=== PATIENT | female | born 1935 | race African-American/Black ===

== ENCOUNTER 2016-10-20 14:27 | Emergency (ER) | payer MEDICARE, MEDICAID ==
--- NOTE | 2016-10-20 17:33 | ER Document Report ---
ED Hand/Wrist Injury - General Chief Complaint: Wrist Pain Stated Complaint: ARM/HAND PAIN Mode of Arrival: Ambulatory Information source: Patient, Relative TRAVEL OUTSIDE OF THE [place] IN LAST 30 DAYS: No - HPI Injury to: Wrist Onset: Other - No injury states she has a bump to her right wrist medially for 3 weeks. - Related Data Allergies/Adverse Reactions: Penicillins Allergy (Verified 10/20/16 14:53) Sulfa (Sulfonamide Antibiotics) Allergy (Verified 10/20/16 14:53) Past Medical History - General Last Menstrual Period: n/a - Social History Smoking Status: Current Every Day Smoker Cigarette use (# per day): Yes Chew tobacco use (# tins/day): No Frequency of alcohol use: None Drug Abuse: None Family History: Reviewed & Not Pertinent Patient has suicidal ideation: No Patient has homicidal ideation: No - Past Medical History Cardiac Medical History: Reports: Hx Atrial Fibrillation, Hx Congestive Heart Failure, Hx Heart Attack, Hx Hypercholesterolemia, Hx Hypertension Pulmonary Medical History: Reports: Hx Asthma, Hx Bronchitis, Hx COPD, Hx Pneumonia - X6 Denies: Hx Tuberculosis Neurological Medical History: Reports: Hx Cerebrovascular Accident, Hx Seizures Endocrine Medical History: Reports: Hx Diabetes Mellitus Type 2, Hx Hypothyroidism GI Medical History: Reports: Hx Gastroesophageal Reflux Disease, Hx Ulcer Musculoskeltal Medical History: Reports Hx Arthritis Psychiatric Medical History: Reports: Hx Dementia, Hx Depression Past Surgical History: Reports: Hx Appendectomy, Hx Bowel Surgery, Hx Cardiac Catheterization. Denies: Hx Hysterectomy - Immunizations Immunizations up to date: Yes Hx Diphtheria, Pertussis, Tetanus Vaccination: Yes Hx Pneumococcal Vaccination: 10/18/08 Review of Systems - Review of Systems Constitutional: No symptoms reported EENT: No symptoms reported Cardiovascular: No symptoms reported Respiratory: No symptoms reported Gastrointestinal: No symptoms reported Genitourinary: No symptoms reported Female Genitourinary: No symptoms reported Musculoskeletal: Other - Right wrist pain Skin: No symptoms reported Hematologic/Lymphatic: No symptoms reported Neurological/Psychological: No symptoms reported Physical Exam - Vital signs Vitals: Temp Pulse Resp BP Pulse Ox 98.3 F 61 18 99/44 L 95 10/20/16 14:47 10/20/16 14:47 10/20/16 14:47 10/20/16 14:47 10/20/16 14:47 Interpretation: Normal - General General appearance: Appears well, Alert - HEENT Head: Normocephalic, Atraumatic Eyes: Normal Pupils: PERRL - Respiratory Respiratory status: No respiratory distress Chest status: Nontender Breath sounds: Normal Chest palpation: Normal - Cardiovascular Rhythm: Regular Heart sounds: Normal auscultation Murmur: No - Abdominal Inspection: Normal Distension: No distension Bowel sounds: Normal Tenderness: Nontender Organomegaly: No organomegaly - Back Back: Normal, Nontender - Extremities General upper extremity: Normal inspection, Nontender, Normal color, Normal ROM , Normal temperature General lower extremity: Normal inspection, Nontender, Normal color, Normal ROM , Normal temperature, Normal weight bearing. No: Tejas's sign Wrist: Tender. No: Axial load of thumb pain, Dislocation, Ecchymosis, Instability - Neurological Neuro grossly intact: Yes Cognition: Normal Orientation: AAOx4 Torsten Coma Scale Eye Opening: Spontaneous Torsten Coma Scale Verbal: Oriented Torsten Coma Scale Motor: Obeys Commands Torsten Coma Scale Total: 15 Speech: Normal Motor strength normal: LUE, RUE, LLE, RLE Sensory: Normal - Psychological Associated symptoms: Normal affect, Normal mood - Skin Skin Temperature: Warm Skin Moisture: Dry Skin Color: Normal Course - Vital Signs Vital signs: Temp Pulse Resp BP Pulse Ox 98.3 F 61 18 99/44 L 95 10/20/16 14:47 10/20/16 14:47 10/20/16 14:47 10/20/16 14:47 10/20/16 14:47 - Diagnostic Test Radiology reviewed: Reports reviewed Discharge - Discharge Clinical Impression: Right wrist pain Disposition: HOME, SELF-CARE Additional Instructions: Follow-up with private doctor in 1 to 2 days for final radiology readings please return to the emergency room for any change worsening condition. Follow up with private M.D. for all other routine health care needs. Prescriptions: Naproxen Sodium [Naproxen Sodium ER] 500 mg PO Q12 PRN #20 tablet.sa PRN Reason:
[2016-10-20 18:20] VITALS: BP 127/51
== END 2016-10-20 17:58 | disposition home or self-care (01) ==
LOC: ER 14:27
DX: M25.531 Pain in right wrist (principal); I25.2 Old myocardial infarction; I10 Essential (primary) hypertension; J45.909 Unspecified asthma, uncomplicated; J44.9 Chronic obstructive pulmonary disease, unspecified; E11.9 Type 2 diabetes mellitus without complications; F17.210 Nicotine dependence, cigarettes, uncomplicated; Z88.2 Allergy status to sulfonamides; Z88.0 Allergy status to penicillin; Z86.73 Personal history of transient ischemic attack (TIA), and cerebral infarction without residual deficits
CPT/HCPCS: 99283

== ENCOUNTER 2016-11-22 08:24 | Emergency (ER) | payer MEDICARE, MEDICAID ==
[2016-11-22] MEDS ORDERED: LORAZEPAM INJ 2 MG/1 ML VIAL ONE (08:40)
[2016-11-22 08:46] LABS: ABSOLUTE BASOPHILS # (AUTO) 0.1 10^3/uL (0.0-0.2); ABSOLUTE EOSINOPHILS # (AUTO) 0.1 10^3/uL (0.0-0.6); ABSOLUTE LYMPHOCYTES (AUTO) 2.6 10^3/uL (0.5-4.7); ABSOLUTE MONOCYTES (AUTO) 0.6 10^3/uL (0.1-1.4); ABSOLUTE NEUT (AUTO) 3.7 10^3/uL (1.7-8.2); BASOPHILS % (AUTO) 0.9 % (0-2); EOSINOPHILS % (AUTO) 1.3 % (0-6); HEMATOCRIT 28.7 % (36.0-47.0); HEMOGLOBIN 9.2 g/dL (12.0-15.5); HGB HCT DIFFERENCE -1.1; LYMPHOCYTES % (AUTO) 36.8 % (13-45); MEAN CORPUSCULAR HEMOGLOBIN 29.2 pg (27.0-33.4); MEAN CORPUSCULAR VOLUME 91 fl (80-97); RED BLOOD COUNT 3.15 10^6/uL (3.72-5.28); RED CELL DISTRIBUTION WIDTH 12.7 % (11.5-14.0); WHITE BLOOD COUNT 7.1 10^3/uL (4.0-10.5)
[2016-11-22] MEDS ORDERED: PHENYTOIN SODIUM INJ/PF 250 MG/5 ML SDV IV ONE (08:49)
[2016-11-22 09:09] LABS: ALANINE AMINOTRANSFERASE 18 U/L (9-52); ALBUMIN 3.3 g/dL (3.5-5.0); ALKALINE PHOSPHATASE 67 U/L (38-126); ANION GAP 12 (5-19); ASPARTATE AMINO TRANSFERASE 20 U/L (14-36); BILIRUBIN,TOTAL 0.3 mg/dL (0.2-1.3); BLOOD UREA NITROGEN 25 mg/dL (7-20); CARBON DIOXIDE 20 mmol/L (22-30); CHLORIDE 111 mmol/L (98-107); CREATININE RESULT 1.17 mg/dL (0.52-1.25); GLUCOSE 89 mg/dL (75-110); MAGNESIUM 1.9 mg/dL (1.6-2.3); POTASSIUM 4.3 mmol/L (3.6-5.0); SODIUM 143.4 mmol/L (137-145); TOTAL PROTEIN 6.9 g/dL (6.3-8.2)
--- NOTE | 2016-11-22 09:13 | ER Document Report ---
ED Seizure - General Chief Complaint: Seizure Stated Complaint: POSSIBLE SEIZURE Mode of Arrival: Medic Information source: Emergency Med Personnel, [facility] Records Cannot obtain history due to: Altered mental status Notes: This is a 81-year-old female with multiple medical problems including seizure disorder who is brought from home after family called EMS for seizure. Per EMS , family reported 120 to 32nd seizure at home, and this was followed by 2 brief witnessed seizures by EMS each lasting under a minute. The seizures are characterized by facial twitching and upper extremity shaking. The patient has a prior history of seizure disorder and is on Keppra. Further history is not available upon arrival to the ER as patient is post ictal and family is not available. It is unclear if patient has been compliant with her Keppra. In the ER initially patient was observed to have 2 brief seizure-like episodes. Ativan 2 mg IV was given. Also I have ordered a loading dose of IV phenytoin. As well as a Keppra level to be sent. Patient received 2 mg of IV Versed prior to arrival by EMS. - Related Data Allergies/Adverse Reactions: Penicillins Allergy (Verified 10/20/16 14:53) Sulfa (Sulfonamide Antibiotics) Allergy (Verified 10/20/16 14:53) Past Medical History - General Information source: Emergency Med Personnel, [facility] Records Cannot obtain history due to: Altered mental status - Social History Smoking Status: Unknown if Ever Smoked Family History: Reviewed & Not Pertinent - Past Medical History Cardiac Medical History: Reports: Hx Atrial Fibrillation, Hx Congestive Heart Failure, Hx Heart Attack, Hx Hypercholesterolemia, Hx Hypertension Pulmonary Medical History: Reports: Hx Asthma, Hx Bronchitis, Hx COPD, Hx Pneumonia - X6 Denies: Hx Tuberculosis Neurological Medical History: Reports: Hx Cerebrovascular Accident, Hx Seizures Endocrine Medical History: Reports: Hx Diabetes Mellitus Type 2, Hx Hypothyroidism GI Medical History: Reports: Hx Gastroesophageal Reflux Disease, Hx Ulcer Musculoskeltal Medical History: Reports Hx Arthritis Psychiatric Medical History: Reports: Hx Dementia, Hx Depression Past Surgical History: Reports: Hx Appendectomy, Hx Bowel Surgery, Hx Cardiac Catheterization. Denies: Hx Hysterectomy - Immunizations Immunizations up to date: Yes Hx Diphtheria, Pertussis, Tetanus Vaccination: Yes Hx Pneumococcal Vaccination: 10/18/08 Review of Systems - Review of Systems -: Yes ROS unobtainable due to patient's medical condition Physical Exam - Vital signs Vitals: Resp Pulse Ox 17 97 11/22/16 08:26 11/22/16 08:26 - Notes Notes: PHYSICAL EXAMINATION: GENERAL: Elderly female, appears to be post-ictal HEAD: Atraumatic, normocephalic. EYES: Pupils equal round and reactive to light, sclera anicteric, conjunctiva are normal. ENT: nares patent, oropharynx clear without exudates. Moist mucous membranes. NECK: supple without lymphadenopathy LUNGS: Breath sounds clear to auscultation bilaterally and equal. No wheezes rales or rhonchi. HEART: Regular rate and rhythm without murmurs ABDOMEN: Soft, nontender, normoactive bowel sounds. No guarding, no rebound. No masses appreciated. EXTREMITIES: no edema NEUROLOGICAL: pt with minimal response to sternal rub but appears to be protecting airway at this time SKIN: Warm, Dry, normal turgor, no rashes or lesions noted. Course - Re-evaluation Re-evalutation: 11/22/16 11:14 Patient with no further noted seizures after the phenytoin infusion. However she has not returned to baseline and began to develop snoring respirations. With concern for airway protection, the decision was made to intubate in the emergency department. This was discussed with her , and verbal consent was obtained. Questions were answered. She will be transferred to a facility with neurology and EEG capability. The initially prefers [facility]. 11/22/16 12:36 Care was discussed with spot welder at [facility] (family has decided that they prefer transfer to [place] ) Dr Robertson who accepts patient for transfer. 11/22/16 12:43 Patient has had no acute change prior to transport time. She has been stable on the vent. - Vital Signs Vital signs: Temp Pulse Resp BP Pulse Ox 98.1 F 90 12 171/63 H 100 11/22/16 12:41 11/22/16 08:27 11/22/16 12:35 11/22/16 12:35 11/22/16 12:35 - Laboratory Result Diagrams: 11/22/16 08:31 11/22/16 08:31 Laboratory results interpreted by me: 11/22/16 11/22/16 11/22/16 08:31 08:31 08:40 RBC 3.15 L Hgb 9.2 L Hct 28.7 L Chloride 111 H Carbon Dioxide 20 L BUN 25 H Est GFR ( Amer) 54 L Est GFR (Non-Af Amer) 45 L Albumin 3.3 L Urine Protein 30 H Procedures - Central Line Right Femoral Consent obtained: Yes - verbal consent from Central line pre-insertion: Sterile PPE donned, Chloraprep applied, Sterile drapes applied Central line size (Fr.): 7 Central line lumen type: Triple Ultrasound guided: No Line secured with sutures: Yes Central line post-insertion: Blood return from lumens, Biopatch applied, Sutured , Sterile dressing applied Number of attempts: 2 - arterial puncture 1st attempt Complications: No - pressure held, no hematoma - Intubation Orotracheal Airway evaluation: Normal anatomy, Other Mallampati Classification: Class 3 Medications: Etomidate, Other - rocuronium Intubation method: Orotracheal Blade type: Jeanmarie Blade size: 4 ETT size: 7.5 Breath Sounds after Intubation: Equal End tidal CO2 confirmed: Yes Post Intubation Xray: Yes Intubation Complications: No complications Critical Care Note - Critical Care Note Total time excluding time spent on procedures (mins): 45 Comments: Critical care time spent obtaining history from patient or surrogate, discussions with consultants, development of treatment plan with patient or surrogate, evaluation of patient's response to treatment, examination of patient , ordering and performing treatments and interventions, ordering and review of laboratory studies, re-evaluation of patient's condition, ordering and review of radiographic studies and review of old charts Discharge - Discharge Clinical Impression: Status epilepticus Anemia Qualifiers: Anemia type: unspecified type Qualified Code(s): D64.9 - Anemia, unspecified Condition: Critical Disposition: [facility]
[2016-11-22 09:18] LABS: APPEARANCE,URINE SLIGHTLY-CLOUDY; BILIRUBIN,URINE NEGATIVE (NEGATIVE); GLUCOSE, URINE NEGATIVE (NEGATIVE); KETONES,URINE NEGATIVE (NEGATIVE); LEUKOCYTE ESTERASE,URINE NEGATIVE (NEGATIVE); NITRITE,URINE NEGATIVE (NEGATIVE); PROTEIN,URINE 30 mg/dL (NEGATIVE); URINE SPECIFIC GRAVITY 1.005; UROBILINOGEN,URINE NEGATIVE mg/dL (<2.0)
[2016-11-22 09:19] LABS: ALCOHOL < 10 mg/dL (NONE DETECTED)
[2016-11-22 09:41] LABS: URINE BARBITURATES SCREEN NEGATIVE; URINE METHADONE SCREEN NEGATIVE; URINE OPIATES LOW NEGATIVE; URINE PHENCYCLIDINE SCREEN NEGATIVE
[2016-11-22] MEDS ORDERED: EPTIFIBATIDE 75 MG/100 ML IV ONE (10:14)
[2016-11-22] MEDS ORDERED: ETOMIDATE INJ/PF 20 MG/10 ML SDV IV ONE ×2 (10:14→11:20)
[2016-11-22] MEDS ORDERED: PROPOFOL 100 ML IV ONE (10:17)
[2016-11-22] MEDS: PROPOFOL 100 ML IV PRN ×2 (11:14→13:00)
[2016-11-22] MEDS ORDERED: LORAZEPAM INJ 2 MG/1 ML VIAL IV ONE (11:19)
[2016-11-22] MEDS ORDERED: ROCURONIUM BROMIDE INJ 50 MG/5 ML VIAL IV ONE (11:20)
[2016-11-22 12:41] VITALS: BP 171/63
--- NOTE | 2016-11-23 08:14 | EKG REPORT ---
SEVERITY:- ABNORMAL ECG - SINUS RHYTHM FIRST DEGREE AV BLOCK PROBABLE POSTERIOR INFARCT NONSPECIFIC T ABNORMALITIES, LATERAL LEADS : Confirmed by: Dexter Camarillo MD 23-Nov-2016 08:13:22
== END 2016-11-22 13:01 | disposition short-term general hospital (02) ==
LOC: ER 08:24
PROC: 06HM33Z Insertion of Infusion Device into Right Femoral Vein, Percutaneous Approach (ICD-10-PCS; principal; 2016-11-22)
PROC: 0BH17EZ Insertion of Endotracheal Airway into Trachea, Via Natural or Artificial Opening (ICD-10-PCS; 2016-11-22)
DX: G40.901 Epilepsy, unspecified, not intractable, with status epilepticus (principal); D64.9 Anemia, unspecified; I48.91 Unspecified atrial fibrillation; I50.9 Heart failure, unspecified; I11.0 Hypertensive heart disease with heart failure; E78.00 Pure hypercholesterolemia, unspecified; E11.9 Type 2 diabetes mellitus without complications; E03.9 Hypothyroidism, unspecified; K21.9 Gastro-esophageal reflux disease without esophagitis; Z88.0 Allergy status to penicillin; Z88.2 Allergy status to sulfonamides; Z86.73 Personal history of transient ischemic attack (TIA), and cerebral infarction without residual deficits
CPT/HCPCS: 36556; 31500; 93005; 99291; 51701; 96375; 96365; 36415; 80177; 82962; 80307 ×2; 83735; 85025; 80053; 81001; 71010; 70450; 93010; C1751; J3490; J2704; J2060; J1165

== ENCOUNTER 2016-12-06 18:28 | Emergency (ER) | payer MEDICARE, MEDICAID ==
[2016-12-06] MEDS ORDERED: MIDAZOLAM 2 MG/2 ML INJ ONE (18:59)
[2016-12-06] MEDS ORDERED: LORAZEPAM INJ 2 MG/1 ML VIAL IM ONE (19:53)
[2016-12-06] MEDS ORDERED: HALOPERIDOL LACTATE INJ 5 MG/1 ML VIAL IM ONE (19:53)
[2016-12-06 21:03] LABS: ABSOLUTE BASOPHILS # (AUTO) 0.1 10^3/uL (0.0-0.2); ABSOLUTE LYMPHOCYTES (AUTO) 1.6 10^3/uL (0.5-4.7); ABSOLUTE MONOCYTES (AUTO) 0.6 10^3/uL (0.1-1.4); ABSOLUTE NEUT (AUTO) 8.5 10^3/uL (1.7-8.2); BASOPHILS % (AUTO) 0.6 % (0-2); EOSINOPHILS % (AUTO) 0.4 % (0-6); HEMOGLOBIN 8.7 g/dL (12.0-15.5); HGB HCT DIFFERENCE -0.9; LYMPHOCYTES % (AUTO) 14.5 % (13-45); MEAN CORPUSCULAR HEMOGLOBIN 29.5 pg (27.0-33.4); MEAN CORPUSCULAR HGB CONC 32.1 g/dL (32.0-36.0); MEAN CORPUSCULAR VOLUME 92 fl (80-97); MONOCYTES % (AUTO) 5.4 % (3-13); RED BLOOD COUNT 2.94 10^6/uL (3.72-5.28); RED CELL DISTRIBUTION WIDTH 13.3 % (11.5-14.0); SEGMENTED NEUTROPHILS % (AUTO) 79.1 % (42-78); WHITE BLOOD COUNT 10.8 10^3/uL (4.0-10.5)
[2016-12-06 21:11] LABS: PROTHROMBIN TIME 13.7 SEC (11.4-15.4)
[2016-12-06 21:24] LABS: ALANINE AMINOTRANSFERASE 24 U/L (9-52); ALBUMIN 4.2 g/dL (3.5-5.0); ALKALINE PHOSPHATASE 100 U/L (38-126); ANION GAP 10 (5-19); ASPARTATE AMINO TRANSFERASE 28 U/L (14-36); BILIRUBIN,TOTAL 0.4 mg/dL (0.2-1.3); BLOOD UREA NITROGEN 24 mg/dL (7-20); CALCIUM 9.2 mg/dL (8.4-10.2); CARBON DIOXIDE 24 mmol/L (22-30); CHLORIDE 110 mmol/L (98-107); CREATININE RESULT 1.16 mg/dL (0.52-1.25); GLUCOSE 120 mg/dL (75-110); POTASSIUM 4.4 mmol/L (3.6-5.0); SODIUM 143.8 mmol/L (137-145); TOTAL PROTEIN 7.8 g/dL (6.3-8.2)
[2016-12-06 21:25] LABS: ALCOHOL < 10 mg/dL (NONE DETECTED)
[2016-12-06 21:40] LABS: APPEARANCE,URINE SLIGHTLY-CLOUDY; BILIRUBIN,URINE NEGATIVE (NEGATIVE); GLUCOSE, URINE NEGATIVE (NEGATIVE); KETONES,URINE NEGATIVE (NEGATIVE); LEUKOCYTE ESTERASE,URINE NEGATIVE (NEGATIVE); NITRITE,URINE NEGATIVE (NEGATIVE); PROTEIN,URINE 100 mg/dL (NEGATIVE); URINE SPECIFIC GRAVITY 1.023; UROBILINOGEN,URINE NEGATIVE mg/dL (<2.0)
[2016-12-06 21:42] LABS: URINE BARBITURATES SCREEN NEGATIVE; URINE METHADONE SCREEN NEGATIVE; URINE OPIATES LOW NEGATIVE; URINE PHENCYCLIDINE SCREEN NEGATIVE
--- NOTE | 2016-12-07 00:06 | ER Document Report ---
ED General - General Chief Complaint: Altered Mental Status Stated Complaint: UTI Mode of Arrival: Medic Information source: Relative, Emergency Med Personnel Cannot obtain history due to: Dementia Notes: This is a 81-year-old female with a history of Alzheimer's dementia and seizure disorder who is brought to the ER by EMS for altered mental status. Secondary to dementia and some aggressive behavior, the history is obtained from the . Patient's states that she has had Alzheimer's dementia for several years but that said for the past 4 days her behavior has gotten worse. She has had episodes of agitation and has seemed even more confused than normal. Today she was riding in the car and once he parked the car, he walked around to get her wheelchair but she had already opened the car door and then sat on the curb. She did not fall and she did not hit her head. Once she was sitting on the ground, however, she refused to get up and she became aggressive with anyone who tried to assist her. She was also paranoid stating that people were trying to kill her. For this reason, EMS was called and patient was transported to the ER. Of note, patient was seen here 2 weeks ago for seizures and was intubated secondary to status epilepticus. She was transferred to [facility] and was just discharged home last week. cares for her at home and is very comfortable doing this. TRAVEL OUTSIDE OF THE [place] IN LAST 30 DAYS: No - Related Data Allergies/Adverse Reactions: Penicillins Allergy (Verified 10/20/16 14:53) Sulfa (Sulfonamide Antibiotics) Allergy (Verified 10/20/16 14:53) Past Medical History - General Information source: Relative, [facility] Records - Social History Smoking Status: Unknown if Ever Smoked Family History: Reviewed & Not Pertinent - Past Medical History Cardiac Medical History: Reports: Hx Atrial Fibrillation, Hx Congestive Heart Failure, Hx Heart Attack, Hx Hypercholesterolemia, Hx Hypertension Pulmonary Medical History: Reports: Hx Asthma, Hx Bronchitis, Hx COPD, Hx Pneumonia - X6 Denies: Hx Tuberculosis Neurological Medical History: Reports: Hx Cerebrovascular Accident, Hx Seizures Endocrine Medical History: Reports: Hx Diabetes Mellitus Type 2, Hx Hypothyroidism GI Medical History: Reports: Hx Gastroesophageal Reflux Disease, Hx Ulcer Musculoskeltal Medical History: Reports Hx Arthritis Psychiatric Medical History: Reports: Hx Dementia, Hx Depression Past Surgical History: Reports: Hx Appendectomy, Hx Bowel Surgery, Hx Cardiac Catheterization. Denies: Hx Hysterectomy - Immunizations Immunizations up to date: Yes Hx Diphtheria, Pertussis, Tetanus Vaccination: Yes Hx Pneumococcal Vaccination: 10/18/08 Review of Systems - Review of Systems Notes: Review of systems is not obtainable secondary to patient's dementia and altered mental status. Per her , she has been acting differently for the past 4 days with increased agitation and paranoia. She has baseline dementia and is normally confused however the agitation is new. She has had no recent fevers or chills. She was just discharged from [facility] last week -: Yes ROS unobtainable due to patient's medical condition Physical Exam - Vital signs Vitals: Resp Pulse Ox 22 H 98 12/06/16 18:45 12/06/16 18:45 - Notes Notes: PHYSICAL EXAMINATION: GENERAL: Well-appearing, well-nourished elderly female, pressured speech and hyperreligious, but not combative at this time. HEAD: Atraumatic, normocephalic. EYES: Pupils equal round and reactive to light, extraocular movements intact, sclera anicteric, conjunctiva are normal. ENT: nares patent, oropharynx clear without exudates. Moist mucous membranes. NECK: Normal range of motion, supple without lymphadenopathy LUNGS: Breath sounds clear to auscultation bilaterally and equal. No wheezes rales or rhonchi. HEART: Regular rate and rhythm without murmurs ABDOMEN: Soft, nontender, normoactive bowel sounds. No guarding, no rebound. No masses appreciated. EXTREMITIES: Normal range of motion, no pitting or edema. No cyanosis. NEUROLOGICAL: No gross focal motor or sensory deficits appreciated. Pt moves all 4 symmetrically and follows commands. PSYCH: anxious affect, paranoid and agitatied SKIN: Warm, Dry, normal turgor, no rashes or lesions noted. Course - Re-evaluation Re-evalutation: 12/07/16 00:04 Patient noted to be sleeping and resting comfortably after the Haldol and Ativan. Her head CT and chest x-ray are negative. Her laboratory evaluation demonstrates an anemia which was present on prior visit. states she has not had any GI bleeding. She is guaiac-negative from below. At this time I have not found a medical cause for her delirium. I suspect that this is worsening dementia. I did discuss the case with Dr. Brizuela the hospitalist who states that with no indication for a medical admission, a regimen of respiradol at home may be beneficial. I discussed this with the patient's and he is comfortable caring for her at home. Patient will follow-up with her primary care physician this week. We also discussed strict return precautions. - Vital Signs Vital signs: Temp Pulse Resp BP Pulse Ox 97.4 F 18 172/68 H 98 12/07/16 00:17 12/07/16 02:01 12/07/16 00:01 12/07/16 02:01 - Laboratory Result Diagrams: 12/06/16 20:00 12/06/16 20:00 Laboratory results interpreted by me: 12/06/16 12/06/16 12/06/16 20:00 20:00 20:47 WBC 10.8 H RBC 2.94 L Hgb 8.7 L Hct 27.0 L Plt Count 565 H Seg Neutrophils % 79.1 H Absolute Neutrophils 8.5 H Chloride 110 H BUN 24 H Est GFR ( Amer) 55 L Est GFR (Non-Af Amer) 45 L Glucose 120 H Urine Protein 100 H - Diagnostic Test Radiology reviewed: Reports reviewed - Chest x-ray and head CT negative Discharge - Discharge Clinical Impression: Dementia in Alzheimer's disease with delirium Hypertension Qualifiers: Hypertension type: essential hypertension Qualified Code(s): I10 - Essential ( primary) hypertension Anemia Qualifiers: Anemia type: unspecified type Qualified Code(s): D64.9 - Anemia, unspecified Condition: Stable Disposition: HOME, SELF-CARE Additional Instructions: Dementia The exam shows a decrease in mental ability called dementia. Signs of dementia include a gradual loss of memory and a decreased ability to reason and solve problems. Personality changes, hostility, lack of self-care, and loss of bladder or bowel control are later signs of dementia. In these later stages, patients may become confused, lost, fearful, or agitated, even in familiar places. Alzheimer's disease is the most common type of dementia. It has no known cause or specific treatment. Other causes include alcohol and drug abuse, medication effects (especially tranquilizers and sleeping pills), strokes, head injuries, and brain tumors. Sometimes severe depression in an elderly person is mistaken for dementia, and this can be treated if recognized. A complete medical evaluation and ongoing care with a doctor is important. Most people with dementia need help or supervision with daily living. Some may be able to live independently with occasional help; others require foster care or even correction placement. Alcohol, sedatives, and antihistamines may make the symptoms worse and should be avoided. Alzheimer's disease support groups are available in some communities and can be very valuable to the entire family. Prescription medication can ease the symptoms of Alzheimer's disease in some patients. Please arrange for medical follow-up. Return here if there is a sudden change in mental function, inability to move an arm or leg, inability to speak, fever, or any other significant change. Prescriptions: Risperidone [Risperdal 0.25 Mg Tablet] 0.25 mg PO BID #30 tablet Referrals: HECTOR BAILEY MD [Primary Care Provider] - 12/07/16 11:30 am
[2016-12-07 03:36] VITALS: BP 187/90
== END 2016-12-07 03:25 | disposition home or self-care (01) ==
LOC: ER 18:28
DX: G30.9 Alzheimer's disease, unspecified (principal); F02.81 Dementia in other diseases classified elsewhere, unspecified severity, with behavioral disturbance; F05 Delirium due to known physiological condition; I10 Essential (primary) hypertension; D64.9 Anemia, unspecified; I25.2 Old myocardial infarction; J44.9 Chronic obstructive pulmonary disease, unspecified; J45.909 Unspecified asthma, uncomplicated; Z86.73 Personal history of transient ischemic attack (TIA), and cerebral infarction without residual deficits; Z88.0 Allergy status to penicillin; Z88.2 Allergy status to sulfonamides
CPT/HCPCS: 99285; 96372; 96374; 36415; 80307 ×2; 80185; 85025; 85610; 85730; 82272; 80053; 81001; 84484; 71010; 70450; J2250; J1630; J2060

== ENCOUNTER 2017-06-17 15:48 | Inpatient (IN) | payer MEDICARE, MEDICAID ==
--- NOTE | 2017-06-17 16:14 | RADIOLOGY REPORT (SQ) ---
EXAM DESCRIPTION: CHEST SINGLE VIEW COMPLETED DATE/TIME: 06/17/2017 4:06 pm REASON FOR STUDY: t1 sepsis protocol COMPARISON: 12/06/2016 EXAM PARAMETERS: NUMBER OF VIEWS: One view. TECHNIQUE: Single frontal radiographic view of the chest acquired. RADIATION DOSE: NA LIMITATIONS: None. FINDINGS: LUNGS AND PLEURA: There is chronic elevation of the left hemidiaphragm. There is no pulmo nary infiltrate or effusion or mass. MEDIASTINUM AND HILAR STRUCTURES: No masses. Contour normal. HEART AND VASCULAR STRUCTURES: Heart normal in size. Normal vasculature. BONES: No acute findings. HARDWARE: None in the chest. OTHER: No other significant finding. IMPRESSION: NO ACUTE RADIOGRAPHIC FINDING IN THE CHEST. TECHNICAL DOCUMENTATION: JOB ID: [id number]
--- NOTE | 2017-06-17 16:16 | ER Document Report ---
ED General - General Mode of Arrival: Medic Information source: Emergency Med Personnel TRAVEL OUTSIDE OF THE [place] IN LAST 30 DAYS: No - HPI Onset: Just prior to arrival Similar symptoms previously: No Recently seen / treated by doctor: No <SHANNON BROWER - Last Filed: 06/17/17 16:38> <ARIEL ROBIN - Last Filed: 06/17/17 19:16> - General Chief Complaint: Unresponsive Stated Complaint: WEAKNESS Time Seen by Provider: 06/17/17 16:01 - HPI Notes: Patient is a 82-year-old female presented emergency department with a history of dementia for altered mental status. Patient was at [facility] across the street from the emergency department when she became unresponsive and was hypotensive. Patient was 50 systolic and unresponsive at Nephrology clinic and 80 systolic and unresponsive with EMS upon arrival to ED. Patient was 110/48 during exam and was awake and talking. Patient was given 100 mL of normal saline by EMS. EMS also states they removed a clonidine patch from the patient. Patient is demented so the history is limited. According to [facility] records the patient has a history of atrial fibrillation, CHF , CAD, ND, hypertension, hypercholesterolemia, COPD, CVA, seizures, type 2 diabetes mellitus, and hypothyroidism. Patient is allergic to penicillins and sulfa drugs. (SHANNON BROWER) - Related Data Allergies/Adverse Reactions: Penicillins Allergy (Verified 10/20/16 14:53) Sulfa (Sulfonamide Antibiotics) Allergy (Verified 10/20/16 14:53) Home Medications: Current Home Medications Acetaminophen [Tylenol Extra Strength] 500 mg PO Q4 PRN 06/17/17 [History] Cyclobenzaprine HCl 5 mg PO DAILY PRN 06/17/17 [History] Diltiazem HCl [Cardizem Cd 240 mg Capsule.cr] 1 cap.sr PO BID 06/17/17 [History] Folic Acid 1 mg PO DAILY 06/17/17 [History] Phenytoin Sodium Extended [Dilantin 100 mg Capsule.er] 100 mg PO Q8 06/17/17 [ History] Past Medical History - General Information source: [facility] Records - Social History Smoking Status: Smoker,Current Status Unk Family History: None Patient has suicidal ideation: No Patient has homicidal ideation: No - Past Medical History Cardiac Medical History: Reports: Hx Atrial Fibrillation, Hx Congestive Heart Failure, Hx Coronary Artery Disease, Hx Heart Attack, Hx Hypercholesterolemia, Hx Hypertension Pulmonary Medical History: Reports: Hx Asthma, Hx Bronchitis, Hx COPD, Hx Pneumonia - X6 Neurological Medical History: Reports: Hx Cerebrovascular Accident, Hx Seizures Endocrine Medical History: Reports: Hx Diabetes Mellitus Type 2, Hx Hypothyroidism GI Medical History: Reports: Hx Gastroesophageal Reflux Disease, Hx Ulcer Musculoskeltal Medical History: Reports Hx Arthritis Psychiatric Medical History: Reports: Hx Dementia, Hx Depression Past Surgical History: Reports: Hx Appendectomy, Hx Bowel Surgery, Hx Cardiac Catheterization - Immunizations Immunizations up to date: Yes Hx Diphtheria, Pertussis, Tetanus Vaccination: Yes Hx Pneumococcal Vaccination: 10/18/08 <SHANNON BROWER - Last Filed: 06/17/17 16:38> Review of Systems - Review of Systems -: Yes ROS unobtainable due to patient's medical condition - Hypotension, altered mental status, dementia <SHANNON BROWER - Last Filed: 06/17/17 16:38> Physical Exam - Vital signs Interpretation: Hypotensive <SHANNON BROWER - Last Filed: 06/17/17 16:38> <ARIEL ROBIN - Last Filed: 06/17/17 19:16> - Vital signs Vitals: Resp BP Pulse Ox 15 110/46 L 98 06/17/17 15:52 06/17/17 15:52 06/17/17 15:52 - Notes Notes: GENERAL: Alert, awake and talking, demented, mild distress. HEAD: Normocephalic, atraumatic. EYES: Blind. ENT: Moist mucus membranes, tongue midline. NECK: Full range of motion. Supple. Trachea midline. LUNGS: Clear to auscultation bilaterally, no wheezes, rales, or rhonchi. No respiratory distress. HEART: Regular rate and rhythm. No murmurs, gallops, or rubs. ABDOMEN: Soft, non-tender. Non-distended. Normal bowel sounds. EXTREMITIES:No edema. NEUROLOGICAL: Alert. Normal speech. No focal neurological deficits. PSYCH: Demented. SKIN: Warm, dry, normal turgor. No rashes or lesions noted. (SHANNON BROWER) Course - Laboratory Result Diagrams: 06/17/17 16:35 06/17/17 18:14 - Diagnostic Test Radiology reviewed: Image reviewed, Reports reviewed - Chronically elevated left hemidiaphragm, no acute changes. - EKG Interpretation by Me EKG shows normal: Sinus rhythm, Guffey, Intervals, QRS Complexes. abnormal: ST-T Waves - Diffuse borderline T abnormalities Rate: Normal - 80 Rhythm: NSR When compared to previous EKG there are: No significant change - Consults Dr. Aleman Time consulted: 18:15 <ARIEL ROBIN - Last Filed: 06/17/17 19:16> - Vital Signs Vital signs: Temp Pulse Resp BP Pulse Ox 16 137/59 H 97 06/17/17 19:01 06/17/17 19:01 06/17/17 19:01 - Laboratory Laboratory results interpreted by me: 06/17/17 06/17/17 06/17/17 16:32 16:35 16:35 WBC 12.4 H RBC 3.04 L Hgb 9.1 L Hct 27.9 L Seg Neutrophils % 80.6 H Lymphocytes % 12.8 L Absolute Neutrophils 10.0 H VBG pH VBG HCO3 Sodium 136.4 L Potassium 7.0 H* Chloride 110 H Carbon Dioxide 14 L BUN 41 H Creatinine 1.99 H Est GFR ( Amer) 29 L Est GFR (Non-Af Amer) 24 L Glucose 201 H POC Glucose 210 H Calcium AST 66 H ALT 129 H Alkaline Phosphatase 153 H Albumin 3.4 L 06/17/17 06/17/17 18:14 18:14 WBC RBC Hgb Hct Seg Neutrophils % Lymphocytes % Absolute Neutrophils VBG pH 7.23 L VBG HCO3 18.4 L Sodium Potassium 6.6 H* Chloride 111 H Carbon Dioxide 14 L BUN 40 H Creatinine 1.91 H Est GFR ( Amer) 31 L Est GFR (Non-Af Amer) 25 L Glucose 174 H POC Glucose Calcium 10.6 H AST ALT Alkaline Phosphatase Albumin Critical Care Note - Critical Care Note Total time excluding time spent on procedures (mins): 45 <ARIEL ROBIN - Last Filed: 06/17/17 19:16> Discharge <SHANNON BORWER - Last Filed: 06/17/17 16:38> - Discharge Admitting Provider: [facility] Unit Admitted: ICU <ARIEL ROBIN - Last Filed: 06/17/17 19:16> - Discharge Clinical Impression: Hyperkalemia, Elevated LFTs Hypotension Qualifiers: Hypotension type: unspecified hypotension type Qualified Code(s): I95.9 - Hypotension, unspecified Dementia Qualifiers: Dementia type: unspecified type Dementia behavioral disturbance: without behavioral disturbance Qualified Code(s): F03.90 - Unspecified dementia without behavioral disturbance Condition: Fair Disposition: ADMITTED INPATIENT Referrals: RAJEEV BAILEY MD [Primary Care Provider] - Follow up as needed Scribe Attestation: 06/17/17 17:40 I personally performed the services described in the documentation, reviewed and edited the documentation which was dictated to the scribe in my presence, and it accurately records my words and actions. (ARIEL ROBIN) Scribe Documentation - Scribe Written by Tylor:: Tylor Wong 06/17/17 16:38 acting as scribe for :: Celsa <SHANNON BROWER - Last Filed: 06/17/17 16:38>
[2017-06-17 16:55] LABS: ABSOLUTE EOSINOPHILS # (AUTO) 0.2 10^3/uL (0.0-0.6); ABSOLUTE LYMPHOCYTES (AUTO) 1.6 10^3/uL (0.5-4.7); ABSOLUTE MONOCYTES (AUTO) 0.6 10^3/uL (0.1-1.4); BASOPHILS % (AUTO) 0.4 % (0-2); EOSINOPHILS % (AUTO) 1.3 % (0-6); HEMATOCRIT 27.9 % (36.0-47.0); HEMOGLOBIN 9.1 g/dL (12.0-15.5); HGB HCT DIFFERENCE -0.6; LYMPHOCYTES % (AUTO) 12.8 % (13-45); MEAN CORPUSCULAR HEMOGLOBIN 29.9 pg (27.0-33.4); MEAN CORPUSCULAR HGB CONC 32.6 g/dL (32.0-36.0); MEAN CORPUSCULAR VOLUME 92 fl (80-97); MONOCYTES % (AUTO) 4.9 % (3-13); RED BLOOD COUNT 3.04 10^6/uL (3.72-5.28); RED CELL DISTRIBUTION WIDTH 13.7 % (11.5-14.0); SEGMENTED NEUTROPHILS % (AUTO) 80.6 % (42-78); WHITE BLOOD COUNT 12.4 10^3/uL (4.0-10.5)
[2017-06-17 17:16] LABS: ALANINE AMINOTRANSFERASE 129 U/L (9-52); ALBUMIN 3.4 g/dL (3.5-5.0); ALKALINE PHOSPHATASE 153 U/L (38-126); ANION GAP 12 (5-19); ASPARTATE AMINO TRANSFERASE 66 U/L (14-36); BILIRUBIN,DIRECT 0.4 mg/dL (0.0-0.4); BILIRUBIN,TOTAL 0.4 mg/dL (0.2-1.3); BLOOD UREA NITROGEN 41 mg/dL (7-20); CALCIUM 9.4 mg/dL (8.4-10.2); CARBON DIOXIDE 14 mmol/L (22-30); CHLORIDE 110 mmol/L (98-107); CREATINE KINASE 106 U/L (30-135); CREATININE RESULT 1.99 mg/dL (0.52-1.25); GLUCOSE 201 mg/dL (75-110); MAGNESIUM 2.2 mg/dL (1.6-2.3); SODIUM 136.4 mmol/L (137-145); TOTAL PROTEIN 6.5 g/dL (6.3-8.2)
[2017-06-17] MEDS ORDERED: CALCIUM GLUCONATE 1000 MG/10 ML INJ IV ONE (17:23)
[2017-06-17] MEDS ORDERED: SODIUM BICARBONATE 8.4% INJ 50 MEQ/50 ML DISP.SYRIN IV ONE ×2 (17:23→19:14)
[2017-06-17] MEDS ORDERED: INSULIN REG, HUMAN 100 UNIT/ML 3 ML VIAL (PYX) IV ONE (17:24)
[2017-06-17] MEDS ORDERED: NORMAL SALINE 1000 ML 1,000 ML IV ONE (17:27)
[2017-06-17 17:29] LABS: APPEARANCE,URINE SLIGHTLY-CLOUDY; BILIRUBIN,URINE NEGATIVE (NEGATIVE); GLUCOSE, URINE NEGATIVE (NEGATIVE); KETONES,URINE NEGATIVE (NEGATIVE); LEUKOCYTE ESTERASE,URINE NEGATIVE (NEGATIVE); NITRITE,URINE NEGATIVE (NEGATIVE); PROTEIN,URINE NEGATIVE (NEGATIVE); URINE SPECIFIC GRAVITY 1.012; UROBILINOGEN,URINE NEGATIVE mg/dL (<2.0)
[2017-06-17] MEDS ORDERED: SODIUM POLYSTYRENE SULFONATE 15 GM/60 ML PO ONE (17:50)
[2017-06-17] MEDS ORDERED: DEXTROSE 50%-WATER 25 GM/50 ML DISP.SYRIN IV ONE (18:03)
[2017-06-17 18:22] LABS: VENOUS BLOOD BASE EXCESS -8.7 mmol/L; VENOUS BLOOD HCO3 18.4 mmol/L (20-32); VENOUS BLOOD PCO2 45.3 mmHg (35-63); VENOUS BLOOD PH 7.23 (7.30-7.42)
[2017-06-17 18:39] LABS: PROTHROMBIN TIME 14.2 SEC (11.4-15.4)
[2017-06-17] MEDS ORDERED: IPRATROPIUM/ALBUTEROL 0.5-2.5 MG/3 ML AMPUL NEB PRN (18:40)
[2017-06-17] MEDS ORDERED: NORMAL SALINE 1000 ML 1,000 ML IV PRN (18:40)
[2017-06-17] MEDS ORDERED: ONDANSETRON HCL INJ/PF 4 MG/2 ML SDV IV PRN (18:40)
[2017-06-17 18:42] LABS: ADD ON TESTING BLD IN LAB ACKNOWLEDGE
[2017-06-17 18:54] LABS: ANION GAP 13 (5-19); BLOOD UREA NITROGEN 40 mg/dL (7-20); CALCIUM 10.6 mg/dL (8.4-10.2); CARBON DIOXIDE 14 mmol/L (22-30); CHLORIDE 111 mmol/L (98-107); CREATININE RESULT 1.91 mg/dL (0.52-1.25); GLUCOSE 174 mg/dL (75-110)
[2017-06-17 19:03] LABS: POTASSIUM 6.6 mmol/L (3.6-5.0)
[2017-06-17] MEDS ORDERED: (PENDING PHARMACY ID) (Cyclobenzaprine Hcl [Cyclobenzaprine Hcl] 5 MG) PO PRN (19:30)
[2017-06-17] MEDS ORDERED: NITROGLYCERIN 0.4 MG/TAB 25 TAB/BOTTLE SL PRN (19:30)
[2017-06-17] MEDS ORDERED: CYCLOBENZAPRINE HCL 10 MG TABLET PO PRN (19:42)
--- NOTE | 2017-06-17 20:02 | PDOC H&P ---
History of Present Illness Admission Date/PCP: 06/17/17 19:32 RAJEEV BAILEY MD Patient complains of: Unresponsive History of Present Illness: ANG CHRISTY is a 82 year old female This is a 82-year-old female with a significant history of the hepatic encephalopathy and underlying dementia history of the hypertensions with several hypertensive emergency admission in the hospitalAnd a history of the seizures disorder and multiple other medical problemsWent to the nephrology office today for the routine checkup and patient suddenly blood pressures dropped up to 80 systolic and patient was unresponsiveAnd the EMS was called and EMS give 100 cc IV fluidAnd patient's blood pressures go to up to 100+ In the ER patient's response back to normal alert awake and talkingWhen I saw the patient's patient was fully back to the baseline But in the emergency department patient's potassium was 7.0 and patient's creatinine was 1.99Patient potassium was normal last month and creatinine was 1.19 Patient's otherwise white count was slightly elevated with a history of the urinary tract infections in the past and history of the stroke and multiple other complications decided to admit in the ICU for further evaluation and treatments Patient's troponin was slightly elevated 0.01434 most likely underlying hypotensive episodes but no other acute EKG changes Past Medical History Cardiac Medical History: Reports: Atrial Fibrillation, Congestive Heart Failure , Coronary Artery Disease, Myocardial Infarction, Hyperlipidema, Hypertension Pulmonary Medical History: Reports: Asthma, Bronchitis, Chronic Obstructive Pulmonary Disease (COPD), Pneumonia - X6 Denies: Tuberculosis Neurological Medical History: Reports: Ischemic CVA, Seizures Endocrine Medical History: Reports: Diabetes Mellitus Type 2, Hypothyroidism Renal/ Medical History: Reports: Chronic Kidney Disease GI Medical History: Reports: Gastroesophageal Reflux Disease Musculoskeltal Medical History: Reports: Arthritis Psychiatric Medical History: Reports: Dementia, Depression Hematology: Reports: Anemia Past Surgical History Past Surgical History: Reports: Appendectomy, Cardiac Catheterization Denies: Hysterectomy Social History Smoking Status: Smoker,Current Status Unk Frequency of Alcohol Use: None Hx Recreational Drug Use: No Hx Prescription Drug Abuse: No Family History Family History: Reviewed & Not Pertinent Parental Family History Reviewed: No Children Family History Reviewed: No Sibling(s) Family History Reviewed.: No Medication/Allergy Home Medications: Citalopram Hydrobromide [Celexa 20 mg Tablet] 20 mg PO QHS 12/06/15 Isosorbide Mononitrate [Imdur 60 mg Tablet.er] 60 mg PO DAILY 12/06/15 Levothyroxine Sodium [Synthroid 0.075 mg Tablet] 0.075 mg PO DAILY 12/06/15 Metoprolol Tartrate 25 mg PO BID 12/06/15 Simvastatin 20 mg PO DAILY 12/06/15 Sitagliptin Phosphate [Januvia 25 mg Tablet] 25 mg PO DAILY 12/06/15 Aspirin [Aspirin 325 mg Tablet] 325 mg PO DAILY #0 tablet 12/24/15 Clonidine [Catapres-Tts 2 (0.2 mg/24 Hr) Transderm Ptc] 1 each TD Th@10 #30 patch.tdwk 12/24/15 Hydralazine HCl [Apresoline 50 mg Tablet] 50 mg PO Q6 #90 tablet 12/24/15 Levetiracetam [Keppra 500 mg Tablet] 1,500 mg PO Q12 #60 tablet 12/24/15 Gabapentin [Neurontin 100 mg Capsule] 1 cap PO BID 03/05/16 Nitroglycerin 1 tab SL PRN PRN 03/05/16 Lisinopril [Prinivil 10 mg Tablet] 40 mg PO DAILY #30 tablet 03/10/16 Risperidone [Risperdal 0.25 Mg Tablet] 0.25 mg PO BID #30 tablet 12/07/16 Acetaminophen [Tylenol Extra Strength] 500 mg PO Q4 PRN 06/17/17 Cyclobenzaprine HCl 5 mg PO DAILY PRN 06/17/17 Diltiazem HCl [Cardizem Cd 240 mg Capsule.cr] 1 cap.sr PO BID 06/17/17 Folic Acid 1 mg PO DAILY 06/17/17 Phenytoin Sodium Extended [Dilantin 100 mg Capsule.er] 100 mg PO Q8 06/17/17 Allergies/Adverse Reactions: Penicillins Allergy (Verified 10/20/16 14:53) Sulfa (Sulfonamide Antibiotics) Allergy (Verified 10/20/16 14:53) Review of Systems ROS unobtainable: Due to mental status All systems: reviewed and no additional remarkable complaints except as stated Physical Exam Vital Signs: Temp Pulse Resp BP Pulse Ox 16 137/59 H 97 06/17/17 19:01 06/17/17 19:01 06/17/17 19:01 General appearance: PRESENT: no acute distress Eye exam: PRESENT: EOMI, PERRLA Mouth exam: PRESENT: dry mucosa Neck exam: ABSENT: carotid bruit, full ROM, JVD, lymphadenopathy, meningismus, tenderness, thyromegaly, tracheal deviation, tracheostomy, other Respiratory exam: PRESENT: clear to auscultation becca Cardiovascular exam: PRESENT: +S1, +S2 GI/Abdominal exam: PRESENT: normal bowel sounds, soft. ABSENT: tenderness Neurological exam: PRESENT: alert, awake, oriented to person Psychiatric exam: PRESENT: anxious Results Impressions: Chest X-Ray 06/17/17 15:51 IMPRESSION: NO ACUTE RADIOGRAPHIC FINDING IN THE CHEST. Assessment & Plan - Diagnosis (1) Hypotension Qualifiers: Hypotension type: unspecified hypotension type Qualified Code(s): I95.9 - Hypotension, unspecified Is this a current diagnosis for this admission?: Yes Plan: Currently all resolved we admit the patient's to rule out any acute coronary syndromes and rule out any sepsisContinues to IV fluid and hold the blood pressure medicationsPossible underlying dehydration's (2) Hyperkalemia Is this a current diagnosis for this admission?: Yes Plan: Due to the acute renal failure due to the possible underlying dehydration's and hypertensions. Start the patient on IV fluid patient's potassium is already coming down to 6.[address] Aleman continues to monitor the patientNo need for any hemodialysis at this point Patients may be get a benefit to DC the lisinopril on discharge (3) Elevated LFTs Is this a current diagnosis for this admission?: Yes Plan: Most likely due to the hepatic congestions will get the ultrasound for the liver and hold the statin (4) Acute kidney injury Is this a current diagnosis for this admission?: Yes Plan: Due to the above conditions continues IV fluid follow with the nephrology (5) Coronary artery disease Qualifiers: Coronary Disease-Associated Artery/Lesion type: [place] artery [place] vs. transplanted heart: [place] heart Associated angina: angina presence unspecified Qualified Code(s): I25.10 - Atherosclerotic heart disease of [place] coronary artery without angina pectoris Is this a current diagnosis for this admission?: Yes Plan: With elevated troponin will rule out acute coronary syndromes consult Dr. Fierro Patients follow outpatients to him regularly (6) Elevated troponin I level Is this a current diagnosis for this admission?: Yes Plan: Due to the underlying hypertension's and acute renal failure most likely a troponin leak and will see any acute coronary syndromes but will rule out the cardiac enzyme 3 and consult the cardiology continues to aspirin (7) Encephalopathy Is this a current diagnosis for this admission?: Yes Plan: Patient was significant hypertensive encephalopathy with the vascular dementia will check the ammonia level (8) Seizure Is this a current diagnosis for this admission?: Yes Plan: We hold the Dilantin level is slightly elevated and continues to Keppra currently IV until the patient's Fully back to the baseline (9) Type 2 diabetes mellitus Qualifiers: Diabetes mellitus complication status: with kidney complications Diabetes mellitus complication detail: with chronic kidney disease Diabetes mellitus prison insulin use: without rugby league footballer use Qualified Code(s): E11.8 - Type 2 diabetes mellitus with unspecified complications Is this a current diagnosis for this admission?: Yes Plan: Continues the patient on sliding scale (10) Uncontrolled hypertension Is this a current diagnosis for this admission?: Yes Plan: Patient's blood pressure is very labile with extensive evaluations done by the nephrology in the past I think is more related to the patient's noncompliance with the medications and sometimes patients taking the all medication and blood pressures go down and sometimes patients do not take the medication blood pressures go upDaughter discussed with the patient and the about the patient's current condition and compliance with the medication in the past (11) Anemia Qualifiers: Anemia type: due to chronic kidney disease Chronic kidney disease stage: stage 3 (moderate) Qualified Code(s): N18.3 - Chronic kidney disease, stage 3 (moderate); D63.1 - Anemia in chronic kidney disease Is this a current diagnosis for this admission?: Yes Plan: Get the iron study (12) Cerebrovascular disease Is this a current diagnosis for this admission?: Yes Plan: Continues to aspirin and get the CT of the head - Time Time Spent: 50 to 70 Minutes Critical Time spent with patient: 25-34 minutes Medications reviewed and adjusted accordingly: Yes Within: Other - Inpatient Certification Medical Necessity: Need Close Monitoring Due to Risk of Patient Decompensation, Need For IV Fluids, Need for IV Antibiotics Post Hospital Care: D/C [employer] Documentation - Plan Summary Plan Summary: Very extensive discussions with the regarding the patient's current conditions and discussed with the coordinate care with the nephrology and cardiology and admit the patient in ICU until the patient's potassium is back to normal Will also get the CT of the head for further evaluation for a neurological events
[2017-06-17] MEDS ORDERED: LEVETIRACETAM 1500 MG/NACL-ISO 1,500 MG/100 ML RTUPB IV ONE (20:30)
--- NOTE | 2017-06-17 20:37 | EKG REPORT ---
SEVERITY:- BORDERLINE ECG - SINUS RHYTHM BORDERLINE T ABNORMALITIES, DIFFUSE LEADS : Confirmed by: Martin Pereira 17-Jun-2017 20:36:18
--- NOTE | 2017-06-17 20:45 | RADIOLOGY REPORT (SQ) ---
EXAM DESCRIPTION: CT HEAD WITHOUT COMPLETED DATE/TIME: 06/17/2017 8:17 pm REASON FOR STUDY: ams COMPARISON: 12/06/2016 TECHNIQUE: Axial images acquired through the brain without intravenous contrast. Images reviewed wi th bone, brain and subdural windows. Images stored on PACS. All CT scanners at this facility use dose modulation, iterative reconstruction, and/or weight based d osing when appropriate to reduce radiation dose to as low as reasonably achievable (ALARA). [facility]: Dose Right [facility]: CareDose [facility]: Dose Right [facility]: Teradose 4D [facility]: Smart Tactilize RADIATION DOSE: Up-to-date CT equipment and radiation dose reduction techniques were employed. CTDIv ol: 29.1 - 64.6 mGy. DLP: 1734 mGy-cm.mGy. LIMITATIONS: None. FINDINGS: VENTRICLES: Prominent. CEREBRUM: No masses. No hemorrhage. No midline shift. Areas of low density in the white matter mos t likely due to chronic micro-vascular ischemic change. No evidence for acute infarction. CEREBELLUM: No masses. No hemorrhage. No alteration of density. No evidence for acute infarction. EXTRAAXIAL SPACES: Age-related involutional change. No fluid collections. No masses. ORBITS AND GLOBE: No intra- or extraconal masses. Normal contour of globe without masses. CALVARIUM: No fracture. PARANASAL SINUSES: No fluid or mucosal thickening. SOFT TISSUES: No mass or hematoma. OTHER: No other significant finding. IMPRESSION: CHRONIC CHANGES OF ATROPHY AND MICROVASCULAR ISCHEMIA. NO ACUTE PROCESS. TECHNICAL DOCUMENTATION: JOB ID: [id number] Quality ID # [id number]: Final reports with documentation of one or more dose reduction techniques (e.g., Au tomated exposure control, adjustment of the mA and/or kV according to patient size, use of iterative reconstruction technique) 2010 [employer]- All Rights Reserved
[2017-06-17] MEDS ORDERED: LEVETIRACETAM 500 MG TABLET PO SCH (22:00)
[2017-06-17 22:27] LABS: ANION GAP 12 (5-19); BLOOD UREA NITROGEN 35 mg/dL (7-20); CALCIUM 9.4 mg/dL (8.4-10.2); CARBON DIOXIDE 17 mmol/L (22-30); CHLORIDE 110 mmol/L (98-107); GLUCOSE 269 mg/dL (75-110); SODIUM 139.3 mmol/L (137-145)
[2017-06-17 22:39] LABS: CREATINE KINASE MB 2.51 ng/mL (<4.55)
[2017-06-17 22:41] LABS: POTASSIUM 5.6 mmol/L (3.6-5.0)
[2017-06-17 22:43] LABS: TROPONIN I 0.142 ng/mL
[2017-06-17] MEDS: FAMOTIDINE INJ/PF 20 MG/2 ML SDV IV SCH (23:46)
[2017-06-17] MEDS: CITALOPRAM HYDROBROMIDE 20 MG TABLET PO SCH (23:48)
[2017-06-17] MEDS ORDERED: HYDRALAZINE HCL 25 MG TABLET ONE (23:48)
[2017-06-17] MEDS: SODIUM BICARBONATE 650 MG TABLET PO SCH (23:48)
[2017-06-17] MEDS: CIPROFLOXACIN 200 MG/D5W RTU 200 MG/100 ML RTUPB IV SCH (23:49)
[2017-06-17] MEDS: HEPARIN SOD (PORCINE) 5,000 UNIT/ML 1 ML SYRINGE SUBCUT SCH (23:49)
--- NOTE | 2017-06-17 23:56 | RADIOLOGY REPORT (SQ) ---
EXAM DESCRIPTION: CHEST SINGLE VIEW COMPLETED DATE/TIME: 06/17/2017 11:05 pm REASON FOR STUDY: central line placement COMPARISON: Earlier exam same date EXAM PARAMETERS: NUMBER OF VIEWS: One view. TECHNIQUE: Single frontal radiographic view of the chest acquired. RADIATION DOSE: NA LIMITATIONS: None. FINDINGS: LUNGS AND PLEURA: No acute opacities, masses or pneumothorax. No pleural effusion. MEDIASTINUM AND HILAR STRUCTURES: Stable. Elevated left hemidiaphragm. HEART AND VASCULAR STRUCTURES: Heart normal in size. Normal vasculature. BONES: No acute findings. HARDWARE: Right IJ central venous catheter tip overlies the RA -SVC junction. OTHER: No other significant finding. IMPRESSION: No pneumothorax. Right IJ central venous catheter tip overlies the RA -SVC junction. TECHNICAL DOCUMENTATION: JOB ID: [id number]
[2017-06-18] MEDS ORDERED: HYDRALAZINE HCL 50 MG TABLET PO SCH ×2 (00:01→14:00)
[2017-06-18] MEDS ORDERED: NORMAL SALINE 1000 ML 1,000 ML IV PRN (00:30)
[2017-06-18] MEDS: HYDRALAZINE HCL INJ/PF 20 MG/1 ML SDV IV PRN (00:33)
--- NOTE | 2017-06-18 00:59 | OPERATIVE REPORT E ---
Operative Report NAME: ANG CHRISTY : 1935 AGE: 82Y DATE OF SURGERY: 06/17/2017 ROOM: 607 PREOPERATIVE DIAGNOSIS: Inadequate peripheral venous access. POSTOPERATIVE DIAGNOSIS: Inadequate peripheral venous access. PROCEDURE PERFORMED: Insertion of right external jugular vein triple lumen catheter. SURGEON: WILVER ROMERO M.D. ANESTHESIA: Local with 1% lidocaine. COMPLICATIONS: None. CONDITION: Stable. DESCRIPTION OF PROCEDURE: After consent was obtained, the patient's right neck was prepped and draped in the usual sterile manner. Patient was placed in the Trendelenburg position and the patient had her head turned to the right which exposed and revealed a bulging right external jugular vein. After timeout was achieved, local anesthesia was injected just at the proximal edge of the visible external jugular vein just below the mandible. A wheal was made with the local anesthesia, and then a stab wound was made through the wheal, and then we percutaneously accessed the right external jugular vein. With the flash of venous blood in syringe, the syringe was removed and the guidewire was advanced and twisted and manipulated until it reached the brachiocephalic vein, and then into the superior vena cava presumably. The vein dilator was placed over the guidewire, and then using the sterile Seldinger technique, the triple lumen catheter was advanced over the guidewire and the guidewire was removed. The catheter was advanced to the 20 cm pascual and secured in this position. Antegrade and retrograde flow was noted and each lumen was flushed with saline. Biopatch and Tegaderm was applied, and chest x-ray showed the catheter in the superior vena cava just lateral to the atrium with good position. The triple lumen catheter can now be accessed. DICTATING PHYSICIAN: WILVER ROMERO M.D. [id number] PHY#: [id number] ID: [id number] JOB#: [id number] ACCT: [id number] cc:WILVER ROMERO M.D. >
[2017-06-18] MEDS: HEPARIN SOD (PORCINE) 5,000 UNIT/ML 1 ML SYRINGE SUBCUT SCH ×3 (05:31→22:29)
[2017-06-18 05:34] LABS: ABSOLUTE LYMPHOCYTES (AUTO) 1.2 10^3/uL (0.5-4.7); ABSOLUTE MONOCYTES (AUTO) 0.8 10^3/uL (0.1-1.4); ABSOLUTE NEUT (AUTO) 10.9 10^3/uL (1.7-8.2); BASOPHILS % (AUTO) 0.4 % (0-2); EOSINOPHILS % (AUTO) 0.3 % (0-6); HEMATOCRIT 27.7 % (36.0-47.0); HEMOGLOBIN 9.1 g/dL (12.0-15.5); HGB HCT DIFFERENCE -0.4; LYMPHOCYTES % (AUTO) 8.9 % (13-45); MEAN CORPUSCULAR HGB CONC 32.7 g/dL (32.0-36.0); MEAN CORPUSCULAR VOLUME 92 fl (80-97); MONOCYTES % (AUTO) 6.2 % (3-13); RED BLOOD COUNT 3.03 10^6/uL (3.72-5.28); RED CELL DISTRIBUTION WIDTH 13.5 % (11.5-14.0); SEGMENTED NEUTROPHILS % (AUTO) 84.2 % (42-78); WHITE BLOOD COUNT 12.9 10^3/uL (4.0-10.5)
[2017-06-18 06:03] LABS: ALANINE AMINOTRANSFERASE 112 U/L (9-52); ALBUMIN 3.2 g/dL (3.5-5.0); ALKALINE PHOSPHATASE 151 U/L (38-126); ANION GAP 7 (5-19); ASPARTATE AMINO TRANSFERASE 50 U/L (14-36); BILIRUBIN,DIRECT 0.3 mg/dL (0.0-0.4); BILIRUBIN,TOTAL 0.3 mg/dL (0.2-1.3); BLOOD UREA NITROGEN 30 mg/dL (7-20); CALCIUM 8.8 mg/dL (8.4-10.2); CARBON DIOXIDE 21 mmol/L (22-30); CHLORIDE 112 mmol/L (98-107); CREATINE KINASE 95 U/L (30-135); CREATININE RESULT 1.27 mg/dL (0.52-1.25); GLUCOSE 228 mg/dL (75-110); MAGNESIUM 1.8 mg/dL (1.6-2.3); SODIUM 140.4 mmol/L (137-145); TOTAL PROTEIN 6.3 g/dL (6.3-8.2)
[2017-06-18 06:10] LABS: CREATINE KINASE MB 3.04 ng/mL (<4.55)
[2017-06-18 06:14] LABS: TROPONIN I 0.243 ng/mL
[2017-06-18] MEDS ORDERED: DEXTROSE 50%-WATER 25 GM/50 ML DISP.SYRIN IV PRN ×2 (07:10)
[2017-06-18] MEDS ORDERED: GLUCAGON,HUMAN RECOMB 1 MG INJ IM PRN (07:10)
[2017-06-18] MEDS ORDERED: DEXTROSE 40% GEL 15 GM TUBE PO PRN ×2 (07:10)
--- NOTE | 2017-06-18 07:42 | RADIOLOGY REPORT (SQ) ---
EXAM DESCRIPTION: U/S ABDOMEN COMPLETE W/O DOP COMPLETED DATE/TIME: 06/18/2017 6:49 am REASON FOR STUDY: abnormal lft COMPARISON: CT, 01/15/2012. CT, 08/28/2011. TECHNIQUE: Dynamic and static grayscale images acquired of the abdomen and recorded on PACS. Additio nal selected color Doppler and spectral images recorded. LIMITATIONS: As below. FINDINGS: PANCREAS: Partially obscured. LIVER: No masses. Echotexture normal. LIVER VASCULATURE: Normal directional flow of the main portal vein and hepatic veins. GALLBLADDER: Gallstone(s), small, few. No pericholecystic fluid. No wall thickening. ULTRASOUND-DETECTED GANDHI'S SIGN: Negative. INTRAHEPATIC DUCTS AND COMMON DUCT: 0.5 cm diameter CBD and intrahepatic ducts normal caliber. No geryr ling defects. INFERIOR VENA CAVA: Normal flow. AORTA: Partially obscured. RIGHT KIDNEY: Normal size. Normal echogenicity. No solid or suspicious masses. No hydronephros is. No calcifications. LEFT KIDNEY: Indeterminate 2.1 cm hypoechoic ovoid lesion of the posterior upper pole of the left ki dney without significant vascularity, not definitively characterized. SPLEEN: Normal size. No solid masses. Limited visualization. PERITONEAL AND PLEURAL SPACES: No ascites or effusions. OTHER: No other significant finding. IMPRESSION: 1. Indeterminate 2.1 cm left renal lesion may indicate a hemorrhagic cyst or other neop lasm. Recommend further evaluation with contrast CT or MRI of the kidneys. 2. Cholelithiasis. 3. Limitations. TECHNICAL DOCUMENTATION: JOB ID: [id number] [employer]- All Rights Reserved
--- NOTE | 2017-06-18 08:47 | PDOC PROGRESS REPORT ---
Subjective Progress Note for:: 06/18/17 Subjective:: Patient is currently doing fair. According to the ICU nursing steps patient is alert awake talking and no other events happens overnight Patient's blood pressure actually go up and required to add more blood pressure medications Patient's potassium is getting better back to normal Patient's abdominal ultrasound so some questionable renal lesions Patient have gallstones but no cholecystitis Physical Exam Vital Signs: Temp Pulse Resp BP Pulse Ox 99.1 F 105 H 13 144/61 H 99 06/18/17 08:00 06/18/17 08:00 06/18/17 08:00 06/18/17 08:00 06/18/17 08:00 Intake & Output 06/17/17 06/18/17 06/19/17 06:59 06:59 06:59 Intake Total 620 Output Total 650 100 Balance -30 -100 Weight 54.9 kg General appearance: PRESENT: no acute distress Eye exam: PRESENT: PERRLA Mouth exam: PRESENT: dry mucosa Neck exam: ABSENT: carotid bruit, full ROM, JVD, lymphadenopathy, meningismus, tenderness, thyromegaly, tracheal deviation, tracheostomy, other Respiratory exam: PRESENT: clear to auscultation becca Cardiovascular exam: PRESENT: +S1, +S2 GI/Abdominal exam: PRESENT: normal bowel sounds, soft Neurological exam: PRESENT: alert, awake, oriented to person Psychiatric exam: PRESENT: anxious Skin exam: PRESENT: dry Results Laboratory Results: 06/18/17 05:10 06/18/17 05:10 06/17/17 06/17/17 06/18/17 21:50 21:50 05:10 WBC 12.9 H RBC 3.03 L Hgb 9.1 L Hct 27.7 L MCV 92 MCH 30.0 MCHC 32.7 RDW 13.5 Plt Count 272 Seg Neutrophils % 84.2 H Lymphocytes % 8.9 L Monocytes % 6.2 Eosinophils % 0.3 Basophils % 0.4 Absolute Neutrophils 10.9 H Absolute Lymphocytes 1.2 Absolute Monocytes 0.8 Absolute Eosinophils 0.0 Absolute Basophils 0.0 Sodium 139.3 Potassium 5.6 H D Chloride 110 H Carbon Dioxide 17 L Anion Gap 12 BUN 35 H Creatinine 1.50 H Est GFR ( Amer) 40 L Est GFR (Non-Af Amer) 33 L Glucose 269 H Calcium 9.4 Magnesium Total Bilirubin AST ALT Alkaline Phosphatase Ammonia 23.5 Total Protein Albumin TSH 06/18/17 06/18/17 05:10 05:10 WBC RBC Hgb Hct MCV MCH MCHC RDW Plt Count Seg Neutrophils % Lymphocytes % Monocytes % Eosinophils % Basophils % Absolute Neutrophils Absolute Lymphocytes Absolute Monocytes Absolute Eosinophils Absolute Basophils Sodium 140.4 Potassium 5.0 Chloride 112 H Carbon Dioxide 21 L Anion Gap 7 BUN 30 H Creatinine 1.27 H Est GFR ( Amer) 49 L Est GFR (Non-Af Amer) 40 L Glucose 228 H Calcium 8.8 Magnesium 1.8 Total Bilirubin 0.3 AST 50 H ALT 112 H Alkaline Phosphatase 151 H Ammonia Total Protein 6.3 Albumin 3.2 L TSH 3.42 06/17/17 06/17/17 06/18/17 21:50 21:50 05:10 Creatine Kinase 100 95 CK-MB (CK-2) 2.51 Troponin I 0.142 NT-Pro-B Natriuret Pep 06/18/17 05:10 Creatine Kinase CK-MB (CK-2) 3.04 Troponin I 0.243 NT-Pro-B Natriuret Pep 2450 H Impressions: Head CT 06/17/17 00:00 IMPRESSION: CHRONIC CHANGES OF ATROPHY AND MICROVASCULAR ISCHEMIA. NO ACUTE PROCESS. Chest X-Ray 06/17/17 22:41 IMPRESSION: No pneumothorax. Right IJ central venous catheter tip overlies the RA -SVC junction. Abdomen Ultrasound 06/18/17 00:00 IMPRESSION: 1. Indeterminate 2.1 cm left renal lesion may indicate a hemorrhagic cyst or other neoplasm. Recommend further evaluation with contrast CT or MRI of the kidneys. 2. Cholelithiasis. 3. Limitations. Assessment & Plan - Diagnosis (1) Hypotension Qualifiers: Hypotension type: unspecified hypotension type Qualified Code(s): I95.9 - Hypotension, unspecified Is this a current diagnosis for this admission?: Yes Plan: Currently all resolved (2) Hyperkalemia Is this a current diagnosis for this admission?: Yes Plan: Currently all resolved (3) Elevated LFTs Is this a current diagnosis for this admission?: Yes Plan: Will get the MRI of the abdomen for further evaluations (4) Acute kidney injury Is this a current diagnosis for this admission?: Yes Plan: Currently getting better continues to IV fluid follow with nephrology (5) Coronary artery disease Qualifiers: Coronary Disease-Associated Artery/Lesion type: [place] artery [place] vs. transplanted heart: [place] heart Associated angina: angina presence unspecified Qualified Code(s): I25.10 - Atherosclerotic heart disease of [place] coronary artery without angina pectoris Is this a current diagnosis for this admission?: Yes Plan: Elevated cardiac enzymes will consult the cardiology waiting for cardiac consult (6) Elevated troponin I level Is this a current diagnosis for this admission?: Yes Plan: Most likely due to the underlying hypotension's episodes will wait for the cardiac concerns repeat the EKG and cardiac enzyme continues to aspirin and beta -mary (7) Encephalopathy Is this a current diagnosis for this admission?: Yes Plan: Patient was significant hypertensive encephalopathy with the vascular dementia will check the ammonia level (8) Seizure Is this a current diagnosis for this admission?: Yes Plan: We hold the Dilantin level is slightly elevated and continues to Keppra currently IV until the patient's Fully back to the baseline (9) Type 2 diabetes mellitus Qualifiers: Diabetes mellitus complication status: with kidney complications Diabetes mellitus complication detail: with chronic kidney disease Diabetes mellitus skilled nursing insulin use: without intermediate designer use Qualified Code(s): E11.8 - Type 2 diabetes mellitus with unspecified complications Is this a current diagnosis for this admission?: Yes Plan: Continues the patient on sliding scale (10) Uncontrolled hypertension Is this a current diagnosis for this admission?: Yes Plan: Patient's blood pressure is very labile with extensive evaluations done by the nephrology in the past I think is more related to the patient's noncompliance with the medications and sometimes patients taking the all medication and blood pressures go down and sometimes patients do not take the medication blood pressures go upDaughter discussed with the patient and the about the patient's current condition and compliance with the medication in the past (11) Anemia Qualifiers: Anemia type: due to chronic kidney disease Chronic kidney disease stage: stage 3 (moderate) Qualified Code(s): N18.3 - Chronic kidney disease, stage 3 (moderate); D63.1 - Anemia in chronic kidney disease Is this a current diagnosis for this admission?: Yes Plan: Get the iron study (12) Cerebrovascular disease Is this a current diagnosis for this admission?: Yes Plan: Patient CT head was negative for any acute finding - Time Time Spent with patient: 15-24 minutes Medications reviewed and adjusted accordingly: Yes Anticipated discharge: Home Within: Other - Inpatient Certification Medical Necessity: Need For IV Fluids, Need for IV Antibiotics Post Hospital Care: D/C [facility] [employer] Documentation - Plan Summary Plan Summary: Patient's currently remained stable transfer to the IMCU wait for the cardiac consults and nephro consult continues to current other medications schedule the MRI of the abdomen for further evaluations
[2017-06-18] MEDS ORDERED: CLONIDINE HCL 0.1 MG TABLET PO SCH (10:00)
[2017-06-18] MEDS ORDERED: DILTIAZEM HCL 120 MG CAP.SR.24H PO SCH (10:00)
[2017-06-18] MEDS ORDERED: GABAPENTIN 100 MG CAPSULE PO SCH (10:00)
[2017-06-18 11:05] LABS: CREATINE KINASE MB 3.27 ng/mL (<4.55); TROPONIN I 0.22 ng/mL
[2017-06-18] MEDS: ISOSORBIDE MONONITRATE 60 MG TAB.ER.24H PO SCH (12:00)
[2017-06-18] MEDS: SODIUM BICARBONATE 650 MG TABLET PO SCH ×2 (12:00→22:27)
[2017-06-18] MEDS: METOPROLOL TARTRATE 25 MG TABLET PO SCH ×2 (12:01→22:28)
[2017-06-18] MEDS: RISPERIDONE 0.25 MG TABLET PO SCH ×2 (12:01→18:47)
[2017-06-18] MEDS: ASPIRIN 325 MG TABLET PO SCH (12:02)
[2017-06-18] MEDS: FOLIC ACID 1 MG TABLET PO SCH (12:02)
[2017-06-18] MEDS: LEVOTHYROXINE SODIUM 0.075 MG TABLET PO SCH (12:02)
[2017-06-18] MEDS: GABAPENTIN 100 MG CAPSULE PO SCH ×2 (12:03→18:47)
[2017-06-18] MEDS: CIPROFLOXACIN 200 MG/D5W RTU 200 MG/100 ML RTUPB IV SCH ×2 (12:03→22:29)
[2017-06-18] MEDS: LEVETIRACETAM 1500 MG/NACL-ISO 1,500 MG/100 ML RTUPB IV SCH ×2 (12:03→22:29)
[2017-06-18] MEDS: FAMOTIDINE INJ/PF 20 MG/2 ML SDV IV SCH ×2 (12:03→22:27)
[2017-06-18] MEDS: INSULIN LISPRO 100 UNIT/ML 3 ML VIAL SUBCUT PRN (12:15)
--- NOTE | 2017-06-18 13:30 | PDOC CONSULTATION ---
Consultation Consult Date: 06/18/17 Attending physician:: RAJEEV BAILEY Consult reason:: Hypotension and abnormal troponin I History of Present Illness Admission Date/PCP: 06/17/17 18:41 RAJEEV BAILEY MD Patient complains of: High potassium History of Present Illness: ANG CHRISTY is a 82 year old female with a significant history of underlying dementia, history of the hypertensions with several hypertensive emergency admission in the hospital, history of the seizures disorder and multiple other medical problemsWent to the nephrology office today for the routine checkup and patient suddenly blood pressures dropped up to 80 systolic and patient was unresponsive. The EMS was called and EMS give 100 cc IV fluidAnd patient's blood pressures go to up to 100+ In the ER patient's response back to normal alert awake and talking. When examined by the PMD in the ER, patient was fully back to the baseline But in the emergency department patient's potassium was 7.0 and patient's creatinine was 1.99. Patient potassium was normal last month and creatinine was 1.19 Patient's otherwise white count was slightly elevated with a history of the urinary tract infections in the past and history of the stroke and multiple other complications decided to admit in the ICU for further evaluation and treatments Patient's troponin was slightly elevated 0.41652 most likely underlying hypotensive episodes but no other acute EKG changes. I been asked to evaluate patient because of abnormal troponin I and also hypertension. Past Medical History Cardiac Medical History: Reports: Atrial Fibrillation, Congestive Heart Failure , Coronary Artery Disease, Myocardial Infarction, Hyperlipidema, Hypertension Pulmonary Medical History: Reports: Asthma, Bronchitis, Chronic Obstructive Pulmonary Disease (COPD), Pneumonia - X6 Denies: Tuberculosis Neurological Medical History: Reports: Ischemic CVA, Seizures Endocrine Medical History: Reports: Diabetes Mellitus Type 2, Hypothyroidism Renal/ Medical History: Reports: Chronic Kidney Disease GI Medical History: Reports: Gastroesophageal Reflux Disease Musculoskeltal Medical History: Reports: Arthritis Psychiatric Medical History: Reports: Dementia, Depression Hematology: Reports: Anemia Past Surgical History Past Surgical History: Reports: Appendectomy, Cardiac Catheterization Denies: Hysterectomy Social History Information Source: Relative Smoking Status: Former Smoker Frequency of Alcohol Use: None Hx Recreational Drug Use: No Hx Prescription Drug Abuse: No - Advance Directive Resuscitation Status: Full Code Surrogate healthcare decision maker:: Patient's Family History Family History: Hypertension Parental Family History Reviewed: Yes Children Family History Reviewed: Yes Sibling(s) Family History Reviewed.: Yes Medication/Allergy Home Medications: Citalopram Hydrobromide [Celexa 20 mg Tablet] 20 mg PO QHS 12/06/15 Isosorbide Mononitrate [Imdur 60 mg Tablet.er] 60 mg PO DAILY 12/06/15 Levothyroxine Sodium [Synthroid 0.075 mg Tablet] 0.075 mg PO DAILY 12/06/15 Metoprolol Tartrate 25 mg PO Q12 12/06/15 Simvastatin 20 mg PO QHS 12/06/15 Sitagliptin Phosphate [Januvia 25 mg Tablet] 25 mg PO DAILY 12/06/15 Aspirin [Aspirin 325 mg Tablet] 325 mg PO DAILY #0 tablet 12/24/15 Clonidine [Catapres-Tts 2 (0.2 mg/24 Hr) Transderm Ptch] 1 each TD Th@10 #30 patch.tdwk 12/24/15 Hydralazine HCl [Apresoline 50 mg Tablet] 50 mg PO Q6 #90 tablet 12/24/15 Levetiracetam [Keppra 500 mg Tablet] 1,500 mg PO Q12 #60 tablet 12/24/15 Gabapentin [Neurontin 100 mg Capsule] 1 cap PO Q12 03/05/16 Nitroglycerin 1 tab SL PRN PRN 03/05/16 Lisinopril [Prinivil 10 mg Tablet] 40 mg PO DAILY #30 tablet 03/10/16 Risperidone [Risperdal 0.25 Mg Tablet] 0.25 mg PO BID #30 tablet 12/07/16 Acetaminophen [Tylenol Extra Strength] 500 mg PO Q4 PRN 06/17/17 Cyclobenzaprine HCl 5 mg PO DAILY PRN 06/17/17 Diltiazem HCl [Cardizem Cd 240 mg Capsule.cr] 1 cap.sr PO Q12 06/17/17 Folic Acid 1 mg PO DAILY 06/17/17 Phenytoin Sodium Extended [Dilantin 100 mg Capsule.er] 100 mg PO Q8 06/17/17 Allergies/Adverse Reactions: Penicillins Allergy (Verified 10/20/16 14:53) Sulfa (Sulfonamide Antibiotics) Allergy (Verified 10/20/16 14:53) Review of Systems Review of Systems: This is limited because of patient's dementia. Physical Exam Vital Signs: Temp Pulse Resp BP Pulse Ox 98.4 F 107 H 16 142/72 H 93 06/18/17 12:00 06/18/17 12:00 06/18/17 12:00 06/18/17 12:00 06/18/17 12:00 Intake & Output 06/17/17 06/18/17 06/19/17 06:59 06:59 06:59 Intake Total 620 Output Total 650 350 Balance -30 -350 Weight 54.9 kg Exam: GENERAL: well-nourished and in no acute distress. Patient is alert, oriented to person and place but not time HEAD: Atraumatic, normocephalic. EYES: Pupils equal round and reactive to light, extraocular movements intact, sclera anicteric, conjunctiva are normal. Patient is legally blind. ENT: TMs normal, nares patent, oropharynx clear without exudates. Moist mucous membranes. No oral ulcerations or bleeding gums noted NECK: supple without lymphadenopathy or JVD. Trachea is central. No cervical or axillary lymphadenopathy noted. Carotids are 2+ LUNGS: Breath sounds bibasilar fine crackles at bases. No significant dullness noted. CHEST: Palpation of chest wall shows no significant chest wall tenderness. 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 ABDOMEN: Soft, no significant tenderness appreciated, normoactive bowel sounds. No guarding, no rebound. No rigidity noted . No masses appreciated. EXTREMITIES: Pedal pulses are 1-2+, no calf tenderness noted, Trace + pedal edema noted. No clubbing or cyanosis. NEUROLOGICAL: Patient is alert, patient is noted to have left hemiparesis signs, . PSYCH: Psych exam because of the patient's current mental status SKIN: No significant ecchymosis, rash, ulcerations or signs of pruritus noted. MUSCULOSKELETAL EXAM: No significant joint swelling noted. Patient is nonambulatory. Results Laboratory Results: 06/18/17 05:10 06/18/17 05:10 06/17/17 06/17/17 06/18/17 21:50 21:50 05:10 WBC 12.9 H RBC 3.03 L Hgb 9.1 L Hct 27.7 L MCV 92 MCH 30.0 MCHC 32.7 RDW 13.5 Plt Count 272 Seg Neutrophils % 84.2 H Lymphocytes % 8.9 L Monocytes % 6.2 Eosinophils % 0.3 Basophils % 0.4 Absolute Neutrophils 10.9 H Absolute Lymphocytes 1.2 Absolute Monocytes 0.8 Absolute Eosinophils 0.0 Absolute Basophils 0.0 Sodium 139.3 Potassium 5.6 H D Chloride 110 H Carbon Dioxide 17 L Anion Gap 12 BUN 35 H Creatinine 1.50 H Est GFR ( Amer) 40 L Est GFR (Non-Af Amer) 33 L Glucose 269 H Calcium 9.4 Magnesium Total Bilirubin AST ALT Alkaline Phosphatase Ammonia 23.5 Total Protein Albumin TSH 06/18/17 06/18/17 05:10 05:10 WBC RBC Hgb Hct MCV MCH MCHC RDW Plt Count Seg Neutrophils % Lymphocytes % Monocytes % Eosinophils % Basophils % Absolute Neutrophils Absolute Lymphocytes Absolute Monocytes Absolute Eosinophils Absolute Basophils Sodium 140.4 Potassium 5.0 Chloride 112 H Carbon Dioxide 21 L Anion Gap 7 BUN 30 H Creatinine 1.27 H Est GFR ( Amer) 49 L Est GFR (Non-Af Amer) 40 L Glucose 228 H Calcium 8.8 Magnesium 1.8 Total Bilirubin 0.3 AST 50 H ALT 112 H Alkaline Phosphatase 151 H Ammonia Total Protein 6.3 Albumin 3.2 L TSH 3.42 06/17/17 06/17/17 06/18/17 21:50 21:50 05:10 Creatine Kinase 100 95 CK-MB (CK-2) 2.51 Troponin I 0.142 NT-Pro-B Natriuret Pep 06/18/17 06/18/17 06/18/17 05:10 10:13 10:13 Creatine Kinase 91 CK-MB (CK-2) 3.04 3.27 Troponin I 0.243 0.220 NT-Pro-B Natriuret Pep 2450 H EKG Comments: Sinus rhythm with minor nonspecific ST-T changes. Impressions: Head CT 06/17/17 00:00 IMPRESSION: CHRONIC CHANGES OF ATROPHY AND MICROVASCULAR ISCHEMIA. NO ACUTE PROCESS. Chest X-Ray 06/17/17 22:41 IMPRESSION: No pneumothorax. Right IJ central venous catheter tip overlies the RA -SVC junction. Abdomen Ultrasound 06/18/17 00:00 IMPRESSION: 1. Indeterminate 2.1 cm left renal lesion may indicate a hemorrhagic cyst or other neoplasm. Recommend further evaluation with contrast CT or MRI of the kidneys. 2. Cholelithiasis. 3. Limitations. Assessment & Plan - Diagnosis (1) Elevated troponin I level Is this a current diagnosis for this admission?: Yes (2) Hyperkalemia Is this a current diagnosis for this admission?: Yes (3) Hypotension Qualifiers: Hypotension type: unspecified hypotension type Qualified Code(s): I95.9 - Hypotension, unspecified Is this a current diagnosis for this admission?: Yes (4) Coronary artery disease Qualifiers: Coronary Disease-Associated Artery/Lesion type: [place] artery [place] vs. transplanted heart: [place] heart Associated angina: angina presence unspecified Qualified Code(s): I25.10 - Atherosclerotic heart disease of [place] coronary artery without angina pectoris Is this a current diagnosis for this admission?: Yes (5) Hypertension Qualifiers: Hypertension type: unspecified secondary hypertension Is this a current diagnosis for this admission?: Yes - Notes Notes: Elevated troponin I level: Most likely related to hypotension. Patient does have some minor nonspecific ST-T changes. Patient does have history of coronary artery disease. Did talk to patient . Due to patient's other significant comorbid diagnosis, dementia and basically nonambulatory status, patient would be not be a optimal candidate for any stress testing. Will try optimize medical management for underlying CAD. Hyperkalemia: This has been expertly treated with potassium at 5.0 today. Hypotension: Most likely related to volume depletion. Occasionally high potassium can cause myocardial depression. Continue slow hydration. Coronary artery disease: Patient without any symptoms of chest pain. Will optimize therapy.recommend beta-blockers, statins. MONY/ARB may be contraindicated because of hyperkalemia. Hypertension: Blood pressure now elevated. May need to gradually resume home antihypertensives. 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 - Time Time Spent: 30 to 50 Minutes - CODE STATUS was discussed, patient remains full code. Surrogate decision-maker unchanged. Multiple medical problems were addressed. More than 50% of the time spent coordinating care, discussing management plans with involved caregivers. Management plans discussed with involved personnels. Medical decision making was of moderate to high complexity , patient's has multiple comorbidities. Medications reviewed and adjusted accordingly: Yes
[2017-06-18] MEDS ORDERED: NORMAL SALINE 1000 ML 1,000 ML IV ONE (15:00)
--- NOTE | 2017-06-18 16:19 | PDOC CONSULTATION ---
Consultation Consult Date: 06/18/17 Consult reason:: PABLO and Hyperkalemia History of Present Illness Admission Date/PCP: 06/17/17 18:41 RAJEEV BAILEY MD History of Present Illness: ANG CHRISTY is a 82 year old female with a significant history of underlying dementia, hepatic encephalopathy, history of the hypertension with several hypertensive emergency admission in the hospital, history of the seizures disorder and multiple other medical problems. She came to see me in the clinic yesterday as a establishing care as a new CKD patient. Upon arriving she had a blood pressure in the 70s systolic, at the time the patient was lethagic. The stated that this was her normal state. Patient at the moment was becoming less responsive so I had one of my nurses call EMS and the other recheck a blood pressure and check a blood sugar, since she is diabetic. Recheck of bp was at 50s systolic and blood glucose was 221. EMS arrived and started an IV and gave fluid, which raised the BP. She was taken to the ER. In the ER she had a potassium of 7 and a elevated creatinine of 1.99.Dr. Aleman advised giving NS. She was given NS at a continuous rate, which dropped potassium to 5.0 this morning. Creatinine is also back down to baseline. She currently in the ICU and since has been restarted on her bp meds because she is now hypertensive. She is also more alert, awake and talking. She does not recall coming to the office or being taken to the ER. Past Medical History Cardiac Medical History: Reports: Atrial Fibrillation, Coronary Artery Disease, Hyperlipidemia, Myocardial Infarction Pulmonary Medical History: Reports: Asthma, Bronchitis, Chronic Obstructive Pulmonary Disease (COPD), Pneumonia - X6 Denies: Tuberculosis Neurological Medical History: Reports: Ischemic CVA, Seizures Endocrine Medical History: Reports: Diabetes Mellitus Type 2, Hypothyroidism GI Medical History: Reports: Gastroesophageal Reflux Disease Musculoskeltal Medical History: Reports: Arthritis Psychiatric Medical History: Reports: Dementia, Depression Past Surgical History Past Surgical History: Reports: Appendectomy, Cardiac Catheterization Denies: Hysterectomy Social History Smoking Status: Former Smoker Frequency of Alcohol Use: None Hx Recreational Drug Use: No Hx Prescription Drug Abuse: No - Advance Directive Resuscitation Status: Full Code Family History Parental Family History Reviewed: No Children Family History Reviewed: No Sibling(s) Family History Reviewed.: No Medication/Allergy Home Medications: Citalopram Hydrobromide [Celexa 20 mg Tablet] 20 mg PO QHS 12/06/15 Isosorbide Mononitrate [Imdur 60 mg Tablet.er] 60 mg PO DAILY 12/06/15 Levothyroxine Sodium [Synthroid 0.075 mg Tablet] 0.075 mg PO DAILY 12/06/15 Metoprolol Tartrate 25 mg PO Q12 12/06/15 Simvastatin 20 mg PO QHS 12/06/15 Sitagliptin Phosphate [Januvia 25 mg Tablet] 25 mg PO DAILY 12/06/15 Aspirin [Aspirin 325 mg Tablet] 325 mg PO DAILY #0 tablet 12/24/15 Clonidine [Catapres-Tts 2 (0.2 mg/24 Hr) Transderm Ptch] 1 each TD Th@10 #30 patch.tdwk 12/24/15 Hydralazine HCl [Apresoline 50 mg Tablet] 50 mg PO Q6 #90 tablet 12/24/15 Levetiracetam [Keppra 500 mg Tablet] 1,500 mg PO Q12 #60 tablet 12/24/15 Gabapentin [Neurontin 100 mg Capsule] 1 cap PO Q12 03/05/16 Nitroglycerin 1 tab SL PRN PRN 03/05/16 Lisinopril [Prinivil 10 mg Tablet] 40 mg PO DAILY #30 tablet 03/10/16 Risperidone [Risperdal 0.25 Mg Tablet] 0.25 mg PO BID #30 tablet 12/07/16 Acetaminophen [Tylenol Extra Strength] 500 mg PO Q4 PRN 06/17/17 Cyclobenzaprine HCl 5 mg PO DAILY PRN 06/17/17 Diltiazem HCl [Cardizem Cd 240 mg Capsule.cr] 1 cap.sr PO Q12 06/17/17 Folic Acid 1 mg PO DAILY 06/17/17 Phenytoin Sodium Extended [Dilantin 100 mg Capsule.er] 100 mg PO Q8 06/17/17 Allergies/Adverse Reactions: Penicillins Allergy (Verified 10/20/16 14:53) Sulfa (Sulfonamide Antibiotics) Allergy (Verified 10/20/16 14:53) Review of Systems Constitutional: PRESENT: weakness. ABSENT: chills, fever(s) Eyes: PRESENT: visual disturbances Ears: ABSENT: hearing changes Nose, Mouth, and Throat: ABSENT: headache(s) Cardiovascular: ABSENT: chest pain, edema Respiratory: ABSENT: dyspnea, sputum Gastrointestinal: PRESENT: constipation, diarrhea, nausea Genitourinary: ABSENT: difficulty urinating Musculoskeletal: PRESENT: muscle weakness. ABSENT: deformity, joint swelling Integumentary: ABSENT: pruritus Neurological: PRESENT: confusion, memory loss, numbness, weakness Endocrine: PRESENT: cold intolerance, polydipsia Physical Exam Vital Signs: Temp Pulse Resp BP Pulse Ox 98.4 F 107 H 16 96/46 L 92 06/18/17 12:00 06/18/17 12:00 06/18/17 14:39 06/18/17 14:39 06/18/17 14:39 Intake & Output 06/17/17 06/18/17 06/19/17 06:59 06:59 06:59 Intake Total 620 Output Total 650 425 Balance -30 -425 Weight 54.9 kg General appearance: PRESENT: no acute distress, well-developed, well-nourished Head exam: PRESENT: atraumatic, normocephalic Eye exam: ABSENT: PERRLA Mouth exam: PRESENT: dry mucosa, neck supple Neck exam: PRESENT: full ROM. ABSENT: JVD, tracheal deviation Respiratory exam: PRESENT: clear to auscultation becca. ABSENT: accessory muscle use, chest wall tenderness Cardiovascular exam: PRESENT: +S1, +S2, tachycardia GI/Abdominal exam: PRESENT: normal bowel sounds, soft. ABSENT: distended, guarding, mass, tenderness Extremities exam: ABSENT: pedal edema, tenderness Musculoskeletal exam: PRESENT: normal inspection. ABSENT: tenderness Neurological exam: PRESENT: alert, awake, oriented to place, oriented to situation Psychiatric exam: PRESENT: appropriate affect, normal mood Skin exam: PRESENT: dry, intact, warm Results Laboratory Results: 06/18/17 05:10 06/18/17 05:10 06/17/17 06/17/17 06/18/17 21:50 21:50 05:10 WBC 12.9 H RBC 3.03 L Hgb 9.1 L Hct 27.7 L MCV 92 MCH 30.0 MCHC 32.7 RDW 13.5 Plt Count 272 Seg Neutrophils % 84.2 H Lymphocytes % 8.9 L Monocytes % 6.2 Eosinophils % 0.3 Basophils % 0.4 Absolute Neutrophils 10.9 H Absolute Lymphocytes 1.2 Absolute Monocytes 0.8 Absolute Eosinophils 0.0 Absolute Basophils 0.0 Sodium 139.3 Potassium 5.6 H D Chloride 110 H Carbon Dioxide 17 L Anion Gap 12 BUN 35 H Creatinine 1.50 H Est GFR ( Amer) 40 L Est GFR (Non-Af Amer) 33 L Glucose 269 H Calcium 9.4 Magnesium Total Bilirubin AST ALT Alkaline Phosphatase Ammonia 23.5 Total Protein Albumin TSH 06/18/17 06/18/17 05:10 05:10 WBC RBC Hgb Hct MCV MCH MCHC RDW Plt Count Seg Neutrophils % Lymphocytes % Monocytes % Eosinophils % Basophils % Absolute Neutrophils Absolute Lymphocytes Absolute Monocytes Absolute Eosinophils Absolute Basophils Sodium 140.4 Potassium 5.0 Chloride 112 H Carbon Dioxide 21 L Anion Gap 7 BUN 30 H Creatinine 1.27 H Est GFR ( Amer) 49 L Est GFR (Non-Af Amer) 40 L Glucose 228 H Calcium 8.8 Magnesium 1.8 Total Bilirubin 0.3 AST 50 H ALT 112 H Alkaline Phosphatase 151 H Ammonia Total Protein 6.3 Albumin 3.2 L TSH 3.42 06/17/17 06/17/17 06/18/17 21:50 21:50 05:10 Creatine Kinase 100 95 CK-MB (CK-2) 2.51 Troponin I 0.142 NT-Pro-B Natriuret Pep 06/18/17 06/18/17 06/18/17 05:10 10:13 10:13 Creatine Kinase 91 CK-MB (CK-2) 3.04 3.27 Troponin I 0.243 0.220 NT-Pro-B Natriuret Pep 2450 H Impressions: Head CT 06/17/17 00:00 IMPRESSION: CHRONIC CHANGES OF ATROPHY AND MICROVASCULAR ISCHEMIA. NO ACUTE PROCESS. Chest X-Ray 06/17/17 22:41 IMPRESSION: No pneumothorax. Right IJ central venous catheter tip overlies the RA -SVC junction. Abdomen Ultrasound 06/18/17 00:00 IMPRESSION: 1. Indeterminate 2.1 cm left renal lesion may indicate a hemorrhagic cyst or other neoplasm. Recommend further evaluation with contrast CT or MRI of the kidneys. 2. Cholelithiasis. 3. Limitations. Assessment & Plan - Diagnosis (1) Hypotension Qualifiers: Hypotension type: unspecified hypotension type Qualified Code(s): I95.9 - Hypotension, unspecified Is this a current diagnosis for this admission?: Yes Plan: Looks to have resolved with giving normal saline (2) Hyperkalemia Is this a current diagnosis for this admission?: Yes Plan: looks to have decreased since giving NS and sodium bicarb (3) Acute kidney injury Is this a current diagnosis for this admission?: Yes Plan: Recommend continuing NS at current rate. Due to heart history would not recommend increasing the rate of NS per an hour. (4) Hypertension Qualifiers: Hypertension type: unspecified secondary hypertension Qualified Code(s): I15.9 - Secondary hypertension, unspecified; I15 - Secondary hypertension Is this a current diagnosis for this admission?: Yes Plan: Restarted clonidine at 0.1mg PO tablet qd. Would recommend keeping her on it to avoid withdraw rebound hypertension. (5) Type 2 diabetes mellitus Qualifiers: Diabetes mellitus complication status: with kidney complications Diabetes mellitus complication detail: with chronic kidney disease Diabetes mellitus terminal makeup operator insulin use: without terminal makeup operator use Is this a current diagnosis for this admission?: Yes Plan: getting better controlled (6) Anemia Qualifiers: Anemia type: due to chronic kidney disease Chronic kidney disease stage: stage 3 (moderate) Qualified Code(s): N18.3 - Chronic kidney disease, stage 3 (moderate); D63.1 - Anemia in chronic kidney disease Is this a current diagnosis for this admission?: Yes Plan: possibly from CKD, awaiting iron panel. M-spike was negative at visit from 2015. Will start procrit if iron panel is normal.
[2017-06-18 19:39] LABS: CREATINE KINASE MB 3.04 ng/mL (<4.55)
--- NOTE | 2017-06-18 19:46 | XCELERA REPORT ---
[address] [address] Transthoracic Echocardiogram Report Name: ANG CHRISTY Age: 82 yrs Gender: Female : 1935 Patient Status: Inpatient Patient Location: ICU^607^A Study Date: 06/18/2017 09:52 AM Height: 64 in Weight: 121 lb BSA: 1.6 m2 Procedure: A complete two-dimensional transthoracic echocardiogram was performed (2D, M-mode, spectral and color flow Doppler). The study was technically difficult with many images being suboptimal in quality. Reason For Study: NSTEMI, CHF Ordering Physician: MARTIN MCCARTY Performed By: Kat Hayes Interpretation Summary The study was technically difficult with many images being suboptimal in quality. The left ventricular ejection fraction is normal. The left ventricle is grossly normal size. There is borderline concentric left ventricular hypertrophy. Doppler measurements suggest impaired left ventricular relaxation, which is associated with grade I/IV or mild diastolic dysfunction Wall motion cannot be accurately commented on, but no definite regional wall motion abnormalities noted. The right ventricle is mildly dilated. The right ventricular systolic function is normal. The left atrial size is normal. The right atrium is normal in size There is a trace amount of mitral regurgitation There is no mitral valve stenosis. There is no aortic valve stenosis There is a mild to moderate amount of tricuspid regurgitation There is servere pulmonary hypertension by echo Right ventricular systolic pressure is estimated to be elevated at >60mmHg. There is no pericardial effusion. MMode/2D Measurements & Calculations RVDd: 3.3 cm LVIDd: 3.4 cm FS: 35.1 % Ao root diam: 2.3 cm IVSd: 1.2 cm LVIDs: 2.2 cm EDV(Teich): 48.5 ml LVPWd: 1.1 cm ESV(Teich): 16.7 ml Ao root area: 4.2 cm2 EF(Teich): 65.6 % LA dimension: 2.9 cm Doppler Measurements & Calculations MV E max al: MV P1/2t max al: Ao V2 max: LV V1 max P.7 cm/sec 62.2 cm/sec 115.3 cm/sec 3.9 mmHg MV A max al: MV P1/2t: 42.3 msec Ao max PG: LV V1 max: 102.2 cm/sec 5.3 mmHg 98.7 cm/sec MV E/A: 0.60 MVA(P1/2t): 5.2 cm2 MV dec slope: 430.2 cm/sec2 MV dec time: 0.14 sec PA V2 max: TR max al: 75.0 cm/sec 477.8 cm/sec PA max P.3 mmHgTR max P.3 mmHg Left Ventricle The left ventricle is grossly normal size. There is borderline concentric left ventricular hypertrophy. The left ventricular ejection fraction is normal. Doppler measurements suggest impaired left ventricular relaxation, which is associated with grade I/IV or mild diastolic dysfunction. Wall motion cannot be accurately commented on, but no definite regional wall motion abnormalities noted. Right Ventricle The right ventricle is mildly dilated. There is normal right ventricular wall thickness. The right ventricular systolic function is normal. Atria The right atrium is normal in size. The left atrial size is normal. Interarterial septum not well visualized and not well dopplered. Cannot comment on ASD/PFO presence. Mitral Valve There is mild mitral leaflet calcification. There is mild to moderate mitral annular calcification. There is no mitral valve stenosis. There is a trace amount of mitral regurgitation. Aortic Valve The aortic valve is mildly calcified. There is no aortic valve stenosis. No aortic regurgitation is present. Tricuspid Valve The tricuspid valve is not well visualized, but is grossly normal. There is no tricuspid stenosis. There is a mild to moderate amount of tricuspid regurgitation. There is servere pulmonary hypertension by echo. Right ventricular systolic pressure is estimated to be elevated at >60mmHg. Pulmonic Valve The pulmonic valve is not well visualized. Great Vessels The aortic root is not well visualized but is probably normal size. The inferior vena cava appeared normal and decreased > 50% with respiration (RAP 5-10 mmHg). Effusions There is no pericardial effusion. : MARTIN MCCARTY > Martin Mccarty
[2017-06-18 19:51] LABS: TROPONIN I 0.161 ng/mL
--- NOTE | 2017-06-18 22:00 | EKG REPORT ---
SEVERITY:- ABNORMAL ECG - SINUS TACHYCARDIA NONSPECIFIC T ABNORMALITIES, DIFFUSE LEADS : Confirmed by: Martin Pereira 18-Jun-2017 22:00:05
--- NOTE | 2017-06-18 22:15 | RADIOLOGY REPORT (SQ) ---
EXAM DESCRIPTION: NM LUNG PERFUSION SCAN COMPLETED DATE/TIME: 06/18/2017 9:54 pm REASON FOR STUDY: Shortness of Breath COMPARISON: Chest radiograph from 06/17/2017 and perfusion scan from 04/25/2014 RADIONUCLIDE AND DOSE: 5.27 millicuries TC-99m MAA The route of agent administration: Intravenous TECHNIQUE: Eight views of the lungs acquired following injection of MAA. LIMITATIONS: No ventilation performed. FINDINGS: PERFUSION: Moderate segmental defect anterior segment left upper lobe. Moderate segmental defect anterior segment right upper lobe. Stable asymmetric perfusion between the right and left scott ng compatible with elevated left hemidiaphragm seen on prior chest radiograph. OTHER: No other significant finding. IMPRESSION: MODERATE SEGMENTAL DEFECTS INVOLVING THE ANTERIOR SEGMENT LEFT UPPER LOBE AND RIGHT UPPE R LOBE. FINDINGS ARE INDETERMINATE FOR PULMONARY EMBOLUS DUE TO LACK OF VENTILATION IMAGING. TECHNICAL DOCUMENTATION: JOB ID: [id number] [employer]- All Rights Reserved
[2017-06-18] MEDS: HYDRALAZINE HCL 50 MG TABLET PO SCH (22:28)
[2017-06-18] MEDS: CITALOPRAM HYDROBROMIDE 20 MG TABLET PO SCH (22:28)
[2017-06-19 00:25] LABS: APPEARANCE,URINE SLIGHTLY-CLOUDY; BILIRUBIN,URINE NEGATIVE (NEGATIVE); GLUCOSE, URINE 50 mg/dL (NEGATIVE); KETONES,URINE NEGATIVE (NEGATIVE); LEUKOCYTE ESTERASE,URINE TRACE (NEGATIVE); NITRITE,URINE NEGATIVE (NEGATIVE); PROTEIN,URINE 30 mg/dL (NEGATIVE); URINE SPECIFIC GRAVITY 1.018; UROBILINOGEN,URINE NEGATIVE mg/dL (<2.0)
[2017-06-19 00:43] LABS: CREATINE KINASE MB 3.66 ng/mL (<4.55); TROPONIN I 0.152 ng/mL
[2017-06-19 05:22] LABS: ABSOLUTE BASOPHILS # (AUTO) 0.1 10^3/uL (0.0-0.2); ABSOLUTE EOSINOPHILS # (AUTO) 0.3 10^3/uL (0.0-0.6); ABSOLUTE LYMPHOCYTES (AUTO) 1.8 10^3/uL (0.5-4.7); ABSOLUTE MONOCYTES (AUTO) 0.7 10^3/uL (0.1-1.4); ABSOLUTE NEUT (AUTO) 7.3 10^3/uL (1.7-8.2); BASOPHILS % (AUTO) 0.7 % (0-2); EOSINOPHILS % (AUTO) 3.1 % (0-6); HEMATOCRIT 27.7 % (36.0-47.0); HGB HCT DIFFERENCE -0.7; LYMPHOCYTES % (AUTO) 17.4 % (13-45); MEAN CORPUSCULAR HGB CONC 32.5 g/dL (32.0-36.0); MEAN CORPUSCULAR VOLUME 92 fl (80-97); MONOCYTES % (AUTO) 6.6 % (3-13); RED CELL DISTRIBUTION WIDTH 14.1 % (11.5-14.0); SEGMENTED NEUTROPHILS % (AUTO) 72.2 % (42-78); WHITE BLOOD COUNT 10.1 10^3/uL (4.0-10.5)
[2017-06-19 05:35] LABS: ALANINE AMINOTRANSFERASE 87 U/L (9-52); ALBUMIN 3.2 g/dL (3.5-5.0); ALKALINE PHOSPHATASE 162 U/L (38-126); ANION GAP 9 (5-19); ASPARTATE AMINO TRANSFERASE 43 U/L (14-36); BILIRUBIN,DIRECT 0.2 mg/dL (0.0-0.4); BILIRUBIN,TOTAL 0.2 mg/dL (0.2-1.3); BLOOD UREA NITROGEN 19 mg/dL (7-20); CALCIUM 8.7 mg/dL (8.4-10.2); CARBON DIOXIDE 20 mmol/L (22-30); CHLORIDE 112 mmol/L (98-107); CREATININE RESULT 0.88 mg/dL (0.52-1.25); GLUCOSE 203 mg/dL (75-110); POTASSIUM 4.3 mmol/L (3.6-5.0); SODIUM 141.3 mmol/L (137-145); TOTAL PROTEIN 6.2 g/dL (6.3-8.2)
[2017-06-19] MEDS: HYDRALAZINE HCL 50 MG TABLET PO SCH ×3 (05:35→21:51)
[2017-06-19] MEDS: HYDRALAZINE HCL INJ/PF 20 MG/1 ML SDV IV PRN (07:44)
[2017-06-19] MEDS: METOPROLOL TARTRATE 25 MG TABLET PO SCH ×2 (07:51→21:51)
[2017-06-19] MEDS: GABAPENTIN 100 MG CAPSULE PO SCH ×2 (07:52→17:55)
[2017-06-19] MEDS: RISPERIDONE 0.25 MG TABLET PO SCH ×2 (07:52→17:55)
[2017-06-19] MEDS: ISOSORBIDE MONONITRATE 60 MG TAB.ER.24H PO SCH (07:52)
[2017-06-19] MEDS: ASPIRIN 325 MG TABLET PO SCH (07:52)
[2017-06-19] MEDS: FOLIC ACID 1 MG TABLET PO SCH (07:53)
[2017-06-19] MEDS: LEVOTHYROXINE SODIUM 0.075 MG TABLET PO SCH (07:53)
[2017-06-19] MEDS: FAMOTIDINE INJ/PF 20 MG/2 ML SDV IV SCH ×2 (07:53→21:52)
[2017-06-19] MEDS: LEVETIRACETAM 1500 MG/NACL-ISO 1,500 MG/100 ML RTUPB IV SCH ×2 (07:58→21:52)
[2017-06-19] MEDS: CIPROFLOXACIN 200 MG/D5W RTU 200 MG/100 ML RTUPB IV SCH ×2 (07:59→21:51)
[2017-06-19] MEDS: ENOXAPARIN SODIUM INJ 60 MG/0.6 ML DISP.SYRIN SUBCUT SCH ×2 (08:00→21:51)
--- NOTE | 2017-06-19 10:25 | PDOC PROGRESS REPORT ---
Subjective Progress Note for:: 06/19/17 Subjective:: She is currently doing fair patient have episode of the low blood pressure yesterday and patient is received IV fluid and blood patients come back. Very labile blood pressures go to up to 200 range last night Patient of a VQ scan done which is nonconclusive and patient was started on Lovenox 50 mg twice a day until the CT angiogram was done As per discussed with Dr. Aleman with the patient's kidney function is stable we will get the CT angiogram to rule out any PE patient seen by cardiology An echocardiogram was done and so some pulmonary hypertension's Patient's otherwise denied any chest pain denied any shortness of the breath Physical Exam Vital Signs: Temp Pulse Resp BP Pulse Ox 98.1 F 89 16 163/74 H 93 06/19/17 03:21 06/19/17 03:37 06/19/17 03:21 06/19/17 03:37 06/19/17 03:21 Intake & Output 06/18/17 06/19/17 06/20/17 06:59 06:59 06:59 Intake Total 620 3038 Output Total 650 1580 Balance -30 1458 Weight 54.9 kg 62.1 kg General appearance: PRESENT: no acute distress, well-developed, well-nourished Head exam: PRESENT: atraumatic, normocephalic Eye exam: PRESENT: conjunctiva pink, EOMI, PERRLA. ABSENT: scleral icterus Ear exam: PRESENT: normal external ear exam Mouth exam: PRESENT: moist, tongue midline Neck exam: PRESENT: full ROM. ABSENT: carotid bruit, JVD, lymphadenopathy, thyromegaly Respiratory exam: PRESENT: clear to auscultation becca Cardiovascular exam: PRESENT: RRR. ABSENT: diastolic murmur, rubs, systolic murmur Pulses: PRESENT: normal dorsalis pedis pul, +2 pedal pulses bilateral Vascular exam: PRESENT: normal capillary refill GI/Abdominal exam: PRESENT: normal bowel sounds, soft. ABSENT: distended, guarding, mass, organolmegaly, rebound, tenderness Rectal exam: PRESENT: deferred Neurological exam: PRESENT: alert, awake, oriented to person, oriented to place , oriented to time, oriented to situation, CN II-XII grossly intact. ABSENT: motor sensory deficit Psychiatric exam: PRESENT: appropriate affect, normal mood. ABSENT: homicidal ideation, suicidal ideation Skin exam: PRESENT: dry, intact, warm. ABSENT: cyanosis, rash Results Laboratory Results: 06/19/17 04:27 06/19/17 04:27 06/18/17 06/19/17 06/19/17 23:45 04:27 04:27 WBC 10.1 RBC 3.00 L Hgb 9.0 L Hct 27.7 L MCV 92 MCH 30.0 MCHC 32.5 RDW 14.1 H Plt Count 262 Seg Neutrophils % 72.2 Lymphocytes % 17.4 Monocytes % 6.6 Eosinophils % 3.1 Basophils % 0.7 Absolute Neutrophils 7.3 Absolute Lymphocytes 1.8 Absolute Monocytes 0.7 Absolute Eosinophils 0.3 Absolute Basophils 0.1 Sodium 141.3 Potassium 4.3 Chloride 112 H Carbon Dioxide 20 L Anion Gap 9 BUN 19 Creatinine 0.88 Est GFR ( Amer) > 60 Est GFR (Non-Af Amer) > 60 Glucose 203 H Calcium 8.7 Total Bilirubin 0.2 AST 43 H ALT 87 H Alkaline Phosphatase 162 H Total Protein 6.2 L Albumin 3.2 L Urine Color YELLOW Urine Appearance SLIGHTLY-CLOUDY Urine pH 5.0 Ur Specific [place] 1.018 Urine Protein 30 H Urine Glucose (UA) 50 H Urine Ketones NEGATIVE Urine Blood LARGE H Urine Nitrite NEGATIVE Ur Leukocyte Esterase TRACE H Urine WBC (Auto) 10 Urine RBC (Auto) >182 06/17/17 06/17/17 06/18/17 21:50 21:50 05:10 Creatine Kinase 100 95 CK-MB (CK-2) 2.51 Troponin I 0.142 NT-Pro-B Natriuret Pep 06/18/17 06/18/17 06/18/17 05:10 10:13 10:13 Creatine Kinase 91 CK-MB (CK-2) 3.04 3.27 Troponin I 0.243 0.220 NT-Pro-B Natriuret Pep 2450 H 06/18/17 06/18/17 06/18/17 18:50 18:50 23:45 Creatine Kinase 77 77 CK-MB (CK-2) 3.04 Troponin I 0.161 NT-Pro-B Natriuret Pep 06/18/17 23:45 Creatine Kinase CK-MB (CK-2) 3.66 Troponin I 0.152 NT-Pro-B Natriuret Pep Impressions: Head CT 06/17/17 00:00 IMPRESSION: CHRONIC CHANGES OF ATROPHY AND MICROVASCULAR ISCHEMIA. NO ACUTE PROCESS. Chest X-Ray 06/17/17 22:41 IMPRESSION: No pneumothorax. Right IJ central venous catheter tip overlies the RA -SVC junction. Abdomen Ultrasound 06/18/17 00:00 IMPRESSION: 1. Indeterminate 2.1 cm left renal lesion may indicate a hemorrhagic cyst or other neoplasm. Recommend further evaluation with contrast CT or MRI of the kidneys. 2. Cholelithiasis. 3. Limitations. Lung Scan-VQ NM 06/18/17 00:00 IMPRESSION: MODERATE SEGMENTAL DEFECTS INVOLVING THE ANTERIOR SEGMENT LEFT UPPER LOBE AND RIGHT UPPER LOBE. FINDINGS ARE INDETERMINATE FOR PULMONARY EMBOLUS DUE TO LACK OF VENTILATION IMAGING. Assessment & Plan - Diagnosis (1) Hypotension Qualifiers: Hypotension type: unspecified hypotension type Qualified Code(s): I95.9 - Hypotension, unspecified Is this a current diagnosis for this admission?: Yes Plan: Most likely patient is very sensitive to the clonidine will currently DC the clonidine (2) Hyperkalemia Is this a current diagnosis for this admission?: Yes Plan: Currently all resolved (3) Elevated LFTs Is this a current diagnosis for this admission?: Yes Plan: Will get the MRI of the abdomen for further evaluations (4) Acute kidney injury Is this a current diagnosis for this admission?: Yes Plan: Currently getting better continues to IV fluid follow with nephrology (5) Coronary artery disease Qualifiers: Coronary Disease-Associated Artery/Lesion type: [place] artery [place] vs. transplanted heart: [place] heart Associated angina: angina presence unspecified Qualified Code(s): I25.10 - Atherosclerotic heart disease of [place] coronary artery without angina pectoris Is this a current diagnosis for this admission?: Yes Plan: Elevated cardiac enzymes will consult the cardiology waiting for cardiac consult (6) Elevated troponin I level Is this a current diagnosis for this admission?: Yes Plan: Most likely due to the underlying hypotension's episodes will wait for the cardiac concerns repeat the EKG and cardiac enzyme continues to aspirin and beta -mary (7) Encephalopathy Is this a current diagnosis for this admission?: Yes Plan: Patient was significant hypertensive encephalopathy with the vascular dementia will check the ammonia level (8) Seizure Is this a current diagnosis for this admission?: Yes Plan: We hold the Dilantin level is slightly elevated and continues to Keppra currently IV until the patient's Fully back to the baseline (9) Type 2 diabetes mellitus Qualifiers: Diabetes mellitus complication status: with kidney complications Diabetes mellitus complication detail: with chronic kidney disease Diabetes mellitus care home insulin use: without termite exterminator use Is this a current diagnosis for this admission?: Yes Plan: Continues the patient on sliding scale (10) Uncontrolled hypertension Is this a current diagnosis for this admission?: Yes Plan: The labile blood pressures adjust the blood pressure medications (11) Anemia Qualifiers: Anemia type: due to chronic kidney disease Chronic kidney disease stage: stage 3 (moderate) Qualified Code(s): N18.3 - Chronic kidney disease, stage 3 (moderate); D63.1 - Anemia in chronic kidney disease Is this a current diagnosis for this admission?: Yes Plan: Get the iron study (12) Cerebrovascular disease Is this a current diagnosis for this admission?: Yes - Time Time Spent with patient: 15-24 minutes Medications reviewed and adjusted accordingly: Yes Anticipated discharge: Home Within: Other - Inpatient Certification Medical Necessity: Need For IV Fluids Post Hospital Care: D/C Grocery Department Manager Documentation - Plan Summary Plan Summary: The CT angiogram of the chest to rule out any PE and if it is negative will DC the Lovenox Also wait for abdominal MRI continues to monitor the patient As with the hospital during the patient's current conditions with other coordinate care with other physician
--- NOTE | 2017-06-19 10:43 | RADIOLOGY REPORT (SQ) ---
EXAM DESCRIPTION: CTA CHEST COMPLETED DATE/TIME: 06/19/2017 10:28 am REASON FOR STUDY: rule of pe COMPARISON: Chest x-ray dated 06/17/2017. CT dated 07/08/2009. TECHNIQUE: CT scan of the chest performed using helical scanning technique with dynamic intravenous contrast injection. Images reviewed with lung, soft tissue and bone windows. Reconstructed coronal and sagittal MPR images reviewed. Additional 3 dimensional post-processing performed to develop Maximal Intensity Projection images (NE P). All images stored on PACS. All CT scanners at this facility use dose modulation, iterative reconstruction, and/or weight based d osing when appropriate to reduce radiation dose to as low as reasonably achievable (ALARA). [facility]: Dose Right [facility]: CareDose [facility]: Dose Right [facility]: Teradose 4D [facility]: Meetup CONTRAST TYPE AND DOSE: contrast/concentration: Isovue 370.00 mg/ml; Total Contrast Delivered: 64.0 ml; Total Saline Delivered: 80.0 ml Contrast bolus optimized for the pulmonary arteries. Not diagnostic for the aorta. RENAL FUNCTION: BUN 19 creatinine 0.88. RADIATION DOSE: Up-to-date CT equipment and radiation dose reduction techniques were employed. CTDIv ol: 13.2 - 14.3 mGy. DLP: 530 mGy-cm. . LIMITATIONS: None. FINDINGS: LUNGS AND PLEURA: Hazy ground-glass opacity in the left upper lobe. Elevated left hemidia phragm. No masses, infiltrates, pneumothorax. No pleural effusions, calcifications. AORTA AND GREAT VESSELS: No aneurysm. Contrast bolus not optimized for the aorta. HEART: No pericardial effusion. No significant coronary artery calcifications. PULMONARY ARTERIES: Numerous pulmonary emboli involving primarily the right middle lobe, right lower lobe, and left lower lobe. HILAR AND MEDIASTINAL STRUCTURES: No identified masses or abnormal nodes. HARDWARE: None in the chest. UPPER ABDOMEN: Gallstones. Limited exam. THYROID AND OTHER SOFT TISSUES: No masses. No adenopathy. BONES: No acute or significant finding. 3D MIPS: Confirm above findings. OTHER: No other significant finding. IMPRESSION: 1. BILATERAL PULMONARY EMBOLI DESCRIBED. 2. HAZY GROUND-GLASS OPACITY IN THE LEFT UPPER LOBE MAY BE DUE TO INFLAMMATION OR INFECTION. 3. ELEVATED LEFT HEMIDIAPHRAGM. 4. GALLSTONES. COMMENT: Quality ID # [id number]: Final reports with documentation of one or more dose reduction techniques (e.g., Automated exposure control, adjustment of the mA and/or kV according to patient size, use of iterative reconstruction technique) TECHNICAL DOCUMENTATION: JOB ID: [id number] [employer]- All Rights Reserved
[2017-06-19] MEDS ORDERED: DILTIAZEM HCL 120 MG CAP.SR.24H PO ONE (11:00)
--- NOTE | 2017-06-19 11:02 | RADIOLOGY REPORT (SQ) ---
EXAM DESCRIPTION: MRI ABDOMEN WITHOUT COMPLETED DATE/TIME: 06/19/2017 10:16 am REASON FOR STUDY: renal lesion COMPARISON: None. TECHNIQUE: Noncontrast imaging of the abdomen with T1, T2, stir, and in and out of phase T1 sequence s. LIMITATIONS: Study limited by motion artifact and lack of intravenous contrast. FINDINGS: LIVER: Normal size. No masses. No dilated ducts. CBD normal. SPLEEN: Normal size. No focal lesions. PANCREAS: No masses. No adjacent inflammation or peripancreatic fluid collections. Pancreatic duct no t dilated. GALLBLADDER: No masses. Gallstones. No gallbladder wall thickening or pericholecystic fluid. ADRENAL GLANDS: No significant masses or asymmetry. RIGHT KIDNEY AND URETER: No masses. No hydronephrosis. LEFT KIDNEY AND URETER: No masses. No hydronephrosis. AORTA AND VESSELS: No aneurysm. No dissection. Renal arteries, SMA, celiac without stenosis. RETROPERITONEUM: No retroperitoneal adenopathy, hemorrhage or masses. BOWEL: No visualized masses. No inflammation. No significant dilatation. ABDOMINAL WALL AND PERITONEUM: No hernias. No free fluid. BONES: No acute or significant findings. OTHER: No other significant finding. IMPRESSION: LIMITED STUDY. NO OBVIOUS LESION IDENTIFIED IN THE LEFT KIDNEY. NO OTHER SIGNIFICANT F INDINGS OTHER THAN GALLSTONES. TECHNICAL DOCUMENTATION: JOB ID: [id number] [employer]- All Rights Reserved
--- NOTE | 2017-06-19 11:56 | PDOC PROGRESS REPORT ---
Subjective Progress Note for:: 06/19/17 Subjective:: Patient noted to have problems with fluctuating blood pressure. Patient now mainly hypertensive. She is denying any other significant complaints. Results of VQ scan reviewed. 2D echocardiogram reviewed. Patient subsequently also had a CTA which was positive for pulmonary emboli. 2D echocardiogram revealed severe pulmonary hypertension. Patient however seems comfortable without any significant shortness of breath. Physical Exam Vital Signs: Temp Pulse Resp BP Pulse Ox 98.1 F 89 16 163/74 H 93 06/19/17 03:21 06/19/17 03:37 06/19/17 03:21 06/19/17 03:37 06/19/17 03:21 Intake & Output 06/18/17 06/19/17 06/20/17 06:59 06:59 06:59 Intake Total 620 3038 Output Total 650 1580 Balance -30 1458 Weight 54.9 kg 62.1 kg Exam: GENERAL: well-nourished and in no acute distress. Patient is alert, oriented to person and place but not time HEAD: Atraumatic, normocephalic. EYES: Pupils equal round and reactive to light, extraocular movements intact, sclera anicteric, conjunctiva are normal. Patient is legally blind. ENT: TMs normal, nares patent, oropharynx clear without exudates. Moist mucous membranes. No oral ulcerations or bleeding gums noted NECK: supple without lymphadenopathy or JVD. Trachea is central. No cervical or axillary lymphadenopathy noted. Carotids are 2+ LUNGS: Breath sounds bibasilar fine crackles at bases. No significant dullness noted. CHEST: Palpation of chest wall shows no significant chest wall tenderness. 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 ABDOMEN: Soft, no significant tenderness appreciated, normoactive bowel sounds. No guarding, no rebound. No rigidity noted . No masses appreciated. EXTREMITIES: Pedal pulses are 1-2+, no calf tenderness noted, Trace + pedal edema noted. No clubbing or cyanosis. NEUROLOGICAL: Patient is alert, patient is noted to have left hemiparesis signs, . PSYCH: Psych exam because of the patient's current mental status SKIN: No significant ecchymosis, rash, ulcerations or signs of pruritus noted. MUSCULOSKELETAL EXAM: No significant joint swelling noted. Patient is nonambulatory. Results Laboratory Results: 06/19/17 04:27 06/19/17 04:27 06/18/17 06/19/17 06/19/17 23:45 04:27 04:27 WBC 10.1 RBC 3.00 L Hgb 9.0 L Hct 27.7 L MCV 92 MCH 30.0 MCHC 32.5 RDW 14.1 H Plt Count 262 Seg Neutrophils % 72.2 Lymphocytes % 17.4 Monocytes % 6.6 Eosinophils % 3.1 Basophils % 0.7 Absolute Neutrophils 7.3 Absolute Lymphocytes 1.8 Absolute Monocytes 0.7 Absolute Eosinophils 0.3 Absolute Basophils 0.1 Sodium 141.3 Potassium 4.3 Chloride 112 H Carbon Dioxide 20 L Anion Gap 9 BUN 19 Creatinine 0.88 Est GFR ( Amer) > 60 Est GFR (Non-Af Amer) > 60 Glucose 203 H Calcium 8.7 Total Bilirubin 0.2 AST 43 H ALT 87 H Alkaline Phosphatase 162 H Total Protein 6.2 L Albumin 3.2 L Urine Color YELLOW Urine Appearance SLIGHTLY-CLOUDY Urine pH 5.0 Ur Specific [place] 1.018 Urine Protein 30 H Urine Glucose (UA) 50 H Urine Ketones NEGATIVE Urine Blood LARGE H Urine Nitrite NEGATIVE Ur Leukocyte Esterase TRACE H Urine WBC (Auto) 10 Urine RBC (Auto) >182 06/17/17 06/17/17 06/18/17 21:50 21:50 05:10 Creatine Kinase 100 95 CK-MB (CK-2) 2.51 Troponin I 0.142 NT-Pro-B Natriuret Pep 06/18/17 06/18/17 06/18/17 05:10 10:13 10:13 Creatine Kinase 91 CK-MB (CK-2) 3.04 3.27 Troponin I 0.243 0.220 NT-Pro-B Natriuret Pep 2450 H 06/18/17 06/18/17 06/18/17 18:50 18:50 23:45 Creatine Kinase 77 77 CK-MB (CK-2) 3.04 Troponin I 0.161 NT-Pro-B Natriuret Pep 06/18/17 23:45 Creatine Kinase CK-MB (CK-2) 3.66 Troponin I 0.152 NT-Pro-B Natriuret Pep EKG Comments: Telemetry strips shows intermittent sinus tachycardia. Impressions: Head CT 06/17/17 00:00 IMPRESSION: CHRONIC CHANGES OF ATROPHY AND MICROVASCULAR ISCHEMIA. NO ACUTE PROCESS. Chest X-Ray 06/17/17 22:41 IMPRESSION: No pneumothorax. Right IJ central venous catheter tip overlies the RA -SVC junction. Abdomen Ultrasound 06/18/17 00:00 IMPRESSION: 1. Indeterminate 2.1 cm left renal lesion may indicate a hemorrhagic cyst or other neoplasm. Recommend further evaluation with contrast CT or MRI of the kidneys. 2. Cholelithiasis. 3. Limitations. Lung Scan-VQ NM 06/18/17 00:00 IMPRESSION: MODERATE SEGMENTAL DEFECTS INVOLVING THE ANTERIOR SEGMENT LEFT UPPER LOBE AND RIGHT UPPER LOBE. FINDINGS ARE INDETERMINATE FOR PULMONARY EMBOLUS DUE TO LACK OF VENTILATION IMAGING. Abdomen MRI 06/19/17 00:00 IMPRESSION: LIMITED STUDY. NO OBVIOUS LESION IDENTIFIED IN THE LEFT KIDNEY. NO OTHER SIGNIFICANT FINDINGS OTHER THAN GALLSTONES. Chest/Abdomen CTA 06/19/17 09:13 IMPRESSION: 1. BILATERAL PULMONARY EMBOLI DESCRIBED. 2. HAZY GROUND-GLASS OPACITY IN THE LEFT UPPER LOBE MAY BE DUE TO INFLAMMATION OR INFECTION. 3. ELEVATED LEFT HEMIDIAPHRAGM. 4. GALLSTONES. Assessment & Plan - Diagnosis (1) Elevated troponin I level Is this a current diagnosis for this admission?: Yes (2) Hyperkalemia Is this a current diagnosis for this admission?: Yes (3) Hypotension Qualifiers: Hypotension type: unspecified hypotension type Qualified Code(s): I95.9 - Hypotension, unspecified Is this a current diagnosis for this admission?: Yes (4) Coronary artery disease Qualifiers: Coronary Disease-Associated Artery/Lesion type: teller artery [place] vs. transplanted heart: teller heart Associated angina: angina presence unspecified Qualified Code(s): I25.10 - Atherosclerotic heart disease of teller coronary artery without angina pectoris Is this a current diagnosis for this admission?: Yes (5) Hypertension Qualifiers: Hypertension type: unspecified secondary hypertension Qualified Code(s): I15.9 - Secondary hypertension, unspecified; I15 - Secondary hypertension Is this a current diagnosis for this admission?: Yes (6) Pulmonary embolism Qualifiers: Pulmonary embolism type: other Chronicity: acute Acute cor pulmonale presence: without acute cor pulmonale Qualified Code(s): I26.99 - Other pulmonary embolism without acute cor pulmonale Is this a current diagnosis for this admission?: Yes - Notes Notes: Elevated troponin I level: Most likely related to pulmonary embolism and hypotension. Patient does have some minor nonspecific ST-T changes. Patient does have history of coronary artery disease. Coronary artery disease: Will gradually optimized medical management. Pulmonary embolism: Patient started on Lovenox. This was proven by CTA and also VQ scan. Hyperkalemia: This has improved. Hypotension: Most likely related to pulmonary embolism and volume depletion. Currently blood pressure on the high side.. Thank you Coronary artery disease: Patient without any symptoms of chest pain. Will optimize therapy.recommend beta-blockers, statins. MONY/ARB may be contraindicated because of hyperkalemia. Hypertension: Blood pressure now elevated. May need to gradually resume home antihypertensives. Chronic kidney disease: Patient being expertly followed by bottle tester. - Time Time with patient: Greater than 35 minutes - CODE STATUS was discussed, patient remains full code. Surrogate decision-maker unchanged. Multiple medical problems were addressed. More than 50% of the time spent coordinating care, discussing management plans with involved caregivers. Management plans discussed with involved personnels. Medical decision making was of moderate to high complexity, patient's has multiple comorbidities. 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 Medications reviewed and adjusted accordingly: Yes
--- NOTE | 2017-06-19 12:05 | PDOC CONSULTATION ---
Consultation Consult Date: 06/19/17 Attending physician:: RAJEEV BAILEY Consult reason:: Anemia, new PE History of Present Illness Admission Date/PCP: 06/17/17 18:41 RAJEEV BAILEY MD Patient complains of: SOB, hypertensive emergency History of Present Illness: 82 y/o F known to our practice w/ anemia chronic kidney dx and dementia, presented w/ hypertensive encephalopathy and confusion, during admission found to be anemic w/ hb 9 range and also found to have PE. Initially VQ indicated intermediate risk but subsequent CTA confirmed b/l multiple PE. Pt started on lovenox. Cr Cl currently estimated >60. Past Medical History Cardiac Medical History: Reports: Atrial Fibrillation, Congestive Heart Failure , Coronary Artery Disease, Myocardial Infarction, Hyperlipidema, Hypertension Pulmonary Medical History: Reports: Asthma, Bronchitis, Chronic Obstructive Pulmonary Disease (COPD), Pneumonia - X6 Denies: Tuberculosis Neurological Medical History: Reports: Ischemic CVA, Seizures Endocrine Medical History: Reports: Diabetes Mellitus Type 2, Hypothyroidism Renal/ Medical History: Reports: Chronic Kidney Disease GI Medical History: Reports: Gastroesophageal Reflux Disease Musculoskeltal Medical History: Reports: Arthritis Psychiatric Medical History: Reports: Dementia, Depression Hematology: Reports: Anemia Past Surgical History Past Surgical History: Reports: Appendectomy, Cardiac Catheterization Denies: Hysterectomy Social History Information Source: [facility] Records Smoking Status: Former Smoker Frequency of Alcohol Use: None Hx Recreational Drug Use: No Hx Prescription Drug Abuse: No - Advance Directive Resuscitation Status: Full Code Family History Family History: Hypertension Parental Family History Reviewed: Yes Children Family History Reviewed: Yes Sibling(s) Family History Reviewed.: Yes Medication/Allergy Home Medications: Citalopram Hydrobromide [Celexa 20 mg Tablet] 20 mg PO QHS 12/06/15 Isosorbide Mononitrate [Imdur 60 mg Tablet.er] 60 mg PO DAILY 12/06/15 Levothyroxine Sodium [Synthroid 0.075 mg Tablet] 0.075 mg PO DAILY 12/06/15 Metoprolol Tartrate 25 mg PO Q12 12/06/15 Simvastatin 20 mg PO QHS 12/06/15 Sitagliptin Phosphate [Januvia 25 mg Tablet] 25 mg PO DAILY 12/06/15 Aspirin [Aspirin 325 mg Tablet] 325 mg PO DAILY #0 tablet 12/24/15 Clonidine [Catapres-Tts 2 (0.2 mg/24 Hr) Transderm Ptch] 1 each TD Th@10 #30 patch.tdwk 12/24/15 Hydralazine HCl [Apresoline 50 mg Tablet] 50 mg PO Q6 #90 tablet 12/24/15 Levetiracetam [Keppra 500 mg Tablet] 1,500 mg PO Q12 #60 tablet 12/24/15 Gabapentin [Neurontin 100 mg Capsule] 1 cap PO Q12 03/05/16 Nitroglycerin 1 tab SL PRN PRN 03/05/16 Lisinopril [Prinivil 10 mg Tablet] 40 mg PO DAILY #30 tablet 03/10/16 Risperidone [Risperdal 0.25 Mg Tablet] 0.25 mg PO BID #30 tablet 12/07/16 Acetaminophen [Tylenol Extra Strength] 500 mg PO Q4 PRN 06/17/17 Cyclobenzaprine HCl 5 mg PO DAILY PRN 06/17/17 Diltiazem HCl [Cardizem Cd 240 mg Capsule.cr] 1 cap.sr PO Q12 06/17/17 Folic Acid 1 mg PO DAILY 06/17/17 Phenytoin Sodium Extended [Dilantin 100 mg Capsule.er] 100 mg PO Q8 06/17/17 Allergies/Adverse Reactions: Penicillins Allergy (Verified 10/20/16 14:53) Sulfa (Sulfonamide Antibiotics) Allergy (Verified 10/20/16 14:53) Review of Systems ROS unobtainable: Due to mental status Physical Exam Vital Signs: Temp Pulse Resp BP Pulse Ox 98.1 F 99 16 163/74 H 93 06/19/17 03:21 06/19/17 07:00 06/19/17 03:21 06/19/17 03:37 06/19/17 03:21 Intake & Output 06/18/17 06/19/17 06/20/17 06:59 06:59 06:59 Intake Total 620 3038 Output Total 650 1580 Balance -30 1458 Weight 54.9 kg 62.1 kg General appearance: PRESENT: no acute distress, well-developed, well-nourished Head exam: PRESENT: atraumatic, normocephalic Eye exam: PRESENT: conjunctiva pink, EOMI, PERRLA. ABSENT: scleral icterus Ear exam: PRESENT: normal external ear exam Mouth exam: PRESENT: moist, tongue midline Neck exam: ABSENT: carotid bruit, JVD, lymphadenopathy, thyromegaly Respiratory exam: PRESENT: clear to auscultation becca. ABSENT: rales, rhonchi, wheezes Cardiovascular exam: PRESENT: RRR. ABSENT: diastolic murmur, rubs, systolic murmur Pulses: PRESENT: normal dorsalis pedis pul Vascular exam: PRESENT: normal capillary refill GI/Abdominal exam: PRESENT: normal bowel sounds, soft. ABSENT: distended, guarding, mass, organolmegaly, rebound, tenderness Rectal exam: PRESENT: deferred Extremities exam: PRESENT: full ROM. ABSENT: calf tenderness, clubbing, pedal edema Neurological exam: PRESENT: alert, awake, oriented to person, oriented to place , oriented to time, oriented to situation, CN II-XII grossly intact. ABSENT: motor sensory deficit Psychiatric exam: PRESENT: appropriate affect, normal mood. ABSENT: homicidal ideation, suicidal ideation Skin exam: PRESENT: dry, intact, warm. ABSENT: cyanosis, rash Results Laboratory Results: 06/19/17 04:27 06/19/17 04:27 06/18/17 06/19/17 06/19/17 23:45 04:27 04:27 WBC 10.1 RBC 3.00 L Hgb 9.0 L Hct 27.7 L MCV 92 MCH 30.0 MCHC 32.5 RDW 14.1 H Plt Count 262 Seg Neutrophils % 72.2 Lymphocytes % 17.4 Monocytes % 6.6 Eosinophils % 3.1 Basophils % 0.7 Absolute Neutrophils 7.3 Absolute Lymphocytes 1.8 Absolute Monocytes 0.7 Absolute Eosinophils 0.3 Absolute Basophils 0.1 Sodium 141.3 Potassium 4.3 Chloride 112 H Carbon Dioxide 20 L Anion Gap 9 BUN 19 Creatinine 0.88 Est GFR ( Amer) > 60 Est GFR (Non-Af Amer) > 60 Glucose 203 H Calcium 8.7 Total Bilirubin 0.2 AST 43 H ALT 87 H Alkaline Phosphatase 162 H Total Protein 6.2 L Albumin 3.2 L Urine Color YELLOW Urine Appearance SLIGHTLY-CLOUDY Urine pH 5.0 Ur Specific [place] 1.018 Urine Protein 30 H Urine Glucose (UA) 50 H Urine Ketones NEGATIVE Urine Blood LARGE H Urine Nitrite NEGATIVE Ur Leukocyte Esterase TRACE H Urine WBC (Auto) 10 Urine RBC (Auto) >182 06/17/17 06/17/17 06/18/17 21:50 21:50 05:10 Creatine Kinase 100 95 CK-MB (CK-2) 2.51 Troponin I 0.142 NT-Pro-B Natriuret Pep 06/18/17 06/18/17 06/18/17 05:10 10:13 10:13 Creatine Kinase 91 CK-MB (CK-2) 3.04 3.27 Troponin I 0.243 0.220 NT-Pro-B Natriuret Pep 2450 H 06/18/17 06/18/17 06/18/17 18:50 18:50 23:45 Creatine Kinase 77 77 CK-MB (CK-2) 3.04 Troponin I 0.161 NT-Pro-B Natriuret Pep 06/18/17 23:45 Creatine Kinase CK-MB (CK-2) 3.66 Troponin I 0.152 NT-Pro-B Natriuret Pep Impressions: Head CT 06/17/17 00:00 IMPRESSION: CHRONIC CHANGES OF ATROPHY AND MICROVASCULAR ISCHEMIA. NO ACUTE PROCESS. Chest X-Ray 06/17/17 22:41 IMPRESSION: No pneumothorax. Right IJ central venous catheter tip overlies the RA -SVC junction. Abdomen Ultrasound 06/18/17 00:00 IMPRESSION: 1. Indeterminate 2.1 cm left renal lesion may indicate a hemorrhagic cyst or other neoplasm. Recommend further evaluation with contrast CT or MRI of the kidneys. 2. Cholelithiasis. 3. Limitations. Lung Scan-VQ NM 06/18/17 00:00 IMPRESSION: MODERATE SEGMENTAL DEFECTS INVOLVING THE ANTERIOR SEGMENT LEFT UPPER LOBE AND RIGHT UPPER LOBE. FINDINGS ARE INDETERMINATE FOR PULMONARY EMBOLUS DUE TO LACK OF VENTILATION IMAGING. Abdomen MRI 06/19/17 00:00 IMPRESSION: LIMITED STUDY. NO OBVIOUS LESION IDENTIFIED IN THE LEFT KIDNEY. NO OTHER SIGNIFICANT FINDINGS OTHER THAN GALLSTONES. Chest/Abdomen CTA 06/19/17 09:13 IMPRESSION: 1. BILATERAL PULMONARY EMBOLI DESCRIBED. 2. HAZY GROUND-GLASS OPACITY IN THE LEFT UPPER LOBE MAY BE DUE TO INFLAMMATION OR INFECTION. 3. ELEVATED LEFT HEMIDIAPHRAGM. 4. GALLSTONES. Status: Image reviewed by me Assessment & Plan - Diagnosis (1) Pulmonary embolism Qualifiers: Pulmonary embolism type: other Chronicity: acute Acute cor pulmonale presence: without acute cor pulmonale Qualified Code(s): I26.99 - Other pulmonary embolism without acute cor pulmonale Is this a current diagnosis for this admission?: Yes Plan: Will increase lovenox to 60mg subQ q 12 hours, based on wt of 62 Kg, kidney fxn approp for lovenox dosing, when we are ready to transition to outpt, would give eliquis. Likely dose based on kidney fxn now is 5mg BID but we may decrease to 2.5mg BID based on that. Likely provoked 2nd to multiple medical conditions/ inflammation and immobility. No hypercoag w/u needed. Will need at least 6m anticoag. D/w Dr. Bailey. (2) Anemia Qualifiers: Anemia type: due to chronic kidney disease Chronic kidney disease stage: stage 3 (moderate) Qualified Code(s): N18.3 - Chronic kidney disease, stage 3 (moderate); D63.1 - Anemia in chronic kidney disease Is this a current diagnosis for this admission?: Yes Plan: Iron studies and B12 pending, will give IV iron w/ faraheme if ferritin <100 or sat <20, if not will give procrit 40,000 units x 1. - Time Time Spent: Greater than 70 Minutes Critical Time spent with patient: 35 or more minutes - Inpatient Certification Based on my medical assessment, after consideration of the patient's comorbidities, presenting symptoms, or acuity I expect that the services needed warrant INPATIENT care.: Yes I certify that my determination is in accordance with my understanding of Medicare's requirements for reasonable and necessary INPATIENT services [42 CFR 412.3e].: Yes Medical Necessity: Risk of Complication if Not Cared For in Hospital
[2017-06-19] MEDS: INSULIN LISPRO 100 UNIT/ML 3 ML VIAL SUBCUT PRN ×2 (13:12→23:53)
[2017-06-19 13:51] LABS: FOLATE > 20.00 ng/mL (>2.76)
[2017-06-19] MEDS: CITALOPRAM HYDROBROMIDE 20 MG TABLET PO SCH (21:51)
[2017-06-20] MEDS: HYDRALAZINE HCL 50 MG TABLET PO SCH ×3 (05:26→23:02)
[2017-06-20 06:17] LABS: ABSOLUTE BASOPHILS # (AUTO) 0.1 10^3/uL (0.0-0.2); ABSOLUTE EOSINOPHILS # (AUTO) 0.3 10^3/uL (0.0-0.6); ABSOLUTE LYMPHOCYTES (AUTO) 1.7 10^3/uL (0.5-4.7); ABSOLUTE MONOCYTES (AUTO) 0.7 10^3/uL (0.1-1.4); ABSOLUTE NEUT (AUTO) 8.5 10^3/uL (1.7-8.2); BASOPHILS % (AUTO) 0.5 % (0-2); EOSINOPHILS % (AUTO) 2.5 % (0-6); HEMATOCRIT 26.2 % (36.0-47.0); HEMOGLOBIN 8.6 g/dL (12.0-15.5); HGB HCT DIFFERENCE -0.4; LYMPHOCYTES % (AUTO) 15.2 % (13-45); MEAN CORPUSCULAR HEMOGLOBIN 29.4 pg (27.0-33.4); MEAN CORPUSCULAR HGB CONC 32.7 g/dL (32.0-36.0); MEAN CORPUSCULAR VOLUME 90 fl (80-97); MONOCYTES % (AUTO) 6.4 % (3-13); RED BLOOD COUNT 2.92 10^6/uL (3.72-5.28); RED CELL DISTRIBUTION WIDTH 13.9 % (11.5-14.0); SEGMENTED NEUTROPHILS % (AUTO) 75.4 % (42-78); WHITE BLOOD COUNT 11.2 10^3/uL (4.0-10.5)
[2017-06-20 06:31] LABS: ALANINE AMINOTRANSFERASE 84 U/L (9-52); ALKALINE PHOSPHATASE 178 U/L (38-126); ANION GAP 8 (5-19); ASPARTATE AMINO TRANSFERASE 43 U/L (14-36); BILIRUBIN,DIRECT 0.3 mg/dL (0.0-0.4); BILIRUBIN,TOTAL 0.3 mg/dL (0.2-1.3); BLOOD UREA NITROGEN 12 mg/dL (7-20); CALCIUM 9.2 mg/dL (8.4-10.2); CARBON DIOXIDE 20 mmol/L (22-30); CHLORIDE 110 mmol/L (98-107); CREATININE RESULT 0.81 mg/dL (0.52-1.25); GLUCOSE 186 mg/dL (75-110); SODIUM 138.2 mmol/L (137-145); TOTAL PROTEIN 6.1 g/dL (6.3-8.2)
[2017-06-20] MEDS ORDERED: DILTIAZEM HCL 120 MG CAP.SR.24H PO SCH ×2 (10:00→10:06)
[2017-06-20] MEDS ORDERED: NORMAL SALINE 1000 ML 1,000 ML IV PRN (10:06)
--- NOTE | 2017-06-20 10:29 | PDOC PROGRESS REPORT ---
Subjective Progress Note for:: 06/20/17 Subjective:: Patient is currently doing fair. Patient's denied any chest pain denied any shortness of breath. Patient CT angiogram is positive for pulmonary embolism currently on the Lovenox Physical Exam Vital Signs: Temp Pulse Resp BP Pulse Ox 98.6 F 105 H 17 161/74 H 95 06/20/17 07:18 06/20/17 08:30 06/20/17 08:30 06/20/17 07:18 06/20/17 08:30 Intake & Output 06/19/17 06/20/17 06/21/17 06:59 06:59 06:59 Intake Total 3038 2967 Output Total 1580 1550 Balance 1458 1417 Weight 62.1 kg 65.1 kg General appearance: PRESENT: no acute distress, well-developed, well-nourished Head exam: PRESENT: atraumatic, normocephalic Eye exam: PRESENT: conjunctiva pink, EOMI, PERRLA. ABSENT: scleral icterus Ear exam: PRESENT: normal external ear exam Mouth exam: PRESENT: moist, tongue midline Neck exam: PRESENT: full ROM. ABSENT: carotid bruit, JVD, lymphadenopathy, thyromegaly Respiratory exam: PRESENT: clear to auscultation becca Cardiovascular exam: PRESENT: RRR. ABSENT: diastolic murmur, rubs, systolic murmur Pulses: PRESENT: normal dorsalis pedis pul, +2 pedal pulses bilateral Vascular exam: PRESENT: normal capillary refill GI/Abdominal exam: PRESENT: normal bowel sounds, soft. ABSENT: distended, guarding, mass, organolmegaly, rebound, tenderness Rectal exam: PRESENT: deferred Neurological exam: PRESENT: alert, awake, oriented to person Psychiatric exam: PRESENT: appropriate affect, normal mood. ABSENT: homicidal ideation, suicidal ideation Skin exam: PRESENT: dry, intact, warm. ABSENT: cyanosis, rash Results Laboratory Results: 06/20/17 05:54 06/20/17 05:54 06/19/17 06/19/17 06/20/17 04:27 04:27 05:54 WBC 11.2 H RBC 2.92 L Hgb 8.6 L Hct 26.2 L MCV 90 MCH 29.4 MCHC 32.7 RDW 13.9 Plt Count 255 Seg Neutrophils % 75.4 Lymphocytes % 15.2 Monocytes % 6.4 Eosinophils % 2.5 Basophils % 0.5 Absolute Neutrophils 8.5 H Absolute Lymphocytes 1.7 Absolute Monocytes 0.7 Absolute Eosinophils 0.3 Absolute Basophils 0.1 Retic Count (auto) 1.38 Absolute Retic 0.041 Sodium Potassium Chloride Carbon Dioxide Anion Gap BUN Creatinine Est GFR ( Amer) Est GFR (Non-Af Amer) Glucose Calcium Iron 47.2 TIBC 168 L % Saturation 28 Ferritin 202.00 Total Bilirubin AST ALT Alkaline Phosphatase Total Protein Albumin Vitamin B12 984.0 H Folate > 20.00 06/20/17 05:54 WBC RBC Hgb Hct MCV MCH MCHC RDW Plt Count Seg Neutrophils % Lymphocytes % Monocytes % Eosinophils % Basophils % Absolute Neutrophils Absolute Lymphocytes Absolute Monocytes Absolute Eosinophils Absolute Basophils Retic Count (auto) Absolute Retic Sodium 138.2 Potassium 4.0 Chloride 110 H Carbon Dioxide 20 L Anion Gap 8 BUN 12 Creatinine 0.81 Est GFR ( Amer) > 60 Est GFR (Non-Af Amer) > 60 Glucose 186 H Calcium 9.2 Iron TIBC % Saturation Ferritin Total Bilirubin 0.3 AST 43 H ALT 84 H Alkaline Phosphatase 178 H Total Protein 6.1 L Albumin 3.0 L Vitamin B12 Folate 06/17/17 06/17/17 06/18/17 21:50 21:50 05:10 Creatine Kinase 100 95 CK-MB (CK-2) 2.51 Troponin I 0.142 NT-Pro-B Natriuret Pep 06/18/17 06/18/17 06/18/17 05:10 10:13 10:13 Creatine Kinase 91 CK-MB (CK-2) 3.04 3.27 Troponin I 0.243 0.220 NT-Pro-B Natriuret Pep 2450 H 06/18/17 06/18/17 06/18/17 18:50 18:50 23:45 Creatine Kinase 77 77 CK-MB (CK-2) 3.04 Troponin I 0.161 NT-Pro-B Natriuret Pep 06/18/17 23:45 Creatine Kinase CK-MB (CK-2) 3.66 Troponin I 0.152 NT-Pro-B Natriuret Pep Impressions: Head CT 06/17/17 00:00 IMPRESSION: CHRONIC CHANGES OF ATROPHY AND MICROVASCULAR ISCHEMIA. NO ACUTE PROCESS. Chest X-Ray 06/17/17 22:41 IMPRESSION: No pneumothorax. Right IJ central venous catheter tip overlies the RA -SVC junction. Abdomen Ultrasound 06/18/17 00:00 IMPRESSION: 1. Indeterminate 2.1 cm left renal lesion may indicate a hemorrhagic cyst or other neoplasm. Recommend further evaluation with contrast CT or MRI of the kidneys. 2. Cholelithiasis. 3. Limitations. Lung Scan-VQ NM 06/18/17 00:00 IMPRESSION: MODERATE SEGMENTAL DEFECTS INVOLVING THE ANTERIOR SEGMENT LEFT UPPER LOBE AND RIGHT UPPER LOBE. FINDINGS ARE INDETERMINATE FOR PULMONARY EMBOLUS DUE TO LACK OF VENTILATION IMAGING. Abdomen MRI 06/19/17 00:00 IMPRESSION: LIMITED STUDY. NO OBVIOUS LESION IDENTIFIED IN THE LEFT KIDNEY. NO OTHER SIGNIFICANT FINDINGS OTHER THAN GALLSTONES. Chest/Abdomen CTA 06/19/17 09:13 IMPRESSION: 1. BILATERAL PULMONARY EMBOLI DESCRIBED. 2. HAZY GROUND-GLASS OPACITY IN THE LEFT UPPER LOBE MAY BE DUE TO INFLAMMATION OR INFECTION. 3. ELEVATED LEFT HEMIDIAPHRAGM. 4. GALLSTONES. Assessment & Plan - Diagnosis (1) Hypotension Qualifiers: Hypotension type: unspecified hypotension type Qualified Code(s): I95.9 - Hypotension, unspecified Is this a current diagnosis for this admission?: Yes Plan: Currently all resolved (2) Hyperkalemia Is this a current diagnosis for this admission?: Yes Plan: Currently all resolved (3) Elevated LFTs Is this a current diagnosis for this admission?: Yes Plan: Will get the MRI of the abdomen for further evaluations (4) Acute kidney injury Is this a current diagnosis for this admission?: Yes Plan: Currently getting better continues to IV fluid follow with nephrology (5) Coronary artery disease Qualifiers: Coronary Disease-Associated Artery/Lesion type: [place] artery [place] vs. transplanted heart: [place] heart Associated angina: angina presence unspecified Qualified Code(s): I25.10 - Atherosclerotic heart disease of [place] coronary artery without angina pectoris Is this a current diagnosis for this admission?: Yes Plan: Elevated cardiac enzymes will consult the cardiology waiting for cardiac consult (6) Elevated troponin I level Is this a current diagnosis for this admission?: Yes Plan: Most likely due to the underlying hypotension's episodes will wait for the cardiac concerns repeat the EKG and cardiac enzyme continues to aspirin and beta -mary (7) Encephalopathy Is this a current diagnosis for this admission?: Yes Plan: Patient was significant hypertensive encephalopathy with the vascular dementia will check the ammonia level (8) Seizure Is this a current diagnosis for this admission?: Yes Plan: We hold the Dilantin level is slightly elevated and continues to Keppra currently IV until the patient's Fully back to the baseline (9) Type 2 diabetes mellitus Qualifiers: Diabetes mellitus complication status: with kidney complications Diabetes mellitus complication detail: with chronic kidney disease Diabetes mellitus mcc insulin use: without mcc use Is this a current diagnosis for this admission?: Yes Plan: Continues the patient on sliding scale (10) Uncontrolled hypertension Is this a current diagnosis for this admission?: Yes Plan: Labile blood pressures we will increase the Cardizem's to 180 (11) Anemia Qualifiers: Anemia type: due to chronic kidney disease Chronic kidney disease stage: stage 3 (moderate) Qualified Code(s): N18.3 - Chronic kidney disease, stage 3 (moderate); D63.1 - Anemia in chronic kidney disease Is this a current diagnosis for this admission?: Yes Plan: Get the iron study (12) Cerebrovascular disease Is this a current diagnosis for this admission?: Yes (13) Pulmonary embolism Qualifiers: Pulmonary embolism type: other Chronicity: acute Acute cor pulmonale presence: without acute cor pulmonale Qualified Code(s): I26.99 - Other pulmonary embolism without acute cor pulmonale Is this a current diagnosis for this admission?: Yes Plan: Continues the Lovenox and may be considered to start the Eliquis tomorrow - Time Time Spent with patient: 15-24 minutes Medications reviewed and adjusted accordingly: Yes Anticipated discharge: Home Within: Other - Inpatient Certification Medical Necessity: Need Close Monitoring Due to Risk of Patient Decompensation Post Hospital Care: 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
[2017-06-20] MEDS: GABAPENTIN 100 MG CAPSULE PO SCH ×2 (10:58→18:57)
[2017-06-20] MEDS: METOPROLOL TARTRATE 25 MG TABLET PO SCH ×2 (10:58→23:02)
[2017-06-20] MEDS: ASPIRIN 325 MG TABLET PO SCH (10:58)
[2017-06-20] MEDS: DILTIAZEM HCL 180 MG CAPSULE.CR PO SCH (10:58)
[2017-06-20] MEDS: RISPERIDONE 0.25 MG TABLET PO SCH ×2 (10:59→18:56)
[2017-06-20] MEDS: ISOSORBIDE MONONITRATE 60 MG TAB.ER.24H PO SCH (10:59)
[2017-06-20] MEDS: ENOXAPARIN SODIUM INJ 60 MG/0.6 ML DISP.SYRIN SUBCUT SCH ×2 (10:59→23:03)
[2017-06-20] MEDS: FOLIC ACID 1 MG TABLET PO SCH (10:59)
[2017-06-20] MEDS: LEVETIRACETAM 1500 MG/NACL-ISO 1,500 MG/100 ML RTUPB IV SCH ×2 (10:59→23:05)
[2017-06-20] MEDS: FAMOTIDINE INJ/PF 20 MG/2 ML SDV IV SCH ×2 (10:59→23:03)
[2017-06-20] MEDS: LEVOTHYROXINE SODIUM 0.075 MG TABLET PO SCH (10:59)
[2017-06-20] MEDS: CIPROFLOXACIN 200 MG/D5W RTU 200 MG/100 ML RTUPB IV SCH ×2 (11:00→23:05)
--- NOTE | 2017-06-20 11:33 | EKG REPORT ---
SEVERITY:- ABNORMAL ECG - SINUS TACHYCARDIA PROBABLE LEFT ATRIAL ABNORMALITY NONSPECIFIC T ABNORMALITIES, DIFFUSE LEADS : Confirmed by: Martin Pereira 20-Jun-2017 11:32:37
--- NOTE | 2017-06-20 12:31 | PDOC PROGRESS REPORT ---
Subjective Progress Note for:: 06/20/17 Subjective:: Patient noted to be very lethargic today. Patient noted to have fluctuating mental status. Patient noted to have problems with fluctuating blood pressure. Results of VQ scan reviewed. 2D echocardiogram reviewed. Patient subsequently also had a CTA which was positive for pulmonary emboli. 2D echocardiogram revealed severe pulmonary hypertension. Patient however seems comfortable in bed without any significant shortness of breath. Physical Exam Vital Signs: Temp Pulse Resp BP Pulse Ox 98.6 F 105 H 17 161/74 H 95 06/20/17 07:18 06/20/17 08:30 06/20/17 08:30 06/20/17 07:18 06/20/17 08:30 Intake & Output 06/19/17 06/20/17 06/21/17 06:59 06:59 06:59 Intake Total 3038 2967 Output Total 1580 1550 Balance 1458 1417 Weight 62.1 kg 65.1 kg Exam: GENERAL: well-nourished and in no acute distress. Patient is alert but not oriented to place time or person. HEAD: Atraumatic, normocephalic. EYES: Pupils equal round and reactive to light, extraocular movements intact, sclera anicteric, conjunctiva are normal. ENT: TMs normal, nares patent, oropharynx clear without exudates. Moist mucous membranes. No oral ulcerations or bleeding gums noted NECK: supple without lymphadenopathy or JVD. Trachea is central. No cervical or axillary lymphadenopathy noted. Carotids are 2+ LUNGS: Breath sounds bibasilar fine crackles at bases. No significant dullness noted. CHEST: Palpation of chest wall shows no significant chest wall tenderness. HEART: [employer], No PSH, 2/6 LORIE aortic area, 1/6 beltran systolic murmur mitral area, rubs or gallops. ABDOMEN: Soft, no significant tenderness appreciated, normoactive bowel sounds. No guarding, no rebound. No rigidity noted . No masses appreciated. EXTREMITIES: Pedal pulses are 1-2+, no calf tenderness noted, Trace + pedal edema noted. No clubbing or cyanosis. NEUROLOGICAL: Patient is alert but is not able to participate in neurological exam because of patient's current mental status PSYCH: Patient cannot participate in a neurologic and psych exam because of the patient's current mental status SKIN: No significant ecchymosis, rash, ulcerations or signs of pruritus noted. MUSCULOSKELETAL EXAM: No significant joint swelling noted. Results Laboratory Results: 06/20/17 05:54 06/20/17 05:54 06/19/17 06/19/17 06/20/17 04:27 04:27 05:54 WBC 11.2 H RBC 2.92 L Hgb 8.6 L Hct 26.2 L MCV 90 MCH 29.4 MCHC 32.7 RDW 13.9 Plt Count 255 Seg Neutrophils % 75.4 Lymphocytes % 15.2 Monocytes % 6.4 Eosinophils % 2.5 Basophils % 0.5 Absolute Neutrophils 8.5 H Absolute Lymphocytes 1.7 Absolute Monocytes 0.7 Absolute Eosinophils 0.3 Absolute Basophils 0.1 Retic Count (auto) 1.38 Absolute Retic 0.041 Sodium Potassium Chloride Carbon Dioxide Anion Gap BUN Creatinine Est GFR ( Amer) Est GFR (Non-Af Amer) Glucose Calcium Iron 47.2 TIBC 168 L % Saturation 28 Ferritin 202.00 Total Bilirubin AST ALT Alkaline Phosphatase Total Protein Albumin Vitamin B12 984.0 H Folate > 20.00 06/20/17 05:54 WBC RBC Hgb Hct MCV MCH MCHC RDW Plt Count Seg Neutrophils % Lymphocytes % Monocytes % Eosinophils % Basophils % Absolute Neutrophils Absolute Lymphocytes Absolute Monocytes Absolute Eosinophils Absolute Basophils Retic Count (auto) Absolute Retic Sodium 138.2 Potassium 4.0 Chloride 110 H Carbon Dioxide 20 L Anion Gap 8 BUN 12 Creatinine 0.81 Est GFR ( Amer) > 60 Est GFR (Non-Af Amer) > 60 Glucose 186 H Calcium 9.2 Iron TIBC % Saturation Ferritin Total Bilirubin 0.3 AST 43 H ALT 84 H Alkaline Phosphatase 178 H Total Protein 6.1 L Albumin 3.0 L Vitamin B12 Folate 06/17/17 06/17/17 06/18/17 21:50 21:50 05:10 Creatine Kinase 100 95 CK-MB (CK-2) 2.51 Troponin I 0.142 NT-Pro-B Natriuret Pep 06/18/17 06/18/17 06/18/17 05:10 10:13 10:13 Creatine Kinase 91 CK-MB (CK-2) 3.04 3.27 Troponin I 0.243 0.220 NT-Pro-B Natriuret Pep 2450 H 06/18/17 06/18/17 06/18/17 18:50 18:50 23:45 Creatine Kinase 77 77 CK-MB (CK-2) 3.04 Troponin I 0.161 NT-Pro-B Natriuret Pep 06/18/17 23:45 Creatine Kinase CK-MB (CK-2) 3.66 Troponin I 0.152 NT-Pro-B Natriuret Pep Impressions: Head CT 06/17/17 00:00 IMPRESSION: CHRONIC CHANGES OF ATROPHY AND MICROVASCULAR ISCHEMIA. NO ACUTE PROCESS. Chest X-Ray 06/17/17 22:41 IMPRESSION: No pneumothorax. Right IJ central venous catheter tip overlies the RA -SVC junction. Abdomen Ultrasound 06/18/17 00:00 IMPRESSION: 1. Indeterminate 2.1 cm left renal lesion may indicate a hemorrhagic cyst or other neoplasm. Recommend further evaluation with contrast CT or MRI of the kidneys. 2. Cholelithiasis. 3. Limitations. Lung Scan-VQ NM 06/18/17 00:00 IMPRESSION: MODERATE SEGMENTAL DEFECTS INVOLVING THE ANTERIOR SEGMENT LEFT UPPER LOBE AND RIGHT UPPER LOBE. FINDINGS ARE INDETERMINATE FOR PULMONARY EMBOLUS DUE TO LACK OF VENTILATION IMAGING. Abdomen MRI 06/19/17 00:00 IMPRESSION: LIMITED STUDY. NO OBVIOUS LESION IDENTIFIED IN THE LEFT KIDNEY. NO OTHER SIGNIFICANT FINDINGS OTHER THAN GALLSTONES. Chest/Abdomen CTA 06/19/17 09:13 IMPRESSION: 1. BILATERAL PULMONARY EMBOLI DESCRIBED. 2. HAZY GROUND-GLASS OPACITY IN THE LEFT UPPER LOBE MAY BE DUE TO INFLAMMATION OR INFECTION. 3. ELEVATED LEFT HEMIDIAPHRAGM. 4. GALLSTONES. Assessment & Plan - Diagnosis (1) Elevated troponin I level Is this a current diagnosis for this admission?: Yes (2) Hyperkalemia Is this a current diagnosis for this admission?: Yes (3) Hypotension Qualifiers: Hypotension type: unspecified hypotension type Qualified Code(s): I95.9 - Hypotension, unspecified Is this a current diagnosis for this admission?: Yes (4) Coronary artery disease Qualifiers: Coronary Disease-Associated Artery/Lesion type: [place] artery [place] vs. transplanted heart: [place] heart Associated angina: angina presence unspecified Qualified Code(s): I25.10 - Atherosclerotic heart disease of [place] coronary artery without angina pectoris Is this a current diagnosis for this admission?: Yes (5) Hypertension Qualifiers: Hypertension type: unspecified secondary hypertension Qualified Code(s): I15.9 - Secondary hypertension, unspecified; I15 - Secondary hypertension Is this a current diagnosis for this admission?: Yes (6) Pulmonary embolism Qualifiers: Pulmonary embolism type: other Chronicity: acute Acute cor pulmonale presence: without acute cor pulmonale Qualified Code(s): I26.99 - Other pulmonary embolism without acute cor pulmonale Is this a current diagnosis for this admission?: Yes - Notes Notes: Elevated troponin I level: Most likely related to pulmonary embolism and hypotension. Patient does have some minor nonspecific ST-T changes. Patient does have history of coronary artery disease. Do not feel patient is a candidate for ischemia evaluation. Coronary artery disease: Will gradually optimized medical management. Pulmonary embolism: Patient started on Lovenox. This was proven by CTA and also VQ scan. Agree with switch over to Eliquis when stable. Hyperkalemia: This has improved. Hypotension: Most likely related to pulmonary embolism and volume depletion. Currently blood pressure on the high side. Coronary artery disease: Patient without any symptoms of chest pain. Will optimize therapy. Recommend beta-blockers, statins. MONY/ARB may be contraindicated because of hyperkalemia. Hypertension: Blood pressure now elevated. May need to gradually resume home antihypertensives. Chronic kidney disease: Patient being expertly followed by supervising bailiff. - Time Time with patient: 15-25 minutes - CODE STATUS was discussed, patient remains full code. Surrogate decision-maker unchanged. Multiple medical problems were addressed. More than 50% of the time spent coordinating care, discussing management plans with involved caregivers. Management plans discussed with involved personnels. Medical decision making was of moderate to high complexity , patient's has multiple comorbidities. Medications reviewed and adjusted accordingly: Yes
[2017-06-20] MEDS: INSULIN LISPRO 100 UNIT/ML 3 ML VIAL SUBCUT PRN (15:16)
[2017-06-20] MEDS: CITALOPRAM HYDROBROMIDE 20 MG TABLET PO SCH (23:01)
[2017-06-21] MEDS: HYDRALAZINE HCL 50 MG TABLET PO SCH ×3 (06:00→22:58)
[2017-06-21 06:31] LABS: HEMATOCRIT 23.9 % (36.0-47.0); HGB HCT DIFFERENCE 0.1; MEAN CORPUSCULAR HEMOGLOBIN 30.3 pg (27.0-33.4); MEAN CORPUSCULAR HGB CONC 33.3 g/dL (32.0-36.0); MEAN CORPUSCULAR VOLUME 91 fl (80-97); RED BLOOD COUNT 2.63 10^6/uL (3.72-5.28); WHITE BLOOD COUNT 9.3 10^3/uL (4.0-10.5)
[2017-06-21 06:46] LABS: ANION GAP 9 (5-19); BLOOD UREA NITROGEN 11 mg/dL (7-20); CALCIUM 8.8 mg/dL (8.4-10.2); CARBON DIOXIDE 20 mmol/L (22-30); CHLORIDE 110 mmol/L (98-107); CREATININE RESULT 0.74 mg/dL (0.52-1.25); GLUCOSE 113 mg/dL (75-110); POTASSIUM 3.9 mmol/L (3.6-5.0); SODIUM 139.1 mmol/L (137-145)
[2017-06-21] MEDS ORDERED: CLONIDINE 0.1 MG/24 HR PATCH.TDWK TD SCH (10:00)
[2017-06-21] MEDS: ENOXAPARIN SODIUM INJ 60 MG/0.6 ML DISP.SYRIN SUBCUT SCH ×2 (10:10→22:56)
[2017-06-21] MEDS: RISPERIDONE 0.25 MG TABLET PO SCH ×2 (10:10→17:34)
[2017-06-21] MEDS: FOLIC ACID 1 MG TABLET PO SCH (10:10)
[2017-06-21] MEDS: DILTIAZEM HCL 180 MG CAPSULE.CR PO SCH (10:10)
[2017-06-21] MEDS: GABAPENTIN 100 MG CAPSULE PO SCH ×2 (10:11→17:34)
[2017-06-21] MEDS: FAMOTIDINE INJ/PF 20 MG/2 ML SDV IV SCH ×2 (10:11→22:57)
[2017-06-21] MEDS: ASPIRIN 325 MG TABLET PO SCH (10:11)
[2017-06-21] MEDS: LEVOTHYROXINE SODIUM 0.075 MG TABLET PO SCH (10:11)
[2017-06-21] MEDS: METOPROLOL TARTRATE 25 MG TABLET PO SCH ×2 (10:11→22:59)
[2017-06-21] MEDS: ISOSORBIDE MONONITRATE 60 MG TAB.ER.24H PO SCH (10:11)
[2017-06-21] MEDS: LEVETIRACETAM 1500 MG/NACL-ISO 1,500 MG/100 ML RTUPB IV SCH ×2 (10:12→22:58)
[2017-06-21] MEDS: CIPROFLOXACIN 200 MG/D5W RTU 200 MG/100 ML RTUPB IV SCH ×2 (10:12→22:56)
--- NOTE | 2017-06-21 10:51 | PDOC PROGRESS REPORT ---
Subjective Progress Note for:: 06/21/17 Subjective:: Patient is currently doing fair. Patient's blood pressure is still labile up and down. Patient other than that no other events happens. Patient hemoglobin is currently stable Physical Exam Vital Signs: Temp Pulse Resp BP Pulse Ox 98.2 F 98 16 180/68 H 92 06/21/17 07:37 06/21/17 07:37 06/21/17 07:37 06/21/17 07:37 06/21/17 07:37 Intake & Output 06/20/17 06/21/17 06/22/17 06:59 06:59 06:59 Intake Total 2967 2295 Output Total 1550 850 Balance 1417 1445 Weight 65.1 kg 65.9 kg General appearance: PRESENT: no acute distress, well-developed, well-nourished Head exam: PRESENT: atraumatic, normocephalic Eye exam: PRESENT: conjunctiva pink, EOMI, PERRLA. ABSENT: scleral icterus Ear exam: PRESENT: normal external ear exam Mouth exam: PRESENT: moist, tongue midline Neck exam: PRESENT: full ROM. ABSENT: carotid bruit, JVD, lymphadenopathy, thyromegaly Respiratory exam: PRESENT: clear to auscultation becca Cardiovascular exam: PRESENT: RRR. ABSENT: diastolic murmur, rubs, systolic murmur Pulses: PRESENT: normal dorsalis pedis pul, +2 pedal pulses bilateral Vascular exam: PRESENT: normal capillary refill GI/Abdominal exam: PRESENT: normal bowel sounds, soft. ABSENT: distended, guarding, mass, organolmegaly, rebound, tenderness Rectal exam: PRESENT: deferred Neurological exam: PRESENT: alert, awake, oriented to person. ABSENT: motor sensory deficit Psychiatric exam: PRESENT: appropriate affect, normal mood. ABSENT: homicidal ideation, suicidal ideation Skin exam: PRESENT: dry, intact, warm. ABSENT: cyanosis, rash Results Laboratory Results: 06/21/17 06:13 06/21/17 06:13 06/21/17 06/21/17 06:13 06:13 WBC 9.3 RBC 2.63 L Hgb 8.0 L Hct 23.9 L MCV 91 MCH 30.3 MCHC 33.3 RDW 14.0 Plt Count 257 Sodium 139.1 Potassium 3.9 Chloride 110 H Carbon Dioxide 20 L Anion Gap 9 BUN 11 Creatinine 0.74 Est GFR ( Amer) > 60 Est GFR (Non-Af Amer) > 60 Glucose 113 H Calcium 8.8 06/17/17 06/17/17 06/18/17 21:50 21:50 05:10 Creatine Kinase 100 95 CK-MB (CK-2) 2.51 Troponin I 0.142 NT-Pro-B Natriuret Pep 06/18/17 06/18/17 06/18/17 05:10 10:13 10:13 Creatine Kinase 91 CK-MB (CK-2) 3.04 3.27 Troponin I 0.243 0.220 NT-Pro-B Natriuret Pep 2450 H 06/18/17 06/18/17 06/18/17 18:50 18:50 23:45 Creatine Kinase 77 77 CK-MB (CK-2) 3.04 Troponin I 0.161 NT-Pro-B Natriuret Pep 06/18/17 23:45 Creatine Kinase CK-MB (CK-2) 3.66 Troponin I 0.152 NT-Pro-B Natriuret Pep Impressions: Head CT 06/17/17 00:00 IMPRESSION: CHRONIC CHANGES OF ATROPHY AND MICROVASCULAR ISCHEMIA. NO ACUTE PROCESS. Chest X-Ray 06/17/17 22:41 IMPRESSION: No pneumothorax. Right IJ central venous catheter tip overlies the RA -SVC junction. Abdomen Ultrasound 06/18/17 00:00 IMPRESSION: 1. Indeterminate 2.1 cm left renal lesion may indicate a hemorrhagic cyst or other neoplasm. Recommend further evaluation with contrast CT or MRI of the kidneys. 2. Cholelithiasis. 3. Limitations. Lung Scan-VQ NM 06/18/17 00:00 IMPRESSION: MODERATE SEGMENTAL DEFECTS INVOLVING THE ANTERIOR SEGMENT LEFT UPPER LOBE AND RIGHT UPPER LOBE. FINDINGS ARE INDETERMINATE FOR PULMONARY EMBOLUS DUE TO LACK OF VENTILATION IMAGING. Abdomen MRI 06/19/17 00:00 IMPRESSION: LIMITED STUDY. NO OBVIOUS LESION IDENTIFIED IN THE LEFT KIDNEY. NO OTHER SIGNIFICANT FINDINGS OTHER THAN GALLSTONES. Chest/Abdomen CTA 06/19/17 09:13 IMPRESSION: 1. BILATERAL PULMONARY EMBOLI DESCRIBED. 2. HAZY GROUND-GLASS OPACITY IN THE LEFT UPPER LOBE MAY BE DUE TO INFLAMMATION OR INFECTION. 3. ELEVATED LEFT HEMIDIAPHRAGM. 4. GALLSTONES. Assessment & Plan - Diagnosis (1) Hypotension Qualifiers: Hypotension type: unspecified hypotension type Qualified Code(s): I95.9 - Hypotension, unspecified Is this a current diagnosis for this admission?: Yes Plan: Currently all resolved (2) Hyperkalemia Is this a current diagnosis for this admission?: Yes Plan: Currently all resolved (3) Elevated LFTs Is this a current diagnosis for this admission?: Yes Plan: Most likely hepatic congestions (4) Acute kidney injury Is this a current diagnosis for this admission?: Yes Plan: Currently getting better continues to IV fluid follow with nephrology (5) Coronary artery disease Qualifiers: Coronary Disease-Associated Artery/Lesion type: [place] artery [place] vs. transplanted heart: [place] heart Associated angina: angina presence unspecified Qualified Code(s): I25.10 - Atherosclerotic heart disease of [place] coronary artery without angina pectoris Is this a current diagnosis for this admission?: Yes Plan: Elevated cardiac enzymes will consult the cardiology waiting for cardiac consult (6) Elevated troponin I level Is this a current diagnosis for this admission?: Yes Plan: Most likely due to the underlying hypotension's episodes will wait for the cardiac concerns repeat the EKG and cardiac enzyme continues to aspirin and beta -mary (7) Encephalopathy Is this a current diagnosis for this admission?: Yes Plan: Patient was significant hypertensive encephalopathy with the vascular dementia will check the ammonia level (8) Seizure Is this a current diagnosis for this admission?: Yes Plan: We hold the Dilantin level is slightly elevated and continues to Keppra currently IV until the patient's Fully back to the baseline (9) Type 2 diabetes mellitus Qualifiers: Diabetes mellitus complication status: with kidney complications Diabetes mellitus complication detail: with chronic kidney disease 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 insulin use: without 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 use Is this a current diagnosis for this admission?: Yes Plan: Continues the patient on sliding scale (10) Uncontrolled hypertension Is this a current diagnosis for this admission?: Yes Plan: Add the clonidine patch 0.1 mg (11) Anemia Qualifiers: Anemia type: due to chronic kidney disease Chronic kidney disease stage: stage 3 (moderate) Qualified Code(s): N18.3 - Chronic kidney disease, stage 3 (moderate); D63.1 - Anemia in chronic kidney disease Is this a current diagnosis for this admission?: Yes Plan: Get the iron study (12) Cerebrovascular disease Is this a current diagnosis for this admission?: Yes (13) Pulmonary embolism Qualifiers: Pulmonary embolism type: other Chronicity: acute Acute cor pulmonale presence: without acute cor pulmonale Qualified Code(s): I26.99 - Other pulmonary embolism without acute cor pulmonale Is this a current diagnosis for this admission?: Yes Plan: Continues the Lovenox and may be considered to start the Eliquis tomorrow - Time Time Spent with patient: 15-24 minutes Medications reviewed and adjusted accordingly: Yes Anticipated discharge: Home Within: Other - Inpatient Certification Medical Necessity: Need Close Monitoring Due to Risk of Patient Decompensation Post Hospital Care: D/C Performance Reporter Documentation - Plan Summary Plan Summary: At the clonidine 0.1 mg
--- NOTE | 2017-06-21 11:58 | PDOC PROGRESS REPORT ---
Subjective Progress Note for:: 06/21/17 Subjective:: Patient noted to be more alert today. Patient noted to have fluctuating mental status by nurses and PMD. Blood pressure has been noted to be labile.. Patient noted to have problems with fluctuating blood pressure. Results of VQ scan reviewed. 2D echocardiogram reviewed. Patient subsequently also had a CTA which was positive for pulmonary emboli. 2D echocardiogram revealed severe pulmonary hypertension. Patient however seems comfortable in bed without any significant shortness of breath. Telemetry strips shows patient maintaining sinus rhythm. Physical Exam Vital Signs: Temp Pulse Resp BP Pulse Ox 98.2 F 98 16 180/68 H 92 06/21/17 07:37 06/21/17 07:37 06/21/17 07:37 06/21/17 07:37 06/21/17 07:37 Intake & Output 06/20/17 06/21/17 06/22/17 06:59 06:59 06:59 Intake Total 2967 2295 Output Total 1550 850 Balance 1417 1445 Weight 65.1 kg 65.9 kg Exam: GENERAL: well-nourished and in no acute distress. Patient is alert, oriented to person and place but not time HEAD: Atraumatic, normocephalic. EYES: Pupils equal round and reactive to light, extraocular movements intact, sclera anicteric, conjunctiva are normal. Patient is legally blind. ENT: TMs normal, nares patent, oropharynx clear without exudates. Moist mucous membranes. No oral ulcerations or bleeding gums noted NECK: supple without lymphadenopathy or JVD. Trachea is central. No cervical or axillary lymphadenopathy noted. Carotids are 2+ LUNGS: Breath sounds bibasilar fine crackles at bases. No significant dullness noted. CHEST: Palpation of chest wall shows no significant chest wall tenderness. HEART: [place] MEDICAL DOCTOR, No PSH, 2/6 LORIE aortic area, 1/6 beltran systolic murmur mitral area, rubs or gallops. ABDOMEN: Soft, no significant tenderness appreciated, normoactive bowel sounds. No guarding, no rebound. No rigidity noted . No masses appreciated. EXTREMITIES: Pedal pulses are 1-2+, no calf tenderness noted, Trace + pedal edema noted. No clubbing or cyanosis. NEUROLOGICAL: Patient is alert, patient is noted to have left hemiparesis signs, . PSYCH: Psych exam because of the patient's current mental status SKIN: No significant ecchymosis, rash, ulcerations or signs of pruritus noted. MUSCULOSKELETAL EXAM: No significant joint swelling noted. Patient is nonambulatory. Results Laboratory Results: 06/21/17 06:13 06/21/17 06:13 06/21/17 06/21/17 06:13 06:13 WBC 9.3 RBC 2.63 L Hgb 8.0 L Hct 23.9 L MCV 91 MCH 30.3 MCHC 33.3 RDW 14.0 Plt Count 257 Sodium 139.1 Potassium 3.9 Chloride 110 H Carbon Dioxide 20 L Anion Gap 9 BUN 11 Creatinine 0.74 Est GFR ( Amer) > 60 Est GFR (Non-Af Amer) > 60 Glucose 113 H Calcium 8.8 06/17/17 06/17/17 06/18/17 21:50 21:50 05:10 Creatine Kinase 100 95 CK-MB (CK-2) 2.51 Troponin I 0.142 NT-Pro-B Natriuret Pep 06/18/17 06/18/17 06/18/17 05:10 10:13 10:13 Creatine Kinase 91 CK-MB (CK-2) 3.04 3.27 Troponin I 0.243 0.220 NT-Pro-B Natriuret Pep 2450 H 06/18/17 06/18/17 06/18/17 18:50 18:50 23:45 Creatine Kinase 77 77 CK-MB (CK-2) 3.04 Troponin I 0.161 NT-Pro-B Natriuret Pep 06/18/17 23:45 Creatine Kinase CK-MB (CK-2) 3.66 Troponin I 0.152 NT-Pro-B Natriuret Pep EKG Comments: Telemetry strips shows sinus rhythm without any sustained tachycardia or bradycardia arrhythmias. Impressions: Head CT 06/17/17 00:00 IMPRESSION: CHRONIC CHANGES OF ATROPHY AND MICROVASCULAR ISCHEMIA. NO ACUTE PROCESS. Chest X-Ray 06/17/17 22:41 IMPRESSION: No pneumothorax. Right IJ central venous catheter tip overlies the RA -SVC junction. Abdomen Ultrasound 06/18/17 00:00 IMPRESSION: 1. Indeterminate 2.1 cm left renal lesion may indicate a hemorrhagic cyst or other neoplasm. Recommend further evaluation with contrast CT or MRI of the kidneys. 2. Cholelithiasis. 3. Limitations. Lung Scan-VQ NM 06/18/17 00:00 IMPRESSION: MODERATE SEGMENTAL DEFECTS INVOLVING THE ANTERIOR SEGMENT LEFT UPPER LOBE AND RIGHT UPPER LOBE. FINDINGS ARE INDETERMINATE FOR PULMONARY EMBOLUS DUE TO LACK OF VENTILATION IMAGING. Abdomen MRI 06/19/17 00:00 IMPRESSION: LIMITED STUDY. NO OBVIOUS LESION IDENTIFIED IN THE LEFT KIDNEY. NO OTHER SIGNIFICANT FINDINGS OTHER THAN GALLSTONES. Chest/Abdomen CTA 06/19/17 09:13 IMPRESSION: 1. BILATERAL PULMONARY EMBOLI DESCRIBED. 2. HAZY GROUND-GLASS OPACITY IN THE LEFT UPPER LOBE MAY BE DUE TO INFLAMMATION OR INFECTION. 3. ELEVATED LEFT HEMIDIAPHRAGM. 4. GALLSTONES. Assessment & Plan - Diagnosis (1) Elevated troponin I level Is this a current diagnosis for this admission?: Yes (2) Hyperkalemia Is this a current diagnosis for this admission?: Yes (3) Hypotension Qualifiers: Hypotension type: unspecified hypotension type Qualified Code(s): I95.9 - Hypotension, unspecified Is this a current diagnosis for this admission?: Yes (4) Coronary artery disease Qualifiers: Coronary Disease-Associated Artery/Lesion type: [place] artery [place] vs. transplanted heart: [place] heart Associated angina: angina presence unspecified Qualified Code(s): I25.10 - Atherosclerotic heart disease of [place] coronary artery without angina pectoris Is this a current diagnosis for this admission?: Yes (5) Hypertension Qualifiers: Hypertension type: unspecified secondary hypertension Qualified Code(s): I15.9 - Secondary hypertension, unspecified; I15 - Secondary hypertension Is this a current diagnosis for this admission?: Yes (6) Pulmonary embolism Qualifiers: Pulmonary embolism type: other Chronicity: acute Acute cor pulmonale presence: without acute cor pulmonale Qualified Code(s): I26.99 - Other pulmonary embolism without acute cor pulmonale Is this a current diagnosis for this admission?: Yes - Notes Notes: Hypertension management discussed with eyeglass cutter. Agree with starting clonidine TTS patch Elevated troponin I level: Most likely related to pulmonary embolism and hypotension. Patient does have some minor nonspecific ST-T changes. Patient does have history of coronary artery disease. Do not feel patient is a candidate for ischemia evaluation. Will optimize therapy for presumed CAD. Coronary artery disease: Will gradually optimized medical management. Pulmonary embolism: This was proven by CTA and also VQ scan. Agree with switch over to Eliquis when stable. Hyperkalemia: This has improved. Hypotension: Most likely related to pulmonary embolism and volume depletion. Currently blood pressure on the high side. Coronary artery disease: Patient without any symptoms of chest pain. Will optimize therapy. Recommend beta-blockers, statins. MONY/ARB may be contraindicated because of hyperkalemia. Hypertension: Blood pressure now elevated. This was discussed with eyeglass cutter. Agree with starting patient on clonidine TTS patch. Chronic kidney disease: Patient being expertly followed by rewind operator. - Time Time with patient: 15-25 minutes - CODE STATUS was discussed, patient remains full code. Surrogate decision-maker unchanged. Multiple medical problems were addressed. More than 50% of the time spent coordinating care, discussing management plans with involved caregivers. Management plans discussed with involved personnels. Medical decision making was of moderate to high complexity , patient's has multiple comorbidities. Medications reviewed and adjusted accordingly: Yes
[2017-06-21] MEDS: CITALOPRAM HYDROBROMIDE 20 MG TABLET PO SCH (22:56)
[2017-06-21] MEDS: ACETAMINOPHEN 325 MG TABLET PO PRN (23:00)
[2017-06-21] MEDS: INSULIN LISPRO 100 UNIT/ML 3 ML VIAL SUBCUT PRN (23:27)
[2017-06-22] MEDS: HYDRALAZINE HCL 50 MG TABLET PO SCH (05:07)
[2017-06-22 06:53] LABS: ANION GAP 5 (5-19); BLOOD UREA NITROGEN 12 mg/dL (7-20); CALCIUM 8.5 mg/dL (8.4-10.2); CARBON DIOXIDE 24 mmol/L (22-30); CHLORIDE 109 mmol/L (98-107); CREATININE RESULT 0.92 mg/dL (0.52-1.25); GLUCOSE 164 mg/dL (75-110); SODIUM 137.5 mmol/L (137-145)
[2017-06-22 07:20] LABS: ALANINE AMINOTRANSFERASE 129 U/L (9-52); ALBUMIN 2.5 g/dL (3.5-5.0); ALKALINE PHOSPHATASE 212 U/L (38-126); ASPARTATE AMINO TRANSFERASE 130 U/L (14-36); BILIRUBIN,DIRECT 0.2 mg/dL (0.0-0.4); BILIRUBIN,TOTAL 0.2 mg/dL (0.2-1.3); TOTAL PROTEIN 5.3 g/dL (6.3-8.2)
--- NOTE | 2017-06-22 08:04 | PDOC PROGRESS REPORT ---
Subjective Progress Note for:: 06/22/17 Subjective:: No acute events overnight, per nursing patient does not seem to be actively bleeding. Her hemoglobin however has dropped to the 8 range. Probably dilutional. Physical Exam Vital Signs: Temp Pulse Resp BP Pulse Ox 98.7 F 90 16 175/58 H 97 06/22/17 07:04 06/22/17 07:04 06/22/17 07:04 06/22/17 07:04 06/22/17 07:04 Intake & Output 06/21/17 06/22/17 06/23/17 06:59 06:59 06:59 Intake Total 2295 200 Output Total 850 1300 Balance 1445 -1100 Weight 65.9 kg 66.1 kg General appearance: PRESENT: no acute distress, well-developed, well-nourished Head exam: PRESENT: atraumatic, normocephalic Eye exam: PRESENT: conjunctiva pink, EOMI, PERRLA. ABSENT: scleral icterus Ear exam: PRESENT: normal external ear exam Mouth exam: PRESENT: moist, tongue midline Neck exam: ABSENT: carotid bruit, JVD, lymphadenopathy, thyromegaly Respiratory exam: PRESENT: clear to auscultation becca. ABSENT: rales, rhonchi, wheezes Cardiovascular exam: PRESENT: RRR. ABSENT: diastolic murmur, rubs, systolic murmur Pulses: PRESENT: normal dorsalis pedis pul Vascular exam: PRESENT: normal capillary refill GI/Abdominal exam: PRESENT: normal bowel sounds, soft. ABSENT: distended, guarding, mass, organolmegaly, rebound, tenderness Rectal exam: PRESENT: deferred Extremities exam: PRESENT: full ROM. ABSENT: calf tenderness, clubbing, pedal edema Neurological exam: PRESENT: alert, awake, oriented to person, oriented to place , oriented to time, oriented to situation, CN II-XII grossly intact. ABSENT: motor sensory deficit Psychiatric exam: PRESENT: appropriate affect, normal mood. ABSENT: homicidal ideation, suicidal ideation Skin exam: PRESENT: dry, intact, warm. ABSENT: cyanosis, rash Results Laboratory Results: 06/21/17 06:13 06/22/17 05:00 06/19/17 06/22/17 06/22/17 04:27 05:00 05:00 Sodium 137.5 Potassium 4.0 Chloride 109 H Carbon Dioxide 24 Anion Gap 5 BUN 12 Creatinine 0.92 Est GFR ( Amer) > 60 Est GFR (Non-Af Amer) 59 L Glucose 164 H Calcium 8.5 Transferrin 113 L Total Bilirubin 0.2 AST 130 H ALT 129 H Alkaline Phosphatase 212 H Total Protein 5.3 L Albumin 2.5 L 06/17/17 06/17/17 06/18/17 21:50 21:50 05:10 Creatine Kinase 100 95 CK-MB (CK-2) 2.51 Troponin I 0.142 NT-Pro-B Natriuret Pep 06/18/17 06/18/17 06/18/17 05:10 10:13 10:13 Creatine Kinase 91 CK-MB (CK-2) 3.04 3.27 Troponin I 0.243 0.220 NT-Pro-B Natriuret Pep 2450 H 06/18/17 06/18/17 06/18/17 18:50 18:50 23:45 Creatine Kinase 77 77 CK-MB (CK-2) 3.04 Troponin I 0.161 NT-Pro-B Natriuret Pep 06/18/17 23:45 Creatine Kinase CK-MB (CK-2) 3.66 Troponin I 0.152 NT-Pro-B Natriuret Pep Impressions: Head CT 06/17/17 00:00 IMPRESSION: CHRONIC CHANGES OF ATROPHY AND MICROVASCULAR ISCHEMIA. NO ACUTE PROCESS. Chest X-Ray 06/17/17 22:41 IMPRESSION: No pneumothorax. Right IJ central venous catheter tip overlies the RA -SVC junction. Abdomen Ultrasound 06/18/17 00:00 IMPRESSION: 1. Indeterminate 2.1 cm left renal lesion may indicate a hemorrhagic cyst or other neoplasm. Recommend further evaluation with contrast CT or MRI of the kidneys. 2. Cholelithiasis. 3. Limitations. Lung Scan-VQ NM 06/18/17 00:00 IMPRESSION: MODERATE SEGMENTAL DEFECTS INVOLVING THE ANTERIOR SEGMENT LEFT UPPER LOBE AND RIGHT UPPER LOBE. FINDINGS ARE INDETERMINATE FOR PULMONARY EMBOLUS DUE TO LACK OF VENTILATION IMAGING. Abdomen MRI 06/19/17 00:00 IMPRESSION: LIMITED STUDY. NO OBVIOUS LESION IDENTIFIED IN THE LEFT KIDNEY. NO OTHER SIGNIFICANT FINDINGS OTHER THAN GALLSTONES. Chest/Abdomen CTA 06/19/17 09:13 IMPRESSION: 1. BILATERAL PULMONARY EMBOLI DESCRIBED. 2. HAZY GROUND-GLASS OPACITY IN THE LEFT UPPER LOBE MAY BE DUE TO INFLAMMATION OR INFECTION. 3. ELEVATED LEFT HEMIDIAPHRAGM. 4. GALLSTONES. Assessment & Plan - Diagnosis (1) Pulmonary embolism Qualifiers: Pulmonary embolism type: other Chronicity: acute Acute cor pulmonale presence: without acute cor pulmonale Qualified Code(s): I26.99 - Other pulmonary embolism without acute cor pulmonale Is this a current diagnosis for this admission?: Yes Plan: Continue Lovenox, if patient ultimately goes to rehab facility, would recommend continuation of Lovenox, if instead patient discharges home, transition to eliquis (2) Anemia Qualifiers: Anemia type: due to chronic kidney disease Chronic kidney disease stage: stage 3 (moderate) Qualified Code(s): N18.3 - Chronic kidney disease, stage 3 (moderate); D63.1 - Anemia in chronic kidney disease Is this a current diagnosis for this admission?: Yes Plan: Anemia of chronic disease, ferritin and saturation are appropriate, agree with transfusion of 1 unit of packed red blood cell. - Time Time Spent with patient: 35 or more minutes Critical Time spent with patient: 35 or more minutes
[2017-06-22] MEDS: ASPIRIN 325 MG TABLET PO SCH (09:27)
[2017-06-22] MEDS: CIPROFLOXACIN 200 MG/D5W RTU 200 MG/100 ML RTUPB IV SCH ×2 (09:27→21:52)
[2017-06-22] MEDS: DILTIAZEM HCL 180 MG CAPSULE.CR PO SCH (09:27)
[2017-06-22] MEDS: GABAPENTIN 100 MG CAPSULE PO SCH ×2 (09:28→17:17)
[2017-06-22] MEDS: ISOSORBIDE MONONITRATE 60 MG TAB.ER.24H PO SCH (09:28)
[2017-06-22] MEDS: FOLIC ACID 1 MG TABLET PO SCH (09:28)
[2017-06-22] MEDS: FAMOTIDINE INJ/PF 20 MG/2 ML SDV IV SCH ×2 (09:28→21:52)
[2017-06-22] MEDS: LEVOTHYROXINE SODIUM 0.075 MG TABLET PO SCH (09:29)
[2017-06-22] MEDS: RISPERIDONE 0.25 MG TABLET PO SCH ×2 (09:29→17:17)
--- NOTE | 2017-06-22 09:34 | PDOC PROGRESS REPORT ---
Subjective Progress Note for:: 06/22/17 Subjective:: Patient is currently doing well. Patient's denied any chest pain denied any shortness of the breath His blood pressures getting better Patient's at this point is to go to the rehab but I think patients does not want to go will talk to the Physical Exam Vital Signs: Temp Pulse Resp BP Pulse Ox 98.7 F 90 16 175/58 H 97 06/22/17 07:04 06/22/17 07:04 06/22/17 07:04 06/22/17 07:04 06/22/17 07:04 Intake & Output 06/21/17 06/22/17 06/23/17 06:59 06:59 06:59 Intake Total 2295 453 Output Total 850 1300 Balance 1445 -847 Weight 65.9 kg 66.1 kg General appearance: PRESENT: no acute distress, well-developed, well-nourished Head exam: PRESENT: atraumatic, normocephalic Eye exam: PRESENT: conjunctiva pink, EOMI, PERRLA. ABSENT: scleral icterus Ear exam: PRESENT: normal external ear exam Mouth exam: PRESENT: moist, tongue midline Neck exam: PRESENT: full ROM. ABSENT: carotid bruit, JVD, lymphadenopathy, thyromegaly Cardiovascular exam: PRESENT: RRR. ABSENT: diastolic murmur, rubs, systolic murmur Pulses: PRESENT: normal dorsalis pedis pul, +2 pedal pulses bilateral Vascular exam: PRESENT: normal capillary refill GI/Abdominal exam: PRESENT: normal bowel sounds, soft. ABSENT: distended, guarding, mass, organolmegaly, rebound, tenderness Rectal exam: PRESENT: deferred Neurological exam: PRESENT: alert, awake, oriented to person, oriented to place. ABSENT: motor sensory deficit Psychiatric exam: PRESENT: appropriate affect, normal mood. ABSENT: homicidal ideation, suicidal ideation Skin exam: PRESENT: dry, intact, warm. ABSENT: cyanosis, rash Results Laboratory Results: 06/21/17 06:13 06/22/17 05:00 06/19/17 06/22/17 06/22/17 04:27 05:00 05:00 Sodium 137.5 Potassium 4.0 Chloride 109 H Carbon Dioxide 24 Anion Gap 5 BUN 12 Creatinine 0.92 Est GFR ( Amer) > 60 Est GFR (Non-Af Amer) 59 L Glucose 164 H Calcium 8.5 Transferrin 113 L Total Bilirubin 0.2 AST 130 H ALT 129 H Alkaline Phosphatase 212 H Total Protein 5.3 L Albumin 2.5 L 06/17/17 06/17/17 06/18/17 21:50 21:50 05:10 Creatine Kinase 100 95 CK-MB (CK-2) 2.51 Troponin I 0.142 NT-Pro-B Natriuret Pep 06/18/17 06/18/17 06/18/17 05:10 10:13 10:13 Creatine Kinase 91 CK-MB (CK-2) 3.04 3.27 Troponin I 0.243 0.220 NT-Pro-B Natriuret Pep 2450 H 06/18/17 06/18/17 06/18/17 18:50 18:50 23:45 Creatine Kinase 77 77 CK-MB (CK-2) 3.04 Troponin I 0.161 NT-Pro-B Natriuret Pep 06/18/17 23:45 Creatine Kinase CK-MB (CK-2) 3.66 Troponin I 0.152 NT-Pro-B Natriuret Pep Impressions: Head CT 06/17/17 00:00 IMPRESSION: CHRONIC CHANGES OF ATROPHY AND MICROVASCULAR ISCHEMIA. NO ACUTE PROCESS. Chest X-Ray 06/17/17 22:41 IMPRESSION: No pneumothorax. Right IJ central venous catheter tip overlies the RA -SVC junction. Abdomen Ultrasound 06/18/17 00:00 IMPRESSION: 1. Indeterminate 2.1 cm left renal lesion may indicate a hemorrhagic cyst or other neoplasm. Recommend further evaluation with contrast CT or MRI of the kidneys. 2. Cholelithiasis. 3. Limitations. Lung Scan-VQ NM 06/18/17 00:00 IMPRESSION: MODERATE SEGMENTAL DEFECTS INVOLVING THE ANTERIOR SEGMENT LEFT UPPER LOBE AND RIGHT UPPER LOBE. FINDINGS ARE INDETERMINATE FOR PULMONARY EMBOLUS DUE TO LACK OF VENTILATION IMAGING. Abdomen MRI 06/19/17 00:00 IMPRESSION: LIMITED STUDY. NO OBVIOUS LESION IDENTIFIED IN THE LEFT KIDNEY. NO OTHER SIGNIFICANT FINDINGS OTHER THAN GALLSTONES. Chest/Abdomen CTA 06/19/17 09:13 IMPRESSION: 1. BILATERAL PULMONARY EMBOLI DESCRIBED. 2. HAZY GROUND-GLASS OPACITY IN THE LEFT UPPER LOBE MAY BE DUE TO INFLAMMATION OR INFECTION. 3. ELEVATED LEFT HEMIDIAPHRAGM. 4. GALLSTONES. Assessment & Plan - Diagnosis (1) Hypotension Qualifiers: Hypotension type: unspecified hypotension type Qualified Code(s): I95.9 - Hypotension, unspecified Is this a current diagnosis for this admission?: Yes Plan: Currently all resolved (2) Hyperkalemia Is this a current diagnosis for this admission?: Yes Plan: Currently all resolved (3) Elevated LFTs Is this a current diagnosis for this admission?: Yes Plan: Most likely hepatic congestions (4) Acute kidney injury Is this a current diagnosis for this admission?: Yes Plan: Currently getting better continues to IV fluid follow with nephrology (5) Coronary artery disease Qualifiers: Coronary Disease-Associated Artery/Lesion type: [place] artery [place] vs. transplanted heart: [place] heart Associated angina: angina presence unspecified Qualified Code(s): I25.10 - Atherosclerotic heart disease of [place] coronary artery without angina pectoris Is this a current diagnosis for this admission?: Yes Plan: Elevated cardiac enzymes will consult the cardiology waiting for cardiac consult (6) Elevated troponin I level Is this a current diagnosis for this admission?: Yes Plan: Most likely due to the underlying hypotension's episodes will wait for the cardiac concerns repeat the EKG and cardiac enzyme continues to aspirin and beta -mary (7) Encephalopathy Is this a current diagnosis for this admission?: Yes Plan: Patient was significant hypertensive encephalopathy with the vascular dementia will check the ammonia level (8) Seizure Is this a current diagnosis for this admission?: Yes Plan: We hold the Dilantin level is slightly elevated and continues to Keppra currently IV until the patient's Fully back to the baseline (9) Type 2 diabetes mellitus Qualifiers: Diabetes mellitus complication status: with kidney complications Diabetes mellitus complication detail: with chronic kidney disease Diabetes mellitus terminal system operator insulin use: without terminal system operator use Is this a current diagnosis for this admission?: Yes Plan: Continues the patient on sliding scale (10) Uncontrolled hypertension Is this a current diagnosis for this admission?: Yes Plan: Add the clonidine patch 0.1 mg (11) Anemia Qualifiers: Anemia type: due to chronic kidney disease Chronic kidney disease stage: stage 3 (moderate) Qualified Code(s): N18.3 - Chronic kidney disease, stage 3 (moderate); D63.1 - Anemia in chronic kidney disease Is this a current diagnosis for this admission?: Yes Plan: Will give her 1 unit of blood today (12) Cerebrovascular disease Is this a current diagnosis for this admission?: Yes Plan: Patient CT head was negative for any acute finding (13) Pulmonary embolism Qualifiers: Pulmonary embolism type: other Chronicity: acute Acute cor pulmonale presence: without acute cor pulmonale Qualified Code(s): I26.99 - Other pulmonary embolism without acute cor pulmonale Is this a current diagnosis for this admission?: Yes Plan: Continues the Lovenox and may be considered to start the Eliquis tomorrow - Time Time Spent with patient: 15-24 minutes Medications reviewed and adjusted accordingly: Yes Anticipated discharge: SNF Within: Other - Inpatient Certification Medical Necessity: Need Close Monitoring Due to Risk of Patient Decompensation Post Hospital Care: D/C Coding Manager Documentation - Plan Summary Plan Summary: Continues to Lovenox if the patient is going to the long-term in patients refused to go may be start the Eliquis Patient still weak I think patients get a more benefit to go to the nursing homes
[2017-06-22] MEDS: INSULIN LISPRO 100 UNIT/ML 3 ML VIAL SUBCUT PRN ×3 (09:43→17:17)
[2017-06-22] MEDS: ENOXAPARIN SODIUM INJ 60 MG/0.6 ML DISP.SYRIN SUBCUT SCH ×2 (11:24→21:52)
[2017-06-22] MEDS: LEVETIRACETAM 500 MG TABLET PO SCH ×2 (11:25→21:52)
[2017-06-22] MEDS: METOPROLOL TARTRATE 25 MG TABLET PO SCH ×2 (11:26→21:52)
[2017-06-22 13:49] LABS: HEMATOCRIT 22.1 % (36.0-47.0); HGB HCT DIFFERENCE -0.5; MEAN CORPUSCULAR HGB CONC 32.6 g/dL (32.0-36.0); MEAN CORPUSCULAR VOLUME 92 fl (80-97); RED CELL DISTRIBUTION WIDTH 13.8 % (11.5-14.0); WHITE BLOOD COUNT 6.6 10^3/uL (4.0-10.5)
[2017-06-22 14:04] LABS: HEMOGLOBIN 7.2 g/dL (12.0-15.5)
[2017-06-22] MEDS ORDERED: ONDANSETRON HCL INJ/PF 4 MG/2 ML SDV IV PRN (14:30)
[2017-06-22] MEDS: HYDRALAZINE HCL 25 MG TABLET PO SCH ×2 (14:37→21:53)
--- NOTE | 2017-06-22 16:17 | PROGRESS NOTE E ---
Progress Note NAME: ANG CHRISTY : 1935 AGE: 82Y DATE: 06/22/2017 ROOM: 333 SUBJECTIVE: The patient seems to be confused today. She has been having fluctuating mental status. The patient's blood pressure today is high. She does not appear to be in any acute distress and denies any shortness of breath, chest pain, PND, or orthopnea. There is no pedal edema present. OBJECTIVE: GENERAL: On examination, the patient appears to be chronically ill and malnourished, but in no acute distress. VITAL SIGNS: She is afebrile with a temperature is 98.7 degrees Fahrenheit, pulse is 90 beats per minute, blood pressure is 175/58, respirations are 16 per minute, O2 sat is 97% on room air. HEENT: Head is atraumatic, normocephalic. Eyes - Pupils are equal, round, regular, reactive to light and accommodation. Extraocular movements are normal. There is no conjunctival pallor. There is no scleral icterus. The patient is legally blind. ENT is negative. NECK: Supple without elevation of JVD. There is no lymphadenopathy. Carotids are equal. There is no bruits. There is no goiter. LUNGS: Breath sounds bibasilar fine crackles at the bases. There is no chest wall tenderness. HEART: S1, S2 heard. There is no S3 gallop. There is no S4 gallop. There is a systolic murmur at the aortic area, 2 x 6, and a 1 x 6 pansystolic murmur at the mitral area. There are no gallops. There are no rubs. EXTREMITIES: There is no pedal edema. Pedal pulses are mildly reduced. Femoral's are regular. There is no femoral bruits. There is no calf tenderness. There is no cyanosis or clubbing. ABDOMEN: Soft, nontender. There is no hepatosplenomegaly. Bowel sounds are well heard. NEUROLOGICAL: Patient is awake but seems to be confused and has mild left-sided weakness. PSYCHIATRIC: Exam not done because of the patient's current mental status. DIAGNOSTICS: The patient's white count was 9,300, hemoglobin has dropped 8, hematocrit is 23.9, platelet count is 255,000. The patient's sodium is 137.5, potassium 4.0, chloride 109, CO2 24, BUN is 12, creatinine is 0.92, GFR is greater than 60. The patient's liver function tests are abnormal with an AST of 130, ALT of 129, and alkaline phosphatase of 212. The rest of the liver functions are normal. Her glucose is 160, potassium is 8.9. The patient's phenytoin is 21.2 which is high. IMPRESSION: 1. ELEVATED TROPONIN I LEVEL MOST LIKELY SECONDARY TO PULMONARY EMBOLISM *------*. The troponin I has trended down. 2. HYPERKALEMIA, resolved. Potassium is 4.0 this morning. 3. HYPOTENSION, resolved. 4. CORONARY ARTERY DISEASE. Patient without any symptoms of angina. Continue current treatment. 5. HISTORY OF HYPERTENSION. Patient's blood pressure is up again. 6. PULMONARY EMBOLISM. The patient is on Lovenox. 7. ANEMIA. The patient got one unit of packed RBCs this morning. Will recheck the hemoglobin later. 8. DIABETES MELLITUS. 9. HYPOTHYROIDISM. PLAN: Will recommend getting a stool for occult blood. Note that the patient's hydralazine has been increased to 70 mg p.o. q. 8 hours. Continue other current treatment. TIME SPENT: Note 25 minutes were spent on this patient, with more than 50% of the time spent on direct patient care and also coordinating care with other caregivers on this patient. Medical decision making was moderate to complex. The patient is a FULL CODE. Her is her surrogate health care decision maker. DICTATING PHYSICIAN: CINTHYA SMALLWOOD M.D. [id number] PHY#: [id number] ID: [id number] JOB#: [id number] ACCT: [id number] cc: >
[2017-06-22] MEDS ORDERED: FUROSEMIDE INJ/PF 20 MG/2 ML SDV IV PRN (17:30)
[2017-06-22] MEDS: CITALOPRAM HYDROBROMIDE 20 MG TABLET PO SCH (21:52)
[2017-06-23] MEDS: HYDRALAZINE HCL INJ/PF 20 MG/1 ML SDV IV PRN ×2 (00:47→05:40)
[2017-06-23] MEDS: HYDRALAZINE HCL 25 MG TABLET PO SCH ×3 (05:41→21:56)
[2017-06-23] MEDS: LEVOTHYROXINE SODIUM 0.075 MG TABLET PO SCH (05:41)
[2017-06-23 06:18] LABS: HEMATOCRIT 32.7 % (36.0-47.0); HGB HCT DIFFERENCE 0.6; MEAN CORPUSCULAR HEMOGLOBIN 29.4 pg (27.0-33.4); MEAN CORPUSCULAR HGB CONC 33.9 g/dL (32.0-36.0); RED BLOOD COUNT 3.77 10^6/uL (3.72-5.28); RED CELL DISTRIBUTION WIDTH 15.7 % (11.5-14.0); WHITE BLOOD COUNT 9.4 10^3/uL (4.0-10.5)
[2017-06-23 06:21] LABS: HEMOGLOBIN 11.1 g/dL (12.0-15.5)
[2017-06-23 06:22] LABS: MEAN CORPUSCULAR VOLUME 87 fl (80-97)
[2017-06-23] MEDS ORDERED: HYDRALAZINE HCL 25 MG TABLET PO SCH (06:33)
[2017-06-23 06:37] LABS: ANION GAP 9 (5-19); BLOOD UREA NITROGEN 13 mg/dL (7-20); CALCIUM 8.9 mg/dL (8.4-10.2); CARBON DIOXIDE 20 mmol/L (22-30); CHLORIDE 109 mmol/L (98-107); CREATININE RESULT 0.77 mg/dL (0.52-1.25); GLUCOSE 126 mg/dL (75-110); POTASSIUM 3.8 mmol/L (3.6-5.0); SODIUM 137.6 mmol/L (137-145)
--- NOTE | 2017-06-23 08:10 | PDOC PROGRESS REPORT ---
Subjective Progress Note for:: 06/23/17 Subjective:: Patient is currently doing well. Patient is going for the scope today to rule out any GI bleed. Patient received 8 units of the blood yesterday Obvious any bleeding is noticed Patient's denied any chest pain without any shortness of breath Shows blood pressure is still labile but I noticed that patient have a some parameters of the blood pressure was put initially and sometimes to hold the blood pressure medications that may contribute some of the labile blood pressures to Discussed with the patient and her and the bedside patients do not want to go to the longterm Discussed with the patient about the blood thinning medications and possible all side effect and due to fall precautions Patient and still continues to proceed to go homes I believe will start the patient on Eliquis 2.5 mg p.o. twice a day as were discussed with the music engraver Physical Exam Vital Signs: Temp Pulse Resp BP Pulse Ox 98.6 F 108 H 18 197/75 H 94 06/23/17 03:03 06/23/17 07:00 06/23/17 03:03 06/23/17 03:03 06/23/17 03:03 Intake & Output 06/22/17 06/23/17 06/24/17 06:59 06:59 06:59 Intake Total 453 1320 Output Total 1300 300 Balance -847 1020 Weight 66.1 kg 67.6 kg General appearance: PRESENT: no acute distress, well-developed, well-nourished Head exam: PRESENT: atraumatic, normocephalic Eye exam: PRESENT: conjunctiva pink, EOMI, PERRLA. ABSENT: scleral icterus Ear exam: PRESENT: normal external ear exam Mouth exam: PRESENT: moist, tongue midline Neck exam: PRESENT: full ROM. ABSENT: carotid bruit, JVD, lymphadenopathy, thyromegaly Respiratory exam: PRESENT: clear to auscultation becca Cardiovascular exam: PRESENT: RRR. ABSENT: diastolic murmur, rubs, systolic murmur Pulses: PRESENT: normal dorsalis pedis pul, +2 pedal pulses bilateral Vascular exam: PRESENT: normal capillary refill GI/Abdominal exam: PRESENT: normal bowel sounds, soft. ABSENT: distended, guarding, mass, organolmegaly, rebound, tenderness Rectal exam: PRESENT: deferred Neurological exam: PRESENT: alert, awake, oriented to person, oriented to place , oriented to time. ABSENT: motor sensory deficit Psychiatric exam: PRESENT: appropriate affect, normal mood. ABSENT: homicidal ideation, suicidal ideation Skin exam: PRESENT: dry, intact, warm. ABSENT: cyanosis, rash Results Laboratory Results: 06/23/17 05:34 06/23/17 05:34 06/22/17 06/22/17 06/23/17 13:35 13:35 05:34 WBC 6.6 RBC 2.40 L Hgb 7.2 L Hct 22.1 L MCV 92 MCH 30.0 MCHC 32.6 RDW 13.8 Plt Count 280 Sodium 137.6 Potassium 3.8 Chloride 109 H Carbon Dioxide 20 L Anion Gap 9 BUN 13 Creatinine 0.77 Est GFR ( Amer) > 60 Est GFR (Non-Af Amer) > 60 Glucose 126 H Calcium 8.9 Blood Type A POSITIVE Antibody Screen NEGATIVE 06/23/17 05:34 WBC 9.4 RBC 3.77 Hgb 11.1 L D Hct 32.7 L MCV 87 D MCH 29.4 MCHC 33.9 RDW 15.7 H Plt Count 272 Sodium Potassium Chloride Carbon Dioxide Anion Gap BUN Creatinine Est GFR ( Amer) Est GFR (Non-Af Amer) Glucose Calcium Blood Type Antibody Screen 06/17/17 06/17/17 06/18/17 21:50 21:50 05:10 Creatine Kinase 100 95 CK-MB (CK-2) 2.51 Troponin I 0.142 NT-Pro-B Natriuret Pep 06/18/17 06/18/17 06/18/17 05:10 10:13 10:13 Creatine Kinase 91 CK-MB (CK-2) 3.04 3.27 Troponin I 0.243 0.220 NT-Pro-B Natriuret Pep 2450 H 06/18/17 06/18/17 06/18/17 18:50 18:50 23:45 Creatine Kinase 77 77 CK-MB (CK-2) 3.04 Troponin I 0.161 NT-Pro-B Natriuret Pep 06/18/17 23:45 Creatine Kinase CK-MB (CK-2) 3.66 Troponin I 0.152 NT-Pro-B Natriuret Pep Impressions: Head CT 06/17/17 00:00 IMPRESSION: CHRONIC CHANGES OF ATROPHY AND MICROVASCULAR ISCHEMIA. NO ACUTE PROCESS. Chest X-Ray 06/17/17 22:41 IMPRESSION: No pneumothorax. Right IJ central venous catheter tip overlies the RA -SVC junction. Abdomen Ultrasound 06/18/17 00:00 IMPRESSION: 1. Indeterminate 2.1 cm left renal lesion may indicate a hemorrhagic cyst or other neoplasm. Recommend further evaluation with contrast CT or MRI of the kidneys. 2. Cholelithiasis. 3. Limitations. Lung Scan-VQ NM 06/18/17 00:00 IMPRESSION: MODERATE SEGMENTAL DEFECTS INVOLVING THE ANTERIOR SEGMENT LEFT UPPER LOBE AND RIGHT UPPER LOBE. FINDINGS ARE INDETERMINATE FOR PULMONARY EMBOLUS DUE TO LACK OF VENTILATION IMAGING. Abdomen MRI 06/19/17 00:00 IMPRESSION: LIMITED STUDY. NO OBVIOUS LESION IDENTIFIED IN THE LEFT KIDNEY. NO OTHER SIGNIFICANT FINDINGS OTHER THAN GALLSTONES. Chest/Abdomen CTA 06/19/17 09:13 IMPRESSION: 1. BILATERAL PULMONARY EMBOLI DESCRIBED. 2. HAZY GROUND-GLASS OPACITY IN THE LEFT UPPER LOBE MAY BE DUE TO INFLAMMATION OR INFECTION. 3. ELEVATED LEFT HEMIDIAPHRAGM. 4. GALLSTONES. Assessment & Plan - Diagnosis (1) Hypotension Qualifiers: Hypotension type: unspecified hypotension type Qualified Code(s): I95.9 - Hypotension, unspecified Is this a current diagnosis for this admission?: Yes Plan: Currently all resolved (2) Hyperkalemia Is this a current diagnosis for this admission?: Yes Plan: Currently all resolved (3) Elevated LFTs Is this a current diagnosis for this admission?: Yes Plan: Unclear etiology (4) Acute kidney injury Is this a current diagnosis for this admission?: Yes Plan: Currently getting better continues to IV fluid follow with nephrology (5) Coronary artery disease Qualifiers: Coronary Disease-Associated Artery/Lesion type: [place] artery [place] vs. transplanted heart: pok[place] heart Associated angina: angina presence unspecified Qualified Code(s): I25.10 - Atherosclerotic heart disease of [place] coronary artery without angina pectoris Is this a current diagnosis for this admission?: Yes Plan: Elevated cardiac enzymes will consult the cardiology waiting for cardiac consult (6) Elevated troponin I level Is this a current diagnosis for this admission?: Yes Plan: Most likely due to the underlying hypotension's episodes will wait for the cardiac concerns repeat the EKG and cardiac enzyme continues to aspirin and beta -mary (7) Encephalopathy Is this a current diagnosis for this admission?: Yes Plan: Patient was significant hypertensive encephalopathy with the vascular dementia will check the ammonia level (8) Seizure Is this a current diagnosis for this admission?: Yes Plan: We hold the Dilantin level is slightly elevated and continues to Keppra currently IV until the patient's Fully back to the baseline (9) Type 2 diabetes mellitus Qualifiers: Diabetes mellitus complication status: with kidney complications Diabetes mellitus complication detail: with chronic kidney disease Diabetes mellitus tank terminal gauger insulin use: without tank terminal gauger use Is this a current diagnosis for this admission?: Yes Plan: Continues the patient on sliding scale (10) Uncontrolled hypertension Is this a current diagnosis for this admission?: Yes Plan: We will continue the current medications discussed with the nurses to hold the blood pressure medicine if the systolic blood pressure is less than 100 otherwise continues to all blood pressure medications (11) Anemia Qualifiers: Anemia type: due to chronic kidney disease Chronic kidney disease stage: stage 3 (moderate) Qualified Code(s): N18.3 - Chronic kidney disease, stage 3 (moderate); D63.1 - Anemia in chronic kidney disease Is this a current diagnosis for this admission?: Yes Plan: Status post blood transfusions going for the endoscopy today (12) Cerebrovascular disease Is this a current diagnosis for this admission?: Yes Plan: Patient CT head was negative for any acute finding (13) Pulmonary embolism Qualifiers: Pulmonary embolism type: other Chronicity: acute Acute cor pulmonale presence: without acute cor pulmonale Qualified Code(s): I26.99 - Other pulmonary embolism without acute cor pulmonale Is this a current diagnosis for this admission?: Yes Plan: While patient do not want to go to the rehab will consider this to the Eliquis 2.5 mg p.o. twice a day per patient and understand very well about the side effect of the medications and fall precautions and possible GI bleed - Time Time Spent with patient: 15-24 minutes Medications reviewed and adjusted accordingly: Yes Anticipated discharge: Home Within: within 48 hours - Inpatient Certification Medical Necessity: Need Close Monitoring Due to Risk of Patient Decompensation Post Hospital Care: D/C Monogram Maker Documentation - Plan Summary Plan Summary: Very extensive discussion with the patient and the at bedside regarding the patient's current conditions I hope the patient continues to be improved follow-up with the GI and cardiology and pulmonary
--- NOTE | 2017-06-23 08:37 | PDOC PROGRESS REPORT ---
Subjective Progress Note for:: 06/23/17 Subjective:: Patient is planned for EGD this morning Patient with further hemoglobin dropped yesterday, Physical Exam Vital Signs: Temp Pulse Resp BP Pulse Ox 98.6 F 108 H 18 197/75 H 94 06/23/17 03:03 06/23/17 07:00 06/23/17 03:03 06/23/17 03:03 06/23/17 03:03 Intake & Output 06/22/17 06/23/17 06/24/17 06:59 06:59 06:59 Intake Total 453 1420 Output Total 1300 300 Balance -847 1120 Weight 66.1 kg 67.6 kg General appearance: PRESENT: no acute distress, well-developed, well-nourished Head exam: PRESENT: atraumatic, normocephalic Eye exam: PRESENT: conjunctiva pink, EOMI, PERRLA. ABSENT: scleral icterus Ear exam: PRESENT: normal external ear exam Mouth exam: PRESENT: moist, tongue midline Neck exam: ABSENT: carotid bruit, JVD, lymphadenopathy, thyromegaly Respiratory exam: PRESENT: clear to auscultation becca. ABSENT: rales, rhonchi, wheezes Cardiovascular exam: PRESENT: RRR. ABSENT: diastolic murmur, rubs, systolic murmur Pulses: PRESENT: normal dorsalis pedis pul Vascular exam: PRESENT: normal capillary refill GI/Abdominal exam: PRESENT: normal bowel sounds, soft. ABSENT: distended, guarding, mass, organolmegaly, rebound, tenderness Rectal exam: PRESENT: deferred Extremities exam: PRESENT: full ROM. ABSENT: calf tenderness, clubbing, pedal edema Neurological exam: PRESENT: alert, awake, oriented to person, oriented to place , oriented to time, oriented to situation, CN II-XII grossly intact. ABSENT: motor sensory deficit Psychiatric exam: PRESENT: appropriate affect, normal mood. ABSENT: homicidal ideation, suicidal ideation Skin exam: PRESENT: dry, intact, warm. ABSENT: cyanosis, rash Results Laboratory Results: 06/23/17 05:34 06/23/17 05:34 06/22/17 06/22/17 06/23/17 13:35 13:35 05:34 WBC 6.6 RBC 2.40 L Hgb 7.2 L Hct 22.1 L MCV 92 MCH 30.0 MCHC 32.6 RDW 13.8 Plt Count 280 Sodium 137.6 Potassium 3.8 Chloride 109 H Carbon Dioxide 20 L Anion Gap 9 BUN 13 Creatinine 0.77 Est GFR ( Amer) > 60 Est GFR (Non-Af Amer) > 60 Glucose 126 H Calcium 8.9 Blood Type A POSITIVE Antibody Screen NEGATIVE 06/23/17 05:34 WBC 9.4 RBC 3.77 Hgb 11.1 L D Hct 32.7 L MCV 87 D MCH 29.4 MCHC 33.9 RDW 15.7 H Plt Count 272 Sodium Potassium Chloride Carbon Dioxide Anion Gap BUN Creatinine Est GFR ( Amer) Est GFR (Non-Af Amer) Glucose Calcium Blood Type Antibody Screen 06/17/17 06/17/17 06/18/17 21:50 21:50 05:10 Creatine Kinase 100 95 CK-MB (CK-2) 2.51 Troponin I 0.142 NT-Pro-B Natriuret Pep 06/18/17 06/18/17 06/18/17 05:10 10:13 10:13 Creatine Kinase 91 CK-MB (CK-2) 3.04 3.27 Troponin I 0.243 0.220 NT-Pro-B Natriuret Pep 2450 H 06/18/17 06/18/17 06/18/17 18:50 18:50 23:45 Creatine Kinase 77 77 CK-MB (CK-2) 3.04 Troponin I 0.161 NT-Pro-B Natriuret Pep 06/18/17 23:45 Creatine Kinase CK-MB (CK-2) 3.66 Troponin I 0.152 NT-Pro-B Natriuret Pep Impressions: Head CT 06/17/17 00:00 IMPRESSION: CHRONIC CHANGES OF ATROPHY AND MICROVASCULAR ISCHEMIA. NO ACUTE PROCESS. Chest X-Ray 06/17/17 22:41 IMPRESSION: No pneumothorax. Right IJ central venous catheter tip overlies the RA -SVC junction. Abdomen Ultrasound 06/18/17 00:00 IMPRESSION: 1. Indeterminate 2.1 cm left renal lesion may indicate a hemorrhagic cyst or other neoplasm. Recommend further evaluation with contrast CT or MRI of the kidneys. 2. Cholelithiasis. 3. Limitations. Lung Scan-VQ NM 06/18/17 00:00 IMPRESSION: MODERATE SEGMENTAL DEFECTS INVOLVING THE ANTERIOR SEGMENT LEFT UPPER LOBE AND RIGHT UPPER LOBE. FINDINGS ARE INDETERMINATE FOR PULMONARY EMBOLUS DUE TO LACK OF VENTILATION IMAGING. Abdomen MRI 06/19/17 00:00 IMPRESSION: LIMITED STUDY. NO OBVIOUS LESION IDENTIFIED IN THE LEFT KIDNEY. NO OTHER SIGNIFICANT FINDINGS OTHER THAN GALLSTONES. Chest/Abdomen CTA 06/19/17 09:13 IMPRESSION: 1. BILATERAL PULMONARY EMBOLI DESCRIBED. 2. HAZY GROUND-GLASS OPACITY IN THE LEFT UPPER LOBE MAY BE DUE TO INFLAMMATION OR INFECTION. 3. ELEVATED LEFT HEMIDIAPHRAGM. 4. GALLSTONES. Assessment & Plan - Diagnosis (1) Pulmonary embolism Qualifiers: Pulmonary embolism type: other Chronicity: acute Acute cor pulmonale presence: without acute cor pulmonale Qualified Code(s): I26.99 - Other pulmonary embolism without acute cor pulmonale Is this a current diagnosis for this admission?: Yes Plan: Continue with anticoagulation with Lovenox, once we know that she is no longer bleeding we can manager of change to Eliquis (2) Anemia Qualifiers: Anemia type: due to chronic kidney disease Chronic kidney disease stage: stage 3 (moderate) Qualified Code(s): N18.3 - Chronic kidney disease, stage 3 (moderate); D63.1 - Anemia in chronic kidney disease Is this a current diagnosis for this admission?: Yes Plan: Mostly from anemia of chronic disease but blood loss cannot be ruled out yet, agree with GI approach, transfusion done and patient has responded well.
[2017-06-23] MEDS: ASPIRIN 325 MG TABLET PO SCH (10:12)
[2017-06-23] MEDS: CIPROFLOXACIN 200 MG/D5W RTU 200 MG/100 ML RTUPB IV SCH ×2 (10:13→21:55)
[2017-06-23] MEDS: FAMOTIDINE INJ/PF 20 MG/2 ML SDV IV SCH (10:15)
[2017-06-23] MEDS: DILTIAZEM HCL 180 MG CAPSULE.CR PO SCH (10:15)
[2017-06-23] MEDS: FOLIC ACID 1 MG TABLET PO SCH (10:16)
[2017-06-23] MEDS: GABAPENTIN 100 MG CAPSULE PO SCH ×2 (10:16→21:55)
[2017-06-23] MEDS: LEVETIRACETAM 500 MG TABLET PO SCH ×2 (10:16→21:55)
[2017-06-23] MEDS: METOPROLOL TARTRATE 25 MG TABLET PO SCH ×2 (10:16→21:55)
[2017-06-23] MEDS: RISPERIDONE 0.25 MG TABLET PO SCH ×2 (10:17→21:56)
[2017-06-23] MEDS: ISOSORBIDE MONONITRATE 60 MG TAB.ER.24H PO SCH (11:59)
[2017-06-23] MEDS ORDERED: SIMETHICONE 40 MG/0.6 ML DROPS 30ML ONE (17:04)
[2017-06-23] MEDS ORDERED: BENZOCAINE 20% AEROSOL SPRAY 60 GM ONE (17:04)
[2017-06-23] MEDS ORDERED: NALOXONE HCL INJ/PF 0.4 MG/1 ML SDV ONE (17:22)
[2017-06-23] MEDS ORDERED: EPINEPHRINE INJ 1 MG/10 ML DISP.SYRIN ONE (17:23)
[2017-06-23] MEDS ORDERED: FLUMAZENIL INJ 0.5 MG/5 ML VIAL ONE (17:23)
[2017-06-23] MEDS ORDERED: FENTANYL CITRATE INJ/PF 100 MCG/2 ML AMPUL ONE (17:23)
[2017-06-23] MEDS ORDERED: GLUCAGON,HUMAN RECOMB 1 MG INJ ONE (17:24)
[2017-06-23] MEDS: MIDAZOLAM 2 MG/2 ML INJ ONE ×2 (18:50→18:55)
--- NOTE | 2017-06-23 19:28 | PDOC CONSULTATION ---
Consultation Consult Date: 06/22/17 History of Present Illness Admission Date/PCP: 06/17/17 18:41 RAJEEV BAILEY MD History of Present Illness: This is an 82-year-old patient who was admitted on 06/17/2017 with change in mental status. On admission she was diagnosed with hypotension, hypokalemia, renal failure and elevated LFTs. Transaminases were 50 and 112 on admission with alkaline phosphatase of 151 and a normal bilirubin. She had a VQ scan on that showed moderate segmental defects involving both left and right upper lobes consistent with a pulmonary embolism. She had an MRI on 07-04 that was limited except for gallstones with no thickened gallbladder wall. Consultation was requested for anemia. Her admission hemoglobin was 9.1 which drifted down to as low as 7.2 on 06/22/2017. She received 2 units of blood on the same day. Her stool is positive for occult blood but there is no obvious GI bleed. She is on aspirin and Lovenox and has been evaluated by the head of music Past Medical History Cardiac Medical History: Reports: Atrial Fibrillation, Congestive Heart Failure , Coronary Artery Disease, Myocardial Infarction, Hyperlipidema, Hypertension Pulmonary Medical History: Reports: Asthma, Bronchitis, Chronic Obstructive Pulmonary Disease (COPD), Pneumonia - X6 Denies: Tuberculosis Neurological Medical History: Reports: Ischemic CVA, Seizures Endocrine Medical History: Reports: Diabetes Mellitus Type 2, Hypothyroidism Renal/ Medical History: Reports: Chronic Kidney Disease GI Medical History: Reports: Gastroesophageal Reflux Disease Musculoskeltal Medical History: Reports: Arthritis Psychiatric Medical History: Reports: Dementia, Depression Hematology: Reports: Anemia Past Surgical History Past Surgical History: Reports: Appendectomy, Cardiac Catheterization Denies: Hysterectomy Social History Smoking Status: Former Smoker Frequency of Alcohol Use: None Hx Recreational Drug Use: No Hx Prescription Drug Abuse: No - Advance Directive Resuscitation Status: Full Code Family History Family History: Hypertension Parental Family History Reviewed: No Children Family History Reviewed: NA Sibling(s) Family History Reviewed.: NA Medication/Allergy Home Medications: Citalopram Hydrobromide [Celexa 20 mg Tablet] 20 mg PO QHS 12/06/15 Isosorbide Mononitrate [Imdur 60 mg Tablet.er] 60 mg PO DAILY 12/06/15 Levothyroxine Sodium [Synthroid 0.075 mg Tablet] 0.075 mg PO DAILY 12/06/15 Metoprolol Tartrate 25 mg PO Q12 12/06/15 Simvastatin 20 mg PO QHS 12/06/15 Sitagliptin Phosphate [Januvia 25 mg Tablet] 25 mg PO DAILY 12/06/15 Aspirin [Aspirin 325 mg Tablet] 325 mg PO DAILY #0 tablet 12/24/15 Clonidine [Catapres-Tts 2 (0.2 mg/24 Hr) Transderm Ptch] 1 each TD Th@10 #30 patch.tdwk 12/24/15 Hydralazine HCl [Apresoline 50 mg Tablet] 50 mg PO Q6 #90 tablet 12/24/15 Levetiracetam [Keppra 500 mg Tablet] 1,500 mg PO Q12 #60 tablet 12/24/15 Gabapentin [Neurontin 100 mg Capsule] 1 cap PO Q12 03/05/16 Nitroglycerin 1 tab SL PRN PRN 03/05/16 Lisinopril [Prinivil 10 mg Tablet] 40 mg PO DAILY #30 tablet 03/10/16 Risperidone [Risperdal 0.25 Mg Tablet] 0.25 mg PO BID #30 tablet 12/07/16 Acetaminophen [Tylenol Extra Strength] 500 mg PO Q4 PRN 06/17/17 Cyclobenzaprine HCl 5 mg PO DAILY PRN 06/17/17 Diltiazem HCl [Cardizem Cd 240 mg Capsule.cr] 1 cap.sr PO Q12 06/17/17 Folic Acid 1 mg PO DAILY 06/17/17 Phenytoin Sodium Extended [Dilantin 100 mg Capsule.er] 100 mg PO Q8 06/17/17 Allergies/Adverse Reactions: Penicillins Allergy (Verified 10/20/16 14:53) Sulfa (Sulfonamide Antibiotics) Allergy (Verified 10/20/16 14:53) Review of Systems ROS unobtainable: Due to mental status Physical Exam Vital Signs: Temp Pulse Resp BP Pulse Ox 99.3 F 98 13 186/66 H 98 06/23/17 15:16 06/23/17 19:05 06/23/17 19:05 06/23/17 19:05 06/23/17 19:05 Intake & Output 06/22/17 06/23/17 06/24/17 06:59 06:59 06:59 Intake Total 453 1420 514 Output Total 1300 300 Balance -847 1120 514 Weight 66.1 kg 67.6 kg 67.6 kg Exam: General: Patient is sleepy but does respond to commands HEENT: There is pallor but no jaundice PERRLA. Oropharynx normal Respiratory: No chest deformity. No respiratory distress. Chest wall palpitation was unremarkable. Breath sounds were normal Cardiovascular: Heart sounds 1 and 2 normal with no murmurs. Abdominal: Not distended. Soft and nontender. Liver and spleen not palpable. No ascites demonstrated. Bowel sounds active. Rectal examination was deferred. Extremities: No edema Neurological: Not fully examined Skin: No significant rash Results Laboratory Results: 06/23/17 05:34 06/23/17 05:34 06/22/17 06/23/17 06/23/17 13:35 05:34 05:34 WBC 9.4 RBC 3.77 Hgb 11.1 L D Hct 32.7 L MCV 87 D MCH 29.4 MCHC 33.9 RDW 15.7 H Plt Count 272 Sodium 137.6 Potassium 3.8 Chloride 109 H Carbon Dioxide 20 L Anion Gap 9 BUN 13 Creatinine 0.77 Est GFR ( Amer) > 60 Est GFR (Non-Af Amer) > 60 Glucose 126 H Calcium 8.9 Stool Occult Blood Blood Type A POSITIVE Antibody Screen NEGATIVE 06/23/17 11:46 WBC RBC Hgb Hct MCV MCH MCHC RDW Plt Count Sodium Potassium Chloride Carbon Dioxide Anion Gap BUN Creatinine Est GFR ( Amer) Est GFR (Non-Af Amer) Glucose Calcium Stool Occult Blood POSITIVE Blood Type Antibody Screen 06/17/17 06/17/17 06/18/17 21:50 21:50 05:10 Creatine Kinase 100 95 CK-MB (CK-2) 2.51 Troponin I 0.142 NT-Pro-B Natriuret Pep 06/18/17 06/18/17 06/18/17 05:10 10:13 10:13 Creatine Kinase 91 CK-MB (CK-2) 3.04 3.27 Troponin I 0.243 0.220 NT-Pro-B Natriuret Pep 2450 H 06/18/17 06/18/17 06/18/17 18:50 18:50 23:45 Creatine Kinase 77 77 CK-MB (CK-2) 3.04 Troponin I 0.161 NT-Pro-B Natriuret Pep 06/18/17 23:45 Creatine Kinase CK-MB (CK-2) 3.66 Troponin I 0.152 NT-Pro-B Natriuret Pep Impressions: Head CT 06/17/17 00:00 IMPRESSION: CHRONIC CHANGES OF ATROPHY AND MICROVASCULAR ISCHEMIA. NO ACUTE PROCESS. Chest X-Ray 06/17/17 22:41 IMPRESSION: No pneumothorax. Right IJ central venous catheter tip overlies the RA -SVC junction. Abdomen Ultrasound 06/18/17 00:00 IMPRESSION: 1. Indeterminate 2.1 cm left renal lesion may indicate a hemorrhagic cyst or other neoplasm. Recommend further evaluation with contrast CT or MRI of the kidneys. 2. Cholelithiasis. 3. Limitations. Lung Scan-VQ NM 06/18/17 00:00 IMPRESSION: MODERATE SEGMENTAL DEFECTS INVOLVING THE ANTERIOR SEGMENT LEFT UPPER LOBE AND RIGHT UPPER LOBE. FINDINGS ARE INDETERMINATE FOR PULMONARY EMBOLUS DUE TO LACK OF VENTILATION IMAGING. Abdomen MRI 06/19/17 00:00 IMPRESSION: LIMITED STUDY. NO OBVIOUS LESION IDENTIFIED IN THE LEFT KIDNEY. NO OTHER SIGNIFICANT FINDINGS OTHER THAN GALLSTONES. Chest/Abdomen CTA 06/19/17 09:13 IMPRESSION: 1. BILATERAL PULMONARY EMBOLI DESCRIBED. 2. HAZY GROUND-GLASS OPACITY IN THE LEFT UPPER LOBE MAY BE DUE TO INFLAMMATION OR INFECTION. 3. ELEVATED LEFT HEMIDIAPHRAGM. 4. GALLSTONES. Assessment & Plan - Diagnosis (1) Anemia Qualifiers: Anemia type: due to chronic kidney disease Chronic kidney disease stage: stage 3 (moderate) Qualified Code(s): N18.3 - Chronic kidney disease, stage 3 (moderate); D63.1 - Anemia in chronic kidney disease Is this a current diagnosis for this admission?: Yes Plan: Her anemia is most likely multifactorial , chronic and likely related to her medical illnesses. She has no obvious GI bleed except for the heme-positive stool which I doubt will explain the drop in her H&H. I suspect some of her hemoglobin drop may be from hemodilution. She will undergo an EGD and colonoscopy especially due to her need for chronic anticoagulation. (2) Heme positive stool Is this a current diagnosis for this admission?: Yes (3) Dementia Qualifiers: Dementia type: unspecified type Dementia behavioral disturbance: without behavioral disturbance Qualified Code(s): F03.90 - Unspecified dementia without behavioral disturbance (4) Elevated LFTs Is this a current diagnosis for this admission?: Yes Plan: Differential diagnosis for her elevated liver function tests include hepatic congestion, medication side effects, and less likely related to her gallstones. I will review her previous LFTs to see how long she has had this problem. We should continue to monitor her LFTs and avoid hepatotoxic drugs (5) Pulmonary embolism Qualifiers: Pulmonary embolism type: other Chronicity: acute Acute cor pulmonale presence: without acute cor pulmonale Qualified Code(s): I26.99 - Other pulmonary embolism without acute cor pulmonale Is this a current diagnosis for this admission?: Yes
--- NOTE | 2017-06-23 19:31 | Operative Report ---
Operative Report DATE OF SURGERY: 06/23/17 Operative Report: Pre-op diagnosis: Anemia and heme-positive stool Post-op diagnosis: 1. Duodenal ulcer and duodenitis 2. Esophageal exudates rule out candidiasis 3. Limited view of the colon Surgery: Upper endoscopy with biopsy and Colonoscopy Medications: Versed 1mg, Fentanyl 50mcg IV push Tissue removed: Antral and esophageal biopsy Procedure: After informed consent obtained from patient, patient's pharynx was sprayed with Hurricane and conscious sedation was achieved. The upper endoscope was then inserted into the esophagus under direct vision and advanced into the stomach and further into the duodenum. Detailed examination of the duodenum, stomach and the esophagus was then performed. A digital rectal examination was performed and this was unremarkable. The colonoscope was inserted into the rectum and advanced to the cecum. View of the colon was very limited due to retained stool. Patient tolerated the procedure well. Findings Esophagus: Exudates involving all of the esophagus, rule out Marielos esophagitis Stomach: Normal Duodenum: Moderate erythema in the duodenal bulb with a 6 mm ulcer Review of all of the colon was limited due to retained brown stools. Rectum: Normal except for internal hemorrhoids Plan: Switch Pepcid to Prevacid OPERATION: .
--- NOTE | 2017-06-23 20:19 | PDOC PROGRESS REPORT ---
Subjective Progress Note for:: 06/23/17 Subjective:: Patient noted to have problems with mainly high blood pressure. Patient now mainly hypertensive. She is denying any other significant complaints except that she has fluctuating mental status changes. Patient however seems comfortable without any significant shortness of breath. Telemetry strips reviewed shows patient maintaining sinus rhythm. Physical Exam Vital Signs: Temp Pulse Resp BP Pulse Ox 99.3 F 90 13 183/67 H 98 06/23/17 15:16 06/23/17 19:30 06/23/17 19:30 06/23/17 19:30 06/23/17 19:30 Intake & Output 06/22/17 06/23/17 06/24/17 06:59 06:59 06:59 Intake Total 453 1420 514 Output Total 1300 300 Balance -847 1120 514 Weight 66.1 kg 67.6 kg 67.6 kg Exam: GENERAL: well-nourished and in no acute distress. Patient is alert, oriented to person and place but not time HEAD: Atraumatic, normocephalic. EYES: Pupils equal round and reactive to light, extraocular movements intact, sclera anicteric, conjunctiva are normal. Patient is legally blind. ENT: TMs normal, nares patent, oropharynx clear without exudates. Moist mucous membranes. No oral ulcerations or bleeding gums noted NECK: supple without lymphadenopathy or JVD. Trachea is central. No cervical or axillary lymphadenopathy noted. Carotids are 2+ LUNGS: Breath sounds bibasilar fine crackles at bases. No significant dullness noted. CHEST: Palpation of chest wall shows no significant chest wall tenderness. HEART: [place] [employer], No PSH, 2/6 LORIE aortic area, 1/6 beltran systolic murmur mitral area, rubs or gallops. ABDOMEN: Soft, no significant tenderness appreciated, normoactive bowel sounds. No guarding, no rebound. No rigidity noted . No masses appreciated. EXTREMITIES: Pedal pulses are 1-2+, no calf tenderness noted, Trace + pedal edema noted. No clubbing or cyanosis. NEUROLOGICAL: Patient is alert, patient is noted to have left hemiparesis signs, . PSYCH: Psych exam because of the patient's current mental status SKIN: No significant ecchymosis, rash, ulcerations or signs of pruritus noted. MUSCULOSKELETAL EXAM: No significant joint swelling noted. Patient is nonambulatory. Results Laboratory Results: 06/23/17 05:34 06/23/17 05:34 06/22/17 06/23/17 06/23/17 13:35 05:34 05:34 WBC 9.4 RBC 3.77 Hgb 11.1 L D Hct 32.7 L MCV 87 D MCH 29.4 MCHC 33.9 RDW 15.7 H Plt Count 272 Sodium 137.6 Potassium 3.8 Chloride 109 H Carbon Dioxide 20 L Anion Gap 9 BUN 13 Creatinine 0.77 Est GFR ( Amer) > 60 Est GFR (Non-Af Amer) > 60 Glucose 126 H Calcium 8.9 Stool Occult Blood Blood Type A POSITIVE Antibody Screen NEGATIVE 06/23/17 11:46 WBC RBC Hgb Hct MCV MCH MCHC RDW Plt Count Sodium Potassium Chloride Carbon Dioxide Anion Gap BUN Creatinine Est GFR ( Amer) Est GFR (Non-Af Amer) Glucose Calcium Stool Occult Blood POSITIVE Blood Type Antibody Screen 06/17/17 06/17/17 06/18/17 21:50 21:50 05:10 Creatine Kinase 100 95 CK-MB (CK-2) 2.51 Troponin I 0.142 NT-Pro-B Natriuret Pep 06/18/17 06/18/17 06/18/17 05:10 10:13 10:13 Creatine Kinase 91 CK-MB (CK-2) 3.04 3.27 Troponin I 0.243 0.220 NT-Pro-B Natriuret Pep 2450 H 06/18/17 06/18/17 06/18/17 18:50 18:50 23:45 Creatine Kinase 77 77 CK-MB (CK-2) 3.04 Troponin I 0.161 NT-Pro-B Natriuret Pep 06/18/17 23:45 Creatine Kinase CK-MB (CK-2) 3.66 Troponin I 0.152 NT-Pro-B Natriuret Pep Impressions: Head CT 06/17/17 00:00 IMPRESSION: CHRONIC CHANGES OF ATROPHY AND MICROVASCULAR ISCHEMIA. NO ACUTE PROCESS. Chest X-Ray 06/17/17 22:41 IMPRESSION: No pneumothorax. Right IJ central venous catheter tip overlies the RA -SVC junction. Abdomen Ultrasound 06/18/17 00:00 IMPRESSION: 1. Indeterminate 2.1 cm left renal lesion may indicate a hemorrhagic cyst or other neoplasm. Recommend further evaluation with contrast CT or MRI of the kidneys. 2. Cholelithiasis. 3. Limitations. Lung Scan-VQ NM 06/18/17 00:00 IMPRESSION: MODERATE SEGMENTAL DEFECTS INVOLVING THE ANTERIOR SEGMENT LEFT UPPER LOBE AND RIGHT UPPER LOBE. FINDINGS ARE INDETERMINATE FOR PULMONARY EMBOLUS DUE TO LACK OF VENTILATION IMAGING. Abdomen MRI 06/19/17 00:00 IMPRESSION: LIMITED STUDY. NO OBVIOUS LESION IDENTIFIED IN THE LEFT KIDNEY. NO OTHER SIGNIFICANT FINDINGS OTHER THAN GALLSTONES. Chest/Abdomen CTA 06/19/17 09:13 IMPRESSION: 1. BILATERAL PULMONARY EMBOLI DESCRIBED. 2. HAZY GROUND-GLASS OPACITY IN THE LEFT UPPER LOBE MAY BE DUE TO INFLAMMATION OR INFECTION. 3. ELEVATED LEFT HEMIDIAPHRAGM. 4. GALLSTONES. Assessment & Plan - Diagnosis (1) Elevated troponin I level Is this a current diagnosis for this admission?: Yes (2) Hyperkalemia Is this a current diagnosis for this admission?: Yes (3) Hypotension Qualifiers: Hypotension type: unspecified hypotension type Qualified Code(s): I95.9 - Hypotension, unspecified Is this a current diagnosis for this admission?: Yes (4) Coronary artery disease Qualifiers: Coronary Disease-Associated Artery/Lesion type: [place] artery [place] vs. transplanted heart: [place] heart Associated angina: angina presence unspecified Qualified Code(s): I25.10 - Atherosclerotic heart disease of [place] coronary artery without angina pectoris Is this a current diagnosis for this admission?: Yes (5) Hypertension Qualifiers: Hypertension type: unspecified secondary hypertension Qualified Code(s): I15.9 - Secondary hypertension, unspecified; I15 - Secondary hypertension Is this a current diagnosis for this admission?: Yes (6) Pulmonary embolism Qualifiers: Pulmonary embolism type: other Chronicity: acute Acute cor pulmonale presence: without acute cor pulmonale Qualified Code(s): I26.99 - Other pulmonary embolism without acute cor pulmonale Is this a current diagnosis for this admission?: Yes (7) Anemia Qualifiers: Anemia type: unspecified type Qualified Code(s): D64.9 - Anemia, unspecified Is this a current diagnosis for this admission?: Yes - Notes Notes: Anemia: Patient noted to have significant drop in hemoglobin. Patient to undergo GI evaluation. Hypertension: Hypertension management discussed with rehabilitation supervisor. Agree with starting clonidine TTS patch. Patient also being started on hydralazine. Elevated troponin I level: Most likely related to pulmonary embolism and hypotension. Patient does have some minor nonspecific ST-T changes. Patient does have history of coronary artery disease. Do not feel patient is a candidate for ischemia evaluation. Will optimize therapy for presumed CAD. Coronary artery disease: Will gradually optimized medical management. Pulmonary embolism: This was proven by CTA and also VQ scan. Agree with switch over to Eliquis when stable. Hyperkalemia: This has improved. Hypotension: Resolved. Currently blood pressure on the high side. Coronary artery disease: Patient without any symptoms of chest pain. Will optimize therapy. Recommend beta-blockers, statins. MONY/ARB may be contraindicated because of hyperkalemia. Patient not a candidate for ischemia workup. Chronic kidney disease: Patient being expertly followed by clarification operator. - Time Time with patient: 15-25 minutes - CODE STATUS was discussed, patient remains full code. Surrogate decision-maker unchanged. Multiple medical problems were addressed. More than 50% of the time spent coordinating care, discussing management plans with involved caregivers. Management plans discussed with involved personnels. Medical decision making was of moderate to high complexity , patient's has multiple comorbidities. Medications reviewed and adjusted accordingly: Yes
[2017-06-23] MEDS: ENOXAPARIN SODIUM INJ 60 MG/0.6 ML DISP.SYRIN SUBCUT SCH (21:55)
[2017-06-23] MEDS: CITALOPRAM HYDROBROMIDE 20 MG TABLET PO SCH (21:55)
[2017-06-24] MEDS: HYDRALAZINE HCL INJ/PF 20 MG/1 ML SDV IV PRN (00:34)
[2017-06-24] MEDS: ACETAMINOPHEN 325 MG TABLET PO PRN (01:44)
[2017-06-24] MEDS: LEVOTHYROXINE SODIUM 0.075 MG TABLET PO SCH (05:40)
[2017-06-24] MEDS: HYDRALAZINE HCL 25 MG TABLET PO SCH ×3 (05:40→22:41)
[2017-06-24 05:47] LABS: ALANINE AMINOTRANSFERASE 108 U/L (9-52); ALBUMIN 2.9 g/dL (3.5-5.0); ALKALINE PHOSPHATASE 215 U/L (38-126); ASPARTATE AMINO TRANSFERASE 71 U/L (14-36); BILIRUBIN,DIRECT 0.4 mg/dL (0.0-0.4); BILIRUBIN,TOTAL 0.4 mg/dL (0.2-1.3); TOTAL PROTEIN 5.3 g/dL (6.3-8.2)
[2017-06-24] MEDS: LANSOPRAZOLE 30 MG TAB.RAP.DR PO SCH (08:29)
--- NOTE | 2017-06-24 08:30 | PDOC PROGRESS REPORT ---
Subjective Progress Note for:: 06/24/17 Subjective:: Pt had heme+ stool, had EGD w/ small ulcer noted in duodenum, pt and family refusing NH placement so likely d/c home eventually. Physical Exam Vital Signs: Temp Pulse Resp BP Pulse Ox 99.5 F 97 18 149/48 H 95 06/24/17 07:47 06/24/17 07:47 06/24/17 07:47 06/24/17 07:47 06/24/17 07:47 Intake & Output 06/23/17 06/24/17 06/25/17 06:59 06:59 06:59 Intake Total 1420 614 Output Total 300 Balance 1120 614 Weight 67.6 kg 65.4 kg General appearance: PRESENT: no acute distress, well-developed, well-nourished Head exam: PRESENT: atraumatic, normocephalic Eye exam: PRESENT: conjunctiva pink, EOMI, PERRLA. ABSENT: scleral icterus Ear exam: PRESENT: normal external ear exam Mouth exam: PRESENT: moist, tongue midline Neck exam: ABSENT: carotid bruit, JVD, lymphadenopathy, thyromegaly Respiratory exam: PRESENT: clear to auscultation becca. ABSENT: rales, rhonchi, wheezes Cardiovascular exam: PRESENT: RRR. ABSENT: diastolic murmur, rubs, systolic murmur Pulses: PRESENT: normal dorsalis pedis pul Vascular exam: PRESENT: normal capillary refill GI/Abdominal exam: PRESENT: normal bowel sounds, soft. ABSENT: distended, guarding, mass, organolmegaly, rebound, tenderness Rectal exam: PRESENT: deferred Extremities exam: PRESENT: full ROM. ABSENT: calf tenderness, clubbing, pedal edema Neurological exam: PRESENT: alert, awake, oriented to person, oriented to place , oriented to time, oriented to situation, CN II-XII grossly intact. ABSENT: motor sensory deficit Psychiatric exam: PRESENT: appropriate affect, normal mood. ABSENT: homicidal ideation, suicidal ideation Skin exam: PRESENT: dry, intact, warm. ABSENT: cyanosis, rash Results Laboratory Results: 06/23/17 05:34 06/23/17 05:34 06/23/17 06/24/17 11:46 05:05 Total Bilirubin 0.4 AST 71 H ALT 108 H Alkaline Phosphatase 215 H Total Protein 5.3 L Albumin 2.9 L Stool Occult Blood POSITIVE 06/17/17 06/17/17 06/18/17 21:50 21:50 05:10 Creatine Kinase 100 95 CK-MB (CK-2) 2.51 Troponin I 0.142 NT-Pro-B Natriuret Pep 06/18/17 06/18/17 06/18/17 05:10 10:13 10:13 Creatine Kinase 91 CK-MB (CK-2) 3.04 3.27 Troponin I 0.243 0.220 NT-Pro-B Natriuret Pep 2450 H 06/18/17 06/18/17 06/18/17 18:50 18:50 23:45 Creatine Kinase 77 77 CK-MB (CK-2) 3.04 Troponin I 0.161 NT-Pro-B Natriuret Pep 06/18/17 23:45 Creatine Kinase CK-MB (CK-2) 3.66 Troponin I 0.152 NT-Pro-B Natriuret Pep Impressions: Head CT 06/17/17 00:00 IMPRESSION: CHRONIC CHANGES OF ATROPHY AND MICROVASCULAR ISCHEMIA. NO ACUTE PROCESS. Chest X-Ray 06/17/17 22:41 IMPRESSION: No pneumothorax. Right IJ central venous catheter tip overlies the RA -SVC junction. Abdomen Ultrasound 06/18/17 00:00 IMPRESSION: 1. Indeterminate 2.1 cm left renal lesion may indicate a hemorrhagic cyst or other neoplasm. Recommend further evaluation with contrast CT or MRI of the kidneys. 2. Cholelithiasis. 3. Limitations. Lung Scan-VQ NM 06/18/17 00:00 IMPRESSION: MODERATE SEGMENTAL DEFECTS INVOLVING THE ANTERIOR SEGMENT LEFT UPPER LOBE AND RIGHT UPPER LOBE. FINDINGS ARE INDETERMINATE FOR PULMONARY EMBOLUS DUE TO LACK OF VENTILATION IMAGING. Abdomen MRI 06/19/17 00:00 IMPRESSION: LIMITED STUDY. NO OBVIOUS LESION IDENTIFIED IN THE LEFT KIDNEY. NO OTHER SIGNIFICANT FINDINGS OTHER THAN GALLSTONES. Chest/Abdomen CTA 06/19/17 09:13 IMPRESSION: 1. BILATERAL PULMONARY EMBOLI DESCRIBED. 2. HAZY GROUND-GLASS OPACITY IN THE LEFT UPPER LOBE MAY BE DUE TO INFLAMMATION OR INFECTION. 3. ELEVATED LEFT HEMIDIAPHRAGM. 4. GALLSTONES. Assessment & Plan - Diagnosis (1) Pulmonary embolism Qualifiers: Pulmonary embolism type: other Chronicity: acute Acute cor pulmonale presence: without acute cor pulmonale Qualified Code(s): I26.99 - Other pulmonary embolism without acute cor pulmonale Is this a current diagnosis for this admission?: Yes Plan: Change to eliquis when we know hb stable, f/u hb today and tomorrow, if stable can d/c home tomorrow on eliquis 2.5mg BID (2) Anemia Qualifiers: Anemia type: due to chronic kidney disease Chronic kidney disease stage: stage 3 (moderate) Qualified Code(s): N18.3 - Chronic kidney disease, stage 3 (moderate); D63.1 - Anemia in chronic kidney disease Is this a current diagnosis for this admission?: Yes Plan: Ferritin nml, transfusion given, will give 1 dose procrit today. f/u hb closely today and tomorrow - Time Time Spent with patient: 25-34 minutes Critical Time spent with patient: 25-34 minutes - Inpatient Certification Based on my medical assessment, after consideration of the patient's comorbidities, presenting symptoms, or acuity I expect that the services needed warrant INPATIENT care.: Yes I certify that my determination is in accordance with my understanding of Medicare's requirements for reasonable and necessary INPATIENT services [42 CFR 412.3e].: Yes Medical Necessity: Need For Continuous Telemetry Monitoring, Need for Surgery, Risk of Complication if Not Cared For in Hospital
[2017-06-24 08:43] LABS: HEMATOCRIT 31.6 % (36.0-47.0); HEMOGLOBIN 10.4 g/dL (12.0-15.5); HGB HCT DIFFERENCE -0.4; MEAN CORPUSCULAR HEMOGLOBIN 28.4 pg (27.0-33.4); MEAN CORPUSCULAR HGB CONC 32.9 g/dL (32.0-36.0); MEAN CORPUSCULAR VOLUME 87 fl (80-97); RED BLOOD COUNT 3.65 10^6/uL (3.72-5.28); RED CELL DISTRIBUTION WIDTH 16.2 % (11.5-14.0); WHITE BLOOD COUNT 7.9 10^3/uL (4.0-10.5)
[2017-06-24] MEDS ORDERED: EPOETIN ALFA INJ 40000 UNIT/1 ML (ONCOLOGY) SUBCUT ONE (09:30)
--- NOTE | 2017-06-24 09:38 | PDOC PROGRESS REPORT ---
Subjective Progress Note for:: 06/24/17 Subjective:: Patient's currently doing fair She was underwent for the endoscopy and colonoscopy with possible GI ulcer And possible candidiasis in the esophagus Patient's blood pressure is currently stable No chest pain no shortness of the breath Physical Exam Vital Signs: Temp Pulse Resp BP Pulse Ox 99.5 F 97 18 149/48 H 95 06/24/17 07:47 06/24/17 07:47 06/24/17 07:47 06/24/17 07:47 06/24/17 07:47 Intake & Output 06/23/17 06/24/17 06/25/17 06:59 06:59 06:59 Intake Total 1420 614 Output Total 300 Balance 1120 614 Weight 67.6 kg 65.4 kg General appearance: PRESENT: no acute distress, well-developed, well-nourished Head exam: PRESENT: atraumatic, normocephalic Eye exam: PRESENT: conjunctiva pink, EOMI, PERRLA. ABSENT: scleral icterus Ear exam: PRESENT: normal external ear exam Mouth exam: PRESENT: moist, tongue midline Neck exam: PRESENT: full ROM. ABSENT: carotid bruit, JVD, lymphadenopathy, thyromegaly Respiratory exam: PRESENT: clear to auscultation becca Cardiovascular exam: PRESENT: RRR. ABSENT: diastolic murmur, rubs, systolic murmur Pulses: PRESENT: normal dorsalis pedis pul, +2 pedal pulses bilateral Vascular exam: PRESENT: normal capillary refill GI/Abdominal exam: PRESENT: normal bowel sounds, soft. ABSENT: distended, guarding, mass, organolmegaly, rebound, tenderness Rectal exam: PRESENT: deferred Neurological exam: PRESENT: alert, awake, oriented to person, oriented to place. ABSENT: motor sensory deficit Psychiatric exam: PRESENT: appropriate affect, normal mood. ABSENT: homicidal ideation, suicidal ideation Skin exam: PRESENT: dry, intact, warm. ABSENT: cyanosis, rash Results Laboratory Results: 06/24/17 08:25 06/23/17 05:34 06/23/17 06/24/17 06/24/17 11:46 05:05 08:25 WBC 7.9 RBC 3.65 L Hgb 10.4 L Hct 31.6 L MCV 87 MCH 28.4 MCHC 32.9 RDW 16.2 H Plt Count 309 Total Bilirubin 0.4 AST 71 H ALT 108 H Alkaline Phosphatase 215 H Total Protein 5.3 L Albumin 2.9 L Stool Occult Blood POSITIVE 06/17/17 06/17/17 06/18/17 21:50 21:50 05:10 Creatine Kinase 100 95 CK-MB (CK-2) 2.51 Troponin I 0.142 NT-Pro-B Natriuret Pep 06/18/17 06/18/17 06/18/17 05:10 10:13 10:13 Creatine Kinase 91 CK-MB (CK-2) 3.04 3.27 Troponin I 0.243 0.220 NT-Pro-B Natriuret Pep 2450 H 06/18/17 06/18/17 06/18/17 18:50 18:50 23:45 Creatine Kinase 77 77 CK-MB (CK-2) 3.04 Troponin I 0.161 NT-Pro-B Natriuret Pep 06/18/17 23:45 Creatine Kinase CK-MB (CK-2) 3.66 Troponin I 0.152 NT-Pro-B Natriuret Pep Impressions: Head CT 06/17/17 00:00 IMPRESSION: CHRONIC CHANGES OF ATROPHY AND MICROVASCULAR ISCHEMIA. NO ACUTE PROCESS. Chest X-Ray 06/17/17 22:41 IMPRESSION: No pneumothorax. Right IJ central venous catheter tip overlies the RA -SVC junction. Abdomen Ultrasound 06/18/17 00:00 IMPRESSION: 1. Indeterminate 2.1 cm left renal lesion may indicate a hemorrhagic cyst or other neoplasm. Recommend further evaluation with contrast CT or MRI of the kidneys. 2. Cholelithiasis. 3. Limitations. Lung Scan-VQ NM 06/18/17 00:00 IMPRESSION: MODERATE SEGMENTAL DEFECTS INVOLVING THE ANTERIOR SEGMENT LEFT UPPER LOBE AND RIGHT UPPER LOBE. FINDINGS ARE INDETERMINATE FOR PULMONARY EMBOLUS DUE TO LACK OF VENTILATION IMAGING. Abdomen MRI 06/19/17 00:00 IMPRESSION: LIMITED STUDY. NO OBVIOUS LESION IDENTIFIED IN THE LEFT KIDNEY. NO OTHER SIGNIFICANT FINDINGS OTHER THAN GALLSTONES. Chest/Abdomen CTA 06/19/17 09:13 IMPRESSION: 1. BILATERAL PULMONARY EMBOLI DESCRIBED. 2. HAZY GROUND-GLASS OPACITY IN THE LEFT UPPER LOBE MAY BE DUE TO INFLAMMATION OR INFECTION. 3. ELEVATED LEFT HEMIDIAPHRAGM. 4. GALLSTONES. Assessment & Plan - Diagnosis (1) Hypotension Qualifiers: Hypotension type: unspecified hypotension type Qualified Code(s): I95.9 - Hypotension, unspecified Is this a current diagnosis for this admission?: Yes Plan: Currently all resolved (2) Hyperkalemia Is this a current diagnosis for this admission?: Yes Plan: Currently all resolved (3) Elevated LFTs Is this a current diagnosis for this admission?: Yes Plan: Follow with the GIUnclear etiology at this point continues to monitor (4) Acute kidney injury Is this a current diagnosis for this admission?: Yes Plan: Currently getting better continues to IV fluid follow with nephrology (5) Coronary artery disease Qualifiers: Coronary Disease-Associated Artery/Lesion type: [place] artery [place] vs. transplanted heart: [place] heart Associated angina: angina presence unspecified Qualified Code(s): I25.10 - Atherosclerotic heart disease of [place] coronary artery without angina pectoris Is this a current diagnosis for this admission?: Yes Plan: Elevated cardiac enzymes will consult the cardiology waiting for cardiac consult (6) Elevated troponin I level Is this a current diagnosis for this admission?: Yes Plan: Most likely due to the underlying hypotension's episodes will wait for the cardiac concerns repeat the EKG and cardiac enzyme continues to aspirin and beta -mary (7) Encephalopathy Is this a current diagnosis for this admission?: Yes Plan: Patient was significant hypertensive encephalopathy with the vascular dementia will check the ammonia level (8) Seizure Is this a current diagnosis for this admission?: Yes Plan: We hold the Dilantin level is slightly elevated and continues to Keppra currently IV until the patient's Fully back to the baseline (9) Type 2 diabetes mellitus Qualifiers: Diabetes mellitus complication status: with kidney complications Diabetes mellitus complication detail: with chronic kidney disease Diabetes mellitus inverter and clipper insulin use: without inverter and clipper use Is this a current diagnosis for this admission?: Yes Plan: Continues the patient on sliding scale (10) Uncontrolled hypertension Is this a current diagnosis for this admission?: Yes Plan: We will continue the current medications discussed with the nurses to hold the blood pressure medicine if the systolic blood pressure is less than 100 otherwise continues to all blood pressure medications (11) Anemia Qualifiers: Anemia type: due to chronic kidney disease Chronic kidney disease stage: stage 3 (moderate) Qualified Code(s): N18.3 - Chronic kidney disease, stage 3 (moderate); D63.1 - Anemia in chronic kidney disease Is this a current diagnosis for this admission?: Yes Plan: Status post blood transfusions going for the endoscopy today (12) Cerebrovascular disease Is this a current diagnosis for this admission?: Yes (13) Pulmonary embolism Qualifiers: Pulmonary embolism type: other Chronicity: acute Acute cor pulmonale presence: without acute cor pulmonale Qualified Code(s): I26.99 - Other pulmonary embolism without acute cor pulmonale Is this a current diagnosis for this admission?: Yes Plan: Her will start the patient on Eliquis 2.5 mg p.o. twice a day - Time Time Spent with patient: 15-24 minutes Medications reviewed and adjusted accordingly: Yes Anticipated discharge: Home Within: Other - Inpatient Certification Medical Necessity: Need Close Monitoring Due to Risk of Patient Decompensation Post Hospital Care: D/C Postal Superintendent Documentation - Plan Summary Plan Summary: Continues current medications
[2017-06-24] MEDS: FOLIC ACID 1 MG TABLET PO SCH (09:58)
[2017-06-24] MEDS: LEVETIRACETAM 500 MG TABLET PO SCH ×2 (09:58→22:40)
[2017-06-24] MEDS: DILTIAZEM HCL 180 MG CAPSULE.CR PO SCH (09:59)
[2017-06-24] MEDS: GABAPENTIN 100 MG CAPSULE PO SCH ×2 (10:00→18:54)
[2017-06-24] MEDS: RISPERIDONE 0.25 MG TABLET PO SCH ×2 (10:00→18:54)
[2017-06-24] MEDS: METOPROLOL TARTRATE 25 MG TABLET PO SCH ×2 (10:00→22:40)
[2017-06-24] MEDS: FLUCONAZOLE 100 MG TABLET PO SCH (10:01)
[2017-06-24] MEDS: APIXABAN 2.5 MG TABLET PO SCH ×2 (10:02→18:54)
[2017-06-24] MEDS: ISOSORBIDE MONONITRATE 60 MG TAB.ER.24H PO SCH (11:09)
[2017-06-24] MEDS: INSULIN LISPRO 100 UNIT/ML 3 ML VIAL SUBCUT PRN (12:37)
--- NOTE | 2017-06-24 20:02 | PDOC PROGRESS REPORT ---
Subjective Progress Note for:: 06/24/17 Subjective:: Patient to undergo endoscopy. Blood pressure now under satisfactory control with very rare reading of high blood pressures. She is denying any other significant complaints except that she has fluctuating mental status changes. Patient however seems comfortable without any significant shortness of breath. Telemetry strips reviewed shows patient maintaining sinus rhythm. Physical Exam Vital Signs: Temp Pulse Resp BP Pulse Ox 99.0 F 80 20 124/41 L 96 06/24/17 15:19 06/24/17 15:19 06/24/17 15:19 06/24/17 15:19 06/24/17 15:19 Intake & Output 06/23/17 06/24/17 06/25/17 06:59 06:59 06:59 Intake Total 1420 614 375 Output Total 300 Balance 1120 614 375 Weight 67.6 kg 65.4 kg Exam: GENERAL: well-nourished and in no acute distress. Patient is alert, oriented to person and place but not time HEAD: Atraumatic, normocephalic. EYES: Pupils equal round and reactive to light, extraocular movements intact, sclera anicteric, conjunctiva are normal. Patient is legally blind. ENT: TMs normal, nares patent, oropharynx clear without exudates. Moist mucous membranes. No oral ulcerations or bleeding gums noted NECK: supple without lymphadenopathy or JVD. Trachea is central. No cervical or axillary lymphadenopathy noted. Carotids are 2+ LUNGS: Breath sounds bibasilar fine crackles at bases. No significant dullness noted. CHEST: Palpation of chest wall shows no significant chest wall tenderness. 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 ABDOMEN: Soft, no significant tenderness appreciated, normoactive bowel sounds. No guarding, no rebound. No rigidity noted . No masses appreciated. EXTREMITIES: Pedal pulses are 1-2+, no calf tenderness noted, Trace + pedal edema noted. No clubbing or cyanosis. NEUROLOGICAL: Patient is alert, patient is noted to have left hemiparesis signs, . PSYCH: Psych exam because of the patient's current mental status SKIN: No significant ecchymosis, rash, ulcerations or signs of pruritus noted. MUSCULOSKELETAL EXAM: No significant joint swelling noted. Patient is nonambulatory. Results Laboratory Results: 06/24/17 08:25 06/23/17 05:34 06/24/17 06/24/17 05:05 08:25 WBC 7.9 RBC 3.65 L Hgb 10.4 L Hct 31.6 L MCV 87 MCH 28.4 MCHC 32.9 RDW 16.2 H Plt Count 309 Total Bilirubin 0.4 AST 71 H ALT 108 H Alkaline Phosphatase 215 H Total Protein 5.3 L Albumin 2.9 L 06/17/17 06/17/17 06/18/17 21:50 21:50 05:10 Creatine Kinase 100 95 CK-MB (CK-2) 2.51 Troponin I 0.142 NT-Pro-B Natriuret Pep 06/18/17 06/18/17 06/18/17 05:10 10:13 10:13 Creatine Kinase 91 CK-MB (CK-2) 3.04 3.27 Troponin I 0.243 0.220 NT-Pro-B Natriuret Pep 2450 H 06/18/17 06/18/17 06/18/17 18:50 18:50 23:45 Creatine Kinase 77 77 CK-MB (CK-2) 3.04 Troponin I 0.161 NT-Pro-B Natriuret Pep 06/18/17 23:45 Creatine Kinase CK-MB (CK-2) 3.66 Troponin I 0.152 NT-Pro-B Natriuret Pep Impressions: Head CT 06/17/17 00:00 IMPRESSION: CHRONIC CHANGES OF ATROPHY AND MICROVASCULAR ISCHEMIA. NO ACUTE PROCESS. Chest X-Ray 06/17/17 22:41 IMPRESSION: No pneumothorax. Right IJ central venous catheter tip overlies the RA -SVC junction. Abdomen Ultrasound 06/18/17 00:00 IMPRESSION: 1. Indeterminate 2.1 cm left renal lesion may indicate a hemorrhagic cyst or other neoplasm. Recommend further evaluation with contrast CT or MRI of the kidneys. 2. Cholelithiasis. 3. Limitations. Lung Scan-VQ NM 06/18/17 00:00 IMPRESSION: MODERATE SEGMENTAL DEFECTS INVOLVING THE ANTERIOR SEGMENT LEFT UPPER LOBE AND RIGHT UPPER LOBE. FINDINGS ARE INDETERMINATE FOR PULMONARY EMBOLUS DUE TO LACK OF VENTILATION IMAGING. Abdomen MRI 06/19/17 00:00 IMPRESSION: LIMITED STUDY. NO OBVIOUS LESION IDENTIFIED IN THE LEFT KIDNEY. NO OTHER SIGNIFICANT FINDINGS OTHER THAN GALLSTONES. Chest/Abdomen CTA 06/19/17 09:13 IMPRESSION: 1. BILATERAL PULMONARY EMBOLI DESCRIBED. 2. HAZY GROUND-GLASS OPACITY IN THE LEFT UPPER LOBE MAY BE DUE TO INFLAMMATION OR INFECTION. 3. ELEVATED LEFT HEMIDIAPHRAGM. 4. GALLSTONES. Assessment & Plan - Diagnosis (1) Elevated troponin I level Is this a current diagnosis for this admission?: Yes (2) Hyperkalemia Is this a current diagnosis for this admission?: Yes (3) Hypotension Qualifiers: Hypotension type: unspecified hypotension type Qualified Code(s): I95.9 - Hypotension, unspecified Is this a current diagnosis for this admission?: Yes (4) Coronary artery disease Qualifiers: Coronary Disease-Associated Artery/Lesion type: [place] artery [place] vs. transplanted heart: [place] heart Associated angina: angina presence unspecified Qualified Code(s): I25.10 - Atherosclerotic heart disease of [place] coronary artery without angina pectoris Is this a current diagnosis for this admission?: Yes (5) Hypertension Qualifiers: Hypertension type: unspecified secondary hypertension Qualified Code(s): I15.9 - Secondary hypertension, unspecified; I15 - Secondary hypertension Is this a current diagnosis for this admission?: Yes (6) Pulmonary embolism Qualifiers: Pulmonary embolism type: other Chronicity: acute Acute cor pulmonale presence: without acute cor pulmonale Qualified Code(s): I26.99 - Other pulmonary embolism without acute cor pulmonale Is this a current diagnosis for this admission?: Yes (7) Anemia Qualifiers: Anemia type: unspecified type Qualified Code(s): D64.9 - Anemia, unspecified Is this a current diagnosis for this admission?: Yes - Notes Notes: Anemia: Patient noted to have significant drop in hemoglobin. Endoscopy performed today results are pending. Hypertension: Hypertension management discussed with bean roaster. blood pressure getting under better control. nt does have history of coronary artery disease. Do not feel patient is a candidate for ischemia evaluation. Coronary artery disease: Currently is stable without any angina symptoms. Pulmonary embolism: This was proven by CTA and also VQ scan. Recommend switch over to Eliquis when stable and when cleared by hematology. Hyperkalemia: Resolved Hypotension: Resolved. Currently blood pressure on the high side. Coronary artery disease: Patient without any symptoms of chest pain. Will optimize therapy. Recommend beta-blockers, statins. MONY/ARB may be contraindicated because of hyperkalemia. Patient not a candidate for ischemia workup. Chronic kidney disease: Patient being expertly followed by flat cutter. - Time Time with patient: 15-25 minutes - CODE STATUS was discussed, patient remains full code. Surrogate decision-maker unchanged. Multiple medical problems were addressed. More than 50% of the time spent coordinating care, discussing management plans with involved caregivers. Management plans discussed with involved personnels. Medical decision making was of moderate to high complexity , patient's has multiple comorbidities. Medications reviewed and adjusted accordingly: Yes
[2017-06-24] MEDS ORDERED: ASPIRIN 81 MG TABLET, CHEWABLE PO SCH (22:00)
[2017-06-24] MEDS: CITALOPRAM HYDROBROMIDE 20 MG TABLET PO SCH (22:39)
[2017-06-25 06:55] LABS: HEMATOCRIT 29.4 % (36.0-47.0); HEMOGLOBIN 9.9 g/dL (12.0-15.5); HGB HCT DIFFERENCE 0.3; MEAN CORPUSCULAR HEMOGLOBIN 29.3 pg (27.0-33.4); MEAN CORPUSCULAR HGB CONC 33.7 g/dL (32.0-36.0); MEAN CORPUSCULAR VOLUME 87 fl (80-97); RED BLOOD COUNT 3.37 10^6/uL (3.72-5.28); WHITE BLOOD COUNT 7.1 10^3/uL (4.0-10.5)
[2017-06-25] MEDS: LEVOTHYROXINE SODIUM 0.075 MG TABLET PO SCH (07:01)
[2017-06-25] MEDS: HYDRALAZINE HCL 25 MG TABLET PO SCH (07:02)
[2017-06-25] MEDS: LEVETIRACETAM 500 MG TABLET PO SCH (10:13)
[2017-06-25] MEDS: DILTIAZEM HCL 180 MG CAPSULE.CR PO SCH (10:14)
[2017-06-25] MEDS: GABAPENTIN 100 MG CAPSULE PO SCH (10:15)
[2017-06-25] MEDS: ISOSORBIDE MONONITRATE 60 MG TAB.ER.24H PO SCH (10:15)
[2017-06-25] MEDS: RISPERIDONE 0.25 MG TABLET PO SCH (10:15)
[2017-06-25] MEDS: APIXABAN 2.5 MG TABLET PO SCH (10:16)
[2017-06-25] MEDS: FLUCONAZOLE 100 MG TABLET PO SCH (10:16)
[2017-06-25] MEDS: METOPROLOL TARTRATE 25 MG TABLET PO SCH (10:16)
[2017-06-25] MEDS: FOLIC ACID 1 MG TABLET PO SCH (10:16)
[2017-06-25] MEDS: LANSOPRAZOLE 30 MG TAB.RAP.DR PO SCH (10:17)
--- NOTE | 2017-06-25 12:58 | PDOC DISCHARGE SUMMARY ---
General - Admit/Disc Date/PCP Admission Date/Primary Care Provider: 06/17/17 18:41 RAJEEV BAILEY MD Discharge Date: 06/25/17 - Discharge Diagnosis (1) Hypotension Is this a current diagnosis for this admission?: Yes Summary: resolved (2) Hyperkalemia Is this a current diagnosis for this admission?: Yes Summary: resolved (3) Elevated LFTs Is this a current diagnosis for this admission?: Yes Summary: Follow outpatients GI and currently stop the simvastatin unclear etiology in a continuous monitor (4) Acute kidney injury Is this a current diagnosis for this admission?: Yes Summary: Currently all resolved (5) Coronary artery disease Is this a current diagnosis for this admission?: Yes Summary: Currently stable follow with the cardiology as outpatient (6) Elevated troponin I level Is this a current diagnosis for this admission?: Yes Summary: With no sign of any acute coronary syndrome per the cardiology (7) Encephalopathy Is this a current diagnosis for this admission?: Yes Summary: Hypertensive encephalopathy currently all stable (8) Seizure Is this a current diagnosis for this admission?: Yes Summary: Continues to Keppra under well control with increasing the dose of the 50 mg twice a day and currently off the Dilantin due to the liver toxicity (9) Type 2 diabetes mellitus Is this a current diagnosis for this admission?: Yes Summary: Continues to Januvia (10) Uncontrolled hypertension Is this a current diagnosis for this admission?: Yes Summary: Patient extensively seen by Dr. Aleman and adjust medications currently all stable (11) Anemia Is this a current diagnosis for this admission?: Yes Summary: Patients to have a GI also, endoscopy and colonoscopy done so some candidiasis of the esophagus and no active GI bleed is since Reason also seen by plate glass grinder Will continues to monitor (12) Cerebrovascular disease Is this a current diagnosis for this admission?: Yes Summary: Continues 81 mg aspirin Currently hold the statin due to the liver enzyme is elevated (13) Pulmonary embolism Is this a current diagnosis for this admission?: Yes Summary: Patient is a high risk for the GI bleed So we will start the low-dose Eliquis 2.5 mg p.o. twice a day as per discussed with the plate glass grinder Patient's already had treated with the Lovenox therapy in the hospital Patient already a GI evaluations done Discussed with the patient were extensively about the Eliquis and the side effect and continues to monitor (14) Abnormal LFTs Is this a current diagnosis for this admission?: Yes Summary: Possible most likely a medication side effect we currently hold the Dilantin and the simvastatin and follow outpatient - Additional Information Resuscitation Status: Full Code Discharge Diet: Diabetic Discharge Activity: Activity As Tolerated Home Medications: Citalopram Hydrobromide [Celexa 20 mg Tablet] 20 mg PO QHS 12/06/15 Isosorbide Mononitrate [Imdur 60 mg Tablet.er] 60 mg PO DAILY 12/06/15 Levothyroxine Sodium [Synthroid 0.075 mg Tablet] 0.075 mg PO DAILY 12/06/15 Metoprolol Tartrate 25 mg PO Q12 12/06/15 Sitagliptin Phosphate [Januvia 25 mg Tablet] 25 mg PO DAILY 12/06/15 Levetiracetam [Keppra 500 mg Tablet] 1,500 mg PO Q12 #60 tablet 12/24/15 Gabapentin [Neurontin 100 mg Capsule] 1 cap PO Q12 03/05/16 Nitroglycerin 1 tab SL PRN PRN 03/05/16 Risperidone [Risperdal 0.25 mg Tablet] 0.25 mg PO BID #30 tablet 12/07/16 Acetaminophen [Tylenol Extra Strength] 500 mg PO Q4 PRN 06/17/17 Cyclobenzaprine HCl 5 mg PO DAILY PRN 06/17/17 Folic Acid 1 mg PO DAILY 06/17/17 Apixaban [Eliquis 2.5 mg Tablet] 2.5 mg PO BID #60 tablet 06/25/17 Clonidine [Catapres-Tts 1 (0.1 mg/24 Hr) Transderm Patch] 1 each TD Mo@10 #30 patch.tdwk 06/25/17 Diltiazem HCl [Cardizem Cd 180 mg Capsule] 180 mg PO DAILY #30 capsule.cr Fluconazole [Diflucan 100 mg Tablet] 100 mg PO DAILY #5 tablet 06/25/17 Hydralazine HCl [Apresoline 25 mg Tablet] 75 mg PO Q8 #90 tablet 06/25/17 Lansoprazole [Prevacid 30 mg Odt Tablet] 30 mg PO ACBRKFST #30 tab. History of Present Illness History of Present Illness: ANG CHRISTY is a 82 year old female This is a 82-year-old female with a significant history of the hepatic encephalopathy and underlying dementia history of the hypertensions with several hypertensive emergency admission in the hospitalAnd a history of the seizures disorder and multiple other medical problemsWent to the nephrology office today for the routine checkup and patient suddenly blood pressures dropped up to 80 systolic and patient was unresponsiveAnd the EMS was called and EMS give 100 cc IV fluidAnd patient's blood pressures go to up to 100+ In the ER patient's response back to normal alert awake and talkingWhen I saw the patient's patient was fully back to the baseline But in the emergency department patient's potassium was 7.0 and patient's creatinine was 1.99Patient potassium was normal last month and creatinine was 1.19 Patient's otherwise white count was slightly elevated with a history of the urinary tract infections in the past and history of the stroke and multiple other complications decided to admit in the ICU for further evaluation and treatments Patient's troponin was slightly elevated 0.80572 most likely underlying hypotensive episodes but no other acute EKG changes Hospital Course Hospital Course: This is a 82-year-old female present in the emergency department with the hypotension when she was visited to the nephrology office Patient was admitting the ICU response very well with the IV fluid and patient seen by the cardiology due to the elevated troponin most likely related to the hypertensions to rule out acute coronary syndromes Patient also found some acute renal failure due to dehydration's and treated with IV fluid and also find the hyperkalemia was also reviewed with the medical management Patient's response very well with that and patients also found the CT angiogram with the pulmonary embolism and will start with the Lovenox therapy The plate glass grinder was consulted due to the patient ongoing anemia problem and GI was also consulted Patient underwent for the endoscopy and colonoscopy Patient found some candidiasis in the esophagus and given the Diflucan Patient's also started on a PPI Very extensive discussions with the patient in the hospital regarding the patient's current conditions and expected to patients to go to the rehab but patients refused to go to the rehab and 's wants to take her home I hope the patient's continues to be improved will arrange the home health and physical therapy Follow patient with the Dr. Beltrán in a one-week Follow with the Dr. Aleman Following office in 1 week we will repeat the CBC and Chem-7 Physical Exam Vital Signs: Temp Pulse Resp BP Pulse Ox 97.7 F 83 19 173/62 H 95 06/25/17 07:25 06/25/17 07:25 06/25/17 07:25 06/25/17 07:25 06/25/17 07:25 Intake & Output 06/24/17 06/25/17 06/26/17 06:59 06:59 06:59 Intake Total 614 385 Balance 614 385 Weight 65.4 kg 66.2 kg General appearance: PRESENT: no acute distress, well-developed, well-nourished Head exam: PRESENT: atraumatic, normocephalic Eye exam: PRESENT: conjunctiva pink, EOMI, PERRLA. ABSENT: scleral icterus Ear exam: PRESENT: normal external ear exam Mouth exam: PRESENT: moist, tongue midline Neck exam: PRESENT: full ROM. ABSENT: carotid bruit, JVD, lymphadenopathy, thyromegaly Respiratory exam: PRESENT: clear to auscultation becca Cardiovascular exam: PRESENT: RRR. ABSENT: diastolic murmur, rubs, systolic murmur Pulses: PRESENT: normal dorsalis pedis pul, +2 pedal pulses bilateral Vascular exam: PRESENT: normal capillary refill GI/Abdominal exam: PRESENT: normal bowel sounds, soft. ABSENT: distended, guarding, mass, organolmegaly, rebound, tenderness Rectal exam: PRESENT: deferred Neurological exam: PRESENT: alert, awake, oriented to person, oriented to place , oriented to time. ABSENT: motor sensory deficit Psychiatric exam: PRESENT: appropriate affect, normal mood. ABSENT: homicidal ideation, suicidal ideation Skin exam: PRESENT: dry, intact, warm. ABSENT: cyanosis, rash Results Laboratory Results: 06/25/17 06:20 06/23/17 05:34 06/25/17 06:20 WBC 7.1 RBC 3.37 L Hgb 9.9 L Hct 29.4 L MCV 87 MCH 29.3 MCHC 33.7 RDW 16.0 H Plt Count 317 06/17/17 06/17/17 06/18/17 21:50 21:50 05:10 Creatine Kinase 100 95 CK-MB (CK-2) 2.51 Troponin I 0.142 NT-Pro-B Natriuret Pep 06/18/17 06/18/17 06/18/17 05:10 10:13 10:13 Creatine Kinase 91 CK-MB (CK-2) 3.04 3.27 Troponin I 0.243 0.220 NT-Pro-B Natriuret Pep 2450 H 06/18/17 06/18/17 06/18/17 18:50 18:50 23:45 Creatine Kinase 77 77 CK-MB (CK-2) 3.04 Troponin I 0.161 NT-Pro-B Natriuret Pep 06/18/17 23:45 Creatine Kinase CK-MB (CK-2) 3.66 Troponin I 0.152 NT-Pro-B Natriuret Pep Impressions: Head CT 06/17/17 00:00 IMPRESSION: CHRONIC CHANGES OF ATROPHY AND MICROVASCULAR ISCHEMIA. NO ACUTE PROCESS. Chest X-Ray 06/17/17 22:41 IMPRESSION: No pneumothorax. Right IJ central venous catheter tip overlies the RA -SVC junction. Abdomen Ultrasound 06/18/17 00:00 IMPRESSION: 1. Indeterminate 2.1 cm left renal lesion may indicate a hemorrhagic cyst or other neoplasm. Recommend further evaluation with contrast CT or MRI of the kidneys. 2. Cholelithiasis. 3. Limitations. Lung Scan-VQ NM 06/18/17 00:00 IMPRESSION: MODERATE SEGMENTAL DEFECTS INVOLVING THE ANTERIOR SEGMENT LEFT UPPER LOBE AND RIGHT UPPER LOBE. FINDINGS ARE INDETERMINATE FOR PULMONARY EMBOLUS DUE TO LACK OF VENTILATION IMAGING. Abdomen MRI 06/19/17 00:00 IMPRESSION: LIMITED STUDY. NO OBVIOUS LESION IDENTIFIED IN THE LEFT KIDNEY. NO OTHER SIGNIFICANT FINDINGS OTHER THAN GALLSTONES. Chest/Abdomen CTA 06/19/17 09:13 IMPRESSION: 1. BILATERAL PULMONARY EMBOLI DESCRIBED. 2. HAZY GROUND-GLASS OPACITY IN THE LEFT UPPER LOBE MAY BE DUE TO INFLAMMATION OR INFECTION. 3. ELEVATED LEFT HEMIDIAPHRAGM. 4. GALLSTONES. Plan Time Spent: Greater than 30 Minutes - Patient's discharge home with the stable conditions Extensive discussions with the regarding the patient's current condition and new medications Follow with the Dr. Beltrán and Dr. Aleman as outpatient Following my office in 1 week we will repeat the CBC and Chem-7 and repeat the LFT
[2017-06-25 13:39] VITALS: BP 129/54
--- NOTE | 2017-06-25 21:26 | PDOC PROGRESS REPORT ---
Subjective Progress Note for:: 06/25/17 Subjective:: Underwent endoscopy yesterday . Blood pressure now under satisfactory control with very rare reading of high blood pressures. She is denying any other significant complaints except that she has fluctuating mental status changes. Patient however seems comfortable without any significant shortness of breath. Telemetry strips reviewed shows patient maintaining sinus rhythm. Physical Exam Vital Signs: Temp Pulse Resp BP Pulse Ox 99.3 F 82 18 129/54 H 95 06/25/17 13:37 06/25/17 13:37 06/25/17 13:37 06/25/17 13:37 06/25/17 13:37 Intake & Output 06/24/17 06/25/17 06/26/17 06:59 06:59 06:59 Intake Total 614 385 474 Balance 614 385 474 Weight 65.4 kg 66.2 kg Exam: GENERAL: well-nourished and in no acute distress. Patient is alert, oriented to person and place but not time HEAD: Atraumatic, normocephalic. EYES: Pupils equal round and reactive to light, extraocular movements intact, sclera anicteric, conjunctiva are normal. Patient is legally blind. ENT: TMs normal, nares patent, oropharynx clear without exudates. Moist mucous membranes. No oral ulcerations or bleeding gums noted NECK: supple without lymphadenopathy or JVD. Trachea is central. No cervical or axillary lymphadenopathy noted. Carotids are 2+ LUNGS: Breath sounds bibasilar fine crackles at bases. No significant dullness noted. CHEST: Palpation of chest wall shows no significant chest wall tenderness. 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 ABDOMEN: Soft, no significant tenderness appreciated, normoactive bowel sounds. No guarding, no rebound. No rigidity noted . No masses appreciated. EXTREMITIES: Pedal pulses are 1-2+, no calf tenderness noted, Trace + pedal edema noted. No clubbing or cyanosis. NEUROLOGICAL: Patient is alert, patient is noted to have left hemiparesis signs, . PSYCH: Psych exam because of the patient's current mental status SKIN: No significant ecchymosis, rash, ulcerations or signs of pruritus noted. MUSCULOSKELETAL EXAM: No significant joint swelling noted. Patient is nonambulatory. Results Laboratory Results: 06/25/17 06:20 06/23/17 05:34 06/25/17 06:20 WBC 7.1 RBC 3.37 L Hgb 9.9 L Hct 29.4 L MCV 87 MCH 29.3 MCHC 33.7 RDW 16.0 H Plt Count 317 06/17/17 06/17/17 06/18/17 21:50 21:50 05:10 Creatine Kinase 100 95 CK-MB (CK-2) 2.51 Troponin I 0.142 NT-Pro-B Natriuret Pep 06/18/17 06/18/17 06/18/17 05:10 10:13 10:13 Creatine Kinase 91 CK-MB (CK-2) 3.04 3.27 Troponin I 0.243 0.220 NT-Pro-B Natriuret Pep 2450 H 06/18/17 06/18/17 06/18/17 18:50 18:50 23:45 Creatine Kinase 77 77 CK-MB (CK-2) 3.04 Troponin I 0.161 NT-Pro-B Natriuret Pep 06/18/17 23:45 Creatine Kinase CK-MB (CK-2) 3.66 Troponin I 0.152 NT-Pro-B Natriuret Pep Impressions: Head CT 06/17/17 00:00 IMPRESSION: CHRONIC CHANGES OF ATROPHY AND MICROVASCULAR ISCHEMIA. NO ACUTE PROCESS. Chest X-Ray 06/17/17 22:41 IMPRESSION: No pneumothorax. Right IJ central venous catheter tip overlies the RA -SVC junction. Abdomen Ultrasound 06/18/17 00:00 IMPRESSION: 1. Indeterminate 2.1 cm left renal lesion may indicate a hemorrhagic cyst or other neoplasm. Recommend further evaluation with contrast CT or MRI of the kidneys. 2. Cholelithiasis. 3. Limitations. Lung Scan-VQ NM 06/18/17 00:00 IMPRESSION: MODERATE SEGMENTAL DEFECTS INVOLVING THE ANTERIOR SEGMENT LEFT UPPER LOBE AND RIGHT UPPER LOBE. FINDINGS ARE INDETERMINATE FOR PULMONARY EMBOLUS DUE TO LACK OF VENTILATION IMAGING. Abdomen MRI 06/19/17 00:00 IMPRESSION: LIMITED STUDY. NO OBVIOUS LESION IDENTIFIED IN THE LEFT KIDNEY. NO OTHER SIGNIFICANT FINDINGS OTHER THAN GALLSTONES. Chest/Abdomen CTA 06/19/17 09:13 IMPRESSION: 1. BILATERAL PULMONARY EMBOLI DESCRIBED. 2. HAZY GROUND-GLASS OPACITY IN THE LEFT UPPER LOBE MAY BE DUE TO INFLAMMATION OR INFECTION. 3. ELEVATED LEFT HEMIDIAPHRAGM. 4. GALLSTONES. Assessment & Plan - Diagnosis (1) Elevated troponin I level Is this a current diagnosis for this admission?: Yes (2) Hyperkalemia Is this a current diagnosis for this admission?: Yes (3) Hypotension Qualifiers: Hypotension type: unspecified hypotension type Qualified Code(s): I95.9 - Hypotension, unspecified Is this a current diagnosis for this admission?: Yes (4) Coronary artery disease Qualifiers: Coronary Disease-Associated Artery/Lesion type: [place] artery [place] vs. transplanted heart: [place] heart Associated angina: angina presence unspecified Qualified Code(s): I25.10 - Atherosclerotic heart disease of [place] coronary artery without angina pectoris Is this a current diagnosis for this admission?: Yes (5) Hypertension Qualifiers: Hypertension type: unspecified secondary hypertension Qualified Code(s): I15.9 - Secondary hypertension, unspecified; I15 - Secondary hypertension Is this a current diagnosis for this admission?: Yes (6) Pulmonary embolism Qualifiers: Pulmonary embolism type: other Chronicity: acute Acute cor pulmonale presence: without acute cor pulmonale Qualified Code(s): I26.99 - Other pulmonary embolism without acute cor pulmonale Is this a current diagnosis for this admission?: Yes (7) Anemia Qualifiers: Anemia type: unspecified type Qualified Code(s): D64.9 - Anemia, unspecified Is this a current diagnosis for this admission?: Yes - Notes Notes: Patient remained stable from cardiac standpoint. She has completed GI evaluation. Patient noted to have candidiasis. Treatment initiated by crm architect. Patient was noted to have pulmonary embolism this admission. Patient to be started on Eliquis 2.5 mg p.o. twice daily with which I agree. Patient has significant comorbid problems. I believe patient has reached optimal or almost optimal medical management from cardiovascular standpoint. At this point will sign off. Recommendations are same from yesterday's note. patient' s medications were reviewed. Discussed with crm architect. Will be happy to see patient in the office. Discussed with family members - Time Time with patient: 15-25 minutes - CODE STATUS was discussed, patient remains full code. Surrogate decision-maker unchanged. Multiple medical problems were addressed. More than 50% of the time spent coordinating care, discussing management plans with involved caregivers. Management plans discussed with involved personnels. Medical decision making was of moderate to high complexity , patient's has multiple comorbidities. Medications reviewed and adjusted accordingly: Yes
--- NOTE | 2017-07-28 09:29 | Progress Note ---
Provider Note Provider Note: pIn the patient's discharge summary already of acute renal failure already have hypertension's hyperkalemia and pulmonary embolism all diagnosis is included I do not think so needs to add anything else differently in your quary
== END 2017-06-25 15:20 | disposition home health service (06) | DRG 682 ==
LOC: ER 15:48 → EH 18:41 → UNDOADMIN 19:32 → EH 19:32 → ICU 21:46 → 3S 06-19 02:09
PROVIDERS: ADMIT Family Medicine; ATTEND Family Medicine
PROC: 02HV33Z Insertion of Infusion Device into Superior Vena Cava, Percutaneous Approach (ICD-10-PCS; principal; 2017-06-17)
PROC: 30233N1 Transfusion of Nonautologous Red Blood Cells into Peripheral Vein, Percutaneous Approach (ICD-10-PCS; 2017-06-22)
PROC: 0DB68ZX Excision of Stomach, Via Natural or Artificial Opening Endoscopic, Diagnostic (ICD-10-PCS; 2017-06-23)
PROC: 0DJD8ZZ Inspection of Lower Intestinal Tract, Via Natural or Artificial Opening Endoscopic (ICD-10-PCS; 2017-06-23)
PROC: 0DB58ZX Excision of Esophagus, Via Natural or Artificial Opening Endoscopic, Diagnostic (ICD-10-PCS; 2017-06-23 18:00)
DX: N17.9 Acute kidney failure, unspecified (principal); I26.99 Other pulmonary embolism without acute cor pulmonale; I13.0 Hypertensive heart and chronic kidney disease with heart failure and stage 1 through stage 4 chronic kidney disease, or unspecified chronic kidney disease; I67.4 Hypertensive encephalopathy; E87.5 Hyperkalemia; I95.9 Hypotension, unspecified; I48.2 Chronic atrial fibrillation; I50.9 Heart failure, unspecified; I25.10 Atherosclerotic heart disease of native coronary artery without angina pectoris; E03.9 Hypothyroidism, unspecified; K21.9 Gastro-esophageal reflux disease without esophagitis; R79.89 Other specified abnormal findings of blood chemistry; E11.22 Type 2 diabetes mellitus with diabetic chronic kidney disease; N18.3 Chronic kidney disease, stage 3 (moderate); D63.1 Anemia in chronic kidney disease; K26.9 Duodenal ulcer, unspecified as acute or chronic, without hemorrhage or perforation; K29.80 Duodenitis without bleeding; I67.9 Cerebrovascular disease, unspecified; I27.2 Other secondary pulmonary hypertension; F01.50 Vascular dementia, unspecified severity, without behavioral disturbance, psychotic disturbance, mood disturbance, and anxiety; G40.909 Epilepsy, unspecified, not intractable, without status epilepticus; K64.8 Other hemorrhoids; I25.2 Old myocardial infarction; Z88.0 Allergy status to penicillin; Z88.2 Allergy status to sulfonamides; Z79.82 Long term (current) use of aspirin; Z79.84 Long term (current) use of oral hypoglycemic drugs; Z79.899 Other long term (current) drug therapy
CPT/HCPCS: 36415; 36430; 43239; 45378; 51702; 70450; 71010; 71275; 74181; 76700; 78580; 80048; 80053; 80076; 80185; 81001; 82140; 82272; 82550; 82553; 82607; 82728; 82746; 82803; 82962; 83540; 83550; 83605; 83735; 83880; 84443; 84466; 84484; 85025; 85027; 85045; 85610; 86850; 86900; 86901; 86920; 87040; 87086; 88305; 93005; 93010; 93306; 96365; 96375; 99291; A9540; C1751; G8978-GP; G8979-GP; J0171; J0360; J0610; J0744; J0885; J1610; J1644; J1650; J1815; J1940; J1953; J2250; J2310; J3010; J3490; J7030; P9016; Q9969; S0028

== ENCOUNTER 2017-10-28 02:05 | Emergency (ER) | payer MEDICARE, MEDICAID ==
[2017-10-28] MEDS ORDERED: AMMONIA INHALANTS 10 AMPUL/BOX IH ONE (02:45)
--- NOTE | 2017-10-28 02:52 | ER Document Report ---
ED General - General Chief Complaint: Altered Mental Status Stated Complaint: ALTERED MENTAL STATUS Time Seen by Provider: 10/28/17 02:37 Notes: Patient is an 82-year-old female presents with complaint of being found unresponsive. says yesterday during the day she was walking around and start having a lot of slurring of her speech. She went the whole day with worsening slurring of speech but did not want come to the hospital. Tonight the woke up and found her unresponsive and having some difficulty breathing. Upon arrival to the ER she continues to be unresponsive. I asked the about history of stroke. Is very hard to determine if the patient has history of stroke or not. It sounds as if she probably did; however, the does not seem to really know if the patient has history of stroke, bleeding of the brain, or true seizures. The says that she does have history of some seizures but this did not know how to explain the seizures other than that she does have some baseline facial tremor. TRAVEL OUTSIDE OF THE [place] IN LAST 30 DAYS: No - Related Data Allergies/Adverse Reactions: Penicillins Allergy (Verified 10/28/17 02:38) Sulfa (Sulfonamide Antibiotics) Allergy (Verified 10/28/17 02:38) Home Medications: Current Home Medications Acetaminophen [Tylenol Extra Strength 500 mg Tablet] 1 tab PO Q4H PRN 10/28/17 [ History] Apixaban [Eliquis 2.5 mg Tablet] 2.5 mg PO BID 10/28/17 [History] Citalopram Hydrobromide [Celexa 20 mg Tablet] 20 mg PO QHS 10/28/17 [History] Clonidine [Catapres-Tts 1 (0.1 mg/24 Hr) Transderm Patch] 1 patch TD Q7D [History] Cyclobenzaprine HCl 5 mg PO DAILY PRN 10/28/17 [History] Diltiazem HCl [Cardizem Cd 180 mg Capsule] 1 cap.sr PO DAILY 10/28/17 [History] Fluconazole [Diflucan 100 Mg Tablet] 100 mg PO DAILY 10/28/17 [History] Folic Acid 1 mg PO DAILY 10/28/17 [History] Gabapentin 100 mg PO Q12 10/28/17 [History] Hydralazine HCl [Apresoline 25 mg Tablet] 75 mg PO Q8H 10/28/17 [History] Isosorbide Mononitrate [Imdur 60 mg Tablet.er] 1 tab PO DAILY 10/28/17 [History] Lansoprazole [Prevacid 30 mg Odt Tablet] 1 tab PO DAILY 10/28/17 [History] Levetiracetam [Keppra 500 mg Tablet] 500 mg PO Q12 10/28/17 [History] Levothyroxine Sodium [Synthroid 0.075 mg Tablet] 0.075 mg PO DAILY 10/28/17 [ History] Metoprolol Tartrate 25 mg PO Q12 10/28/17 [History] Nitroglycerin 0.4 mg SL ASDIR PRN 10/28/17 [History] Risperidone [Risperdal 0.25 Mg Tablet] 0.25 mg PO BID 10/28/17 [History] Sitagliptin Phosphate [Januvia 25 mg Tablet] 25 mg PO DAILY 10/28/17 [History] Past Medical History - Social History Smoking Status: Unknown if Ever Smoked Frequency of alcohol use: None Drug Abuse: None Family History: Hypertension - Past Medical History Cardiac Medical History: Reports: Hx Atrial Fibrillation, Hx Congestive Heart Failure, Hx Coronary Artery Disease, Hx Heart Attack, Hx Hypercholesterolemia, Hx Hypertension Pulmonary Medical History: Reports: Hx Asthma, Hx Bronchitis, Hx COPD, Hx Pneumonia - X6 Denies: Hx Tuberculosis Neurological Medical History: Reports: Hx Cerebrovascular Accident, Hx Seizures Endocrine Medical History: Reports: Hx Diabetes Mellitus Type 2, Hx Hypothyroidism GI Medical History: Reports: Hx Gastroesophageal Reflux Disease, Hx Ulcer Musculoskeltal Medical History: Reports Hx Arthritis Psychiatric Medical History: Reports: Hx Dementia, Hx Depression Past Surgical History: Reports: Hx Appendectomy, Hx Bowel Surgery, Hx Cardiac Catheterization. Denies: Hx Hysterectomy - Immunizations Immunizations up to date: Yes Hx Diphtheria, Pertussis, Tetanus Vaccination: Yes Hx Pneumococcal Vaccination: 10/18/08 Review of Systems - Review of Systems -: Yes ROS unobtainable due to patient's medical condition - Is very limited due to patient being unresponsive. Physical Exam - Vital signs Vitals: BP 185/83 H 10/28/17 02:11 - Notes Notes: General Appearance: Unresponsive. Vitals: reviewed, See vital signs table. Head: no swelling or tenderness to the head Eyes: PERRL, EOMI, Conjuctiva clear Mouth: No decreasd moisture Throat: No tonsillar inflammation, No airway obstruction, No lymphadenopathy Neck: Supple, no neck swelling Lungs: No wheezing, No rales, No rhonci, No accessory muscle use, good air exchange bilaterally. Heart: Normal rate, Regular rythm, No murmur, no rub Abdomen: Normal BS, soft, No rigidity, No abdominal tenderness, No guarding, no rebound, no abdominal masses, no organomegaly Extremities: good pulses in all extremities, no edema. Skin: warm, dry, appropriate color, no rash Neuro: Patient is completely unresponsive does not respond to pain. I was eventually able to get her to respond to ammonia capsule. She then she opened her eyes and slowly try to lift her head off the bed. The only thing she could tell me that she had a headache. Her words were very slurred. She had obvious facial droop on the left side. said this is all new. Unable to test with her neuro exam as the patient immediately went back to sleep after she woke up and told me she had a headache. Course - Re-evaluation Re-evalutation: 10/28/17 02:49 Based on patient's presentation history suspect that she is had a severe stroke. CT scan has been performed. I do not see evidence of bleeding at this time. I am awaiting the radiologist's official read. I suspect the patient most likely was a large stroke. Her symptoms first started yesterday. Has been approximately 10-12 hours since onset her symptoms and therefore she is not a thrombolytic candidate. 10/28/17 02:55 Review the last history and physical done by Dr. Chin as well as the last ER physical exam. Patient did not have any recorded slurring speech or facial droop during those exams. Dr. Chin's history and physical does mention the patient does have a history of previous stroke but it does not list what deficits patient had from this. He also is a patient has a history of hepatic encephalopathy. I therefore added an ammonia level. 10/28/17 03:57 We are waiting blood work to come back. The operations label clerk is no drawing the blood now. On reevaluation the patient continues to remain unresponsive unless she has some sore stimulation such as pneumonia capsule. She has no signs of seizure. She is not shaking and not tonic or clonic in any way. 10/28/17 04:42 Reevaluation she at times is having oxygen saturations when she was on the percent and she will come back up to 93-95%. I did place her in 2 L of nasal cannula just to help prevent the hypoxemia. She is still unresponsive but with some agitation such as putting on the nasal cannula she will wake up and move around some but then goes right back to being unresponsive. Kidney function is at a level I can perform a CT of the head. I have ordered a CT of the head. 10/28/17 04:43 10/28/17 07:06 She has had a seizure witnessed by the nurse. She had rhythmic shaking back and forth of her arms. Has been with this as well. He said this for some of the receiving seizure-like this. Has been now tells me that her seizures are typically with her just staring off but not like this. Patient seizure lasted approximately a minute. The rest her medications were needed. Patient is on Keppra at home. I will give her Keppra 1000 mg IV. I am still awaiting CT angio of the head report to come back. 10/28/17 07:53 Urologist said that the CT scan is difficult to read. Findings are questionable at this time on the CT of the head. I therefore have ordered the MRA suggested by the radiologist. Due to the patient had a seizure as well as continues to be unresponsive except for with extreme stimuli feel that I need to please consult speak with the neurologist. I try to speak with vitamins. Vitamin said that they are not accepting any type of transfers unless the patient is a TPA candidate. I therefore called [facility] and waiting to hear back from them. 10/28/17 08:[address] galeano, the neurologist, he says that he suggested I speak with the hospitalist. He says it is unlikely that the patient is subclinical status most likely just large stroke. He feels that the patient is better served in the ICU setting. He requested I speak with the hospitalist about transfer. I am waiting to hear back from the hospitalist. 10/28/17 08:25 10/28/17 08:41 I did speak with the patient's again to go over CODE STATUS. Patient's says that he is unsure if she wanted CPR but says she would not want to be placed on a ventilator or intubated. At that time the patient woke up for the first time in response to a auditory stimuli. She woke up and said that she wants to a natural and does not want CPR or ventilator. Patient state awake briefly a long enough for me to try to get a repeat neuro exam. She does continue have left-sided facial droop as well as slurred speech. She has left-sided extremity weakness but this is old from her previous stroke. She does not appear to have right-sided extremity weakness on exam. After is done examined the patient the patient went back to being unresponsive but is now waking up with some auditory stimuli which is a new improvement for her status. I did discuss further with the to make sure that making her DNR is appropriate he is okay with this. He agrees with plan to transfer to [facility]. I did call Dr. Alfredo and speak with her about the case. She does agree to accept the patient. My reason for transfer is that the patient has a large stroke and we do not have any type of neurology back up to help guide management or treatment as large more massive strokes can go on to have further complications that I think her hospitalist not suited to manage at this time. Dr. Alfredo agrees and agrees to accept the patient for transfer. I did inform the that it may be a long time before the patient does eventually get transferred being that there is a long wait list. He is understanding of this. MRA is pending. I did check out to Dr. Camargo who will follow up on MRI results. Dictation of this chart was performed using voice recognition software; therefore, there may be some unintended grammatical errors. - Vital Signs Vital signs: Temp Pulse Resp BP Pulse Ox 99.0 F 115 H 12 190/95 H 100 10/28/17 02:37 10/28/17 07:47 10/28/17 07:47 10/28/17 07:47 10/28/17 07:47 - Laboratory Result Diagrams: 10/28/17 03:55 10/28/17 03:55 Laboratory results interpreted by me: 10/28/17 10/28/17 10/28/17 02:18 03:55 03:55 RBC 3.28 L Hgb 9.4 L Hct 29.2 L Sodium 145.2 H Chloride 114 H Carbon Dioxide 21 L BUN 26 H Est GFR ( Amer) 53 L Est GFR (Non-Af Amer) 44 L POC Glucose 124 H Ammonia 10/28/17 03:55 RBC Hgb Hct Sodium Chloride Carbon Dioxide BUN Est GFR ( Amer) Est GFR (Non-Af Amer) POC Glucose Ammonia < 8.7 L - EKG Interpretation by Me Additional EKG results interpreted by me: 10/28/17 03:11 EKG is reviewed and interpreted by me. EKG shows some scattered ST segment depression mainly in inferior leads. She has similar findings on her previous EKG from June 20, 2017. No ST segment elevation. LA interval, QRS duration are within normal range. QT interval is slightly prolonged. Discharge - Discharge Clinical Impression: Stroke Qualifiers: CVA mechanism: unspecified Qualified Code(s): I63.9 - Cerebral infarction, unspecified Altered mental status Qualifiers: Altered mental status type: unspecified Qualified Code(s): R41.82 - Altered mental status, unspecified Condition: Stable Disposition: CRITICAL ACCESS HOSPITAL
--- NOTE | 2017-10-28 03:57 | RADIOLOGY REPORT (SQ) ---
EXAM DESCRIPTION: CT HEAD WITHOUT CLINICAL HISTORY: AMS COMPARISON: 06/17/2017 TECHNIQUE: Axial CT of the head obtained from the skull apex to the skull base without contrast. FINDINGS: No acute intracranial hemorrhage identified. No mass, mass effect, shift of the midline, abnormal extra-axial fluid collection or CT evidence of acute ischemic change identified. The ventricular system and sulcal spaces are mildly enlarged compatible with mild cerebral atrophy. Confluent areas of hypodensity throughout the supratentorial white matter are nonspecific and may be related to chronic small vessel ischemic change. The visualized paranasal sinuses and the mastoids are clear. No skull fracture identified. Visualized orbits and globes are unremarkable. Atherosclerotic calcification of the intracranial internal carotid arteries. DLP: 1292.19 mGy-cm IMPRESSION: 1. No acute intracranial abnormality by CT criteria. This exam was performed according to our departmental dose-optimization program, which includes automated exposure control, adjustment of the mA and/or kV according to patient size and/or use of iterative reconstruction technique.
[2017-10-28 04:03] LABS: ABSOLUTE BASOPHILS # (AUTO) 0.1 10^3/uL (0.0-0.2); ABSOLUTE EOSINOPHILS # (AUTO) 0.1 10^3/uL (0.0-0.6); ABSOLUTE LYMPHOCYTES (AUTO) 1.5 10^3/uL (0.5-4.7); ABSOLUTE MONOCYTES (AUTO) 0.4 10^3/uL (0.1-1.4); ABSOLUTE NEUT (AUTO) 4.8 10^3/uL (1.7-8.2); BASOPHILS % (AUTO) 0.8 % (0-2); EOSINOPHILS % (AUTO) 1.5 % (0-6); HEMATOCRIT 29.2 % (36.0-47.0); HEMOGLOBIN 9.4 g/dL (12.0-15.5); MEAN CORPUSCULAR HEMOGLOBIN 28.8 pg (27.0-33.4); MEAN CORPUSCULAR HGB CONC 32.4 g/dL (32.0-36.0); MEAN CORPUSCULAR VOLUME 89 fl (80-97); PLATELET COUNT 339 10^3/uL (150-450); RED BLOOD COUNT 3.28 10^6/uL (3.72-5.28); RED CELL DISTRIBUTION WIDTH 13.4 % (11.5-14.0); SEGMENTED NEUTROPHILS % (AUTO) 69.7 % (42-78); TOTAL CELLS COUNTED % (AUTO) 100 %; WHITE BLOOD COUNT 6.9 10^3/uL (4.0-10.5)
[2017-10-28 04:11] LABS: INTERNATIONAL RATION (INR) 1.04; PROTHROMBIN TIME 14.3 SEC (11.4-15.4)
[2017-10-28 04:12] LABS: PARTIAL THROMBOPLASTIN TIME 34.6 SEC (23.5-35.8)
[2017-10-28 04:25] LABS: ALANINE AMINOTRANSFERASE 22 U/L (9-52); ALBUMIN 3.6 g/dL (3.5-5.0); ALKALINE PHOSPHATASE 75 U/L (38-126); ANION GAP 10 (5-19); ASPARTATE AMINO TRANSFERASE 16 U/L (14-36); BILIRUBIN,DIRECT 0.2 mg/dL (0.0-0.4); BILIRUBIN,TOTAL 0.2 mg/dL (0.2-1.3); BLOOD UREA NITROGEN 26 mg/dL (7-20); CALCIUM 9.6 mg/dL (8.4-10.2); CARBON DIOXIDE 21 mmol/L (22-30); CHLORIDE 114 mmol/L (98-107); CREATINE KINASE 57 U/L (30-135); GLUCOSE 110 mg/dL (75-110); POTASSIUM 4.3 mmol/L (3.6-5.0); SODIUM 145.2 mmol/L (137-145); TOTAL PROTEIN 6.6 g/dL (6.3-8.2)
--- NOTE | 2017-10-28 04:36 | RADIOLOGY REPORT (SQ) ---
EXAM DESCRIPTION: CHEST SINGLE VIEW CLINICAL HISTORY: AMS COMPARISON: 06/17/2017 FINDINGS: Single frontal view of the chest. Atherosclerotic calcification aortic arch. Heart is not enlarged. No consolidation, pneumothorax, or pleural effusion. No displaced rib fractures identified. Upper abdominal soft tissues are unremarkable. Leads overlie the chest. Low lung volumes. Elevation the left hemidiaphragm. IMPRESSION: 1. No acute pulmonary process. No significant interval change.
[2017-10-28 04:37] LABS: CREATINE KINASE MB 0.58 ng/mL (<4.55)
[2017-10-28 04:39] LABS: TROPONIN I < 0.012 ng/mL
[2017-10-28] MEDS ORDERED: LEVETIRACETAM 1000 MG/NACL-ISO 1,000 MG/100 ML RTUPB IV ONE (07:04)
--- NOTE | 2017-10-28 07:14 | RADIOLOGY REPORT (SQ) ---
EXAM DESCRIPTION: CTA HEAD CLINICAL HISTORY: 82 years Female, unresponsive, COMPARISON: Noncontrast CT of the head performed same day. TECHNIQUE: CTA of the head obtained following the uncomplicated intravenous administration of 70 mL Isovue-370. 3-D/MIP reformatted images available. Overall evaluation is suboptimal due to contrast bolus timing. FINDINGS: CTA of the head: The arterial system is not well opacified on this study as the contrast bolus is predominantly in the venous phase intracranially. The distal cervical, petrous, and cavernous portions of the intracranial internal carotid arteries are not well opacified. Flow is identified in the supraclinoid internal carotid arteries which bifurcate into patent A1 and M1 segments of the anterior middle cerebral artery respectively. Flow identified throughout the M1 and M2 segments of the middle cerebral arteries. The anterior communicating artery is patent. The posterior communicating arteries are not identified. No definite aneurysm in the anterior circulation. Posterior circulation: The intracranial vertebral arteries combined to form a patent narrow caliber basilar artery. There is hyperdense saccular structure arising in the suprasellar cistern that appears to extend to the basilar tip. This may represent a 5 mm basilar tip aneurysm. The basilar artery bifurcates into patent T1 segments of the posterior cerebral arteries. IMPRESSION: 1. Flow cannot be confirmed within the distal cervical, petrous, and cavernous portions of the intracranial internal carotid arteries. This may be related to bolus timing however occlusion or stenosis cannot be excluded. Repeat CTA with improved contrast bolus timing may be helpful. Alternatively, if a bolus of iodinated contrast is not ideal for this patient noncontrast MRA of the head and neck could provide additional characterization. 2. Flow is identified within the bilateral middle and anterior cerebral arteries. The caliber of all the visualized intracranial arterial vessels is diminutive without definite evidence of flow-limiting stenosis or occlusion in the opacified vessels. 3. 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 Report called to nurse Calixto at 0608 hours on 10/28/2017
--- NOTE | 2017-10-28 07:59 | EKG REPORT ---
SEVERITY:- ABNORMAL ECG - SINUS TACHYCARDIA CONSIDER ANTEROSEPTAL INFARCT NONSPECIFIC T ABNORMALITIES, LATERAL LEADS : Confirmed by: Dexter Camarillo MD 28-Oct-2017 07:58:35
[2017-10-28 08:23] LABS: APPEARANCE,URINE CLEAR; BILIRUBIN,URINE NEGATIVE (NEGATIVE); COLOR,URINE STRAW; GLUCOSE, URINE NEGATIVE (NEGATIVE); KETONES,URINE NEGATIVE (NEGATIVE); LEUKOCYTE ESTERASE,URINE NEGATIVE (NEGATIVE); NITRITE,URINE NEGATIVE (NEGATIVE); PROTEIN,URINE NEGATIVE (NEGATIVE); URINE SPECIFIC GRAVITY 1.018; UROBILINOGEN,URINE NEGATIVE mg/dL (<2.0)
--- NOTE | 2017-10-28 10:46 | RADIOLOGY REPORT (SQ) ---
EXAM DESCRIPTION: MRA HEAD WITHOUT COMPLETED DATE/TIME: 10/28/2017 9:59 am REASON FOR STUDY: stroke, altered mental status COMPARISON: CT brain 10/28/[address] angio brain 10/28/2017 TECHNIQUE: Axial 3-D [id number] acquisition imaging performed through the brain in the area of t he [place]. Images reformatted using 3-D MIPS. LIMITATIONS: Motion artifact throughout the study. Multiple attempts at obtaining the diagnostic ci rcle [place] MRA were performed. FINDINGS: There is motion artifact throughout study. On the source data, flow is identified in the distal intracranial vertebral artery, basilar artery, posterior cerebral arteries. On the source jessica ges, flow is identified in the high cervical carotid artery, bilateral carotid arteries at the skullb ase, bilateral anterior and middle cerebral arteries. IMPRESSION: Very limited study. Flow is present in the [place] vessels. TECHNICAL DOCUMENTATION: JOB ID: [id number] [id number]- All Rights Reserved
--- NOTE | 2017-10-28 10:49 | RADIOLOGY REPORT (SQ) ---
EXAM DESCRIPTION: MRA NECK WITHOUT COMPLETED DATE/TIME: 10/28/2017 9:59 am REASON FOR STUDY: stroke, altered mental status COMPARISON: CT angio [place] 10/28/2017 CT brain 10/28/2017 MRA a [place] 10/28/2017 TECHNIQUE: Axial 2-D volume acquisition imaging through the extracranial carotid and vertebral arter ies with reformatting using 3-D MIPS. Additional 3D [id number] MRA of the carotid bifurcations w as performed without contrast. LIMITATIONS: Motion artifact throughout the study. FINDINGS: Significant motion artifact throughout the study. There is flow in the bilateral common c arotid arteries, carotid bifurcations, cervical internal carotid arteries. There are areas of signal dropout in the right and left proximal internal carotid artery is at the level of the carotid bifurc ations on the 3D imaging. This could indicate carotid stenosis. Patient may be tolerate carotid Dop pler better than MRA. Carotid Doppler recommended for correlation. Right vertebral artery is dominant. Vertebral arteries are patent throughout the neck IMPRESSION: Extremely limited study. There is flow in the bilateral carotid and vertebral circulati on in the neck. The 3D [id number] images suggest some areas of right and left proximal ICA steno sis. Correlation with carotid Doppler recommended. COMMENT: Quality ID #[id number]: Measurements of distal internal carotid diameter were used as the denomin ator for stenosis measurement. TECHNICAL DOCUMENTATION: JOB ID: [id number]- All Rights Reserved
[2017-10-28] MEDS ORDERED: LABETALOL HCL INJ 20 MG/4 ML DISP.SYRIN IV ONE ×2 (12:23→20:31)
[2017-10-28] MEDS ORDERED: CLONIDINE 0.1 MG/24 HR PATCH.TDWK TD ONE (12:23)
[2017-10-28 20:03] VITALS: BP 217/91
[2017-10-28] MEDS ORDERED: LEVETIRACETAM 500 MG/NACL-ISO 500 MG/100 ML RTUPB IV ONE (20:28)
[2017-10-28] MEDS ORDERED: ONDANSETRON HCL INJ/PF 4 MG/2 ML SDV IV ONE (20:39)
== END 2017-10-28 20:35 | disposition short-term general hospital (02) ==
LOC: ER 02:05
DX: I63.9 Cerebral infarction, unspecified (principal); R47.81 Slurred speech; R29.810 Facial weakness; R56.9 Unspecified convulsions; R41.82 Altered mental status, unspecified; R51 Headache; I25.10 Atherosclerotic heart disease of native coronary artery without angina pectoris; I25.2 Old myocardial infarction; I10 Essential (primary) hypertension; J44.9 Chronic obstructive pulmonary disease, unspecified; E11.9 Type 2 diabetes mellitus without complications; Z88.0 Allergy status to penicillin; Z88.2 Allergy status to sulfonamides
CPT/HCPCS: 93005; 96376; 99285; 51701; 96374; 96375; 36415; 80177; 82553; 82962; 82140; 82550; 85025; 85610; 85730; 80053; 81001; 84484; 70547; 70544; 71045; 70450; 70496; 93010; J3490 ×2; J1953 ×2

== ENCOUNTER 2017-12-11 09:42 | Inpatient (IN) | payer MEDICARE, MEDICAID ==
[2017-12-11] MEDS ORDERED: NITROGLYCERIN 2% OINTMENT 1 GM PACKET TP ONE (10:38)
--- NOTE | 2017-12-11 10:39 | ER Document Report ---
ED Neuro Symptoms/Deficit - General Stated Complaint: HEADACHE Time Seen by Provider: 12/11/17 10:10 Mode of Arrival: Medic Information source: Patient, [facility] Records, Outside Facility Records Notes: This is an 82-year-old female who had a stroke a month ago. Was transferred to [facility]. Was in the hospital for several weeks and subsequently discharged to a alf facility. Came home 1 week ago. has been taking care of her. Had a PEG tube placed while she was in the hospital. states that he is giving her medications however today she began to have increased seizures. Seizures are not new. Seizures were present prior to the stroke and have gotten worse since the stroke. Blood pressure has been increasing as well. TRAVEL OUTSIDE OF THE [place] IN LAST 30 DAYS: No - HPI Patient complains to provider of: Difficulty standing, Difficulty walking, Facial Droop, Paralysis, Paresthesia, Speech Impairment, Weakness - Related Data Allergies/Adverse Reactions: Penicillins Allergy (Verified 10/28/17 02:38) Sulfa (Sulfonamide Antibiotics) Allergy (Verified 10/28/17 02:38) Past Medical History - General Information source: Patient, Relative - Social History Smoking Status: Never Smoker Cigarette use (# per day): No Smoking Education Provided: No Frequency of alcohol use: None Drug Abuse: None Lives with: Spouse/Significant other Family History: None, Reviewed & Not Pertinent, Hypertension - Past Medical History Cardiac Medical History: Reports: Hx Atrial Fibrillation, Hx Congestive Heart Failure, Hx Coronary Artery Disease, Hx Heart Attack, Hx Hypercholesterolemia, Hx Hypertension Pulmonary Medical History: Reports: Hx Asthma, Hx Bronchitis, Hx COPD, Hx Pneumonia - X6 Denies: Hx Tuberculosis Neurological Medical History: Reports: Hx Cerebrovascular Accident, Hx Seizures Endocrine Medical History: Reports: Hx Diabetes Mellitus Type 2, Hx Hypothyroidism Renal/ Medical History: Denies: Hx Peritoneal Dialysis GI Medical History: Reports: Hx Gastroesophageal Reflux Disease, Hx Ulcer Musculoskeltal Medical History: Reports Hx Arthritis Psychiatric Medical History: Reports: Hx Dementia, Hx Depression Past Surgical History: Reports: Hx Appendectomy, Hx Bowel Surgery, Hx Cardiac Catheterization. Denies: Hx Hysterectomy - Immunizations Immunizations up to date: Yes Hx Diphtheria, Pertussis, Tetanus Vaccination: Yes Hx Pneumococcal Vaccination: 10/18/08 Review of Systems - Review of Systems -: Yes ROS unobtainable due to patient's medical condition Physical Exam - Vital signs Interpretation: Hypertensive, Tachycardic - General General appearance: Appears well, Alert - HEENT Head: Normocephalic - She with left-sided facial droop, Atraumatic Eyes: Normal Pupils: PERRL - Respiratory Respiratory status: No respiratory distress Chest status: Nontender Breath sounds: Normal Chest palpation: Normal - Cardiovascular Rhythm: Tachycardia Heart sounds: Normal auscultation Murmur: No - Abdominal Inspection: Normal Distension: No distension Bowel sounds: Normal Tenderness: Nontender Organomegaly: No organomegaly - Back Back: Normal, Nontender - Extremities General upper extremity: Normal inspection, Nontender, Normal color, Normal ROM , Normal temperature General lower extremity: Normal inspection, Nontender, Normal color, Normal ROM , Normal temperature, Normal weight bearing. No: Tejas's sign - Neurological Cognition: Normal Sensory: Normal Notes: Patient with left-sided weakness on the left face, left upper extremity, left lower extremity. Sensation loss left upper extremity and left lower extremity. Speech is slurred. - Psychological Associated symptoms: Normal affect, Normal mood - Skin Skin Temperature: Warm Skin Moisture: Dry Skin Color: Normal Course - Re-evaluation Re-evalutation: 12/11/17 12:32 Patient had stroke and her stroke symptoms are unchanged from a month and a half ago according to who is now at bedside. States that he is having trouble taking care of her. Her blood pressure is extremely elevated today. Repeat CT scan does not show anything acute. Consulted patient's primary care doctor. Will admit to the hospital for blood pressure control, seizure control and possible placement for long-term care facility as I believe this will be the best scenario for this patient until she makes more improvement. Procedures - Additional Procedures IV insertion Additional Procedures: IV insertion Notes: 12/11/17 12:33 Underneath ultrasound guidance the left AC area was cleaned with alcohol. Ultrasound was used to locate the basilic vein. Underneath direct ultrasound guidance a 20-gauge IV was placed. No complications. Sterile dressing applied and IV secured by nurse. 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
--- NOTE | 2017-12-11 11:19 | RADIOLOGY REPORT (SQ) ---
EXAM DESCRIPTION: CT HEAD WITHOUT COMPLETED DATE/TIME: 12/11/2017 10:51 am REASON FOR STUDY: left weakness COMPARISON: 10/28/2017 TECHNIQUE: Axial images acquired through the brain without intravenous contrast. Images reviewed wi th bone, brain and subdural windows. Images stored on PACS. All CT scanners at this facility use dose modulation, iterative reconstruction, and/or weight based d osing when appropriate to reduce radiation dose to as low as reasonably achievable (ALARA). [facility]: Dose Right [facility]: CareDose [facility]: Dose Right [facility]: Teradose 4D [facility]: Smart [employer] RADIATION DOSE: CT Rad equipment meets quality standard of care and radiation dose reduction techniq ues were employed. CTDIvol: 64.6 mGy. DLP: 1034 mGy-cm.mGy. LIMITATIONS: None. FINDINGS: VENTRICLES: Prominent. CEREBRUM: No masses. No hemorrhage. No midline shift. Areas of low density in the white matter mos t likely due to chronic micro-vascular ischemic change. No evidence for acute infarction. Stable ap pearance of old right parietal infarction. CEREBELLUM: Stable appearance of old right cerebellar infarction. No acute findings. EXTRAAXIAL SPACES: Age-related involutional change. No fluid collections. No masses. ORBITS AND GLOBE: No intra- or extraconal masses. Normal contour of globe without masses. Calcifica tions/postsurgical changes about the lens bilaterally. CALVARIUM: No fracture. PARANASAL SINUSES: No fluid or mucosal thickening. SOFT TISSUES: No mass or hematoma. OTHER: No other significant finding. IMPRESSION: CHRONIC CHANGES OF ATROPHY AND MICROVASCULAR ISCHEMIA WELL OLD INFARCTS. NO ACUTE PROCESS. EVIDENCE OF ACUTE STROKE: NO. TECHNICAL DOCUMENTATION: JOB ID: [id number] Quality ID # [id number]: Final reports with documentation of one or more dose reduction techniques (e.g., Au tomated exposure control, adjustment of the mA and/or kV according to patient size, use of iterative reconstruction technique) 2010 [employer]- All Rights Reserved Reading location - IP/workstation name: [email or web address]
--- NOTE | 2017-12-11 11:59 | RADIOLOGY REPORT (SQ) ---
EXAM DESCRIPTION: CHEST SINGLE VIEW COMPLETED DATE/TIME: 12/11/2017 11:13 am REASON FOR STUDY: left weakness COMPARISON: 10/28/2017 EXAM PARAMETERS: NUMBER OF VIEWS: One view. TECHNIQUE: Single frontal radiographic view of the chest acquired. RADIATION DOSE: NA LIMITATIONS: None. 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 Th is results in elevation of left hemidiaphragm. No gabbie consolidations or definite pleural effusion identified. MEDIASTINUM AND HILAR STRUCTURES: Unchanged from prior exam. HEART AND VASCULAR STRUCTURES: Limited evaluation secondary to the left-sided colonic interposition. BONES: No acute findings. HARDWARE: None in the chest. OTHER: No other significant finding. IMPRESSION: NO ACUTE RADIOGRAPHIC FINDING IN THE CHEST. TECHNICAL DOCUMENTATION: JOB ID: [id number]- All Rights Reserved Reading location - IP/workstation name: [email or web address]
[2017-12-11 13:22] LABS: APPEARANCE,URINE CLEAR; BILIRUBIN,URINE NEGATIVE (NEGATIVE); COLOR,URINE YELLOW; GLUCOSE, URINE NEGATIVE (NEGATIVE); KETONES,URINE NEGATIVE (NEGATIVE); LEUKOCYTE ESTERASE,URINE NEGATIVE (NEGATIVE); NITRITE,URINE NEGATIVE (NEGATIVE); PROTEIN,URINE 100 mg/dL (NEGATIVE); URINE SPECIFIC GRAVITY 1.012
[2017-12-11 13:37] LABS: ABSOLUTE BASOPHILS # (AUTO) 0.1 10^3/uL (0.0-0.2); ABSOLUTE LYMPHOCYTES (AUTO) 2.3 10^3/uL (0.5-4.7); ABSOLUTE NEUT (AUTO) 6.8 10^3/uL (1.7-8.2); BASOPHILS % (AUTO) 0.5 % (0-2); EOSINOPHILS % (AUTO) 0.2 % (0-6); HEMATOCRIT 36.1 % (36.0-47.0); LYMPHOCYTES % (AUTO) 22.9 % (13-45); MEAN CORPUSCULAR HEMOGLOBIN 30.8 pg (27.0-33.4); MEAN CORPUSCULAR HGB CONC 33.3 g/dL (32.0-36.0); MEAN CORPUSCULAR VOLUME 93 fl (80-97); PLATELET COUNT 238 10^3/uL (150-450); RED CELL DISTRIBUTION WIDTH 16.7 % (11.5-14.0); SEGMENTED NEUTROPHILS % (AUTO) 66.4 % (42-78); TOTAL CELLS COUNTED % (AUTO) 100 %; WHITE BLOOD COUNT 10.2 10^3/uL (4.0-10.5)
[2017-12-11 13:41] LABS: INTERNATIONAL RATION (INR) 0.93; PROTHROMBIN TIME 13.2 SEC (11.4-15.4)
[2017-12-11 13:42] LABS: PARTIAL THROMBOPLASTIN TIME 28.9 SEC (23.5-35.8)
[2017-12-11 13:54] LABS: ALANINE AMINOTRANSFERASE 24 U/L (9-52); ALBUMIN 3.6 g/dL (3.5-5.0); ALKALINE PHOSPHATASE 76 U/L (38-126); ANION GAP 12 (5-19); ASPARTATE AMINO TRANSFERASE 31 U/L (14-36); BILIRUBIN,DIRECT 0.2 mg/dL (0.0-0.4); BILIRUBIN,TOTAL 0.3 mg/dL (0.2-1.3); BLOOD UREA NITROGEN 27 mg/dL (7-20); CARBON DIOXIDE 29 mmol/L (22-30); CHLORIDE 97 mmol/L (98-107); CREATINE KINASE 39 U/L (30-135); GLUCOSE 121 mg/dL (75-110); POTASSIUM 3.6 mmol/L (3.6-5.0); SODIUM 137.7 mmol/L (137-145); TOTAL PROTEIN 7.2 g/dL (6.3-8.2)
[2017-12-11 14:06] LABS: CREATINE KINASE MB 0.62 ng/mL (<4.55); TROPONIN I < 0.012 ng/mL
[2017-12-11] MEDS ORDERED: HYDRALAZINE HCL INJ/PF 20 MG/1 ML SDV IV ONE (14:34)
[2017-12-11] MEDS ORDERED: CLONIDINE HCL 0.1 MG TABLET PEG ONE (14:34)
--- NOTE | 2017-12-11 17:21 | EKG REPORT ---
SEVERITY:- ABNORMAL ECG - SINUS TACHYCARDIA MULTIPLE ATRIAL PREMATURE COMPLEXES PROBABLE LEFT ATRIAL ABNORMALITY CONSIDER POSTERIOR INFARCT DIFFUSE NONSPECIFIC ST-T CHANGES : Confirmed by: Dexter Camarillo MD 11-Dec-2017 17:20:40
--- NOTE | 2017-12-11 17:22 | EKG REPORT ---
SEVERITY:- BORDERLINE ECG - SINUS RHYTHM BORDERLINE T WAVE ABNORMALITIES : Confirmed by: Dexter Camarillo MD 11-Dec-2017 17:21:23
[2017-12-11] MEDS ORDERED: ACETAMINOPHEN SOLN 325 MG/10.15 ML UDCUP PEG PRN (17:39)
[2017-12-11] MEDS ORDERED: ASPIRIN 81 MG TABLET, CHEWABLE PEG ONE (18:30)
[2017-12-11] MEDS ORDERED: CITALOPRAM HYDROBROMIDE 20 MG TABLET PEG ONE (19:00)
[2017-12-11] MEDS: DILTIAZEM HCL 60 MG TABLET PEG SCH (19:17)
[2017-12-11] MEDS: FOLIC ACID 1 MG TABLET PEG SCH (19:18)
[2017-12-11] MEDS ORDERED: VALPROATE SODIUM SYRUP 250 MG/5 ML UDCUP ONE (22:08)
[2017-12-11] MEDS: HYDRALAZINE HCL 25 MG TABLET PEG SCH (22:15)
[2017-12-11] MEDS: CLONIDINE HCL 0.2 MG TABLET PEG SCH (22:16)
[2017-12-11] MEDS: VALPROATE SODIUM SYRUP 250 MG/5 ML UDCUP PEG SCH (22:19)
[2017-12-12] MEDS: DILTIAZEM HCL 60 MG TABLET PEG SCH ×4 (01:21→18:24)
[2017-12-12] MEDS ORDERED: VALPROATE SODIUM SYRUP 250 MG/5 ML UDCUP ONE (06:25)
[2017-12-12] MEDS: HYDRALAZINE HCL 25 MG TABLET PEG SCH ×3 (07:19→23:27)
[2017-12-12] MEDS: LANSOPRAZOLE 30 MG TAB.RAP.DR PEG SCH (07:21)
[2017-12-12] MEDS: VALPROATE SODIUM SYRUP 250 MG/5 ML UDCUP PEG SCH ×3 (07:23→23:28)
[2017-12-12] MEDS: FERROUS SULFATE LIQUID 300 MG/5 ML UDC PEG SCH ×3 (08:33→18:24)
[2017-12-12] MEDS: ASPIRIN 81 MG TABLET, CHEWABLE PEG SCH (10:05)
[2017-12-12] MEDS: CITALOPRAM HYDROBROMIDE 20 MG TABLET PEG SCH (10:05)
[2017-12-12] MEDS: CLONIDINE HCL 0.2 MG TABLET PEG SCH ×2 (10:06→23:28)
--- NOTE | 2017-12-12 12:08 | PDOC H&P ---
History of Present Illness Admission Date/PCP: 12/11/17 12:41 RAJEEV BAILEY MD History of Present Illness: ANG CHRISTY is a 82 year old female she has history of stroke, she was recently admitted to [facility] for management of stroke and she was transferred to the long-term for rehabilitation couple of weeks ago she was discharged home recently. She was in the emergency room with the spouse for evaluation of seizure activities, she has history of seizure I saw at the long-term last weekend for routine rounds when she was admitted for rehabilitation, she is DR Bailey's patient, she used to be on Keppra for the management of seizure but this was changed to valproic acid by the neurologist in [place]. She has a history of atrial fibrillation she used to be on Eliquis, this was discontinued. the blood pressure recorded in the emergency room was severely elevated in the emergency hypertensive range, it was 215/104 because of the hypertensive emergency, seizure,and the ED physician concerned that patient spouse who no longer take care of patient it was felt that she needed to be admitted to the hospital for management. Past Medical History Cardiac Medical History: Reports: Atrial Fibrillation, Congestive Heart Failure , Coronary Artery Disease, Myocardial Infarction, Hyperlipidema, Hypertension Pulmonary Medical History: Reports: Asthma, Bronchitis, Chronic Obstructive Pulmonary Disease (COPD), Pneumonia - X6 Neurological Medical History: Reports: Seizures Endocrine Medical History: Reports: Diabetes Mellitus Type 2, Hypothyroidism GI Medical History: Reports: Gastroesophageal Reflux Disease Musculoskeltal Medical History: Reports: Arthritis Psychiatric Medical History: Reports: Dementia, Depression Hematology: Reports: Anemia Past Surgical History Past Surgical History: Reports: Appendectomy, Cardiac Catheterization Social History Lives with: Spouse/Significant other Smoking Status: Never Smoker Frequency of Alcohol Use: None Hx Recreational Drug Use: No Hx Prescription Drug Abuse: No - Advance Directive Resuscitation Status: Full Code Family History Family History: None, Reviewed & Not Pertinent, Hypertension Parental Family History Reviewed: Yes Children Family History Reviewed: Yes Sibling(s) Family History Reviewed.: Yes Medication/Allergy Home Medications: Acetaminophen [Tylenol Soln 325 mg/10.15 ml Udcup] 650 mg PEG Q6HP PRN 12/11/17 Aspirin [Aspirin 81 mg Chewable Tablet] 81 mg PEG DAILY 12/11/17 Citalopram Hydrobromide [Celexa 20 mg Tablet] 20 mg PEG DAILY 12/11/17 Clonidine HCl [Catapres 0.2 mg Tablet] 0.2 mg PEG BID 12/11/17 Diltiazem HCl [Cardizem 60 mg Tablet] 60 mg PEG Q6 12/11/17 Ferrous Sulfate [Ferrous Sulfate Liquid 300 mg/5 ml Udcup] 5 ml PEG BID Folic Acid [Folvite 1 mg Tablet] 1 mg PEG QPM 12/11/17 Hydralazine HCl [Apresoline 25 mg Tablet] 75 mg PEG Q8 12/11/17 Lansoprazole [Prevacid 30 mg Odt Tablet] 30 mg PEG DAILY 12/11/17 Valproic Acid (As Sodium Salt) [Valproic Acid] 20 ml PEG Q8 12/11/17 Allergies/Adverse Reactions: Penicillins Allergy (Verified 10/28/17 02:38) Sulfa (Sulfonamide Antibiotics) Allergy (Verified 10/28/17 02:38) Review of Systems Constitutional: PRESENT: headache(s) Eyes: ABSENT: visual disturbances Ears: ABSENT: hearing changes Cardiovascular: ABSENT: chest pain, dyspnea on exertion, edema, orthropnea, palpitations Respiratory: ABSENT: cough, hemoptysis Gastrointestinal: ABSENT: abdominal pain, constipation, diarrhea, hematemesis, hematochezia, nausea, vomiting Genitourinary: ABSENT: dysuria, hematuria Musculoskeletal: ABSENT: joint swelling Integumentary: ABSENT: rash, wounds Neurological: ABSENT: abnormal gait, abnormal speech, confusion, dizziness, focal weakness, syncope Psychiatric: ABSENT: anxiety, depression, homidical ideation, suicidal ideation Endocrine: ABSENT: cold intolerance, heat intolerance, menstrual abnormalities, polydipsia, polyuria Hematologic/Lymphatic: ABSENT: easy bleeding, easy bruising, lymphadenopathy Physical Exam Vital Signs: Temp Pulse Resp BP Pulse Ox 97.9 F 74 16 137/37 H 98 12/12/17 08:01 12/12/17 08:01 12/12/17 08:01 12/12/17 08:01 12/12/17 08:01 Intake & Output 12/11/17 12/12/17 12/13/17 06:59 06:59 06:59 Intake Total 0 Balance 0 Weight 59.6 kg General appearance: PRESENT: no acute distress, well-developed, well-nourished Head exam: PRESENT: atraumatic, normocephalic Eye exam: PRESENT: conjunctiva pink, EOMI, PERRLA Ear exam: PRESENT: normal external ear exam Mouth exam: PRESENT: moist, tongue midline Neck exam: PRESENT: full ROM Respiratory exam: PRESENT: clear to auscultation becca Cardiovascular exam: PRESENT: RRR, +S1, +S2 Vascular exam: PRESENT: normal capillary refill GI/Abdominal exam: PRESENT: normal bowel sounds, soft Rectal exam: PRESENT: deferred Neurological exam: PRESENT: alert, motor sensory deficit, other - tremors in the Results Laboratory Results: 12/11/17 13:20 12/11/17 13:20 12/11/17 12/11/17 12/11/17 12:55 13:20 13:20 WBC 10.2 RBC 3.90 Hgb 12.0 Hct 36.1 MCV 93 MCH 30.8 MCHC 33.3 RDW 16.7 H Plt Count 238 Seg Neutrophils % 66.4 Lymphocytes % 22.9 Monocytes % 10.0 Eosinophils % 0.2 Basophils % 0.5 Absolute Neutrophils 6.8 Absolute Lymphocytes 2.3 Absolute Monocytes 1.0 Absolute Eosinophils 0.0 Absolute Basophils 0.1 Sodium 137.7 Potassium 3.6 Chloride 97 L Carbon Dioxide 29 Anion Gap 12 BUN 27 H Creatinine 0.91 Est GFR ( Amer) > 60 Est GFR (Non-Af Amer) 59 L Glucose 121 H Calcium 9.0 Total Bilirubin 0.3 AST 31 ALT 24 Alkaline Phosphatase 76 Total Protein 7.2 Albumin 3.6 Urine Color YELLOW Urine Appearance CLEAR Urine pH 7.0 Ur Specific [place] 1.012 Urine Protein 100 H Urine Glucose (UA) NEGATIVE Urine Ketones NEGATIVE Urine Blood NEGATIVE Urine Nitrite NEGATIVE Ur Leukocyte Esterase NEGATIVE Urine WBC (Auto) 0 Urine RBC (Auto) 3 12/11/17 12/11/17 13:20 13:20 Creatine Kinase 39 CK-MB (CK-2) 0.62 Troponin I < 0.012 Impressions: Chest X-Ray 12/11/17 10:37 IMPRESSION: NO ACUTE RADIOGRAPHIC FINDING IN THE CHEST. Head CT 12/11/17 10:37 IMPRESSION: CHRONIC CHANGES OF ATROPHY AND MICROVASCULAR ISCHEMIA WELL OLD INFARCTS. NO ACUTE PROCESS. EVIDENCE OF ACUTE STROKE: NO. Assessment & Plan - Diagnosis (1) Hypertensive emergency Is this a current diagnosis for this admission?: Yes Plan: She is admitted for management (2) CVA (cerebral vascular accident) Qualifiers: CVA mechanism: unspecified Qualified Code(s): I63.9 - Cerebral infarction, unspecified Is this a current diagnosis for this admission?: Yes Plan: She has old right parietal infarction (3) Status epilepticus Is this a current diagnosis for this admission?: Yes Plan: EEG ordered
[2017-12-12] MEDS ORDERED: LEVETIRACETAM 500 MG TABLET PO ONE (13:15)
--- NOTE | 2017-12-12 14:19 | PDOC PROGRESS REPORT ---
Subjective Progress Note for:: 12/12/17 Subjective:: She was by the bedside, no new complaints Reason For Visit: HTN URGENCY,CHRONIC ISCHEMIC RIGHT MCA CVA Physical Exam Vital Signs: Temp Pulse Resp BP Pulse Ox 97.6 F 57 L 16 112/48 L 100 12/12/17 12:19 12/12/17 12:19 12/12/17 12:19 12/12/17 12:19 12/12/17 12:19 General appearance: PRESENT: no acute distress Eye exam: PRESENT: PERRLA Respiratory exam: PRESENT: clear to auscultation becca Cardiovascular exam: PRESENT: +S1, +S2 GI/Abdominal exam: PRESENT: soft Results Impressions: Chest X-Ray 12/11/17 10:37 IMPRESSION: NO ACUTE RADIOGRAPHIC FINDING IN THE CHEST. Head CT 12/11/17 10:37 IMPRESSION: CHRONIC CHANGES OF ATROPHY AND MICROVASCULAR ISCHEMIA WELL OLD INFARCTS. NO ACUTE PROCESS. EVIDENCE OF ACUTE STROKE: NO. Assessment & Plan - Diagnosis (1) Hypertensive emergency Is this a current diagnosis for this admission?: Yes (2) CVA (cerebral vascular accident) Qualifiers: CVA mechanism: unspecified Qualified Code(s): I63.9 - Cerebral infarction, unspecified Is this a current diagnosis for this admission?: Yes (3) Status epilepticus Is this a current diagnosis for this admission?: Yes - Plan Summary Plan Summary: Continue treatment
[2017-12-12] MEDS ORDERED: LEVETIRACETAM ORAL SOLN 500 MG/5 ML UDCUP PEG ONE (14:30)
[2017-12-12] MEDS: FOLIC ACID 1 MG TABLET PEG SCH (18:24)
[2017-12-12] MEDS ORDERED: LEVETIRACETAM 500 MG TABLET PO SCH (22:00)
[2017-12-12] MEDS: LEVETIRACETAM ORAL SOLN 500 MG/5 ML UDCUP PEG SCH (23:28)
[2017-12-13] MEDS: DILTIAZEM HCL 60 MG TABLET PEG SCH ×4 (01:50→18:14)
[2017-12-13] MEDS: LANSOPRAZOLE 30 MG TAB.RAP.DR PEG SCH (05:21)
[2017-12-13] MEDS: VALPROATE SODIUM SYRUP 250 MG/5 ML UDCUP PEG SCH ×3 (05:27→22:43)
[2017-12-13] MEDS: HYDRALAZINE HCL 25 MG TABLET PEG SCH ×2 (10:39→22:43)
[2017-12-13] MEDS: ASPIRIN 81 MG TABLET, CHEWABLE PEG SCH (10:40)
[2017-12-13] MEDS: CITALOPRAM HYDROBROMIDE 20 MG TABLET PEG SCH (10:40)
[2017-12-13] MEDS: FERROUS SULFATE LIQUID 300 MG/5 ML UDC PEG SCH ×2 (10:40→18:13)
[2017-12-13] MEDS: CLONIDINE HCL 0.2 MG TABLET PEG SCH ×2 (10:40→22:43)
[2017-12-13] MEDS: LEVETIRACETAM ORAL SOLN 500 MG/5 ML UDCUP PEG SCH ×2 (10:41→22:43)
--- NOTE | 2017-12-13 13:58 | PDOC PROGRESS REPORT ---
Subjective Progress Note for:: 12/13/17 Subjective:: Patient was admitted in the [facility] for possible stroke and seizures disorders was discharged in the nursing homes and at discharge home last week and brought in the emergency department because of the questionable seizures with uncontrolled blood pressures This is all the time happened when the patient's homes patient's blood pressures have a rise in when the patient's come in the hospital present blood pressure was running normalize which means patient at the very noncompliance of her is not giving the medication as prescribed which is several times discussed this with the patient and the hospital in the past She is currently in a EEG alert awake denied any chest pain denied any shortness of the breath Reason For Visit: HTN URGENCY,CHRONIC ISCHEMIC RIGHT MCA CVA Physical Exam Vital Signs: Temp Pulse Resp BP Pulse Ox 98.5 F 72 18 185/66 H 96 12/13/17 08:23 12/13/17 08:23 12/13/17 08:23 12/13/17 08:23 12/13/17 08:23 Intake & Output 12/12/17 12/13/17 12/14/17 06:59 06:59 06:59 Intake Total 624 Balance 624 General appearance: PRESENT: no acute distress, well-developed, well-nourished Head exam: PRESENT: atraumatic, normocephalic Eye exam: PRESENT: conjunctiva pink, EOMI, PERRLA. ABSENT: scleral icterus Ear exam: PRESENT: normal external ear exam Mouth exam: PRESENT: moist, tongue midline Neck exam: PRESENT: full ROM. ABSENT: carotid bruit, JVD, lymphadenopathy, thyromegaly Respiratory exam: PRESENT: clear to auscultation becca Cardiovascular exam: PRESENT: RRR. ABSENT: diastolic murmur, rubs, systolic murmur Pulses: PRESENT: normal dorsalis pedis pul, +2 pedal pulses bilateral Vascular exam: PRESENT: normal capillary refill GI/Abdominal exam: PRESENT: normal bowel sounds, soft. ABSENT: distended, guarding, mass, organolmegaly, rebound, tenderness Rectal exam: PRESENT: deferred Extremities exam: ABSENT: pedal edema Neurological exam: PRESENT: alert, awake, oriented to person. ABSENT: motor sensory deficit Psychiatric exam: PRESENT: appropriate affect, normal mood. ABSENT: homicidal ideation, suicidal ideation Skin exam: PRESENT: dry, intact, warm. ABSENT: cyanosis, rash Results Impressions: Chest X-Ray 12/11/17 10:37 IMPRESSION: NO ACUTE RADIOGRAPHIC FINDING IN THE CHEST. Head CT 12/11/17 10:37 IMPRESSION: CHRONIC CHANGES OF ATROPHY AND MICROVASCULAR ISCHEMIA WELL OLD INFARCTS. NO ACUTE PROCESS. EVIDENCE OF ACUTE STROKE: NO. 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 Is this a current diagnosis for this admission?: Yes Plan: Continues to current medications patient was on Eliquis and to get the medical records (3) Status epilepticus Is this a current diagnosis for this admission?: Yes Plan: Currently stable most likely due to the noncompliance of the medications (4) Dementia Qualifiers: Dementia type: vascular dementia Dementia behavioral disturbance: without behavioral disturbance Qualified Code(s): F01.50 - Vascular dementia without behavioral disturbance Is this a current diagnosis for this admission?: Yes Plan: Worsening since last several years (5) Elevated LFTs Is this a current diagnosis for this admission?: Yes Plan: Recheck the LFT in the morning (6) Encephalopathy Is this a current diagnosis for this admission?: Yes Plan: Due to the uncontrolled hypertension and vascular dementia's (7) Type 2 diabetes mellitus Qualifiers: Diabetes mellitus complication status: with kidney complications Diabetes mellitus complication detail: with chronic kidney disease 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 use: without fpc use Is this a current diagnosis for this admission?: Yes Plan: Continues to current medications with sliding scale - Time Time Spent with patient: 15-24 minutes Medications reviewed and adjusted accordingly: Yes Anticipated discharge: SNF Within: Other - Inpatient Certification Medical Necessity: Need Close Monitoring Due to Risk of Patient Decompensation Post Hospital Care: D/C Profiling Machine Operator Documentation - Plan Summary Plan Summary: I think this patient should be benefit to stay in correction rather than staying at home which corresponds I do not think so unable to take care of her
[2017-12-13] MEDS: FOLIC ACID 1 MG TABLET PEG SCH (18:13)
[2017-12-14] MEDS: DILTIAZEM HCL 60 MG TABLET PEG SCH ×4 (01:15→17:48)
[2017-12-14] MEDS: VALPROATE SODIUM SYRUP 250 MG/5 ML UDCUP PEG SCH ×3 (06:21→23:13)
[2017-12-14] MEDS: LANSOPRAZOLE 30 MG TAB.RAP.DR PEG SCH (06:21)
[2017-12-14 06:55] LABS: ABSOLUTE EOSINOPHILS # (AUTO) 0.1 10^3/uL (0.0-0.6); ABSOLUTE LYMPHOCYTES (AUTO) 2.2 10^3/uL (0.5-4.7); ABSOLUTE MONOCYTES (AUTO) 0.6 10^3/uL (0.1-1.4); ABSOLUTE NEUT (AUTO) 3.8 10^3/uL (1.7-8.2); BASOPHILS % (AUTO) 0.3 % (0-2); EOSINOPHILS % (AUTO) 1.2 % (0-6); HEMATOCRIT 35.4 % (36.0-47.0); HEMOGLOBIN 11.8 g/dL (12.0-15.5); MEAN CORPUSCULAR HGB CONC 33.3 g/dL (32.0-36.0); MEAN CORPUSCULAR VOLUME 93 fl (80-97); MONOCYTES % (AUTO) 8.3 % (3-13); PLATELET COUNT 214 10^3/uL (150-450); RED BLOOD COUNT 3.81 10^6/uL (3.72-5.28); RED CELL DISTRIBUTION WIDTH 16.7 % (11.5-14.0); SEGMENTED NEUTROPHILS % (AUTO) 57.2 % (42-78); TOTAL CELLS COUNTED % (AUTO) 100 %; WHITE BLOOD COUNT 6.7 10^3/uL (4.0-10.5)
[2017-12-14 07:13] LABS: ALANINE AMINOTRANSFERASE 34 U/L (9-52); ALBUMIN 3.5 g/dL (3.5-5.0); ALKALINE PHOSPHATASE 71 U/L (38-126); ANION GAP 11 (5-19); ASPARTATE AMINO TRANSFERASE 49 U/L (14-36); BILIRUBIN,DIRECT 0.2 mg/dL (0.0-0.4); BILIRUBIN,TOTAL 0.2 mg/dL (0.2-1.3); BLOOD UREA NITROGEN 32 mg/dL (7-20); CALCIUM 8.7 mg/dL (8.4-10.2); CARBON DIOXIDE 33 mmol/L (22-30); CHLORIDE 94 mmol/L (98-107); GLUCOSE 126 mg/dL (75-110)
[2017-12-14] MEDS: CITALOPRAM HYDROBROMIDE 20 MG TABLET PEG SCH (09:59)
[2017-12-14] MEDS: HYDRALAZINE HCL 25 MG TABLET PEG SCH ×2 (09:59→23:12)
[2017-12-14] MEDS: CLONIDINE HCL 0.2 MG TABLET PEG SCH ×2 (09:59→23:11)
[2017-12-14] MEDS: LEVETIRACETAM ORAL SOLN 500 MG/5 ML UDCUP PEG SCH ×2 (10:00→23:13)
[2017-12-14] MEDS: ASPIRIN 81 MG TABLET, CHEWABLE PEG SCH (10:00)
[2017-12-14] MEDS: FERROUS SULFATE LIQUID 300 MG/5 ML UDC PEG SCH ×2 (10:00→17:49)
--- NOTE | 2017-12-14 12:02 | PDOC PROGRESS REPORT ---
Subjective Progress Note for:: 12/14/17 Subjective:: Patient is currently doing same No seizures activity noticed Blood pressures remained 140 range Reason For Visit: HTN URGENCY,CHRONIC ISCHEMIC RIGHT MCA CVA Physical Exam Vital Signs: Temp Pulse Resp BP Pulse Ox 99.4 F 82 10 L 152/93 H 96 12/14/17 07:57 12/14/17 08:13 12/14/17 07:57 12/14/17 08:13 12/14/17 07:57 Intake & Output 12/13/17 12/14/17 12/15/17 06:59 06:59 06:59 Intake Total 624 904 Balance 624 904 Weight 62.5 kg General appearance: PRESENT: no acute distress Eye exam: PRESENT: PERRLA Respiratory exam: PRESENT: clear to auscultation becca Cardiovascular exam: PRESENT: +S1, +S2 GI/Abdominal exam: PRESENT: normal bowel sounds, soft Extremities exam: ABSENT: pedal edema Neurological exam: PRESENT: alert, awake Skin exam: PRESENT: dry Results Laboratory Results: 12/14/17 06:16 12/14/17 06:16 12/14/17 12/14/17 06:16 06:16 WBC 6.7 RBC 3.81 Hgb 11.8 L Hct 35.4 L MCV 93 MCH 31.0 MCHC 33.3 RDW 16.7 H Plt Count 214 Seg Neutrophils % 57.2 Lymphocytes % 33.0 Monocytes % 8.3 Eosinophils % 1.2 Basophils % 0.3 Absolute Neutrophils 3.8 Absolute Lymphocytes 2.2 Absolute Monocytes 0.6 Absolute Eosinophils 0.1 Absolute Basophils 0.0 Sodium 138.0 Potassium 4.0 Chloride 94 L Carbon Dioxide 33 H Anion Gap 11 BUN 32 H Creatinine 0.82 Est GFR ( Amer) > 60 Est GFR (Non-Af Amer) > 60 Glucose 126 H Calcium 8.7 Total Bilirubin 0.2 AST 49 H ALT 34 Alkaline Phosphatase 71 Total Protein 7.0 Albumin 3.5 Impressions: Chest X-Ray 12/11/17 10:37 IMPRESSION: NO ACUTE RADIOGRAPHIC FINDING IN THE CHEST. Head CT 12/11/17 10:37 IMPRESSION: CHRONIC CHANGES OF ATROPHY AND MICROVASCULAR ISCHEMIA WELL OLD INFARCTS. NO ACUTE PROCESS. EVIDENCE OF ACUTE STROKE: NO. 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 Is this a current diagnosis for this admission?: Yes Plan: Continues to current medications patient was on Eliquis and to get the medical records (3) Status epilepticus Is this a current diagnosis for this admission?: Yes Plan: Currently stable most likely due to the noncompliance of the medications (4) Dementia Qualifiers: Dementia type: vascular dementia Dementia behavioral disturbance: without behavioral disturbance Qualified Code(s): F01.50 - Vascular dementia without behavioral disturbance Is this a current diagnosis for this admission?: Yes Plan: Worsening since last several years (5) Elevated LFTs Is this a current diagnosis for this admission?: Yes Plan: Currently stable (6) Encephalopathy Is this a current diagnosis for this admission?: Yes Plan: Due to the uncontrolled hypertension and vascular dementia's (7) Type 2 diabetes mellitus Qualifiers: Diabetes mellitus complication status: with kidney complications Diabetes mellitus complication detail: with chronic kidney disease 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
--- NOTE | 2017-12-14 13:37 | EEG PRO FEE REPORT ---
EEG INTERPRETATION PATIENT NAME: ANG CHRISTY ROOM#: [id number] ORDER#: [id number] DATE OF STUDY: 12/13/2017 : 1935 REFERRING MD: OFE GARCIA M.D. DIAGNOSIS: Seizure REPORT This is an 82-year-old female who presents with altered mental status. The background is just riddled with motion artifact that is also seen in the video portion of the tracing, which does not appear to be epileptiform. It is not that easy to see the actual movements on the video tape other than just mouthing-like movements. There does not appear to be any clonic movement of the eyes or neck as far as I can tell and I do not see any clear cut epileptiform discharges, just motion. The background is also somewhat slow, down to 4 to 5 hertz theta in the background that is again frequently marred by motion artifact. FINAL IMPRESSION: EXCESS MOTION ARTIFACT ON POSSIBLE SLOW BACKGROUND IMPLYING WIDESPREAD CEREBRAL DYSFUNCTION, SUCH FROM A TOXIC, METABOLIC OR RATHER GENERALIZED CAUSE. ONE CANNOT DEFINITELY DIAGNOSE EPILEPSY ON THIS TRACING. INTERPRETING PHYSICIAN: BROOKE ROSENBAUM M.D. /: EMILE TT: 1326 ID: [id number] /: [id number] TD: [id number] JOB: [id number] cc:Yana FRAGOSO M.D. >
[2017-12-14] MEDS: FOLIC ACID 1 MG TABLET PEG SCH (17:49)
[2017-12-15] MEDS: DILTIAZEM HCL 60 MG TABLET PEG SCH ×5 (00:49→23:56)
[2017-12-15] MEDS: VALPROATE SODIUM SYRUP 250 MG/5 ML UDCUP PEG SCH ×3 (05:59→22:36)
[2017-12-15] MEDS: LANSOPRAZOLE 30 MG TAB.RAP.DR PEG SCH (05:59)
[2017-12-15 06:13] LABS: ANION GAP 9 (5-19); BLOOD UREA NITROGEN 28 mg/dL (7-20); CALCIUM 8.7 mg/dL (8.4-10.2); CARBON DIOXIDE 34 mmol/L (22-30); CHLORIDE 94 mmol/L (98-107); GLUCOSE 172 mg/dL (75-110); POTASSIUM 3.8 mmol/L (3.6-5.0)
[2017-12-15] MEDS: FERROUS SULFATE LIQUID 300 MG/5 ML UDC PEG SCH ×2 (11:00→17:30)
[2017-12-15] MEDS: HYDRALAZINE HCL 25 MG TABLET PEG SCH ×2 (11:01→22:36)
[2017-12-15] MEDS: LEVETIRACETAM ORAL SOLN 500 MG/5 ML UDCUP PEG SCH ×2 (11:01→22:36)
[2017-12-15] MEDS: CITALOPRAM HYDROBROMIDE 20 MG TABLET PEG SCH (11:22)
[2017-12-15] MEDS: CLONIDINE HCL 0.2 MG TABLET PEG SCH ×2 (11:22→22:36)
[2017-12-15] MEDS: ASPIRIN 81 MG TABLET, CHEWABLE PEG SCH (11:22)
[2017-12-15] MEDS ORDERED: HYDRALAZINE HCL INJ/PF 20 MG/1 ML SDV ONE (11:35)
[2017-12-15] MEDS ORDERED: HYDRALAZINE HCL INJ/PF 20 MG/1 ML SDV IV PRN (14:38)
[2017-12-15] MEDS: FOLIC ACID 1 MG TABLET PEG SCH (17:30)
--- NOTE | 2017-12-15 17:47 | PDOC PROGRESS REPORT ---
Subjective Progress Note for:: 12/15/17 Subjective:: Patient is currently doing fair Patient's blood pressure is currently stable Reason For Visit: HTN URGENCY,CHRONIC ISCHEMIC RIGHT MCA CVA Physical Exam Vital Signs: Temp Pulse Resp BP Pulse Ox 98.8 F 67 12 143/50 H 98 12/15/17 15:28 12/15/17 15:28 12/15/17 15:28 12/15/17 15:28 12/15/17 15:28 Intake & Output 12/14/17 12/15/17 12/16/17 06:59 06:59 06:59 Intake Total 904 1232 0 Output Total 2 Balance 904 1230 0 Weight 62.5 kg General appearance: PRESENT: no acute distress Eye exam: PRESENT: PERRLA Respiratory exam: PRESENT: clear to auscultation becca Cardiovascular exam: PRESENT: +S1, +S2 GI/Abdominal exam: PRESENT: normal bowel sounds, soft Extremities exam: ABSENT: pedal edema Neurological exam: PRESENT: alert, altered, awake Skin exam: PRESENT: dry Results Laboratory Results: 12/14/17 06:16 12/15/17 05:27 12/15/17 05:27 Sodium 137.0 Potassium 3.8 Chloride 94 L Carbon Dioxide 34 H Anion Gap 9 BUN 28 H Creatinine 0.74 Est GFR ( Amer) > 60 Est GFR (Non-Af Amer) > 60 Glucose 172 H Calcium 8.7 Impressions: Chest X-Ray 12/11/17 10:37 IMPRESSION: NO ACUTE RADIOGRAPHIC FINDING IN THE CHEST. Head CT 12/11/17 10:37 IMPRESSION: CHRONIC CHANGES OF ATROPHY AND MICROVASCULAR ISCHEMIA WELL OLD INFARCTS. NO ACUTE PROCESS. EVIDENCE OF ACUTE STROKE: NO. 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 Is this a current diagnosis for this admission?: Yes Plan: Continues to current medications patient was on Eliquis and to get the medical records (3) Status epilepticus Is this a current diagnosis for this admission?: Yes Plan: Currently stable most likely due to the noncompliance of the medications (4) Dementia Qualifiers: Dementia type: vascular dementia Dementia behavioral disturbance: without behavioral disturbance Qualified Code(s): F01.50 - Vascular dementia without behavioral disturbance Is this a current diagnosis for this admission?: Yes Plan: Worsening since last several years (5) Elevated LFTs Is this a current diagnosis for this admission?: Yes Plan: Currently stable (6) Encephalopathy Is this a current diagnosis for this admission?: Yes Plan: Due to the uncontrolled hypertension and vascular dementia's (7) Type 2 diabetes mellitus Qualifiers: Diabetes mellitus complication status: with kidney complications Diabetes mellitus complication detail: with chronic kidney disease Diabetes mellitus sheet combining operator insulin use: without fpc use Is this a current diagnosis for this admission?: Yes Plan: Continues to current medications with sliding scale - Time Time Spent with patient: 15-24 minutes Medications reviewed and adjusted accordingly: Yes Anticipated discharge: SNF Within: Other - Inpatient Certification Medical Necessity: Need Close Monitoring Due to Risk of Patient Decompensation Post Hospital Care: D/C Dewatering Filtering Supervisor Documentation - Plan Summary Plan Summary: As per very extensive discussions with the today regarding the patient' s current conditions with the not too much improvement with encephalopathy with recent stroke and the patient was told by the [facility] nothing much they can offer I think at this point patient's is unable to take care of her at home due to the tube feedings with no such improvement and the patient is currently DNR/DNI per her and we will waiting to discharge the patient's to the group home
[2017-12-16] MEDS ORDERED: DEXTROSE 50%-WATER SYRINGE 12.5 GM/25 ML DOSE IV PRN (01:51)
[2017-12-16] MEDS ORDERED: DEXTROSE 50%-WATER SYRINGE 25 GM/50 ML DOSE IV PRN (01:51)
[2017-12-16] MEDS ORDERED: DEXTROSE 40% GEL 15 GM TUBE PO PRN (01:51)
[2017-12-16] MEDS ORDERED: GLUCAGON,HUMAN RECOMB 1 MG INJ IM PRN (01:51)
[2017-12-16] MEDS ORDERED: DEXTROSE 40% GEL 15 GM TUBE X 2 PO PRN (01:51)
[2017-12-16] MEDS: INSULIN LISPRO 100 UNIT/ML 3 ML VIAL SUBCUT PRN (02:08)
[2017-12-16] MEDS: LANSOPRAZOLE 30 MG TAB.RAP.DR PEG SCH (05:47)
[2017-12-16] MEDS: DILTIAZEM HCL 60 MG TABLET PEG SCH ×3 (05:47→17:28)
[2017-12-16] MEDS: VALPROATE SODIUM SYRUP 250 MG/5 ML UDCUP PEG SCH ×3 (05:47→21:41)
[2017-12-16 06:16] LABS: ANION GAP 7 (5-19); BLOOD UREA NITROGEN 30 mg/dL (7-20); CALCIUM 8.8 mg/dL (8.4-10.2); CARBON DIOXIDE 33 mmol/L (22-30); CHLORIDE 95 mmol/L (98-107); GLUCOSE 72 mg/dL (75-110); SODIUM 135.1 mmol/L (137-145)
--- NOTE | 2017-12-16 08:46 | PDOC PROGRESS REPORT ---
Subjective Progress Note for:: 12/16/17 Subjective:: Patient is currently doing same No other events happened Reason For Visit: HTN URGENCY,CHRONIC ISCHEMIC RIGHT MCA CVA Physical Exam Vital Signs: Temp Pulse Resp BP Pulse Ox 97.4 F 59 L 14 140/49 H 97 12/16/17 07:44 12/16/17 07:44 12/16/17 07:44 12/16/17 07:44 12/16/17 07:44 Intake & Output 12/15/17 12/16/17 12/17/17 06:59 06:59 06:59 Intake Total 1232 3095 Output Total 2 Balance 1230 3095 General appearance: PRESENT: no acute distress Eye exam: PRESENT: PERRLA Mouth exam: PRESENT: neck supple Neck exam: ABSENT: JVD Respiratory exam: PRESENT: clear to auscultation becca Cardiovascular exam: PRESENT: +S1, +S2 GI/Abdominal exam: PRESENT: normal bowel sounds, soft Extremities exam: ABSENT: pedal edema Neurological exam: PRESENT: alert, altered, awake Psychiatric exam: PRESENT: anxious Results Laboratory Results: 12/14/17 06:16 12/16/17 05:32 12/16/17 05:32 Sodium 135.1 L Potassium 4.0 Chloride 95 L Carbon Dioxide 33 H Anion Gap 7 BUN 30 H Creatinine 0.74 Est GFR ( Amer) > 60 Est GFR (Non-Af Amer) > 60 Glucose 72 L Calcium 8.8 Impressions: Chest X-Ray 12/11/17 10:37 IMPRESSION: NO ACUTE RADIOGRAPHIC FINDING IN THE CHEST. Head CT 12/11/17 10:37 IMPRESSION: CHRONIC CHANGES OF ATROPHY AND MICROVASCULAR ISCHEMIA WELL OLD INFARCTS. NO ACUTE PROCESS. EVIDENCE OF ACUTE STROKE: NO. 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 Is this a current diagnosis for this admission?: Yes Plan: Continues to current medications patient was on Eliquis and to get the medical records (3) Status epilepticus Is this a current diagnosis for this admission?: Yes Plan: Currently stable most likely due to the noncompliance of the medications (4) Dementia Qualifiers: Dementia type: vascular dementia Dementia behavioral disturbance: without behavioral disturbance Qualified Code(s): F01.50 - Vascular dementia without behavioral disturbance Is this a current diagnosis for this admission?: Yes Plan: Worsening since last several years (5) Elevated LFTs Is this a current diagnosis for this admission?: Yes Plan: Currently stable (6) Encephalopathy Is this a current diagnosis for this admission?: Yes Plan: Due to the uncontrolled hypertension and vascular dementia's (7) Type 2 diabetes mellitus Qualifiers: Diabetes mellitus complication status: with kidney complications Diabetes mellitus complication detail: with chronic kidney disease Diabetes mellitus superintendent terminal insulin use: without shelter use Is this a current diagnosis for this admission?: Yes Plan: Fabio a sliding scale - Time Time Spent with patient: 15-24 minutes Medications reviewed and adjusted accordingly: Yes Anticipated discharge: SNF Within: when bed available - Inpatient Certification Medical Necessity: Need Close Monitoring Due to Risk of Patient Decompensation Post Hospital Care: D/C Fulfillment Associate Documentation - Plan Summary Plan Summary: Continues to current medications as per discussed with the 's pretty much patient is to go to the [facility] with a poor prognosis currently a DNR/DNI
[2017-12-16] MEDS: CITALOPRAM HYDROBROMIDE 20 MG TABLET PEG SCH (10:02)
[2017-12-16] MEDS: CLONIDINE HCL 0.2 MG TABLET PEG SCH ×2 (10:02→21:41)
[2017-12-16] MEDS: ASPIRIN 81 MG TABLET, CHEWABLE PEG SCH (10:02)
[2017-12-16] MEDS: FERROUS SULFATE LIQUID 300 MG/5 ML UDC PEG SCH ×2 (10:02→17:28)
[2017-12-16] MEDS: HYDRALAZINE HCL 25 MG TABLET PEG SCH ×2 (10:03→21:41)
[2017-12-16] MEDS: LEVETIRACETAM ORAL SOLN 500 MG/5 ML UDCUP PEG SCH ×2 (10:03→21:41)
--- NOTE | 2017-12-16 16:00 | PDOC TRANSFER SUMMARY ---
General - Admit/Disc Date/PCP Admission Date/Primary Care Provider: 12/12/17 12:41 RAJEEV BAILEY MD Discharge Date: 12/17/17 - Discharge Diagnosis (1) Hypertensive urgency Is this a current diagnosis for this admission?: Yes Summary: Currently all resolved Use a hydralazine 10 mg p.o. 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 daily (3) Status epilepticus Is this a current diagnosis for this admission?: Yes Summary: Continues to Keppra and current medications (4) Dementia Is this a current diagnosis for this admission?: Yes Summary: Considered at the [facility] 5 mg and increase to 10 mg as tolerated (5) Elevated LFTs Is this a current diagnosis for this admission?: Yes Summary: Currently all stable (6) Encephalopathy Is this a current diagnosis for this admission?: Yes Summary: Due to the underlying dementia with multiple strokes (7) Type 2 diabetes mellitus Is this a current diagnosis for this admission?: Yes Summary: Continues to sliding scale - Additional Information Resuscitation Status: Full Code Discharge Diet: Tube Feeding (Comments) Discharge Activity: Activity As Tolerated Prescriptions: Ferrous Sulfate [Ferrous Sulfate Liquid 300 mg/5 ml Udcup] 5 ml PEG BID #60 udc Hydralazine HCl [Apresoline 25 mg Tablet] 75 mg PEG Q12 #60 tablet Insulin Lispro [Humalog Insulin (Lispro) 100 unit/mL] 0 - 12 unit SUBCUT Q6HP PRN #1 unit PRN Reason: Levetiracetam [Keppra] 500 mg PO BID #60 tablet Home Medications: Acetaminophen [Tylenol Soln 325 mg/10.15 ml Udcup] 650 mg PEG Q6HP PRN 12/11/17 Aspirin [Aspirin 81 mg Chewable Tablet] 81 mg PEG DAILY 12/11/17 Citalopram Hydrobromide [Celexa 20 mg Tablet] 20 mg PEG DAILY 12/11/17 Clonidine HCl [Catapres 0.2 mg Tablet] 0.2 mg PEG BID 12/11/17 Diltiazem HCl [Cardizem 60 mg Tablet] 60 mg PEG Q6 12/11/17 Folic Acid [Folvite 1 mg Tablet] 1 mg PEG QPM 12/11/17 Lansoprazole [Prevacid 30 mg Odt Tablet] 30 mg PEG DAILY 12/11/17 Valproic Acid (As Sodium Salt) [Valproic Acid] 20 ml PEG Q8 12/11/17 Ferrous Sulfate [Ferrous Sulfate Liquid 300 mg/5 ml Udcup] 5 ml PEG BID #60 udc 12/16/17 Hydralazine HCl [Apresoline 25 mg Tablet] 75 mg PEG Q12 #60 tablet 12/16/17 Insulin Lispro [Humalog Insulin (Lispro) 100 unit/mL] 0 - 12 unit SUBCUT Q6HP PRN #1 unit 12/16/17 Levetiracetam [Keppra] 500 mg PO BID #60 tablet 12/16/17 History of Present Illness Admission Date/PCP: 12/12/17 12:41 RAJEEV BAILEY MD History of Present Illness: ANG CHRISTY is a 82 year old female she has history of stroke, she was recently admitted to [facility] for management of stroke and she was transferred to the snf for rehabilitation couple of weeks ago she was discharged home recently. She was in the emergency room with the spouse for evaluation of seizure activities, she has history of seizure I saw at the snf last weekend for routine rounds when she was admitted for rehabilitation, she is DR Bailey's patient, she used to be on Keppra for the management of seizure but this was changed to valproic acid by the neurologist in [place]. She has a history of atrial fibrillation she used to be on Eliquis, this was discontinued. the blood pressure recorded in the emergency room was severely elevated in the emergency hypertensive range, it was 215/104 because of the hypertensive emergency, seizure,and the ED physician concerned that patient spouse who no longer take care of patient it was felt that she needed to be admitted to the hospital for management. Hospital Course Hospital Course: This is a 82-year-old females with the multiple medical problems multiple hospital admissions recently admitting in the [facility] for the strokes and uncontrolled seizuresIn patients pretty much discharge to the nursing homes with the not a very good prognosis.Due to the worsening the conditions with the dementia she has and patient is currently under tube feeding Patient's was discharged from snf to the home and is unable to take care of her and bring it back to the hospitalist with the uncontrolled seizures uncontrolled hypertension's Patient was started on all current medications with the tube feeding and currently doing fair Very extensive discussions with the patient is currently a DNR/DNI and the patient's basically a not a very good long-term prognosis Patient's discharge back to the snf while the patient unable to take care with a long-term care Physical Exam Vital Signs: Temp Pulse Resp BP Pulse Ox 98.7 F 61 16 112/47 L 100 12/16/17 11:30 12/16/17 14:00 12/16/17 11:30 12/16/17 11:33 12/16/17 11:30 Intake & Output 12/15/17 12/16/17 12/17/17 06:59 06:59 06:59 Intake Total 1232 3095 707 Output Total 2 Balance 1230 3095 707 General appearance: PRESENT: no acute distress Eye exam: PRESENT: PERRLA Neck exam: ABSENT: JVD Respiratory exam: PRESENT: clear to auscultation becca GI/Abdominal exam: PRESENT: normal bowel sounds, soft Neurological exam: PRESENT: alert, altered, awake Psychiatric exam: PRESENT: anxious Skin exam: PRESENT: dry Results Laboratory Results: 12/14/17 06:16 12/16/17 05:32 12/16/17 05:32 Sodium 135.1 L Potassium 4.0 Chloride 95 L Carbon Dioxide 33 H Anion Gap 7 BUN 30 H Creatinine 0.74 Est GFR ( Amer) > 60 Est GFR (Non-Af Amer) > 60 Glucose 72 L Calcium 8.8 Impressions: Chest X-Ray 12/11/17 10:37 IMPRESSION: NO ACUTE RADIOGRAPHIC FINDING IN THE CHEST. Head CT 12/11/17 10:37 IMPRESSION: CHRONIC CHANGES OF ATROPHY AND MICROVASCULAR ISCHEMIA WELL OLD INFARCTS. NO ACUTE PROCESS. EVIDENCE OF ACUTE STROKE: NO. Transfer Plan - Time Spent with Patient Time spent with patient: Greater than 30 Minutes Qualifiers - * PATEINT BEING DISCHARGED WITH ANY OF THE FOLLOWING DIAGNOSIS?: No VTE patient discharged on overlapping Therapy?: Yes Plan Time Spent: Greater than 30 Minutes - Patient's discharge to snf for long-term continues to tube feeding continues to current as above medications strictly keep n.p.o. Very extensive discussions with the regarding the patient's current conditions with the poor prognosis Patient is currently a DNR/ DNI
[2017-12-16] MEDS: FOLIC ACID 1 MG TABLET PEG SCH (17:29)
[2017-12-17] MEDS: INSULIN LISPRO 100 UNIT/ML 3 ML VIAL SUBCUT PRN ×2 (00:46→05:53)
[2017-12-17] MEDS: DILTIAZEM HCL 60 MG TABLET PEG SCH ×2 (00:46→05:09)
[2017-12-17] MEDS: LANSOPRAZOLE 30 MG TAB.RAP.DR PEG SCH (05:09)
[2017-12-17] MEDS: VALPROATE SODIUM SYRUP 250 MG/5 ML UDCUP PEG SCH (05:09)
[2017-12-17 07:56] VITALS: BP 191/54
[2017-12-17] MEDS: ASPIRIN 81 MG TABLET, CHEWABLE PEG SCH (10:17)
[2017-12-17] MEDS: FERROUS SULFATE LIQUID 300 MG/5 ML UDC PEG SCH (10:17)
[2017-12-17] MEDS: CITALOPRAM HYDROBROMIDE 20 MG TABLET PEG SCH (10:17)
[2017-12-17] MEDS: CLONIDINE HCL 0.2 MG TABLET PEG SCH (10:17)
[2017-12-17] MEDS: HYDRALAZINE HCL 25 MG TABLET PEG SCH (10:17)
[2017-12-17] MEDS: LEVETIRACETAM ORAL SOLN 500 MG/5 ML UDCUP PEG SCH (10:18)
== END 2017-12-17 12:56 | DRG 305 ==
LOC: ER 09:42 → EH 12:41 → UNDOADMIN 12:41 → EH 20:31 → 3S 20:31 → EH 12-12 12:41
PROVIDERS: ADMIT Internal Medicine; ATTEND Family Medicine
DX: I16.0 Hypertensive urgency (principal); I67.4 Hypertensive encephalopathy; I69.354 Hemiplegia and hemiparesis following cerebral infarction affecting left non-dominant side; G40.901 Epilepsy, unspecified, not intractable, with status epilepticus; I13.0 Hypertensive heart and chronic kidney disease with heart failure and stage 1 through stage 4 chronic kidney disease, or unspecified chronic kidney disease; I50.9 Heart failure, unspecified; I48.91 Unspecified atrial fibrillation; I25.10 Atherosclerotic heart disease of native coronary artery without angina pectoris; E78.2 Mixed hyperlipidemia; I69.392 Facial weakness following cerebral infarction; I69.328 Other speech and language deficits following cerebral infarction; J45.909 Unspecified asthma, uncomplicated; J44.9 Chronic obstructive pulmonary disease, unspecified; E03.9 Hypothyroidism, unspecified; K21.9 Gastro-esophageal reflux disease without esophagitis; M19.90 Unspecified osteoarthritis, unspecified site; F32.9 Major depressive disorder, single episode, unspecified; I25.2 Old myocardial infarction; F01.50 Vascular dementia, unspecified severity, without behavioral disturbance, psychotic disturbance, mood disturbance, and anxiety; Z66 Do not resuscitate; E11.22 Type 2 diabetes mellitus with diabetic chronic kidney disease; N18.9 Chronic kidney disease, unspecified; T50.906A Underdosing of unspecified drugs, medicaments and biological substances, initial encounter; Z91.138 Patient's unintentional underdosing of medication regimen for other reason; Z79.899 Other long term (current) drug therapy; Z93.1 Gastrostomy status; Z90.49 Acquired absence of other specified parts of digestive tract; Z82.49 Family history of ischemic heart disease and other diseases of the circulatory system; Z88.2 Allergy status to sulfonamides; Z88.0 Allergy status to penicillin
CPT/HCPCS: 36415; 70450; 71045; 80048; 80053; 80076; 81001; 82550; 82553; 82962; 84484; 85025; 85610; 85730; 87086; 93005; 93010; 95819; 99285; J0360; J1815; J3490

== ENCOUNTER 2017-12-24 12:50 | Emergency (ER) | payer MEDICARE, MEDICAID ==
--- NOTE | 2017-12-24 15:02 | ER Document Report ---
ED ENT - General Chief Complaint: Ear Pain Stated Complaint: EAR PAIN/SWELLING Time Seen by Provider: 12/24/17 13:45 Notes: This is an 82-year-old female that presents to the emergency department with complaints of pain in the right side of the face. Patient with recent hospitalization for possible stroke. Began having pain in the right face. Swelling. Hurts in her ear. Patient unable to swallow since a stroke. Fed through a feeding tube. No fever. TRAVEL OUTSIDE OF THE [place] IN LAST 30 DAYS: No - HPI Patient complains to provider of: Other - Facial pain and swelling Onset: Yesterday Onset/Duration: Gradual Severity: Moderate Pain Level: 2 - Related Data Allergies/Adverse Reactions: Penicillins Allergy (Verified 12/24/17 13:19) Sulfa (Sulfonamide Antibiotics) Allergy (Verified 12/24/17 13:19) Past Medical History - General Information source: Patient, Relative Cannot obtain history due to: Dementia - Social History Smoking Status: Never Smoker Cigarette use (# per day): No Frequency of alcohol use: None Drug Abuse: None Lives with: Mcc Family History: None, Reviewed & Not Pertinent, Hypertension Patient has suicidal ideation: No Patient has homicidal ideation: No - Past Medical History Cardiac Medical History: Reports: Hx Atrial Fibrillation, Hx Congestive Heart Failure, Hx Coronary Artery Disease, Hx Heart Attack, Hx Hypercholesterolemia, Hx Hypertension Pulmonary Medical History: Reports: Hx Asthma, Hx Bronchitis, Hx COPD, Hx Pneumonia - X6 Denies: Hx Tuberculosis Neurological Medical History: Reports: Hx Cerebrovascular Accident, Hx Seizures Endocrine Medical History: Reports: Hx Diabetes Mellitus Type 2, Hx Hypothyroidism Renal/ Medical History: Denies: Hx Peritoneal Dialysis GI Medical History: Reports: Hx Gastroesophageal Reflux Disease, Hx Ulcer Musculoskeltal Medical History: Reports Hx Arthritis Psychiatric Medical History: Reports: Hx Dementia, Hx Depression Past Surgical History: Reports: Hx Appendectomy, Hx Bowel Surgery, Hx Cardiac Catheterization. Denies: Hx Hysterectomy - Immunizations Immunizations up to date: Yes Hx Diphtheria, Pertussis, Tetanus Vaccination: Yes Hx Pneumococcal Vaccination: 10/18/08 Review of Systems - Review of Systems Constitutional: denies: Fever, Malaise, Weakness EENT: See HPI, Other - Right facial/right cheek pain, right ear pain Cardiovascular: denies: Chest pain, Palpitations, Heart racing Respiratory: denies: Cough, Hurts to breathe, Short of breath Gastrointestinal: denies: Abdominal pain, Diarrhea, Nausea, Vomiting Skin: denies: Lesions, Lumps, Rash Neurological/Psychological: denies: Confusion, Weakness, Numbness Physical Exam - Vital signs Vitals: Temp Pulse Resp Pulse Ox 98.0 F 79 20 97 12/24/17 13:14 12/24/17 13:14 12/24/17 13:14 12/24/17 13:14 Interpretation: Normal - General General appearance: Appears well, Alert - HEENT Head: Normocephalic, Atraumatic Eyes: Normal Pupils: PERRL Notes: Patient has swelling noted to the right parotid area with tenderness to palpation. Right tympanic membrane visible and nonerythematous. Not bulging. - Respiratory Respiratory status: No respiratory distress Chest status: Nontender Breath sounds: Normal Chest palpation: Normal - Cardiovascular Rhythm: Regular Heart sounds: Normal auscultation Murmur: No - Extremities General upper extremity: Normal inspection, Nontender, Normal color, Normal temperature General lower extremity: Normal inspection, Nontender, Normal color, Normal temperature. No: Tejas's sign - Skin Skin Temperature: Warm Skin Moisture: Dry Skin Color: Normal Course - Re-evaluation Re-evalutation: 12/24/17 15:[address] scan of the face and reassess. 12/24/17 15:[address] 12/24/17 14:28 IMPRESSION: MARKED EDEMA AND INFLAMMATION OF THE RIGHT PAROTID GLAND CONSISTENT WITH ACUTE PAROTITIS. NO EVIDENCE OF ABSCESS. NO EVIDENCE OF DUCTAL STONE. Patient with swelling of the right parotid gland. No evidence of fever. Will start on some clindamycin, pain medication, anti-inflammatories. Advised that if symptoms get worse patient should be brought back to the ER as sometimes this requires IV treatment. Family is comfortable with this plan. Patient will be going to an assisted living/long-term for her treatment. - Vital Signs Vital signs: Temp Pulse Resp BP Pulse Ox 98.0 F 79 20 151/77 H 97 12/24/17 13:14 12/24/17 13:14 12/24/17 13:14 12/24/17 13:20 12/24/17 13:14 Discharge - Discharge Clinical Impression: Parotitis not due to mumps Disposition: SNF-Other Additional Instructions: Parotitis It appears that you have inflammation and possible infection in the right parotid gland. The parotid gland is a salivary gland. We will be prescribing you antibiotics which will need to be taken as instructed. Anti-inflammatories will help as well with the pain and swelling. Sucking on things like lemon drops or hard candy can help to increase the flow of saliva through the salivary glands and help to relieve the condition. If you begin to develop swelling in the neck, high fevers, worsening pain or any other concerns you should return immediately for repeat evaluation. Follow- up information has been provided for a research laboratory manager which will see you as an outpatient. Please call the ENT specialist for an appointment. Prescriptions: Clindamycin HCl 300 mg PO QID 10 Days #40 capsule Ibuprofen [Motrin 600 mg Tablet] 600 mg PO Q8H 10 Days #30 tablet Referrals: RAJEEV BAILEY MD [Primary Care Provider] - Follow up as needed DAVID MENSAH DO [ASSOCIATE] - Follow up in 3-5 days
--- NOTE | 2017-12-24 15:04 | RADIOLOGY REPORT (SQ) ---
EXAM DESCRIPTION: CT FACIAL AREA WITHOUT COMPLETED DATE/TIME: 12/24/2017 2:49 pm REASON FOR STUDY: right cheek swelling COMPARISON: None. TECHNIQUE: Noncontrasted images through the facial bones and orbits windowed for bone and soft tissu e. Additional coronal and sagittal reconstructed images reviewed. All images stored on PACS. All CT scanners at this facility use dose modulation, iterative reconstruction, and/or weight based d osing when appropriate to reduce radiation dose to as low as reasonably achievable (ALARA). [facility]: Dose Right [facility]: CareDose [facility]: Dose Right [facility]: Teradose 4D [facility]: Telnic RADIATION DOSE: CT Rad equipment meets quality standard of care and radiation dose reduction techniq ues were employed. CTDIvol: 30.4 mGy. DLP: 1239 mGy-cm. mGy. LIMITATIONS: None. FINDINGS: FACIAL BONES: No fracture or bone lesion. ORBITS: Intact. No fracture. Symmetric intact globes and retroorbital soft tissues. PARANASAL SINUSES: Clear. No significant mucosal thickening, mass or fluid. No nasal polyps. Maxill ha sinus outlets are patent. SOFT TISSUES: There is marked edema and inflammation of the right parotid gland. There is stranding in the subcutaneous soft tissues and overlying skin thickening. No focal fluid collection. There ar e scattered vascular calcifications bilaterally but no calculi suspicious for ductal stone. INFERIOR BRAIN: Limited view. No acute findings. OTHER: No other significant finding. IMPRESSION: MARKED EDEMA AND INFLAMMATION OF THE RIGHT PAROTID GLAND CONSISTENT WITH ACUTE PAROTITIS . NO EVIDENCE OF ABSCESS. NO EVIDENCE OF DUCTAL STONE. TECHNICAL DOCUMENTATION: JOB ID: [id number] Quality ID # [id number]: Final reports with documentation of one or more dose reduction techniques (e.g., Au tomated exposure control, adjustment of the mA and/or kV according to patient size, use of iterative reconstruction technique) 2010 [employer]- All Rights Reserved Reading location - IP/workstation name: [email or web address]
[2017-12-24] MEDS ORDERED: CLINDAMYCIN HCL 150 MG CAPSULE PEG ONE (15:38)
[2017-12-24] MEDS ORDERED: IBUPROFEN SUSP 100 MG/5 ML ORAL SYRINGE PO ONE (15:39)
[2017-12-24] MEDS ORDERED: HYDROCOD/ACETAMIN 7.5-325 MG/15 ML ORAL SOLN UDCUP PO ONE (15:39)
[2017-12-24 16:23] VITALS: BP 167/90
== END 2017-12-24 16:13 ==
LOC: ER 12:50
DX: K11.20 Sialoadenitis, unspecified (principal); H92.01 Otalgia, right ear; I48.91 Unspecified atrial fibrillation; I50.9 Heart failure, unspecified; E78.00 Pure hypercholesterolemia, unspecified; I10 Essential (primary) hypertension; I25.2 Old myocardial infarction; Z88.0 Allergy status to penicillin; Z88.2 Allergy status to sulfonamides; Z86.73 Personal history of transient ischemic attack (TIA), and cerebral infarction without residual deficits
CPT/HCPCS: 99284; 70486; A9270 ×2

== ENCOUNTER 2017-12-29 14:53 | Inpatient (IN) | payer MEDICARE, MEDICAID ==
[2017-12-29] MEDS ORDERED: ACETAMINOPHEN 325 MG TABLET PO ONE (15:08)
[2017-12-29] MEDS ORDERED: CLINDAMYCIN 600 MG/D5W RTU 600 MG/50 ML RTUPB IV ONE (15:08)
[2017-12-29] MEDS ORDERED: ACETAMINOPHEN SUSP 160 MG/5 ML ORAL SYRING PO ONE (15:38)
--- NOTE | 2017-12-29 15:47 | RADIOLOGY REPORT (SQ) ---
EXAM DESCRIPTION: CHEST SINGLE VIEW COMPLETED DATE/TIME: 12/29/2017 3:34 pm REASON FOR STUDY: cough fever COMPARISON: 12/11/2017 EXAM PARAMETERS: NUMBER OF VIEWS: One view. TECHNIQUE: Single frontal radiographic view of the chest acquired. RADIATION DOSE: NA LIMITATIONS: None. FINDINGS: LUNGS AND PLEURA: No opacities, masses or pneumothorax. No pleural effusion. MEDIASTINUM AND HILAR STRUCTURES: No masses. Contour normal. HEART AND VASCULAR STRUCTURES: Heart normal in size. Normal vasculature. BONES: No acute findings. HARDWARE: None in the chest. OTHER: Some elevation of the left hemidiaphragm is again seen. IMPRESSION: NO ACUTE RADIOGRAPHIC FINDING IN THE CHEST. TECHNICAL DOCUMENTATION: JOB ID: [id number] [employer]- All Rights Reserved Reading location - IP/workstation name: [email or web address]
[2017-12-29] MEDS ORDERED: LEVOFLOXACIN 750 MG/D5W RTU 750 MG/150 ML RTUPB IV ONE (16:00)
[2017-12-29] MEDS ORDERED: ACETAMINOPHEN SOLN 325 MG/10.15 ML UDCUP PEG ONE (16:19)
[2017-12-29 16:27] LABS: VENOUS BLOOD BASE EXCESS 18.6 mmol/L; VENOUS BLOOD HCO3 45.4 mmol/L (20-32); VENOUS BLOOD PH 7.44 (7.30-7.42)
[2017-12-29 16:31] LABS: HEMATOCRIT 28.9 % (36.0-47.0); HEMOGLOBIN 9.7 g/dL (12.0-15.5); MEAN CORPUSCULAR HEMOGLOBIN 31.4 pg (27.0-33.4); MEAN CORPUSCULAR HGB CONC 33.6 g/dL (32.0-36.0); MEAN CORPUSCULAR VOLUME 93 fl (80-97); PLATELET COUNT 430 10^3/uL (150-450); RED CELL DISTRIBUTION WIDTH 16.2 % (11.5-14.0); WHITE BLOOD COUNT 14.4 10^3/uL (4.0-10.5)
[2017-12-29 16:41] LABS: ALANINE AMINOTRANSFERASE 75 U/L (9-52); ALBUMIN 2.8 g/dL (3.5-5.0); ALKALINE PHOSPHATASE 89 U/L (38-126); ASPARTATE AMINO TRANSFERASE 120 U/L (14-36); BILIRUBIN,DIRECT 0.3 mg/dL (0.0-0.4); BILIRUBIN,TOTAL 0.3 mg/dL (0.2-1.3); BLOOD UREA NITROGEN 39 mg/dL (7-20); CALCIUM 8.4 mg/dL (8.4-10.2); CHLORIDE 87 mmol/L (98-107); GLUCOSE 108 mg/dL (75-110); SODIUM 133.7 mmol/L (137-145); TOTAL PROTEIN 6.5 g/dL (6.3-8.2)
[2017-12-29 16:44] LABS: INTERNATIONAL RATION (INR) 0.94; PROTHROMBIN TIME 13.3 SEC (11.4-15.4)
[2017-12-29 16:51] LABS: ANION GAP 6 (5-19); CARBON DIOXIDE 41 mmol/L (22-30); VENOUS BLOOD PCO2 67.8 mmHg (35-63)
[2017-12-29 17:04] LABS: ABSOLUTE LYMPHOCYTES# (MANUAL) 1.3 10^3/uL (0.5-4.7); ABSOLUTE MONOCYTES # (MANUAL) 2.3 10^3/uL (0.1-1.4); ABSOLUTE NEUTROPHILS# (MANUAL) 10.8 10^3/uL (1.7-8.2); BAND NEUTROPHILS % (MANUAL) 3 % (3-5); BASOPHILS % (MANUAL) 0 % (0-2); EOSINOPHILS % (MANUAL) 0 % (0-6); LYMPHOCYTES % (MANUAL) 8 % (13-45); METAMYELOCYTES % (MANUAL) 2 % (0); MONOCYTES % (MANUAL) 16 % (3-13); SEGMENTED NEUTROPHILS % (MAN) 70 % (42-78); TOTAL CELLS COUNTED 100
[2017-12-29 17:06] LABS: ANISOCYTOSIS 1+; HYPOCHROMASIA SLIGHT; PLATELET COMMENT ADEQUATE; POLYCHROMASIA SLIGHT; STOMATOCYTES 1+; TOXIC GRANULATION 1+; TOXIC VACUOLATION PRESENT
--- NOTE | 2017-12-29 17:15 | ER Document Report ---
ED General - General Chief Complaint: Fever Stated Complaint: FEVER Time Seen by Provider: 12/29/17 14:57 Mode of Arrival: Medic Information source: Patient, Relative, Emergency Med Personnel, [facility] Records Notes: 82-year-old female who was last week diagnosed with acute parotitis placed on clindamycin with significant improvement presents with family is concerned from care facility with cough and fever. It is noted the patient has been congested for the past 2 days family notes significant coughing. Denies any nausea vomiting or diarrhea TRAVEL OUTSIDE OF THE [place] IN LAST 30 DAYS: No - HPI Onset: Other - 2 day duration Onset/Duration: Persistent Quality of pain: Achy Severity: Mild Pain Level: 1 Associated symptoms: Nonproductive cough, Fever Exacerbated by: Denies Relieved by: Denies Similar symptoms previously: No Recently seen / treated by doctor: Yes - Related Data Allergies/Adverse Reactions: Penicillins Allergy (Verified 12/29/17 15:22) Sulfa (Sulfonamide Antibiotics) Allergy (Verified 12/29/17 15:22) Past Medical History - Social History Smoking Status: Never Smoker Cigarette use (# per day): No Chew tobacco use (# tins/day): No Smoking Education Provided: No Frequency of alcohol use: None Drug Abuse: None Family History: None, Reviewed & Not Pertinent, Hypertension Patient has suicidal ideation: No Patient has homicidal ideation: No - Past Medical History Cardiac Medical History: Reports: Hx Atrial Fibrillation, Hx Congestive Heart Failure, Hx Coronary Artery Disease, Hx Heart Attack, Hx Hypercholesterolemia, Hx Hypertension Pulmonary Medical History: Reports: Hx Asthma, Hx Bronchitis, Hx COPD, Hx Pneumonia - X6 Denies: Hx Tuberculosis Neurological Medical History: Reports: Hx Cerebrovascular Accident, Hx Seizures Endocrine Medical History: Reports: Hx Diabetes Mellitus Type 2, Hx Hypothyroidism Renal/ Medical History: Denies: Hx Peritoneal Dialysis GI Medical History: Reports: Hx Gastroesophageal Reflux Disease, Hx Ulcer Musculoskeltal Medical History: Reports Hx Arthritis Psychiatric Medical History: Reports: Hx Dementia, Hx Depression Past Surgical History: Reports: Hx Appendectomy, Hx Bowel Surgery, Hx Cardiac Catheterization. Denies: Hx Hysterectomy - Immunizations Immunizations up to date: Yes Hx Diphtheria, Pertussis, Tetanus Vaccination: Yes Hx Pneumococcal Vaccination: 10/18/08 Review of Systems - Review of Systems Notes: REVIEW OF SYSTEMS: CONSTITUTIONAL : Admits to fever EENT: Denies eye, ear, throat, or mouth pain or symptoms. Denies nasal or sinus congestion or discharge. Denies throat, tongue, or mouth swelling or difficulty swallowing. CARDIOVASCULAR: Denies chest pain. Denies palpitations or racing or irregular heart beat. Denies ankle edema. RESPIRATORY: Admits to cough congestion GASTROINTESTINAL: Denies abdominal pain or distention. Denies nausea, vomiting , or diarrhea. Denies blood in vomitus, stools, or per rectum. Denies black, tarry stools. Denies constipation. GENITOURINARY: Denies difficulty urinating, painful urination, burning, frequency, blood in urine, or discharge. FEMALE GENITOURINARY: Denies vaginal bleeding, heavy or abnormal periods, irregular periods. Denies vaginal discharge or odor. MUSCULOSKELETAL: Denies back or neck pain or stiffness. Denies joint pain or swelling. SKIN: Denies rash, lesions or sores. HEMATOLOGIC : Denies easy bruising or bleeding. LYMPHATIC: Denies swollen, enlarged glands. NEUROLOGICAL: Denies confusion or altered mental status. Denies passing out or loss of consciousness. Denies dizziness or lightheadedness. Denies headache. Denies weakness or paralysis or loss of use of either side. Denies problems with gait or speech. Denies sensory loss, numbness, or tingling. Denies seizures. PSYCHIATRIC: Denies anxiety or stress. Denies depression, suicidal ideation, or homicidal ideation. ALL OTHER SYSTEMS REVIEWED AND NEGATIVE. PHYSICAL EXAMINATION: GENERAL: Chronically ill-appearing febrile HEAD: Atraumatic, normocephalic. EYES: Pupils equal round and reactive to light, extraocular movements intact, conjunctiva are normal. ENT: Nares patent, oropharynx clear without exudates. Moist mucous membranes. NECK: Normal range of motion, supple without lymphadenopathy LUNGS: Breath sounds clear to auscultation bilaterally and equal. No wheezes rales or rhonchi. HEART: Regular rate and rhythm without murmurs ABDOMEN: Soft, nontender, nondistended abdomen. No guarding, no rebound. No masses appreciated. G-tube Female : deferred Musculoskeletal: Normal range of motion, no pitting or edema. No cyanosis. NEUROLOGICAL: baseline post stroke PSYCH: Normal mood, normal affect. SKIN: Hot to touch Dictation was performed using [employer] voice recognition software Physical Exam - Vital signs Vitals: Pulse Resp BP Pulse Ox 85 24 H 158/60 H 100 03/14/18 15:22 12/29/17 15:22 12/29/17 15:22 12/29/17 15:22 Course - Re-evaluation Re-evalutation: 12/29/17 17:13 Patient's presentation was consistent with pneumonia, patient was immediately started on antibiotics and otherwise stable at this time primary care physician has been contacted, I do not believe is the parotitis that is causing worsening symptoms as family notes symptoms have improved 12/29/17 17:[address] francis - Vital Signs Vital signs: Temp Pulse Resp BP Pulse Ox 101.2 F H 84 16 155/57 H 100 12/29/17 15:23 12/29/17 16:12 12/29/17 16:32 12/29/17 16:12 12/29/17 16:12 - Laboratory Result Diagrams: 12/29/17 15:50 12/29/17 15:50 Laboratory results interpreted by me: 12/29/17 12/29/17 12/29/17 15:50 15:50 15:50 WBC 14.4 H RBC 3.10 L Hgb 9.7 L Hct 28.9 L RDW 16.2 H Lymphocytes % (Manual) 8 L Monocytes % (Manual) 16 H Metamyelocytes % 2 H Abs Neuts (Manual) 10.8 H Abs Monocytes (Manual) 2.3 H VBG pH 7.44 H VBG pCO2 67.8 H* VBG HCO3 45.4 H Sodium 133.7 L Chloride 87 L Carbon Dioxide 41 H* BUN 39 H AST 120 H ALT 75 H Albumin 2.8 L - Diagnostic Test Radiology reviewed: Image reviewed, Reports reviewed Critical Care Note - Critical Care Note Total time excluding time spent on procedures (mins): 38 Comments: 38 minutes of critical care time spent in direct contact evaluating and reevaluating the patient, treating symptoms, reviewing labs and studies and speaking with family and consultants excluding any procedures Discharge - Discharge Clinical Impression: Encephalopathy Fever Qualifiers: Fever type: unspecified Qualified Code(s): R50.9 - Fever, unspecified Pneumonia Qualifiers: Pneumonia type: due to unspecified organism Laterality: unspecified laterality Lung location: unspecified part of lung Qualified Code(s): J18.9 - Pneumonia, unspecified organism Sepsis Qualifiers: Sepsis type: sepsis due to unspecified organism Qualified Code(s): A41.9 - Sepsis, unspecified organism Condition: Fair Disposition: ADMITTED INPATIENT Admitting Provider: Giuseppe Unit Admitted: [facility] Referrals: RAJEEV FRANCIS MD [Primary Care Provider] - Follow up as needed
[2017-12-29] MEDS ORDERED: ACETAMINOPHEN 325 MG TABLET PO PRN (17:16)
[2017-12-29] MEDS: NORMAL SALINE 1000 ML 1,000 ML IV PRN (17:36)
[2017-12-29] MEDS ORDERED: GLUCAGON,HUMAN RECOMB 1 MG INJ IM PRN (17:45)
[2017-12-29] MEDS ORDERED: DEXTROSE 40% GEL 15 GM TUBE PO PRN ×2 (17:45)
[2017-12-29] MEDS ORDERED: DEXTROSE 50%-WATER 25 GM/50 ML DISP.SYRIN IV PRN ×2 (17:45)
[2017-12-29 17:49] LABS: APPEARANCE,URINE SLIGHTLY-CLOUDY; BILIRUBIN,URINE NEGATIVE (NEGATIVE); COLOR,URINE AMBER; GLUCOSE, URINE NEGATIVE (NEGATIVE); KETONES,URINE NEGATIVE (NEGATIVE); LEUKOCYTE ESTERASE,URINE NEGATIVE (NEGATIVE); NITRITE,URINE NEGATIVE (NEGATIVE); PROTEIN,URINE 100 mg/dL (NEGATIVE); URINE SPECIFIC GRAVITY 1.021
[2017-12-29] MEDS ORDERED: LEVETIRACETAM 500 MG TABLET PO SCH (18:00)
[2017-12-29] MEDS ORDERED: ENOXAPARIN SODIUM INJ 40 MG/0.4 ML DISP.SYRIN SUBCUT ONE (18:30)
--- NOTE | 2017-12-29 18:43 | EKG REPORT ---
SEVERITY:- BORDERLINE ECG - SINUS RHYTHM BORDERLINE T ABNORMALITIES, DIFFUSE LEADS : Confirmed by: Dexter Camarillo MD 29-Dec-2017 18:42:51
[2017-12-29] MEDS: ACETAMINOPHEN SOLN 325 MG/10.15 ML UDCUP PEG PRN (20:15)
[2017-12-29] MEDS: FERROUS SULFATE LIQUID 300 MG/5 ML UDC PEG SCH (20:16)
[2017-12-29] MEDS: CLONIDINE HCL 0.2 MG TABLET PEG SCH (20:16)
[2017-12-29] MEDS: DILTIAZEM HCL 60 MG TABLET PEG SCH ×2 (20:16→23:42)
[2017-12-29] MEDS: FOLIC ACID 1 MG TABLET PEG SCH (20:17)
[2017-12-29] MEDS: IPRATROPIUM/ALBUTEROL 0.5-2.5 MG/3 ML AMPUL NEB SCH (21:14)
[2017-12-29] MEDS ORDERED: VALPROIC ACID PEG SCH (22:00)
[2017-12-29] MEDS: CLINDAMYCIN 600 MG/D5W RTU 600 MG/50 ML RTUPB IV SCH (23:08)
[2017-12-29] MEDS: LEVETIRACETAM ORAL SOLN 500 MG/5 ML UDCUP PEG SCH (23:18)
[2017-12-29] MEDS ORDERED: VALPROATE SODIUM SYRUP 250 MG/5 ML UDCUP ONE (23:21)
[2017-12-29] MEDS: HYDRALAZINE HCL 25 MG TABLET PEG SCH (23:25)
[2017-12-29] MEDS: VALPROATE SODIUM SYRUP 250 MG/5 ML UDCUP PEG SCH (23:31)
[2017-12-30] MEDS ORDERED: VALPROATE SODIUM SYRUP 250 MG/5 ML UDCUP ONE (04:14)
[2017-12-30] MEDS: CLINDAMYCIN 600 MG/D5W RTU 600 MG/50 ML RTUPB IV SCH ×3 (05:32→21:56)
[2017-12-30] MEDS: DILTIAZEM HCL 60 MG TABLET PEG SCH ×3 (05:33→18:41)
[2017-12-30] MEDS: VALPROATE SODIUM SYRUP 250 MG/5 ML UDCUP PEG SCH ×3 (05:33→21:56)
[2017-12-30] MEDS: ACETAMINOPHEN SOLN 325 MG/10.15 ML UDCUP PEG PRN (05:33)
[2017-12-30 06:40] LABS: ALANINE AMINOTRANSFERASE 64 U/L (9-52); ALBUMIN 2.8 g/dL (3.5-5.0); ALKALINE PHOSPHATASE 75 U/L (38-126); ANION GAP 8 (5-19); ASPARTATE AMINO TRANSFERASE 80 U/L (14-36); BILIRUBIN,DIRECT 0.2 mg/dL (0.0-0.4); BILIRUBIN,TOTAL 0.2 mg/dL (0.2-1.3); BLOOD UREA NITROGEN 40 mg/dL (7-20); CARBON DIOXIDE 39 mmol/L (22-30); CHLORIDE 89 mmol/L (98-107); GLUCOSE 191 mg/dL (75-110); POTASSIUM 3.2 mmol/L (3.6-5.0); SODIUM 135.7 mmol/L (137-145)
[2017-12-30] MEDS: INSULIN LISPRO 100 UNIT/ML 3 ML VIAL SUBCUT PRN ×2 (07:32→23:00)
[2017-12-30] MEDS ORDERED: POTASSIUM CHLORIDE 20 MEQ/15 ML UDCUP PO ONE (08:00)
[2017-12-30] MEDS: IPRATROPIUM/ALBUTEROL 0.5-2.5 MG/3 ML AMPUL NEB SCH ×3 (08:18→20:55)
[2017-12-30] MEDS: ASPIRIN 81 MG TABLET, CHEWABLE PEG SCH (09:03)
[2017-12-30] MEDS: CITALOPRAM HYDROBROMIDE 20 MG TABLET PEG SCH (09:03)
[2017-12-30] MEDS: CLONIDINE HCL 0.2 MG TABLET PEG SCH ×2 (09:03→18:40)
[2017-12-30] MEDS: HYDRALAZINE HCL 25 MG TABLET PEG SCH ×2 (09:03→21:56)
[2017-12-30] MEDS: FERROUS SULFATE LIQUID 300 MG/5 ML UDC PEG SCH ×2 (09:04→18:40)
[2017-12-30] MEDS: LANSOPRAZOLE 30 MG TAB.RAP.DR PEG SCH (09:04)
[2017-12-30] MEDS: LEVOFLOXACIN 500 MG/D5W RTU 500 MG/100 ML RTUPB IV SCH (09:04)
[2017-12-30] MEDS: ENOXAPARIN SODIUM INJ 40 MG/0.4 ML DISP.SYRIN SUBCUT SCH (09:04)
[2017-12-30] MEDS: NORMAL SALINE 1000 ML 1,000 ML IV PRN (09:09)
[2017-12-30 09:28] LABS: HEMATOCRIT 28.7 % (36.0-47.0); HEMOGLOBIN 9.5 g/dL (12.0-15.5); MEAN CORPUSCULAR HEMOGLOBIN 31.2 pg (27.0-33.4); MEAN CORPUSCULAR HGB CONC 33.3 g/dL (32.0-36.0); MEAN CORPUSCULAR VOLUME 94 fl (80-97); PLATELET COUNT 409 10^3/uL (150-450); RED BLOOD COUNT 3.06 10^6/uL (3.72-5.28); RED CELL DISTRIBUTION WIDTH 15.9 % (11.5-14.0); WHITE BLOOD COUNT 9.7 10^3/uL (4.0-10.5)
[2017-12-30 10:08] LABS: ABSOLUTE LYMPHOCYTES# (MANUAL) 1.6 10^3/uL (0.5-4.7); ABSOLUTE MONOCYTES # (MANUAL) 1.6 10^3/uL (0.1-1.4); ABSOLUTE NEUTROPHILS# (MANUAL) 6.5 10^3/uL (1.7-8.2); BAND NEUTROPHILS % (MANUAL) 3 % (3-5); BASOPHILS % (MANUAL) 1 % (0-2); EOSINOPHILS % (MANUAL) 0 % (0-6); LYMPHOCYTES % (MANUAL) 15 % (13-45); MONOCYTES % (MANUAL) 16 % (3-13); SEGMENTED NEUTROPHILS % (MAN) 64 % (42-78); TOTAL CELLS COUNTED 100
[2017-12-30 10:11] LABS: ANISOCYTOSIS SLIGHT; HYPOCHROMASIA SLIGHT; PLATELET COMMENT ADEQUATE; TOXIC GRANULATION 1+
--- NOTE | 2017-12-30 12:43 | PDOC H&P ---
History of Present Illness Admission Date/PCP: RAJEEV BAILEY MD Patient complains of: Fever History of Present Illness: ANG CHRISTY is a 82 year old female this is the 82-year-old femalewith multiple medical problemcame to the emergency department with a feverandcogh since last 3 days in the ER patients diagnosed with a possible pneumonia and admiting in the [facility] for further treatment t have a significant history of the dementiaand encephalopathyWho recently had meeting in the [facility] for the strokeand suggest a prognosis patient at this point currently [id number] discuss with today patient recently diagnosed with rt side paritodits which is resolved now when I saw the patientpatient as usual state with underlying dementia and encephalopathynot answer any questions much Past Medical History Cardiac Medical History: Reports: Atrial Fibrillation, Congestive Heart Failure , Coronary Artery Disease, Myocardial Infarction, Hyperlipidema, Hypertension Pulmonary Medical History: Reports: Asthma, Bronchitis, Chronic Obstructive Pulmonary Disease (COPD), Pneumonia - X6 Denies: Tuberculosis Neurological Medical History: Reports: Seizures Endocrine Medical History: Reports: Diabetes Mellitus Type 2, Hypothyroidism GI Medical History: Reports: Gastroesophageal Reflux Disease Musculoskeltal Medical History: Reports: Arthritis Psychiatric Medical History: Reports: Dementia, Depression Hematology: Reports: Anemia Past Surgical History Past Surgical History: Reports: Appendectomy, Cardiac Catheterization Denies: Hysterectomy Social History Smoking Status: Never Smoker Frequency of Alcohol Use: None Hx Recreational Drug Use: No Hx Prescription Drug Abuse: No Family History Family History: None, Reviewed & Not Pertinent, Hypertension Parental Family History Reviewed: Yes Children Family History Reviewed: Yes Sibling(s) Family History Reviewed.: Yes Medication/Allergy Home Medications: Acetaminophen [Tylenol 325 mg Tablet] 650 mg PEG Q6HP PRN 12/29/17 Aspirin [Aspirin 81 mg Chewable Tablet] 81 mg PEG DAILY 12/29/17 Citalopram Hydrobromide [Celexa 20 mg Tablet] 20 mg PEG DAILY 12/29/17 Clonidine HCl [Catapres 0.2 mg Tablet] 0.2 mg PEG Q12 12/29/17 Diltiazem HCl [Cardizem 60 mg Tablet] 60 mg PEG Q6 12/29/17 Ferrous Sulfate [Ferrous Sulfate Liquid 300 mg/5 ml Udcup] 300 mg PEG BID Folic Acid [Folvite 1 mg Tablet] 1 mg PEG QPM 12/29/17 Hydralazine HCl [Apresoline 25 mg Tablet] 75 mg PEG Q12 12/29/17 Lansoprazole [Prevacid] 30 mg PEG Q6AM 12/29/17 Levetiracetam [Keppra 500 mg Tablet] 500 mg PEG Q12 12/29/17 Valproic Acid (As Sodium Salt) [Valproic Acid] 20 ml PEG Q8 12/29/17 Allergies/Adverse Reactions: Penicillins Allergy (Verified 12/29/17 15:22) Sulfa (Sulfonamide Antibiotics) Allergy (Verified 12/29/17 15:22) Review of Systems ROS unobtainable: Due to mental status All systems: reviewed and no additional remarkable complaints except as stated Physical Exam Vital Signs: Temp Pulse Resp BP Pulse Ox 101.2 F H 84 16 155/57 H 100 12/29/17 15:23 12/29/17 16:12 12/29/17 16:32 12/29/17 16:12 12/29/17 16:12 Intake & Output 12/28/17 12/29/17 12/30/17 06:59 06:59 06:59 Weight 67.3 kg General appearance: PRESENT: no acute distress, thin Head exam: PRESENT: normocephalic Eye exam: PRESENT: PERRLA Ear exam: PRESENT: normal external ear exam Mouth exam: PRESENT: dry mucosa Neck exam: ABSENT: carotid bruit, full ROM, JVD, lymphadenopathy, meningismus, tenderness, thyromegaly, tracheal deviation, tracheostomy, other Respiratory exam: PRESENT: decreased breath sounds, rales Extremities exam: ABSENT: full ROM, left AKA, right AKA, left BKA, right BKA, calf tenderness, joint swelling, pedal edema, tenderness, other Neurological exam: PRESENT: alert, altered, awake Psychiatric exam: PRESENT: anxious Skin exam: PRESENT: dry Results Laboratory Results: 12/29/17 15:50 12/29/17 15:50 12/29/17 12/29/17 12/29/17 15:50 15:50 15:50 WBC 14.4 H RBC 3.10 L Hgb 9.7 L Hct 28.9 L MCV 93 MCH 31.4 MCHC 33.6 RDW 16.2 H Plt Count 430 Seg Neutrophils % Not Reportable Lymphocytes % Not Reportable Monocytes % Not Reportable Eosinophils % Not Reportable Basophils % Not Reportable Absolute Neutrophils Not Reportable Absolute Lymphocytes Not Reportable Absolute Monocytes Not Reportable Absolute Eosinophils Not Reportable Absolute Basophils Not Reportable VBG pH VBG pCO2 VBG HCO3 VBG Base Excess Sodium 133.7 L Potassium 4.0 Chloride 87 L Carbon Dioxide 41 H* Anion Gap 6 BUN 39 H Creatinine 0.73 Est GFR ( Amer) > 60 Est GFR (Non-Af Amer) > 60 Glucose 108 Lactic Acid 1.5 Calcium 8.4 Total Bilirubin 0.3 AST 120 H ALT 75 H Alkaline Phosphatase 89 Total Protein 6.5 Albumin 2.8 L 12/29/17 15:50 WBC RBC Hgb Hct MCV MCH MCHC RDW Plt Count Seg Neutrophils % Lymphocytes % Monocytes % Eosinophils % Basophils % Absolute Neutrophils Absolute Lymphocytes Absolute Monocytes Absolute Eosinophils Absolute Basophils VBG pH 7.44 H VBG pCO2 67.8 H* VBG HCO3 45.4 H VBG Base Excess 18.6 Sodium Potassium Chloride Carbon Dioxide Anion Gap BUN Creatinine Est GFR ( Amer) Est GFR (Non-Af Amer) Glucose Lactic Acid Calcium Total Bilirubin AST ALT Alkaline Phosphatase Total Protein Albumin Impressions: Chest X-Ray 12/29/17 15:00 IMPRESSION: NO ACUTE RADIOGRAPHIC FINDING IN THE CHEST. Assessment & Plan - Diagnosis (1) Fever Qualifiers: Fever type: unspecified Qualified Code(s): R50.9 - Fever, unspecified Is this a current diagnosis for this admission?: Yes Plan: most likely from the pneumoniaWe start the sepsis work up and start the prospect of antibiotic (2) Encephalopathy Plan: due to uncontol htn (3) Pneumonia Qualifiers: Pneumonia type: due to unspecified organism Laterality: unspecified laterality Lung location: unspecified part of lung Qualified Code(s): J18.9 - Pneumonia, unspecified organism Is this a current diagnosis for this admission?: Yes Plan: see md order (4) Sepsis Qualifiers: Sepsis type: sepsis due to unspecified organism Qualified Code(s): A41.9 - Sepsis, unspecified organism (5) Anemia Qualifiers: Anemia type: unspecified type Qualified Code(s): D64.9 - Anemia, unspecified Is this a current diagnosis for this admission?: Yes (6) CVA (cerebral vascular accident) Qualifiers: CVA mechanism: unspecified Qualified Code(s): I63.9 - Cerebral infarction, unspecified Is this a current diagnosis for this admission?: Yes (7) Coronary artery disease Qualifiers: Coronary Disease-Associated Artery/Lesion type: [place] artery [place] vs. transplanted heart: [place] heart Associated angina: angina presence unspecified Qualified Code(s): I25.10 - Atherosclerotic heart disease of [place] coronary artery without angina pectoris (8) Dementia Qualifiers: Dementia type: vascular dementia Dementia behavioral disturbance: without behavioral disturbance Qualified Code(s): F01.50 - Vascular dementia without behavioral disturbance Is this a current diagnosis for this admission?: Yes (9) Seizure Is this a current diagnosis for this admission?: Yes (10) Type 2 diabetes mellitus Qualifiers: Diabetes mellitus termination clerk insulin use: without termination clerk use Diabetes mellitus complication status: with kidney complications Diabetes mellitus complication detail: with chronic kidney disease Chronic kidney disease stage : stage 2 (mild) Qualified Code(s): E11.22 - Type 2 diabetes mellitus with diabetic chronic kidney disease; N18.2 - Chronic kidney disease, stage 2 (mild) ; N18.2 - Chronic kidney disease, stage 2 (mild) Is this a current diagnosis for this admission?: Yes (11) Uncontrolled hypertension Is this a current diagnosis for this admission?: Yes - Time Time Spent: 30 to 50 Minutes Medications reviewed and adjusted accordingly: Yes Anticipated discharge: SNF Within: Other - Inpatient Certification Medical Necessity: Need For IV Fluids, Need for IV Antibiotics Post Hospital Care: D/C Local Announcer Documentation - Plan Summary Plan Summary: admit the patientsee orders prgonosis is poor discuss with husbandand pt is dnr and dni
--- NOTE | 2017-12-30 12:49 | PDOC PROGRESS REPORT ---
Subjective Progress Note for:: 12/30/17 Subjective:: Patient is currently doing same still productivity cough with the sputum No fever this morning the bedside discussed with the patient's current conditions Reason For Visit: PNEUMONIA Physical Exam Vital Signs: Temp Pulse Resp BP Pulse Ox 97.7 F 97 18 139/118 H 97 12/30/17 07:45 12/30/17 08:18 12/30/17 08:18 12/30/17 07:45 12/30/17 08:18 Intake & Output 12/29/17 12/30/17 12/31/17 06:59 06:59 06:59 Intake Total 840 525 Balance 840 525 Weight 62.9 kg General appearance: PRESENT: no acute distress Eye exam: PRESENT: PERRLA Mouth exam: PRESENT: neck supple Respiratory exam: PRESENT: clear to auscultation becca Cardiovascular exam: PRESENT: +S1, +S2 GI/Abdominal exam: PRESENT: normal bowel sounds, soft Extremities exam: ABSENT: pedal edema Neurological exam: PRESENT: alert, altered, awake Psychiatric exam: PRESENT: anxious Skin exam: PRESENT: dry Results Laboratory Results: 12/30/17 08:57 12/30/17 05:17 12/30/17 12/30/17 12/30/17 05:17 05:17 08:57 WBC Cancelled 9.7 RBC Cancelled 3.06 L Hgb Cancelled 9.5 L Hct Cancelled 28.7 L MCV Cancelled 94 MCH Cancelled 31.2 MCHC Cancelled 33.3 RDW Cancelled 15.9 H Plt Count Cancelled 409 Seg Neutrophils % Cancelled Not Reportable Lymphocytes % Cancelled Not Reportable Monocytes % Cancelled Not Reportable Eosinophils % Cancelled Not Reportable Basophils % Cancelled Not Reportable Absolute Neutrophils Cancelled Not Reportable Absolute Lymphocytes Cancelled Not Reportable Absolute Monocytes Cancelled Not Reportable Absolute Eosinophils Cancelled Not Reportable Absolute Basophils Cancelled Not Reportable Sodium 135.7 L Potassium 3.2 L Chloride 89 L Carbon Dioxide 39 H Anion Gap 8 BUN 40 H Creatinine 0.87 Est GFR ( Amer) > 60 Est GFR (Non-Af Amer) > 60 Glucose 191 H Calcium 8.0 L Total Bilirubin 0.2 AST 80 H ALT 64 H Alkaline Phosphatase 75 Total Protein 6.0 L Albumin 2.8 L 12/29/17 17:43 Sputum Gram Stain - Final 12/29/17 17:43 Sputum Sputum Culture - Final Impressions: Chest X-Ray 12/29/17 15:00 IMPRESSION: NO ACUTE RADIOGRAPHIC FINDING IN THE CHEST. Assessment & Plan - Diagnosis (1) Fever Qualifiers: Fever type: unspecified Qualified Code(s): R50.9 - Fever, unspecified Is this a current diagnosis for this admission?: Yes Plan: most likely from the pneumoniaWe start the sepsis work up and start the prospect of antibiotic (2) Encephalopathy Plan: due to uncontol htn (3) Pneumonia Qualifiers: Pneumonia type: due to unspecified organism Laterality: unspecified laterality Lung location: unspecified part of lung Qualified Code(s): J18.9 - Pneumonia, unspecified organism Is this a current diagnosis for this admission?: Yes Plan: see md order (4) Sepsis Qualifiers: Sepsis type: sepsis due to unspecified organism Qualified Code(s): A41.9 - Sepsis, unspecified organism Plan: stable (5) Anemia Qualifiers: Anemia type: unspecified type Qualified Code(s): D64.9 - Anemia, unspecified Is this a current diagnosis for this admission?: Yes Plan: stable (6) CVA (cerebral vascular accident) Qualifiers: CVA mechanism: unspecified Qualified Code(s): I63.9 - Cerebral infarction, unspecified Is this a current diagnosis for this admission?: Yes Plan: stable (7) Coronary artery disease Qualifiers: Coronary Disease-Associated Artery/Lesion type: [place] artery [place] vs. transplanted heart: [place] heart Associated angina: angina presence unspecified Qualified Code(s): I25.10 - Atherosclerotic heart disease of [place] coronary artery without angina pectoris Is this a current diagnosis for this admission?: Yes Plan: stable (8) Dementia Qualifiers: Dementia type: vascular dementia Dementia behavioral disturbance: without behavioral disturbance Qualified Code(s): F01.50 - Vascular dementia without behavioral disturbance Is this a current diagnosis for this admission?: Yes (9) Seizure Is this a current diagnosis for this admission?: Yes (10) Type 2 diabetes mellitus Qualifiers: Diabetes mellitus buttermaker helper insulin use: without detention use Diabetes mellitus complication status: with kidney complications Diabetes mellitus complication detail: with chronic kidney disease Chronic kidney disease stage : stage 2 (mild) Qualified Code(s): E11.22 - Type 2 diabetes mellitus with diabetic chronic kidney disease; N18.2 - Chronic kidney disease, stage 2 (mild) ; N18.2 - Chronic kidney disease, stage 2 (mild) Is this a current diagnosis for this admission?: Yes (11) Uncontrolled hypertension Is this a current diagnosis for this admission?: Yes - Time Time Spent with patient: 15-24 minutes Medications reviewed and adjusted accordingly: Yes Anticipated discharge: SNF Within: Other - Inpatient Certification Medical Necessity: Need Close Monitoring Due to Risk of Patient Decompensation, Need for IV Antibiotics Post Hospital Care: D/C [employer] Documentation - Plan Summary Plan Summary: Continues to IV antibiotics discussed with the on the bedside patient's current condition is very poor
[2017-12-30] MEDS: LEVETIRACETAM ORAL SOLN 500 MG/5 ML UDCUP PEG SCH ×2 (14:56→21:56)
[2017-12-30] MEDS: FOLIC ACID 1 MG TABLET PEG SCH (18:40)
[2017-12-31] MEDS: HYDRALAZINE HCL INJ/PF 20 MG/1 ML SDV IV PRN (00:09)
[2017-12-31] MEDS: DILTIAZEM HCL 60 MG TABLET PEG SCH ×5 (00:35→23:20)
[2017-12-31] MEDS: ACETAMINOPHEN SOLN 325 MG/10.15 ML UDCUP PEG PRN (03:29)
[2017-12-31] MEDS: OXYCODONE-ACETAMINOPHEN 5-325 MG TABLET PO PRN ×2 (04:10→20:19)
[2017-12-31] MEDS: IPRATROPIUM/ALBUTEROL 0.5-2.5 MG/3 ML AMPUL NEB PRN (04:26)
[2017-12-31] MEDS: CLINDAMYCIN 600 MG/D5W RTU 600 MG/50 ML RTUPB IV SCH ×3 (06:01→23:19)
[2017-12-31] MEDS: VALPROATE SODIUM SYRUP 250 MG/5 ML UDCUP PEG SCH ×3 (06:01→23:20)
[2017-12-31 06:31] LABS: HEMATOCRIT 32.4 % (36.0-47.0); HEMOGLOBIN 10.5 g/dL (12.0-15.5); MEAN CORPUSCULAR HEMOGLOBIN 30.6 pg (27.0-33.4); MEAN CORPUSCULAR HGB CONC 32.5 g/dL (32.0-36.0); MEAN CORPUSCULAR VOLUME 94 fl (80-97); PLATELET COUNT 282 10^3/uL (150-450); RED BLOOD COUNT 3.44 10^6/uL (3.72-5.28); RED CELL DISTRIBUTION WIDTH 16.5 % (11.5-14.0); WHITE BLOOD COUNT 7.8 10^3/uL (4.0-10.5)
[2017-12-31 06:53] LABS: ABSOLUTE NEUTROPHILS# (MANUAL) 5.8 10^3/uL (1.7-8.2); BAND NEUTROPHILS % (MANUAL) 3 % (3-5); BASOPHILS % (MANUAL) 0 % (0-2); EOSINOPHILS % (MANUAL) 0 % (0-6); LYMPHOCYTES % (MANUAL) 13 % (13-45); MONOCYTES % (MANUAL) 13 % (3-13); SEGMENTED NEUTROPHILS % (MAN) 71 % (42-78); TOTAL CELLS COUNTED 100
[2017-12-31 06:54] LABS: PLATELET COMMENT ADEQUATE
[2017-12-31 06:56] LABS: ANISOCYTOSIS 1+
[2017-12-31] MEDS: IPRATROPIUM/ALBUTEROL 0.5-2.5 MG/3 ML AMPUL NEB SCH ×3 (09:12→20:41)
--- NOTE | 2017-12-31 09:18 | PDOC PROGRESS REPORT ---
Subjective Progress Note for:: 12/31/17 Subjective:: Patient is currently doing same still productivity cough with the sputum No fever this morning the bedside discussed with the patient's current conditions Reason For Visit: PNEUMONIA Physical Exam Vital Signs: Temp Pulse Resp BP Pulse Ox 99.0 F 88 18 152/43 H 92 12/31/17 07:29 12/31/17 07:29 12/31/17 07:29 12/31/17 07:29 12/31/17 07:29 Intake & Output 12/30/17 12/31/17 01/01/18 06:59 06:59 06:59 Intake Total 840 3275 Balance 840 3275 Weight 62.9 kg 62 kg General appearance: PRESENT: no acute distress Eye exam: PRESENT: PERRLA Mouth exam: PRESENT: neck supple Neck exam: ABSENT: JVD Respiratory exam: PRESENT: decreased breath sounds Cardiovascular exam: PRESENT: +S1, +S2 GI/Abdominal exam: PRESENT: normal bowel sounds, soft Extremities exam: ABSENT: pedal edema Neurological exam: PRESENT: alert, altered Skin exam: PRESENT: dry Results Laboratory Results: 12/31/17 05:47 12/30/17 05:17 12/30/17 12/31/17 08:57 05:47 WBC 9.7 7.8 RBC 3.06 L 3.44 L Hgb 9.5 L 10.5 L Hct 28.7 L 32.4 L MCV 94 94 MCH 31.2 30.6 MCHC 33.3 32.5 RDW 15.9 H 16.5 H Plt Count 409 282 Seg Neutrophils % Not Reportable Not Reportable Lymphocytes % Not Reportable Not Reportable Monocytes % Not Reportable Not Reportable Eosinophils % Not Reportable Not Reportable Basophils % Not Reportable Not Reportable Absolute Neutrophils Not Reportable Not Reportable Absolute Lymphocytes Not Reportable Not Reportable Absolute Monocytes Not Reportable Not Reportable Absolute Eosinophils Not Reportable Not Reportable Absolute Basophils Not Reportable Not Reportable 12/29/17 17:43 Sputum Gram Stain - Final 12/29/17 17:43 Sputum Sputum Culture - Final Impressions: Chest X-Ray 12/29/17 15:00 IMPRESSION: NO ACUTE RADIOGRAPHIC FINDING IN THE CHEST. Assessment & Plan - Diagnosis (1) Fever Qualifiers: Fever type: unspecified Qualified Code(s): R50.9 - Fever, unspecified Is this a current diagnosis for this admission?: Yes Plan: Currently all resolved most likely from the pneumonia (2) Encephalopathy Plan: due to uncontol htn (3) Pneumonia Qualifiers: Pneumonia type: due to unspecified organism Laterality: unspecified laterality Lung location: unspecified part of lung Qualified Code(s): J18.9 - Pneumonia, unspecified organism Is this a current diagnosis for this admission?: Yes Plan: see md order (4) Sepsis Qualifiers: Sepsis type: sepsis due to unspecified organism Qualified Code(s): A41.9 - Sepsis, unspecified organism Plan: stable (5) Anemia Qualifiers: Anemia type: unspecified type Qualified Code(s): D64.9 - Anemia, unspecified Is this a current diagnosis for this admission?: Yes Plan: stable (6) CVA (cerebral vascular accident) Qualifiers: CVA mechanism: unspecified Qualified Code(s): I63.9 - Cerebral infarction, unspecified Is this a current diagnosis for this admission?: Yes Plan: stable (7) Coronary artery disease Qualifiers: Coronary Disease-Associated Artery/Lesion type: [place] artery [place] vs. transplanted heart: [place] heart Associated angina: angina presence unspecified Qualified Code(s): I25.10 - Atherosclerotic heart disease of [place] coronary artery without angina pectoris Is this a current diagnosis for this admission?: Yes Plan: stable (8) Dementia Qualifiers: Dementia type: vascular dementia Dementia behavioral disturbance: without behavioral disturbance Qualified Code(s): F01.50 - Vascular dementia without behavioral disturbance Is this a current diagnosis for this admission?: Yes (9) Seizure Is this a current diagnosis for this admission?: Yes (10) Type 2 diabetes mellitus Qualifiers: Diabetes mellitus terminal computer operator insulin use: without usp use Diabetes mellitus complication status: with kidney complications Diabetes mellitus complication detail: with chronic kidney disease Chronic kidney disease stage : stage 2 (mild) Qualified Code(s): E11.22 - Type 2 diabetes mellitus with diabetic chronic kidney disease; N18.2 - Chronic kidney disease, stage 2 (mild) ; N18.2 - Chronic kidney disease, stage 2 (mild) Is this a current diagnosis for this admission?: Yes (11) Uncontrolled hypertension Is this a current diagnosis for this admission?: Yes - Time Time Spent with patient: 15-24 minutes Medications reviewed and adjusted accordingly: Yes Anticipated discharge: SNF Within: Other - Inpatient Certification Medical Necessity: Need Close Monitoring Due to Risk of Patient Decompensation, Need for IV Antibiotics Post Hospital Care: D/C Club Waiter/Waitress Documentation - Plan Summary Plan Summary: Continues to IV antibiotic discussed with the and the bedside
[2017-12-31] MEDS: HYDRALAZINE HCL 25 MG TABLET PEG SCH ×2 (10:53→23:19)
[2017-12-31] MEDS: CLONIDINE HCL 0.2 MG TABLET PEG SCH ×2 (10:54→17:16)
[2017-12-31] MEDS: LANSOPRAZOLE 30 MG TAB.RAP.DR PEG SCH (10:54)
[2017-12-31] MEDS: FERROUS SULFATE LIQUID 300 MG/5 ML UDC PEG SCH ×2 (10:54→17:16)
[2017-12-31] MEDS: ASPIRIN 81 MG TABLET, CHEWABLE PEG SCH (10:54)
[2017-12-31] MEDS: CITALOPRAM HYDROBROMIDE 20 MG TABLET PEG SCH (10:54)
[2017-12-31] MEDS: ENOXAPARIN SODIUM INJ 40 MG/0.4 ML DISP.SYRIN SUBCUT SCH (10:55)
[2017-12-31] MEDS: LEVOFLOXACIN 500 MG/D5W RTU 500 MG/100 ML RTUPB IV SCH (10:55)
[2017-12-31] MEDS: NORMAL SALINE 1000 ML 1,000 ML IV PRN (11:21)
[2017-12-31] MEDS: LEVETIRACETAM ORAL SOLN 500 MG/5 ML UDCUP PEG SCH ×2 (11:22→23:20)
[2017-12-31] MEDS: FOLIC ACID 1 MG TABLET PEG SCH (17:16)
[2017-12-31] MEDS: INSULIN LISPRO 100 UNIT/ML 3 ML VIAL SUBCUT PRN (17:46)
[2017-12-31] MEDS: GUAIFENESIN 600 MG TABLET.SA PO SCH (23:21)
[2018-01-01] MEDS: NORMAL SALINE 1000 ML 1,000 ML IV PRN (04:43)
[2018-01-01] MEDS: IPRATROPIUM/ALBUTEROL 0.5-2.5 MG/3 ML AMPUL NEB PRN (04:57)
[2018-01-01] MEDS: VALPROATE SODIUM SYRUP 250 MG/5 ML UDCUP PEG SCH ×3 (05:28→21:21)
[2018-01-01] MEDS: CLINDAMYCIN 600 MG/D5W RTU 600 MG/50 ML RTUPB IV SCH ×3 (05:28→21:21)
[2018-01-01] MEDS: OXYCODONE-ACETAMINOPHEN 5-325 MG TABLET PO PRN ×2 (05:28→21:21)
[2018-01-01] MEDS: DILTIAZEM HCL 60 MG TABLET PEG SCH ×3 (05:29→18:11)
[2018-01-01] MEDS: GUAIFENESIN 600 MG TABLET.SA PO SCH (06:32)
[2018-01-01] MEDS: INSULIN LISPRO 100 UNIT/ML 3 ML VIAL SUBCUT PRN ×2 (06:36→18:10)
[2018-01-01 07:03] LABS: HEMATOCRIT 25.7 % (36.0-47.0); HEMOGLOBIN 8.5 g/dL (12.0-15.5); MEAN CORPUSCULAR HEMOGLOBIN 31.6 pg (27.0-33.4); MEAN CORPUSCULAR HGB CONC 33.1 g/dL (32.0-36.0); MEAN CORPUSCULAR VOLUME 95 fl (80-97); PLATELET COUNT 311 10^3/uL (150-450); RED BLOOD COUNT 2.69 10^6/uL (3.72-5.28); RED CELL DISTRIBUTION WIDTH 16.5 % (11.5-14.0)
[2018-01-01 07:39] LABS: ANION GAP 7 (5-19); BLOOD UREA NITROGEN 32 mg/dL (7-20); CALCIUM 8.1 mg/dL (8.4-10.2); CARBON DIOXIDE 35 mmol/L (22-30); CHLORIDE 96 mmol/L (98-107); GLUCOSE 137 mg/dL (75-110); SODIUM 138.4 mmol/L (137-145)
[2018-01-01 07:46] LABS: ABSOLUTE LYMPHOCYTES# (MANUAL) 1.5 10^3/uL (0.5-4.7); ABSOLUTE MONOCYTES # (MANUAL) 0.8 10^3/uL (0.1-1.4); ABSOLUTE NEUTROPHILS# (MANUAL) 3.7 10^3/uL (1.7-8.2); BAND NEUTROPHILS % (MANUAL) 5 % (3-5); BASOPHILS % (MANUAL) 0 % (0-2); EOSINOPHILS % (MANUAL) 1 % (0-6); LYMPHOCYTES % (MANUAL) 25 % (13-45); METAMYELOCYTES % (MANUAL) 1 % (0); MONOCYTES % (MANUAL) 13 % (3-13); SEGMENTED NEUTROPHILS % (MAN) 55 % (42-78); TOTAL CELLS COUNTED 100
[2018-01-01 07:47] LABS: ANISOCYTOSIS 1+; PLATELET COMMENT ADEQUATE; TOXIC GRANULATION SLIGHT
[2018-01-01] MEDS: IPRATROPIUM/ALBUTEROL 0.5-2.5 MG/3 ML AMPUL NEB SCH ×3 (08:53→20:52)
[2018-01-01] MEDS: FERROUS SULFATE LIQUID 300 MG/5 ML UDC PEG SCH ×2 (11:37→18:11)
[2018-01-01] MEDS: ASPIRIN 81 MG TABLET, CHEWABLE PEG SCH (11:37)
[2018-01-01] MEDS: CITALOPRAM HYDROBROMIDE 20 MG TABLET PEG SCH (11:37)
[2018-01-01] MEDS: LANSOPRAZOLE 30 MG TAB.RAP.DR PEG SCH (11:38)
[2018-01-01] MEDS: HYDRALAZINE HCL 25 MG TABLET PEG SCH ×2 (11:38→21:21)
[2018-01-01] MEDS: CLONIDINE HCL 0.2 MG TABLET PEG SCH ×2 (11:39→18:11)
[2018-01-01] MEDS: ENOXAPARIN SODIUM INJ 40 MG/0.4 ML DISP.SYRIN SUBCUT SCH (11:43)
[2018-01-01] MEDS: LEVETIRACETAM ORAL SOLN 500 MG/5 ML UDCUP PEG SCH ×2 (11:45→21:21)
--- NOTE | 2018-01-01 13:01 | PDOC PROGRESS REPORT ---
Subjective Progress Note for:: 01/01/18 Subjective:: Patient reported doing feeling fine this morning. Coughing persist with difficulty administering oral cough medication. No fever or chills. Tolerating PEG tube feeding. No chest pain or difficulty with breathing. Reason For Visit: PNEUMONIA Physical Exam Vital Signs: Temp Pulse Resp BP Pulse Ox 97.6 F 97 18 118/35 L 98 01/01/18 07:30 01/01/18 08:53 01/01/18 08:53 01/01/18 07:30 01/01/18 08:53 Intake & Output 12/31/17 01/01/18 01/02/18 06:59 06:59 06:59 Intake Total 3275 1920 Balance 3275 1920 Weight 62 kg 63.3 kg Results Laboratory Results: 01/01/18 06:07 01/01/18 06:07 01/01/18 01/01/18 06:07 06:07 WBC 6.0 RBC 2.69 L Hgb 8.5 L Hct 25.7 L MCV 95 MCH 31.6 MCHC 33.1 RDW 16.5 H Plt Count 311 Seg Neutrophils % Not Reportable Lymphocytes % Not Reportable Monocytes % Not Reportable Eosinophils % Not Reportable Basophils % Not Reportable Absolute Neutrophils Not Reportable Absolute Lymphocytes Not Reportable Absolute Monocytes Not Reportable Absolute Eosinophils Not Reportable Absolute Basophils Not Reportable Sodium 138.4 Potassium 4.0 Chloride 96 L Carbon Dioxide 35 H Anion Gap 7 BUN 32 H Creatinine 0.77 Est GFR ( Amer) > 60 Est GFR (Non-Af Amer) > 60 Glucose 137 H Calcium 8.1 L Impressions: Chest X-Ray 12/29/17 15:00 IMPRESSION: NO ACUTE RADIOGRAPHIC FINDING IN THE CHEST. Assessment & Plan - Diagnosis (1) Pneumonia Qualifiers: Pneumonia type: due to unspecified organism Laterality: unspecified laterality Lung location: unspecified part of lung Qualified Code(s): J18.9 - Pneumonia, unspecified organism Is this a current diagnosis for this admission?: Yes Plan: Maintain on antibiotic therapy. Monitor clinical and lab response. (2) Type 2 diabetes mellitus Qualifiers: Diabetes mellitus assisted insulin use: without assisted use Diabetes mellitus complication status: with kidney complications Diabetes mellitus complication detail: with chronic kidney disease Chronic kidney disease stage : stage 2 (mild) Qualified Code(s): E11.22 - Type 2 diabetes mellitus with diabetic chronic kidney disease; N18.2 - Chronic kidney disease, stage 2 (mild) ; N18.2 - Chronic kidney disease, stage 2 (mild) Is this a current diagnosis for this admission?: Yes Plan: Continue current management. (3) Acute kidney injury Is this a current diagnosis for this admission?: Yes Plan: continue current management with normal saline infusion at 75 ml/hr. - Time Time Spent with patient: 25-34 minutes Medications reviewed and adjusted accordingly: Yes Anticipated discharge: SNF Within: Other - Inpatient Certification Based on my medical assessment, after consideration of the patient's comorbidities, presenting symptoms, or acuity I expect that the services needed warrant INPATIENT care.: Yes I certify that my determination is in accordance with my understanding of Medicare's requirements for reasonable and necessary INPATIENT services [42 CFR 412.3e].: Yes Medical Necessity: Need Close Monitoring Due to Risk of Patient Decompensation, Need For IV Fluids, Need For Continuous Telemetry Monitoring, Need for IV Antibiotics, Risk of Complication if Not Cared For in Hospital Post Hospital Care: D/C or Transfer Summary - Plan Summary Plan Summary: See covering attending physician orders.
[2018-01-01] MEDS: GUAIFENESIN SYRP 200 MG/10 ML UDC PEG SCH ×2 (14:17→21:21)
[2018-01-01] MEDS ORDERED: LIDOCAINE 0.5% INJ-PF (5 MG/ML) 50 ML SDV ONE (15:34)
[2018-01-01] MEDS: FOLIC ACID 1 MG TABLET PEG SCH (18:11)
--- NOTE | 2018-01-01 19:07 | PDOC CONSULTATION ---
Consultation Consult Date: 01/01/18 Consult reason:: need IV access History of Present Illness Admission Date/PCP: 12/29/17 17:21 RAJEEV BAILEY MD History of Present Illness: 82 y/o female in need of IV acess for medications and fluid administration Past Medical History Cardiac Medical History: Reports: Atrial Fibrillation, Congestive Heart Failure , Coronary Artery Disease, Myocardial Infarction, Hyperlipidema, Hypertension Pulmonary Medical History: Reports: Asthma, Bronchitis, Chronic Obstructive Pulmonary Disease (COPD), Pneumonia - X6 Denies: Tuberculosis Neurological Medical History: Reports: Seizures Endocrine Medical History: Reports: Diabetes Mellitus Type 2, Hypothyroidism GI Medical History: Reports: Gastroesophageal Reflux Disease Musculoskeltal Medical History: Reports: Arthritis Psychiatric Medical History: Reports: Dementia, Depression Hematology: Reports: Anemia Past Surgical History Past Surgical History: Reports: Appendectomy, Cardiac Catheterization Denies: Hysterectomy Social History Smoking Status: Never Smoker Frequency of Alcohol Use: None Hx Recreational Drug Use: No Drugs: None Hx Prescription Drug Abuse: No - Advance Directive Resuscitation Status: Full Code Family History Family History: None, Reviewed & Not Pertinent, Hypertension Parental Family History Reviewed: No Children Family History Reviewed: No Sibling(s) Family History Reviewed.: No Medication/Allergy Home Medications: Acetaminophen [Tylenol 325 mg Tablet] 650 mg PEG Q6HP PRN 12/29/17 Aspirin [Aspirin 81 mg Chewable Tablet] 81 mg PEG DAILY 12/29/17 Citalopram Hydrobromide [Celexa 20 mg Tablet] 20 mg PEG DAILY 12/29/17 Clonidine HCl [Catapres 0.2 mg Tablet] 0.2 mg PEG Q12 12/29/17 Diltiazem HCl [Cardizem 60 mg Tablet] 60 mg PEG Q6 12/29/17 Ferrous Sulfate [Ferrous Sulfate Liquid 300 mg/5 ml Udcup] 300 mg PEG BID Folic Acid [Folvite 1 mg Tablet] 1 mg PEG QPM 12/29/17 Hydralazine HCl [Apresoline 25 mg Tablet] 75 mg PEG Q12 12/29/17 Lansoprazole [Prevacid] 30 mg PEG Q6AM 12/29/17 Levetiracetam [Keppra 500 mg Tablet] 500 mg PEG Q12 12/29/17 Valproic Acid (As Sodium Salt) [Valproic Acid] 20 ml PEG Q8 12/29/17 Allergies/Adverse Reactions: Penicillins Allergy (Verified 12/29/17 15:22) Sulfa (Sulfonamide Antibiotics) Allergy (Verified 12/29/17 15:22) Physical Exam Vital Signs: Temp Pulse Resp BP Pulse Ox 97.1 F 80 20 138/44 H 100 01/01/18 18:14 01/01/18 18:14 01/01/18 18:14 01/01/18 18:14 01/01/18 18:14 Intake & Output 12/31/17 01/01/18 01/02/18 06:59 06:59 06:59 Intake Total 3275 1920 140 Balance 3275 1920 140 Weight 62 kg 63.3 kg General appearance: PRESENT: no acute distress Mouth exam: PRESENT: moist Neck exam: PRESENT: full ROM Respiratory exam: PRESENT: clear to auscultation becca Cardiovascular exam: PRESENT: RRR GI/Abdominal exam: PRESENT: soft Results Laboratory Results: 01/01/18 06:07 01/01/18 06:07 01/01/18 01/01/18 06:07 06:07 WBC 6.0 RBC 2.69 L Hgb 8.5 L Hct 25.7 L MCV 95 MCH 31.6 MCHC 33.1 RDW 16.5 H Plt Count 311 Seg Neutrophils % Not Reportable Lymphocytes % Not Reportable Monocytes % Not Reportable Eosinophils % Not Reportable Basophils % Not Reportable Absolute Neutrophils Not Reportable Absolute Lymphocytes Not Reportable Absolute Monocytes Not Reportable Absolute Eosinophils Not Reportable Absolute Basophils Not Reportable Sodium 138.4 Potassium 4.0 Chloride 96 L Carbon Dioxide 35 H Anion Gap 7 BUN 32 H Creatinine 0.77 Est GFR ( Amer) > 60 Est GFR (Non-Af Amer) > 60 Glucose 137 H Calcium 8.1 L Impressions: Chest X-Ray 12/29/17 15:00 IMPRESSION: NO ACUTE RADIOGRAPHIC FINDING IN THE CHEST. Assessment & Plan - Plan Summary Plan Summary: A/ need IV access for medications and fluid P/ Placement of triple lumen catheter via left subclavian vein consent obtained from the
--- NOTE | 2018-01-01 19:09 | Operative Report ---
Nonrecallable Operative Report DATE OF SURGERY: 01/01/18 PREOPERATIVE DIAGNOSIS: need IV access for medications and fluids POSTOPERATIVE DIAGNOSIS: same OPERATION: left subclavian vein triple lumen catheter placement SURGEON: MIRIAM CRUZ ANESTHESIA: Local TISSUE REMOVED OR ALTERED: n/a COMPLICATIONS: none ESTIMATED BLOOD LOSS: negligible INTRAOPERATIVE FINDINGS: as above, one stick only
[2018-01-01] MEDS: LEVOFLOXACIN 500 MG/D5W RTU 500 MG/100 ML RTUPB IV SCH (19:50)
--- NOTE | 2018-01-01 19:52 | RADIOLOGY REPORT (SQ) ---
EXAM DESCRIPTION: CHEST SINGLE VIEW COMPLETED DATE/TIME: 01/01/2018 7:11 pm REASON FOR STUDY: central line placement COMPARISON: Chest film 12/29/2017 EXAM PARAMETERS: NUMBER OF VIEWS: One view. TECHNIQUE: Single frontal radiographic view of the chest acquired. RADIATION DOSE: NA LIMITATIONS: None. FINDINGS: LUNGS AND PLEURA: No opacities, masses or pneumothorax. No pleural effusion. MEDIASTINUM AND HILAR STRUCTURES: No masses. Contour normal. HEART AND VASCULAR STRUCTURES: Heart normal in size. Normal vasculature. BONES: No acute findings. HARDWARE: Left subclavian central line placement with the tip in the superior vena cava. No pneumoth orax. OTHER: No other significant finding. IMPRESSION: Left subclavian central line placement with the tip in the superior vena cava. No pneum othorax. TECHNICAL DOCUMENTATION: JOB ID: [id number] [employer]- All Rights Reserved Reading location - IP/workstation name: [email or web address]
[2018-01-01] MEDS ORDERED: LEVOFLOXACIN 500 MG/D5W RTU 500 MG/100 ML RTUPB IV ONE (20:00)
--- NOTE | 2018-01-01 21:24 | OPERATIVE REPORT E ---
Operative Report NAME: ANG CHRISTY : 1935 AGE: 82Y DATE OF SURGERY: 01/01/2018 ROOM: 329 PREOPERATIVE DIAGNOSIS: Needs intravenous access for administration of fluids and medication. POSTOPERATIVE DIAGNOSIS: Needs intravenous access for administration of fluids and medication. PROCEDURE: Placement of left subclavian vein triple-lumen catheter. SURGEON: MIRIAM CRUZ M.D. DIRECTOR SUPPLIER QUALITY: None. BLEEDING: Negligible. COMPLICATIONS: None. ANESTHESIA: Local, about 10 mL of half-percent Marcaine with epinephrine. INDICATION AND FINDINGS: This is an 82-year-old female admitted to the hospital and needs IV access for the administration of medication and fluids. DESCRIPTION OF PROCEDURE: This was done at the bedside. The patient was placed in supine Trendelenburg position. A towel was placed in between the shoulder blades to access the chest. The left upper chest and left subclavian area was prepped in the usual fashion. the mid lower area of the clavicle was infiltrated with Marcaine. A 16-gauge needle was then used to easily cannulate the subclavian vein on the left. A guidewwire inserted into the needle, the needle was removed, and a triple-lumen catheter was then inserted over the guidewire into the subclavian vein and superior vena cava. The guidewire was removed. Each port of the triple-lumen catheter was then aspirated with normal saline and then flushed without difficulty. The catheter was then secured to the skin with sutures and sterile dressings. The patient tolerated the procedure well. A chest x-ray was obtained postoperative, which indicated good position of the catheter and pneumothorax. DICTATING PHYSICIAN: MIRIAM CRUZ M.D. [id number] PHY#: [id number] ID: [id number] JOB#: [id number] ACCT: [id number] cc:MIRIAM CRUZ M.D. > MTDD
[2018-01-02] MEDS: GUAIFENESIN SYRP 200 MG/10 ML UDC PEG SCH ×4 (02:04→18:49)
[2018-01-02] MEDS: DILTIAZEM HCL 60 MG TABLET PEG SCH ×4 (02:04→18:49)
[2018-01-02] MEDS: ACETAMINOPHEN SOLN 325 MG/10.15 ML UDCUP PEG PRN (04:39)
[2018-01-02] MEDS: CLINDAMYCIN 600 MG/D5W RTU 600 MG/50 ML RTUPB IV SCH ×3 (06:11→21:05)
[2018-01-02] MEDS: VALPROATE SODIUM SYRUP 250 MG/5 ML UDCUP PEG SCH ×3 (06:12→21:05)
[2018-01-02 06:28] LABS: ANION GAP 6 (5-19); BLOOD UREA NITROGEN 40 mg/dL (7-20); CALCIUM 8.1 mg/dL (8.4-10.2); CARBON DIOXIDE 37 mmol/L (22-30); CHLORIDE 96 mmol/L (98-107); GLUCOSE 71 mg/dL (75-110); SODIUM 138.5 mmol/L (137-145)
[2018-01-02] MEDS: IPRATROPIUM/ALBUTEROL 0.5-2.5 MG/3 ML AMPUL NEB SCH ×3 (08:57→20:21)
[2018-01-02] MEDS: HYDRALAZINE HCL 25 MG TABLET PEG SCH ×2 (09:55→21:05)
[2018-01-02] MEDS: ASPIRIN 81 MG TABLET, CHEWABLE PEG SCH (09:56)
[2018-01-02] MEDS: OXYCODONE-ACETAMINOPHEN 5-325 MG TABLET PO PRN (09:56)
[2018-01-02] MEDS: LANSOPRAZOLE 30 MG TAB.RAP.DR PEG SCH (09:56)
[2018-01-02] MEDS: CLONIDINE HCL 0.2 MG TABLET PEG SCH ×3 (09:56→21:05)
[2018-01-02] MEDS: CITALOPRAM HYDROBROMIDE 20 MG TABLET PEG SCH (09:56)
[2018-01-02] MEDS: LEVETIRACETAM ORAL SOLN 500 MG/5 ML UDCUP PEG SCH ×2 (09:57→21:05)
[2018-01-02] MEDS: LEVOFLOXACIN 500 MG/D5W RTU 500 MG/100 ML RTUPB IV SCH (09:57)
[2018-01-02] MEDS: ENOXAPARIN SODIUM INJ 40 MG/0.4 ML DISP.SYRIN SUBCUT SCH (09:57)
--- NOTE | 2018-01-02 15:06 | PDOC PROGRESS REPORT ---
Subjective Progress Note for:: 01/02/18 Subjective:: Patient is currently off enteral tube feeding due to increase coughing and expectoration looking like her feeding material. No fever or chills. No chest pain or difficulty with breathing. Reason For Visit: PNEUMONIA Physical Exam Vital Signs: Temp Pulse Resp BP Pulse Ox 97.9 F 90 16 113/83 91 L 01/02/18 12:00 01/02/18 14:00 01/02/18 12:00 01/02/18 12:00 01/02/18 12:00 Intake & Output 01/01/18 01/02/18 01/03/18 06:59 06:59 06:59 Intake Total 1920 770 Balance 1920 770 Weight 63.3 kg 62.3 kg General appearance: PRESENT: no acute distress Head exam: PRESENT: atraumatic, normocephalic Eye exam: PRESENT: conjunctiva pink, EOMI, PERRLA. ABSENT: scleral icterus Mouth exam: PRESENT: moist Respiratory exam: PRESENT: clear to auscultation becca, crackles - scattered, decreased breath sounds - lower zones Cardiovascular exam: PRESENT: RRR. ABSENT: diastolic murmur, rubs, systolic murmur Vascular exam: PRESENT: normal capillary refill. ABSENT: pallor GI/Abdominal exam: PRESENT: normal bowel sounds, soft. ABSENT: distended, guarding, mass, organolmegaly, rebound, tenderness Extremities exam: ABSENT: pedal edema Neurological exam: PRESENT: alert, awake - difficult to understand her speech Skin exam: PRESENT: dry, intact, warm. ABSENT: cyanosis, rash Results Laboratory Results: 01/01/18 06:07 01/02/18 05:00 01/02/18 05:00 Sodium 138.5 Potassium 4.0 Chloride 96 L Carbon Dioxide 37 H Anion Gap 6 BUN 40 H Creatinine 0.70 Est GFR ( Amer) > 60 Est GFR (Non-Af Amer) > 60 Glucose 71 L Calcium 8.1 L Impressions: Chest X-Ray 01/01/18 00:00 IMPRESSION: Left subclavian central line placement with the tip in the superior vena cava. No pneumothorax. Assessment & Plan - Diagnosis (1) Pneumonia Qualifiers: Pneumonia type: due to unspecified organism Laterality: unspecified laterality Lung location: unspecified part of lung Qualified Code(s): J18.9 - Pneumonia, unspecified organism Is this a current diagnosis for this admission?: Yes (2) Type 2 diabetes mellitus Qualifiers: Diabetes mellitus custodial insulin use: without coil assembler use Diabetes mellitus complication status: with kidney complications Diabetes mellitus complication detail: with chronic kidney disease Chronic kidney disease stage : stage 2 (mild) Qualified Code(s): E11.22 - Type 2 diabetes mellitus with diabetic chronic kidney disease; N18.2 - Chronic kidney disease, stage 2 (mild) ; N18.2 - Chronic kidney disease, stage 2 (mild) Is this a current diagnosis for this admission?: Yes (3) Acute kidney injury Is this a current diagnosis for this admission?: Yes - Time Time Spent with patient: 25-34 minutes Medications reviewed and adjusted accordingly: Yes Anticipated discharge: SNF Within: Other - Inpatient Certification Based on my medical assessment, after consideration of the patient's comorbidities, presenting symptoms, or acuity I expect that the services needed warrant INPATIENT care.: Yes I certify that my determination is in accordance with my understanding of Medicare's requirements for reasonable and necessary INPATIENT services [42 CFR 412.3e].: Yes Medical Necessity: Need Close Monitoring Due to Risk of Patient Decompensation, Need For IV Fluids, Need For Continuous Telemetry Monitoring, Need for IV Antibiotics, Risk of Complication if Not Cared For in Hospital Post Hospital Care: D/C or Transfer Summary - Plan Summary Plan Summary: See covering attending physician orders.
[2018-01-02] MEDS: FOLIC ACID 1 MG TABLET PEG SCH (18:49)
[2018-01-02] MEDS: FERROUS SULFATE LIQUID 300 MG/5 ML UDC PEG SCH (18:49)
[2018-01-02] MEDS: DEXTROSE 5%-NORMAL SALINE 1,000 ML IV PRN (20:10)
[2018-01-03] MEDS: OXYCODONE-ACETAMINOPHEN 5-325 MG TABLET PO PRN ×2 (00:15→17:30)
[2018-01-03] MEDS: GUAIFENESIN SYRP 200 MG/10 ML UDC PEG SCH ×4 (00:15→18:24)
[2018-01-03] MEDS: DILTIAZEM HCL 60 MG TABLET PEG SCH ×5 (00:15→23:55)
[2018-01-03] MEDS: VALPROATE SODIUM SYRUP 250 MG/5 ML UDCUP PEG SCH ×3 (06:02→21:35)
[2018-01-03] MEDS: CLINDAMYCIN 600 MG/D5W RTU 600 MG/50 ML RTUPB IV SCH ×3 (06:02→21:35)
[2018-01-03] MEDS: IPRATROPIUM/ALBUTEROL 0.5-2.5 MG/3 ML AMPUL NEB PRN (06:16)
[2018-01-03] MEDS: IPRATROPIUM/ALBUTEROL 0.5-2.5 MG/3 ML AMPUL NEB SCH ×3 (08:34→20:13)
[2018-01-03] MEDS: ENOXAPARIN SODIUM INJ 40 MG/0.4 ML DISP.SYRIN SUBCUT SCH (09:54)
[2018-01-03] MEDS: LANSOPRAZOLE 30 MG TAB.RAP.DR PEG SCH (09:55)
[2018-01-03] MEDS: FERROUS SULFATE LIQUID 300 MG/5 ML UDC PEG SCH ×2 (09:55→17:16)
[2018-01-03] MEDS: CITALOPRAM HYDROBROMIDE 20 MG TABLET PEG SCH (09:55)
[2018-01-03] MEDS: ASPIRIN 81 MG TABLET, CHEWABLE PEG SCH (09:55)
[2018-01-03] MEDS: HYDRALAZINE HCL 25 MG TABLET PEG SCH ×2 (09:56→21:35)
[2018-01-03] MEDS: CLONIDINE HCL 0.2 MG TABLET PEG SCH ×2 (09:56→21:35)
[2018-01-03] MEDS: LEVETIRACETAM ORAL SOLN 500 MG/5 ML UDCUP PEG SCH ×2 (09:57→21:35)
[2018-01-03] MEDS: LEVOFLOXACIN 500 MG/D5W RTU 500 MG/100 ML RTUPB IV SCH (09:57)
[2018-01-03] MEDS: DEXTROSE 5%-NORMAL SALINE 1,000 ML IV PRN (11:15)
--- NOTE | 2018-01-03 11:22 | RADIOLOGY REPORT (SQ) ---
EXAM DESCRIPTION: CHEST SINGLE VIEW COMPLETED DATE/TIME: 01/03/2018 10:10 am REASON FOR STUDY: pnemonia COMPARISON: 01/01/2018 EXAM PARAMETERS: NUMBER OF VIEWS: One view. TECHNIQUE: Single frontal radiographic view of the chest acquired. RADIATION DOSE: NA LIMITATIONS: None. FINDINGS: LUNGS AND PLEURA: No opacities, masses or pneumothorax. No pleural effusion. MEDIASTINUM AND HILAR STRUCTURES: No masses. Contour normal. HEART AND VASCULAR STRUCTURES: Heart normal in size. Normal vasculature. BONES: No acute findings. HARDWARE: Central line is unchanged in position. OTHER: Elevation of the left hemidiaphragm is seen. IMPRESSION: No significant interval change. No acute changes. Other findings as noted above TECHNICAL DOCUMENTATION: JOB ID: [id number] [employer]- All Rights Reserved Reading location - IP/workstation name: [email or web address]
[2018-01-03] MEDS: HYDRALAZINE HCL INJ/PF 20 MG/1 ML SDV IV PRN ×2 (12:19→17:16)
--- NOTE | 2018-01-03 13:42 | PDOC PROGRESS REPORT ---
Subjective Progress Note for:: 01/03/18 Subjective:: Patient is currently doing same Patient's feeding was hold due to the possible aspirations Patient still have a lot of secretions from the mouth Still no change Reason For Visit: PNEUMONIA Physical Exam Vital Signs: Temp Pulse Resp BP Pulse Ox 99.1 F 104 H 24 H 188/63 H 96 01/03/18 11:46 01/03/18 11:46 01/03/18 11:46 01/03/18 11:46 01/03/18 11:46 Intake & Output 01/02/18 01/03/18 01/04/18 06:59 06:59 06:59 Intake Total 770 1610 Balance 770 1610 Weight 62.3 kg 64.2 kg General appearance: PRESENT: no acute distress Eye exam: PRESENT: PERRLA Mouth exam: PRESENT: neck supple Respiratory exam: PRESENT: decreased breath sounds Cardiovascular exam: PRESENT: +S1, +S2 GI/Abdominal exam: PRESENT: normal bowel sounds, soft Neurological exam: PRESENT: altered Skin exam: PRESENT: dry Results Laboratory Results: 01/01/18 06:07 01/02/18 05:00 01/03/18 05:30 Sputum Gram Stain - Final 01/03/18 05:30 Sputum Sputum Culture - Final Impressions: Chest X-Ray 01/03/18 00:00 IMPRESSION: No significant interval change. No acute changes. Other findings as noted above Assessment & Plan - Diagnosis (1) Fever Qualifiers: Fever type: unspecified Qualified Code(s): R50.9 - Fever, unspecified Is this a current diagnosis for this admission?: Yes Plan: Currently all resolved most likely from the pneumonia (2) Encephalopathy Plan: due to uncontol htn (3) Pneumonia Qualifiers: Pneumonia type: due to unspecified organism Laterality: unspecified laterality Lung location: unspecified part of lung Qualified Code(s): J18.9 - Pneumonia, unspecified organism Is this a current diagnosis for this admission?: Yes Plan: see order (4) Sepsis Qualifiers: Sepsis type: sepsis due to unspecified organism Qualified Code(s): A41.9 - Sepsis, unspecified organism Plan: stable (5) Anemia Qualifiers: Anemia type: unspecified type Qualified Code(s): D64.9 - Anemia, unspecified Is this a current diagnosis for this admission?: Yes Plan: stable (6) CVA (cerebral vascular accident) Qualifiers: CVA mechanism: unspecified Qualified Code(s): I63.9 - Cerebral infarction, unspecified Is this a current diagnosis for this admission?: Yes Plan: stable (7) Coronary artery disease Qualifiers: Coronary Disease-Associated Artery/Lesion type: [place] artery [place] vs. transplanted heart: [place] heart Associated angina: angina presence unspecified Qualified Code(s): I25.10 - Atherosclerotic heart disease of [place] coronary artery without angina pectoris Is this a current diagnosis for this admission?: Yes (8) Dementia Qualifiers: Dementia type: vascular dementia Dementia behavioral disturbance: without behavioral disturbance Qualified Code(s): F01.50 - Vascular dementia without behavioral disturbance Is this a current diagnosis for this admission?: Yes (9) Seizure Is this a current diagnosis for this admission?: Yes Plan: Continues current medications (10) Type 2 diabetes mellitus Qualifiers: Diabetes mellitus intermediate insulin use: without intermediate use Diabetes mellitus complication status: with kidney complications Diabetes mellitus complication detail: with chronic kidney disease Chronic kidney disease stage : stage 2 (mild) Qualified Code(s): E11.22 - Type 2 diabetes mellitus with diabetic chronic kidney disease; N18.2 - Chronic kidney disease, stage 2 (mild) ; N18.2 - Chronic kidney disease, stage 2 (mild) Is this a current diagnosis for this admission?: Yes (11) Uncontrolled hypertension Is this a current diagnosis for this admission?: Yes - Time Time Spent with patient: 15-24 minutes Medications reviewed and adjusted accordingly: Yes Anticipated discharge: SNF Within: Other - Inpatient Certification Medical Necessity: Need Close Monitoring Due to Risk of Patient Decompensation, Need for IV Antibiotics - Plan Summary Plan Summary: Discussed with the and the bedside about patient's conditions within not a very good prognosis well patient still have a aspirations with the tube feeding will restart the with the low-dose tube feeding
[2018-01-03] MEDS ORDERED: SCOPOLAMINE HYDROBROMIDE 1.5 MG PATCH.TD72 TD ONE (14:00)
[2018-01-03] MEDS: FOLIC ACID 1 MG TABLET PEG SCH (17:16)
[2018-01-04] MEDS: GUAIFENESIN SYRP 200 MG/10 ML UDC PEG SCH ×4 (01:44→20:13)
[2018-01-04] MEDS: HYDRALAZINE HCL INJ/PF 20 MG/1 ML SDV IV PRN ×2 (03:30→17:44)
[2018-01-04] MEDS: DILTIAZEM HCL 60 MG TABLET PEG SCH ×3 (05:57→17:43)
[2018-01-04] MEDS: CLINDAMYCIN 600 MG/D5W RTU 600 MG/50 ML RTUPB IV SCH ×3 (05:57→22:04)
[2018-01-04] MEDS: VALPROATE SODIUM SYRUP 250 MG/5 ML UDCUP PEG SCH ×3 (05:57→22:05)
[2018-01-04] MEDS: LANSOPRAZOLE 30 MG TAB.RAP.DR PEG SCH (05:57)
[2018-01-04] MEDS: IPRATROPIUM/ALBUTEROL 0.5-2.5 MG/3 ML AMPUL NEB SCH ×3 (08:34→20:20)
[2018-01-04] MEDS: ASPIRIN 81 MG TABLET, CHEWABLE PEG SCH (10:13)
[2018-01-04] MEDS: HYDRALAZINE HCL 25 MG TABLET PEG SCH ×2 (10:13→22:04)
[2018-01-04] MEDS: CITALOPRAM HYDROBROMIDE 20 MG TABLET PEG SCH (10:13)
[2018-01-04] MEDS: CLONIDINE HCL 0.2 MG TABLET PEG SCH ×2 (10:15→22:04)
[2018-01-04] MEDS: ENOXAPARIN SODIUM INJ 40 MG/0.4 ML DISP.SYRIN SUBCUT SCH (10:15)
--- NOTE | 2018-01-04 10:21 | PDOC PROGRESS REPORT ---
Subjective Progress Note for:: 01/04/18 Subjective:: Patient is currently doing fair up to use the scopolamine patch patient's decrease in is also reduce No fever no other events happens Restart the tube feeding tolerating the well Reason For Visit: PNEUMONIA Physical Exam Vital Signs: Temp Pulse Resp BP Pulse Ox 99.2 F 96 18 167/41 H 97 01/04/18 07:09 01/04/18 08:36 01/04/18 08:36 01/04/18 07:09 01/04/18 08:36 Intake & Output 01/03/18 01/04/18 01/05/18 06:59 06:59 06:59 Intake Total 1610 1116 275 Balance 1610 1116 275 Weight 64.2 kg 62 kg General appearance: PRESENT: no acute distress Eye exam: PRESENT: PERRLA Mouth exam: PRESENT: neck supple Respiratory exam: PRESENT: clear to auscultation becca Cardiovascular exam: PRESENT: +S1, +S2 GI/Abdominal exam: PRESENT: normal bowel sounds, soft Extremities exam: ABSENT: pedal edema Neurological exam: PRESENT: altered Results Laboratory Results: 01/01/18 06:07 01/02/18 05:00 12/29/17 18:00 Blood Blood Culture - Final NO GROWTH IN 5 DAYS 01/03/18 05:30 Sputum Gram Stain - Final 01/03/18 05:30 Sputum Sputum Culture - Final Impressions: Chest X-Ray 01/03/18 00:00 IMPRESSION: No significant interval change. No acute changes. Other findings as noted above Assessment & Plan - Diagnosis (1) Fever Qualifiers: Fever type: unspecified Qualified Code(s): R50.9 - Fever, unspecified Is this a current diagnosis for this admission?: Yes Plan: Currently all Resolved (2) Encephalopathy Plan: due to uncontol htn (3) Pneumonia Qualifiers: Pneumonia type: due to unspecified organism Laterality: unspecified laterality Lung location: unspecified part of lung Qualified Code(s): J18.9 - Pneumonia, unspecified organism Is this a current diagnosis for this admission?: Yes Plan: see md order (4) Sepsis Qualifiers: Sepsis type: sepsis due to unspecified organism Qualified Code(s): A41.9 - Sepsis, unspecified organism Plan: stable (5) Anemia Qualifiers: Anemia type: unspecified type Qualified Code(s): D64.9 - Anemia, unspecified Is this a current diagnosis for this admission?: Yes Plan: stable (6) CVA (cerebral vascular accident) Qualifiers: CVA mechanism: unspecified Qualified Code(s): I63.9 - Cerebral infarction, unspecified Is this a current diagnosis for this admission?: Yes Plan: stable (7) Coronary artery disease Qualifiers: Coronary Disease-Associated Artery/Lesion type: [place] artery [place] vs. transplanted heart: [place] heart Associated angina: angina presence unspecified Qualified Code(s): I25.10 - Atherosclerotic heart disease of [place] coronary artery without angina pectoris Is this a current diagnosis for this admission?: Yes Plan: stable (8) Dementia Qualifiers: Dementia type: vascular dementia Dementia behavioral disturbance: without behavioral disturbance Qualified Code(s): F01.50 - Vascular dementia without behavioral disturbance Is this a current diagnosis for this admission?: Yes (9) Seizure Is this a current diagnosis for this admission?: Yes Plan: Continues current medications (10) Type 2 diabetes mellitus Qualifiers: Diabetes mellitus mcc insulin use: without mcc use Diabetes mellitus complication status: with kidney complications Diabetes mellitus complication detail: with chronic kidney disease Chronic kidney disease stage : stage 2 (mild) Qualified Code(s): E11.22 - Type 2 diabetes mellitus with diabetic chronic kidney disease; N18.2 - Chronic kidney disease, stage 2 (mild) ; N18.2 - Chronic kidney disease, stage 2 (mild) Is this a current diagnosis for this admission?: Yes (11) Uncontrolled hypertension Is this a current diagnosis for this admission?: Yes - Time Time Spent with patient: 15-24 minutes Medications reviewed and adjusted accordingly: Yes Anticipated discharge: SNF Within: Other - Inpatient Certification Medical Necessity: Need Close Monitoring Due to Risk of Patient Decompensation, Need for IV Antibiotics Post Hospital Care: D/C Marketing Operations Associate Documentation - Plan Summary Plan Summary: Continues IV antibiotics will repeat the blood work in the morning
[2018-01-04] MEDS: FERROUS SULFATE LIQUID 300 MG/5 ML UDC PEG SCH ×2 (10:23→17:43)
[2018-01-04] MEDS: LEVETIRACETAM ORAL SOLN 500 MG/5 ML UDCUP PEG SCH ×2 (10:24→22:05)
[2018-01-04] MEDS: LEVOFLOXACIN 500 MG/D5W RTU 500 MG/100 ML RTUPB IV SCH (10:28)
[2018-01-04] MEDS: OXYCODONE-ACETAMINOPHEN 5-325 MG TABLET PO PRN (14:25)
--- NOTE | 2018-01-04 15:26 | RADIOLOGY REPORT (SQ) ---
EXAM DESCRIPTION: CHEST SINGLE VIEW COMPLETED DATE/TIME: 01/04/2018 2:49 pm REASON FOR STUDY: possible aspiration COMPARISON: CT angio chest 06/19/2017 AP chest 01/01/2018, 01/03/2018 EXAM PARAMETERS: NUMBER OF VIEWS: One view. TECHNIQUE: Single frontal radiographic view of the chest acquired. RADIATION DOSE: NA LIMITATIONS: None. FINDINGS: LUNGS AND PLEURA: Stable chronic elevation left hemidiaphragm. No opacities, masses or pn eumothorax. No pleural effusion. MEDIASTINUM AND HILAR STRUCTURES: No masses. Contour normal. HEART AND VASCULAR STRUCTURES: Heart normal in size. Normal vasculature. BONES: No acute findings. HARDWARE: Left-sided triple-lumen catheter tip superior vena cava. OTHER: No other significant finding. IMPRESSION: Stable chronic elevation left hemidiaphragm TECHNICAL DOCUMENTATION: JOB ID: [id number]- All Rights Reserved Reading location - IP/workstation name: [email or web address]
--- NOTE | 2018-01-04 15:49 | EKG REPORT ---
SEVERITY:- ABNORMAL ECG - ATRIAL FIBRILLATION, A-RATE 283 REPOL ABNRM SUGGESTS ISCHEMIA, DIFFUSE LEADS : Confirmed by: Martin Pereira 04-Jan-2018 15:49:35
[2018-01-04] MEDS: FOLIC ACID 1 MG TABLET PEG SCH (17:43)
[2018-01-05] MEDS: GUAIFENESIN SYRP 200 MG/10 ML UDC PEG SCH ×4 (00:26→19:42)
[2018-01-05] MEDS: DILTIAZEM HCL 60 MG TABLET PEG SCH ×4 (00:26→18:16)
[2018-01-05 05:01] LABS: HEMATOCRIT 26.2 % (36.0-47.0); HEMOGLOBIN 8.6 g/dL (12.0-15.5); MEAN CORPUSCULAR HGB CONC 32.7 g/dL (32.0-36.0); MEAN CORPUSCULAR VOLUME 95 fl (80-97); RED BLOOD COUNT 2.76 10^6/uL (3.72-5.28); WHITE BLOOD COUNT 22.1 10^3/uL (4.0-10.5)
[2018-01-05 05:09] LABS: ANION GAP 10 (5-19); BLOOD UREA NITROGEN 24 mg/dL (7-20); CALCIUM 8.7 mg/dL (8.4-10.2); CARBON DIOXIDE 39 mmol/L (22-30); CHLORIDE 94 mmol/L (98-107); GLUCOSE 116 mg/dL (75-110); SODIUM 142.6 mmol/L (137-145)
[2018-01-05 05:14] LABS: POTASSIUM 2.4 mmol/L (3.6-5.0)
[2018-01-05 05:22] LABS: ABSOLUTE LYMPHOCYTES# (MANUAL) 0.9 10^3/uL (0.5-4.7); ABSOLUTE MONOCYTES # (MANUAL) 0.4 10^3/uL (0.1-1.4); ABSOLUTE NEUTROPHILS# (MANUAL) 20.8 10^3/uL (1.7-8.2); BASOPHILS % (MANUAL) 0 % (0-2); EOSINOPHILS % (MANUAL) 0 % (0-6); LYMPHOCYTES % (MANUAL) 4 % (13-45); METAMYELOCYTES % (MANUAL) 1 % (0); MONOCYTES % (MANUAL) 2 % (3-13); SEGMENTED NEUTROPHILS % (MAN) 93 % (42-78); TOTAL CELLS COUNTED 100
[2018-01-05 05:25] LABS: ANISOCYTOSIS 1+; OVALOCYTES SLIGHT; PLATELET CLUMPS PRESENT; PLATELET COMMENT ADEQUATE; POIKILOCYTOSIS SLIGHT; STOMATOCYTES 1+
[2018-01-05 05:26] LABS: PLATELET COUNT 262 10^3/uL (150-450)
[2018-01-05] MEDS: VALPROATE SODIUM SYRUP 250 MG/5 ML UDCUP PEG SCH ×3 (05:36→21:25)
[2018-01-05] MEDS: CLINDAMYCIN 600 MG/D5W RTU 600 MG/50 ML RTUPB IV SCH (05:36)
[2018-01-05] MEDS: LANSOPRAZOLE 30 MG TAB.RAP.DR PEG SCH (05:36)
[2018-01-05] MEDS: POTASSIUM CHLORIDE 20 MEQ/50 ML RTU IV SCH ×2 (06:46→08:52)
[2018-01-05] MEDS: IPRATROPIUM/ALBUTEROL 0.5-2.5 MG/3 ML AMPUL NEB SCH ×3 (08:26→20:34)
--- NOTE | 2018-01-05 08:47 | PDOC PROGRESS REPORT ---
Subjective Progress Note for:: 01/05/18 Subjective:: Patient is currently doing same Patient white count is high and patient's potassium is low Since tube feeding will still hold yesterday due to the possible aspirations Reason For Visit: PNEUMONIA Physical Exam Vital Signs: Temp Pulse Resp BP Pulse Ox 97.6 F 110 H 22 H 149/83 H 94 01/05/18 07:21 01/05/18 08:30 01/05/18 08:30 01/05/18 07:21 01/05/18 08:30 Intake & Output 01/04/18 01/05/18 01/06/18 06:59 06:59 06:59 Intake Total 1116 659 Balance 1116 659 Weight 62 kg 64.3 kg General appearance: PRESENT: no acute distress Eye exam: PRESENT: PERRLA Mouth exam: PRESENT: neck supple Respiratory exam: PRESENT: clear to auscultation becca Cardiovascular exam: PRESENT: +S1, +S2 GI/Abdominal exam: PRESENT: normal bowel sounds, soft Extremities exam: ABSENT: pedal edema Neurological exam: PRESENT: alert, altered Psychiatric exam: PRESENT: anxious Skin exam: PRESENT: dry Results Laboratory Results: 01/05/18 04:50 01/05/18 04:50 01/05/18 01/05/18 04:50 04:50 WBC 22.1 H RBC 2.76 L Hgb 8.6 L Hct 26.2 L MCV 95 MCH 31.0 MCHC 32.7 RDW 16.0 H Plt Count 262 Seg Neutrophils % Not Reportable Lymphocytes % Not Reportable Monocytes % Not Reportable Eosinophils % Not Reportable Basophils % Not Reportable Absolute Neutrophils Not Reportable Absolute Lymphocytes Not Reportable Absolute Monocytes Not Reportable Absolute Eosinophils Not Reportable Absolute Basophils Not Reportable Sodium 142.6 Potassium 2.4 L* Chloride 94 L Carbon Dioxide 39 H Anion Gap 10 BUN 24 H Creatinine 0.73 Est GFR ( Amer) > 60 Est GFR (Non-Af Amer) > 60 Glucose 116 H Calcium 8.7 Impressions: Chest X-Ray 01/04/18 00:00 IMPRESSION: Stable chronic elevation left hemidiaphragm Assessment & Plan - Diagnosis (1) Fever Qualifiers: Fever type: unspecified Qualified Code(s): R50.9 - Fever, unspecified Is this a current diagnosis for this admission?: Yes Plan: Most likely coming from the pneumonia (2) Encephalopathy Plan: due to uncontol htn (3) Pneumonia Qualifiers: Pneumonia type: due to unspecified organism Laterality: unspecified laterality Lung location: unspecified part of lung Qualified Code(s): J18.9 - Pneumonia, unspecified organism Is this a current diagnosis for this admission?: Yes Plan: Will continues to Levaquin repeat the chest x-ray at the [facility] (4) Sepsis Qualifiers: Sepsis type: sepsis due to unspecified organism Qualified Code(s): A41.9 - Sepsis, unspecified organism Plan: stable (5) Anemia Qualifiers: Anemia type: unspecified type Qualified Code(s): D64.9 - Anemia, unspecified Is this a current diagnosis for this admission?: Yes Plan: stable (6) CVA (cerebral vascular accident) Qualifiers: CVA mechanism: unspecified Qualified Code(s): I63.9 - Cerebral infarction, unspecified Is this a current diagnosis for this admission?: Yes Plan: stable (7) Coronary artery disease Qualifiers: Coronary Disease-Associated Artery/Lesion type: [place] artery [place] vs. transplanted heart: [place] heart Associated angina: angina presence unspecified Qualified Code(s): I25.10 - Atherosclerotic heart disease of [place] coronary artery without angina pectoris Is this a current diagnosis for this admission?: Yes Plan: stable (8) Dementia Qualifiers: Dementia type: vascular dementia Dementia behavioral disturbance: without behavioral disturbance Qualified Code(s): F01.50 - Vascular dementia without behavioral disturbance Is this a current diagnosis for this admission?: Yes Plan: Worsening the dementia (9) Seizure Is this a current diagnosis for this admission?: Yes Plan: Continues current medications (10) Type 2 diabetes mellitus Qualifiers: Diabetes mellitus intermediate insulin use: without termite exterminator helper use Diabetes mellitus complication status: with kidney complications Diabetes mellitus complication detail: with chronic kidney disease Chronic kidney disease stage : stage 2 (mild) Qualified Code(s): E11.22 - Type 2 diabetes mellitus with diabetic chronic kidney disease; N18.2 - Chronic kidney disease, stage 2 (mild) ; N18.2 - Chronic kidney disease, stage 2 (mild) Is this a current diagnosis for this admission?: Yes Plan: Stable (11) Uncontrolled hypertension Is this a current diagnosis for this admission?: Yes Plan: Continues to current medication (12) Leukocytosis Qualifiers: Leukocytosis type: unspecified Qualified Code(s): D72.829 - Elevated white blood cell count, unspecified Is this a current diagnosis for this admission?: Yes Plan: Will check the C. difficile and also add the Flagyl most likely from the aspirations continues to antibiotic - Time Time Spent with patient: 15-24 minutes Medications reviewed and adjusted accordingly: Yes Anticipated discharge: Other Within: Other - Inpatient Certification Medical Necessity: Need Close Monitoring Due to Risk of Patient Decompensation Post Hospital Care: D/C Quality Control Scientist Documentation - Plan Summary Plan Summary: I think patient is really very challenge him in the PEG tube patient aspirate patient's overall mental status is not going to be change due to the worsening dementia with multiple strokes and I think at this time's patients probably appropriate for the hospice and comfort care discussed with the hospital yesterday will talk again today
[2018-01-05] MEDS: ENOXAPARIN SODIUM INJ 40 MG/0.4 ML DISP.SYRIN SUBCUT SCH (09:00)
[2018-01-05] MEDS ORDERED: POTASSIUM CHLORIDE 20 MEQ/15 ML UDCUP PO ONE (09:00)
[2018-01-05] MEDS: CITALOPRAM HYDROBROMIDE 20 MG TABLET PEG SCH (09:00)
[2018-01-05] MEDS: ASPIRIN 81 MG TABLET, CHEWABLE PEG SCH (09:00)
[2018-01-05] MEDS: CLONIDINE HCL 0.2 MG TABLET PEG SCH ×2 (09:01→21:25)
[2018-01-05] MEDS: HYDRALAZINE HCL 25 MG TABLET PEG SCH ×2 (09:01→21:25)
[2018-01-05] MEDS: FERROUS SULFATE LIQUID 300 MG/5 ML UDC PEG SCH ×2 (09:02→18:20)
[2018-01-05] MEDS: LEVOFLOXACIN 500 MG/D5W RTU 500 MG/100 ML RTUPB IV SCH (09:02)
[2018-01-05] MEDS: LEVETIRACETAM ORAL SOLN 500 MG/5 ML UDCUP PEG SCH ×2 (09:02→21:25)
--- NOTE | 2018-01-05 09:55 | RADIOLOGY REPORT (SQ) ---
EXAM DESCRIPTION: CHEST SINGLE VIEW COMPLETED DATE/TIME: 01/05/2018 8:59 am REASON FOR STUDY: pnemonia COMPARISON: CTA chest 06/19/2017 Chest films 10/28/2017, 01/01/2018, 12/25/2017, 01/04/2018 EXAM PARAMETERS: NUMBER OF VIEWS: One view. TECHNIQUE: Single frontal radiographic view of the chest acquired. RADIATION DOSE: NA LIMITATIONS: None. FINDINGS: LUNGS AND PLEURA: There is now patchy ground-glass opacity over the right lower lobe, asym metric edema versus pneumonia. Chronic elevation left hemidiaphragm without acute left lung infiltrate No pleural effusions. No pneumothorax. MEDIASTINUM AND HILAR STRUCTURES: No masses. Contour normal. HEART AND VASCULAR STRUCTURES: Heart normal in size. Normal vasculature. BONES: No acute findings. HARDWARE: Left-sided triple-lumen catheter tip in the superior vena cava IMPRESSION: Asymmetric hazy ground-glass opacity throughout the right mid and lower lung worrisome f or asymmetric edema versus pneumonia. This is new compared to previous studies TECHNICAL DOCUMENTATION: JOB ID: [id number] [email or web address]- All Rights Reserved Reading location - IP/workstation name: [email or web address]
[2018-01-05] MEDS: METRONIDAZOLE 500 MG/NS RTU 100 ML IV SCH ×2 (11:14→18:20)
[2018-01-05] MEDS: FOLIC ACID 1 MG TABLET PEG SCH (18:18)
[2018-01-05] MEDS: HYDRALAZINE HCL INJ/PF 20 MG/1 ML SDV IV PRN (18:18)
[2018-01-05] MEDS: INSULIN LISPRO 100 UNIT/ML 3 ML VIAL SUBCUT PRN (19:42)
[2018-01-05] MEDS: CEFEPIME 1 GM/D5W RTU 1 GM/50 ML RTUPB IV SCH (19:43)
[2018-01-05] MEDS: OXYCODONE-ACETAMINOPHEN 5-325 MG TABLET PO PRN (21:25)
[2018-01-06] MEDS: GUAIFENESIN SYRP 200 MG/10 ML UDC PEG SCH ×4 (01:00→19:01)
[2018-01-06] MEDS: DILTIAZEM HCL 60 MG TABLET PEG SCH ×4 (01:00→17:53)
[2018-01-06] MEDS: METRONIDAZOLE 500 MG/NS RTU 100 ML IV SCH ×4 (01:00→17:54)
[2018-01-06] MEDS: VALPROATE SODIUM SYRUP 250 MG/5 ML UDCUP PEG SCH ×2 (05:09→14:23)
[2018-01-06] MEDS: CEFEPIME 1 GM/D5W RTU 1 GM/50 ML RTUPB IV SCH ×2 (05:09→17:53)
[2018-01-06] MEDS: LANSOPRAZOLE 30 MG TAB.RAP.DR PEG SCH (05:09)
[2018-01-06] MEDS: INSULIN LISPRO 100 UNIT/ML 3 ML VIAL SUBCUT PRN (06:46)
[2018-01-06] MEDS: IPRATROPIUM/ALBUTEROL 0.5-2.5 MG/3 ML AMPUL NEB SCH ×2 (08:37→13:39)
[2018-01-06] MEDS: FERROUS SULFATE LIQUID 300 MG/5 ML UDC PEG SCH ×2 (09:27→17:53)
[2018-01-06] MEDS: ASPIRIN 81 MG TABLET, CHEWABLE PEG SCH (09:27)
[2018-01-06] MEDS: ENOXAPARIN SODIUM INJ 40 MG/0.4 ML DISP.SYRIN SUBCUT SCH (09:27)
[2018-01-06] MEDS: CITALOPRAM HYDROBROMIDE 20 MG TABLET PEG SCH (09:27)
[2018-01-06] MEDS: CLONIDINE HCL 0.2 MG TABLET PEG SCH (09:27)
[2018-01-06] MEDS: HYDRALAZINE HCL 25 MG TABLET PEG SCH (09:27)
[2018-01-06] MEDS: LEVETIRACETAM ORAL SOLN 500 MG/5 ML UDCUP PEG SCH (09:28)
[2018-01-06] MEDS ORDERED: POTASSIUM CHLORIDE 20 MEQ/15 ML UDCUP PEG ONE (10:00)
[2018-01-06] MEDS ORDERED: SCOPOLAMINE HYDROBROMIDE 1.5 MG PATCH.TD72 TD SCH (10:00)
--- NOTE | 2018-01-06 12:40 | PDOC TRANSFER SUMMARY ---
General - Admit/Disc Date/PCP Admission Date/Primary Care Provider: 12/29/17 17:21 RAJEEV BAILEY MD Discharge Date: 01/06/18 - Discharge Diagnosis (1) Fever Is this a current diagnosis for this admission?: Yes Summary: Currently all resolved (2) Encephalopathy Is this a current diagnosis for this admission?: Yes Summary: Due to the multiple stroke and uncontrolled hypertension in the past (3) Pneumonia Is this a current diagnosis for this admission?: Yes Summary: Recurrent aspirations (4) Sepsis Is this a current diagnosis for this admission?: Yes Summary: Continues current med (5) Anemia Is this a current diagnosis for this admission?: Yes Summary: Stable (6) CVA (cerebral vascular accident) Is this a current diagnosis for this admission?: Yes (7) Coronary artery disease Is this a current diagnosis for this admission?: Yes (8) Dementia Is this a current diagnosis for this admission?: Yes Summary: Most likely vascular dementia's was currently worsening (9) Seizure Is this a current diagnosis for this admission?: Yes Summary: current med (10) Type 2 diabetes mellitus Is this a current diagnosis for this admission?: Yes Summary: Continues current med (11) Uncontrolled hypertension Is this a current diagnosis for this admission?: Yes Summary: stable (12) Leukocytosis Is this a current diagnosis for this admission?: Yes - Additional Information Resuscitation Status: Full Code Discharge Diet: Tube Feeding (Comments) Prescriptions: Doxycycline Monohydrate 100 mg PO BID #14 tablet Metronidazole [Flagyl 500 mg Tablet] 500 mg PO TID #21 tablet Oxycodone HCl/Acetaminophen [Percocet 5-325 mg Tablet] 1 tab PO Q6HP PRN #30 tablet PRN Reason: Scopolamine Hydrobromide [Transderm-Scop 1.5 mg Patch] 1 each TD Q3DAYS #10 patch.[id number] Home Medications: Acetaminophen [Tylenol 325 mg Tablet] 650 mg PEG Q6HP PRN 12/29/17 Aspirin [Aspirin 81 mg Chewable Tablet] 81 mg PEG DAILY 12/29/17 Citalopram Hydrobromide [Celexa 20 mg Tablet] 20 mg PEG DAILY 12/29/17 Clonidine HCl [Catapres 0.2 mg Tablet] 0.2 mg PEG Q12 12/29/17 Diltiazem HCl [Cardizem 60 mg Tablet] 60 mg PEG Q6 12/29/17 Ferrous Sulfate [Ferrous Sulfate Liquid 300 mg/5 ml Udcup] 300 mg PEG BID Folic Acid [Folvite 1 mg Tablet] 1 mg PEG QPM 12/29/17 Hydralazine HCl [Apresoline 25 mg Tablet] 75 mg PEG Q12 12/29/17 Lansoprazole [Prevacid] 30 mg PEG Q6AM 12/29/17 Levetiracetam [Keppra 500 mg Tablet] 500 mg PEG Q12 12/29/17 Valproic Acid (As Sodium Salt) [Valproic Acid] 20 ml PEG Q8 12/29/17 Doxycycline Monohydrate 100 mg PO BID #14 tablet 01/06/18 Metronidazole [Flagyl 500 mg Tablet] 500 mg PO TID #21 tablet 01/06/18 Oxycodone HCl/Acetaminophen [Percocet 5-325 mg Tablet] 1 tab PO Q6HP PRN #30 tablet 01/06/18 Scopolamine Hydrobromide [Transderm-Scop 1.5 mg Patch] 1 each TD Q3DAYS #10 patch.td72 01/06/18 History of Present Illness Admission Date/PCP: 12/29/17 17:21 RAJEEV BAILEY MD History of Present Illness: 82 y/o female in need of IV acess for medications and fluid administration Hospital Course Hospital Course: This is a 82-year-old females with recently have a stroke in the [facility] status post PEG tube placements pretty much told the that nothing else can offer with the underlying dementia is worsening with the multiple other comorbidity came to the emergency departments with a complaint of fever and chills and patient was diagnosed with aspiration pneumonia patient was started with IV antibiotic use and improvingAnd patient also have a same problem again aspirated At this point patient's even the PEG tube was currently hold and is still not solve the problems with the worsening the dementia and worsening the patient's current conditions and a pretty much at this point patient prognosis is very poor and very extensive discussions with the patient regarding the patient's current conditions and pretty much at this point putting the patient comfort and hospice care and discussed with the patient all options and has been understand very well and agree with going for the hospice and comfort care and patient's discharge back to the rehab for just a comfort care and hospice care Patient's life expectancy is less than 6 month due to failure to thrive with the worsening dementia and history of the multiple strokesAnd multiple other comorbidity Patient is currently a DNR DNI and at this point I think patient is not a candidate for further any interventions procedures which included remove the PEG tube and do the j tube And discussed with the about all the options and pretty much patient was put more comfort care Physical Exam Vital Signs: Temp Pulse Resp BP Pulse Ox 98.0 F 115 H 22 H 186/67 H 82 L 01/06/18 07:37 01/06/18 08:37 01/06/18 08:37 01/06/18 07:37 01/06/18 08:37 Intake & Output 01/05/18 01/06/18 01/07/18 06:59 06:59 06:59 Intake Total 659 945 Output Total 1 Balance 659 944 Weight 64.3 kg 63.2 kg General appearance: PRESENT: no acute distress Eye exam: PRESENT: PERRLA Respiratory exam: PRESENT: clear to auscultation becca Cardiovascular exam: PRESENT: +S1, +S2 GI/Abdominal exam: PRESENT: normal bowel sounds, soft Extremities exam: ABSENT: tenderness Neurological exam: PRESENT: alert, altered Psychiatric exam: PRESENT: anxious Skin exam: PRESENT: dry Results Laboratory Results: 01/05/18 04:50 01/06/18 08:45 01/06/18 08:45 Potassium 2.3 L* Impressions: Chest X-Ray 01/05/18 00:00 IMPRESSION: Asymmetric hazy ground-glass opacity throughout the right mid and lower lung worrisome for asymmetric edema versus pneumonia. This is new compared to previous studies Transfer Plan - Time Spent with Patient Time spent with patient: Greater than 30 Minutes Qualifiers - * PATEINT BEING DISCHARGED WITH ANY OF THE FOLLOWING DIAGNOSIS?: No Plan Time Spent: Greater than 30 Minutes - At this stage pretty much patient is comfort care hospice care just use the as needed pain medications and as needed other medications and continues to tube feeding as tolerated
[2018-01-06 16:07] VITALS: BP 142/53
[2018-01-06] MEDS: FOLIC ACID 1 MG TABLET PEG SCH (17:53)
== END 2018-01-06 19:44 | DRG 871 ==
LOC: ER 14:53 → EH 17:21 → 3S 18:46
PROVIDERS: ADMIT Family Medicine; ATTEND Surgery
PROC: 02HV33Z Insertion of Infusion Device into Superior Vena Cava, Percutaneous Approach (ICD-10-PCS; principal; 2018-01-01)
DX: A41.9 Sepsis, unspecified organism (principal); J18.9 Pneumonia, unspecified organism; N17.9 Acute kidney failure, unspecified; I13.0 Hypertensive heart and chronic kidney disease with heart failure and stage 1 through stage 4 chronic kidney disease, or unspecified chronic kidney disease; E11.22 Type 2 diabetes mellitus with diabetic chronic kidney disease; I48.91 Unspecified atrial fibrillation; I50.9 Heart failure, unspecified; N18.2 Chronic kidney disease, stage 2 (mild); D64.9 Anemia, unspecified; K11.21 Acute sialoadenitis; I25.10 Atherosclerotic heart disease of native coronary artery without angina pectoris; E78.00 Pure hypercholesterolemia, unspecified; K21.9 Gastro-esophageal reflux disease without esophagitis; E03.9 Hypothyroidism, unspecified; G40.909 Epilepsy, unspecified, not intractable, without status epilepticus; F03.90 Unspecified dementia, unspecified severity, without behavioral disturbance, psychotic disturbance, mood disturbance, and anxiety; I25.2 Old myocardial infarction; Z79.82 Long term (current) use of aspirin; Z79.899 Other long term (current) drug therapy; Z86.73 Personal history of transient ischemic attack (TIA), and cerebral infarction without residual deficits
CPT/HCPCS: 36415; 71045; 80048; 80053; 81001; 82803; 82962; 83605; 84132; 85025; 85610; 87040; 87070; 87086; 87205; 93005; 93010; 96365; 96367; 99291; J0360; J0692; J1642; J1650; J1815; J1956; J3480; J3490; J7030; J7620

== ENCOUNTER 2018-01-10 02:09 | Inpatient (IN) | payer MEDICARE, MEDICAID ==
[2018-01-10] MEDS ORDERED: IPRATROPIUM/ALBUTEROL 0.5-2.5 MG/3 ML AMPUL NEB ONE (02:19)
--- NOTE | 2018-01-10 02:20 | ER Document Report ---
ED General - General Stated Complaint: BREATHING DIFFICULTY Time Seen by Provider: 01/10/18 02:19 Notes: Patient is a 82-year-old female presents with complaint of difficulty breathing. She has apparently had worsening progressive difficulty breathing at the [facility] throughout the day. Oxygen saturations were in the 70s with the patient on nasal cannula when paramedics arrived. They give her breathing treatments. With breathing treatments her oxygenation came up to the 90s while on the breathing treatment. She is a DNR DNI. Her is at bedside does confirm that they do not hurt her intubated or placed on a ventilator but they do still want other treatment up until that point. Patient was recently discharged from the hospital due to pneumonia. She has a history of a stroke and is nonverbal because of the history of stroke. TRAVEL OUTSIDE OF THE [place] IN LAST 30 DAYS: No - Related Data Allergies/Adverse Reactions: Penicillins Allergy (Verified 12/29/17 15:22) Sulfa (Sulfonamide Antibiotics) Allergy (Verified 12/29/17 15:22) Past Medical History - Social History Smoking Status: Unknown if Ever Smoked Frequency of alcohol use: None Drug Abuse: None Family History: None, Reviewed & Not Pertinent, Hypertension - Past Medical History Cardiac Medical History: Reports: Hx Atrial Fibrillation, Hx Congestive Heart Failure, Hx Coronary Artery Disease, Hx Heart Attack, Hx Hypercholesterolemia, Hx Hypertension Pulmonary Medical History: Reports: Hx Asthma, Hx Bronchitis, Hx COPD, Hx Pneumonia - X6 Denies: Hx Tuberculosis Neurological Medical History: Reports: Hx Cerebrovascular Accident, Hx Seizures Endocrine Medical History: Reports: Hx Diabetes Mellitus Type 2, Hx Hypothyroidism Renal/ Medical History: Denies: Hx Peritoneal Dialysis GI Medical History: Reports: Hx Gastroesophageal Reflux Disease, Hx Ulcer Musculoskeltal Medical History: Reports Hx Arthritis Psychiatric Medical History: Reports: Hx Dementia, Hx Depression Past Surgical History: Reports: Hx Appendectomy, Hx Bowel Surgery, Hx Cardiac Catheterization. Denies: Hx Hysterectomy - Immunizations Immunizations up to date: Yes Hx Diphtheria, Pertussis, Tetanus Vaccination: Yes Hx Pneumococcal Vaccination: 10/18/08 Review of Systems - Review of Systems -: Yes ROS unobtainable due to patient's medical condition - Patient is nonverbal making for full review of systems unable to obtain Physical Exam - Vital signs Vitals: Pulse Ox 79 L 01/10/18 02:13 - Notes Notes: General Appearance: Well nourished, alert, cooperative, moderate acute distress , no obvious discomfort. Vitals: reviewed, See vital signs table. Head: no swelling or tenderness to the head Eyes: PERRL, EOMI, Conjuctiva clear Mouth: No decreasd moisture Throat: No tonsillar inflammation Lungs: No wheezing, No rales, use rhonci, No accessory muscle use, failure air exchange bilaterally. Heart: Tachycardic rate, Regular rythm, No murmur, no rub Abdomen: Normal BS, soft, No rigidity, No abdominal tenderness, No guarding, no rebound, no abdominal masses, no organomegaly Extremities: strength 5/5 in all extremities, good pulses in all extremities, no swelling or tenderness in the extremities, no edema. Skin: warm, dry, appropriate color, no rash Neuro: Nonverbal, awake and alert. Does not follow commands. Course - Re-evaluation Re-evalutation: 01/10/18 03:01 Patient has poor peripheral IV access therefore nursing understandably had a hard time getting peripheral IV placement. I looked under ultrasound was able to place a 20-gauge IV in the right antecubital. Dark nonpulsatile blood was withdrawn. IV flushes well. Patient tolerated procedure without difficulty. 01/10/18 03:37 EKG is reviewed and interpreted by me. EKG shows sinus tachycardia with a rate of [address] segment elevation. Patient does have some ST segment depression in the inferior leads as well as lead V3 and V4. Patient has had similar ST segment depressions on her previous EKG from January 04, 2018. MD interval, QRS duration, QTc intervals are within normal range. 01/10/18 03:45 Patient did continue to have some desaturations down to 89% despite Ventimask. We therefore switched to BiPAP. She is actually doing much better on the BiPAP with a oxygen saturation of 96% with an FiO2 of only 40%. 01/10/18 04:19 Patient is a DNR/DNI. I did discuss this again with the . He initially thought that this meant that we can still do CPR the patient. I informed him that the DNR means no CPR. He initially said that he actually wanted CPR however I told him that if he does not want her on a ventilator than we cannot really do CPR either. He is now understanding of this and does not want her to have CPR if it meant that she would have the placed on the ventilator. Dr. Chin is an impression the patient is comfort care however the patient has been still wants medicated treatment such as a BiPAP and oxygen and thinks they go beyond comfort care but wants to stop if he came to loss of pulse or needing intubation. Therefore we will keep the patient is a DNR/DNI. I did speak with Dr. Chin who agrees with the patient. Have started antibiotics due to her continued pneumonia. Dictation of this chart was performed using voice recognition software; therefore, there may be some unintended grammatical errors. - Vital Signs Vital signs: Temp Pulse Resp BP Pulse Ox 100.7 F H 23 H 192/74 H 95 01/10/18 03:38 01/10/18 03:01 01/10/18 03:01 01/10/18 03:01 - Laboratory Result Diagrams: 01/10/18 03:05 01/10/18 03:05 Laboratory results interpreted by me: 01/10/18 01/10/18 01/10/18 03:05 03:05 03:05 WBC 19.1 H RBC 2.42 L Hgb 7.7 L Hct 23.6 L RDW 16.3 H Band Neutrophils % 14 H Abs Neuts (Manual) 13.8 H Abs Monocytes (Manual) 2.5 H VBG pCO2 75.2 H* VBG HCO3 41.9 H Sodium 146.9 H Potassium 2.5 L* Chloride 97 L Carbon Dioxide 41 H* BUN 67 H Est GFR ( Amer) 55 L Est GFR (Non-Af Amer) 46 L Glucose 131 H Direct Bilirubin 0.7 H AST 42 H Albumin 2.8 L Procedures - Additional Procedures IV placement Notes: 01/10/18 03:01 I looked under ultrasound was able to place a 20-gauge IV in the right antecubital. Dark nonpulsatile blood was withdrawn. IV flushes well. Patient tolerated procedure without difficulty. Discharge - Discharge Clinical Impression: Pneumonia Qualifiers: Pneumonia type: due to unspecified organism Laterality: unspecified laterality Lung location: unspecified part of lung Qualified Code(s): J18.9 - Pneumonia, unspecified organism Condition: Stable Disposition: ADMITTED INPATIENT Admitting Provider: [facility] Unit Admitted: Medical Floor
[2018-01-10 03:25] LABS: VENOUS BLOOD BASE EXCESS 13.4 mmol/L; VENOUS BLOOD HCO3 41.9 mmol/L (20-32); VENOUS BLOOD PH 7.36 (7.30-7.42)
--- NOTE | 2018-01-10 03:31 | RADIOLOGY REPORT (SQ) ---
EXAM DESCRIPTION: CHEST SINGLE VIEW CLINICAL HISTORY: hypoxemia COMPARISON: 01/05/2018 FINDINGS: Single frontal view of the chest. Interval removal of left-sided chest tube. Elevation the left hemidiaphragm. Heart is not enlarged. No pneumothorax or definite pleural effusion. Hazy right perihilar airspace opacity. Linear left basilar opacities suggesting subsegmental atelectasis. No acute osseous abnormalities. Upper abdominal soft tissues are unremarkable. IMPRESSION: 1. Interval increase in right perihilar airspace opacity which may represent developing pneumonia.
[2018-01-10 03:33] LABS: HEMATOCRIT 23.6 % (36.0-47.0); MEAN CORPUSCULAR HEMOGLOBIN 31.8 pg (27.0-33.4); MEAN CORPUSCULAR HGB CONC 32.7 g/dL (32.0-36.0); MEAN CORPUSCULAR VOLUME 97 fl (80-97); PLATELET COUNT 421 10^3/uL (150-450); RED BLOOD COUNT 2.42 10^6/uL (3.72-5.28); RED CELL DISTRIBUTION WIDTH 16.3 % (11.5-14.0); WHITE BLOOD COUNT 19.1 10^3/uL (4.0-10.5)
[2018-01-10 03:41] LABS: ALANINE AMINOTRANSFERASE 10 U/L (9-52); ALBUMIN 2.8 g/dL (3.5-5.0); ALKALINE PHOSPHATASE 87 U/L (38-126); ASPARTATE AMINO TRANSFERASE 42 U/L (14-36); BILIRUBIN,DIRECT 0.7 mg/dL (0.0-0.4); BILIRUBIN,TOTAL 0.7 mg/dL (0.2-1.3); BLOOD UREA NITROGEN 67 mg/dL (7-20); CALCIUM 8.5 mg/dL (8.4-10.2); CHLORIDE 97 mmol/L (98-107); GLUCOSE 131 mg/dL (75-110); SODIUM 146.9 mmol/L (137-145); TOTAL PROTEIN 7.3 g/dL (6.3-8.2)
[2018-01-10 03:49] LABS: HEMOGLOBIN 7.7 g/dL (12.0-15.5); VENOUS BLOOD PCO2 75.2 mmHg (35-63)
[2018-01-10] MEDS ORDERED: VANCOMYCIN HCL INJ 1000 MG VIAL IV ONE (03:49)
[2018-01-10] MEDS ORDERED: LEVOFLOXACIN 750 MG/D5W RTU 750 MG/150 ML RTUPB IV ONE (03:50)
[2018-01-10 03:51] LABS: ANION GAP 9 (5-19)
[2018-01-10 03:53] LABS: CARBON DIOXIDE 41 mmol/L (22-30); POTASSIUM 2.5 mmol/L (3.6-5.0)
[2018-01-10 04:02] LABS: ABSOLUTE LYMPHOCYTES# (MANUAL) 2.9 10^3/uL (0.5-4.7); ABSOLUTE MONOCYTES # (MANUAL) 2.5 10^3/uL (0.1-1.4); ABSOLUTE NEUTROPHILS# (MANUAL) 13.8 10^3/uL (1.7-8.2); BASOPHILS % (MANUAL) 0 % (0-2); EOSINOPHILS % (MANUAL) 0 % (0-6); LYMPHOCYTES % (MANUAL) 15 % (13-45); MONOCYTES % (MANUAL) 13 % (3-13); NUCLEATED RED BLOOD CELLS 1 /100 WBC (0); SEGMENTED NEUTROPHILS % (MAN) 58 % (42-78); TOTAL CELLS COUNTED 100
[2018-01-10 04:05] LABS: TOXIC GRANULATION SLIGHT; TOXIC VACUOLATION PRESENT
[2018-01-10 04:06] LABS: ANISOCYTOSIS 1+; PLATELET CLUMPS PRESENT; PLATELET COMMENT ADEQUATE; PLATELET GIANT PRESENT; PLATELET LARGE PRESENT; POIKILOCYTOSIS SLIGHT; SCHISTOCYTES 1+
[2018-01-10 04:07] LABS: BAND NEUTROPHILS % (MANUAL) 14 % (3-5)
[2018-01-10] MEDS: POTASSI CL 20 MEQ/50 ML RIDER 20 MEQ/50 ML RTUPB IV SCH ×2 (04:56→10:35)
[2018-01-10] MEDS ORDERED: ACETAMINOPHEN 325 MG TABLET PO PRN (07:03)
[2018-01-10] MEDS ORDERED: NORMAL SALINE 1000 ML 1,000 ML IV PRN (07:07)
--- NOTE | 2018-01-10 07:13 | EKG REPORT ---
SEVERITY:- ABNORMAL ECG - SINUS TACHYCARDIA WITH PACS REPOL ABNRM SUGGESTS ISCHEMIA, DIFFUSE LEADS : Confirmed by: Dexter Camarillo MD 10-Jan-2018 07:13:03
[2018-01-10] MEDS ORDERED: VANCOMYCIN HCL 0 MG in DEXTROSE 5%-WATER 250 ML IV NR (07:15)
[2018-01-10] MEDS: IPRATROPIUM/ALBUTEROL 0.5-2.5 MG/3 ML AMPUL NEB SCH ×4 (08:05→19:49)
[2018-01-10] MEDS ORDERED: HYDRALAZINE HCL INJ/PF 20 MG/1 ML SDV IV PRN (09:55)
[2018-01-10] MEDS ORDERED: SCOPOLAMINE HYDROBROMIDE 1.5 MG PATCH.TD72 TD SCH (10:00)
[2018-01-10] MEDS ORDERED: LEVETIRACETAM 500 MG TABLET PO SCH (10:00)
[2018-01-10] MEDS ORDERED: HYDRALAZINE HCL 25 MG TABLET PEG SCH (10:00)
[2018-01-10] MEDS ORDERED: POTASSIUM CHLORIDE 10 MEQ TABLET.SA PO SCH (10:00)
[2018-01-10] MEDS ORDERED: CLONIDINE HCL 0.2 MG TABLET PEG SCH (10:00)
[2018-01-10] MEDS ORDERED: DOXYCYCLINE HYCLATE 100 MG TABLET PO SCH (10:00)
[2018-01-10] MEDS ORDERED: ACETAMINOPHEN 325 MG TABLET PEG PRN (10:00)
[2018-01-10] MEDS ORDERED: FERROUS SULFATE LIQUID 300 MG/5 ML UDC PEG SCH (10:00)
[2018-01-10] MEDS ORDERED: (PENDING PHARMACY ID) (Doxycycline Monohydrate [Doxycycline Monohydrate] 100 MG) PO SCH (10:00)
[2018-01-10] MEDS ORDERED: GUAIFENESIN 600 MG TABLET.SA PO SCH (10:00)
[2018-01-10] MEDS ORDERED: METRONIDAZOLE 500 MG TABLET PO SCH ×2 (10:00→14:00)
[2018-01-10] MEDS ORDERED: ACETAMINOPHEN SOLN 325 MG/10.15 ML UDCUP PEG PRN (10:05)
[2018-01-10] MEDS: MORPHINE SULFATE 10 MG/ML INJ IV PRN ×2 (11:54→14:07)
[2018-01-10] MEDS ORDERED: DILTIAZEM HCL 60 MG TABLET PEG SCH (12:00)
--- NOTE | 2018-01-10 12:24 | PDOC H&P ---
History of Present Illness Admission Date/PCP: 01/10/18 04:23 RAJEEV BAILEY MD Patient complains of: Hypoxia History of Present Illness: ANG CHRISTY is a 82 year old female This is a 82-year-old female with the multiple medical problem including the worsening the dementia with the extensive stroke and multiple comorbidity basically patient was discharged comfort care to the [facility] and then the symptoms started because of the patient's oxygen was low when [facility] staff was told to make the patient's comfortable by the family also According to the hospital and he told the [facility] staff make her more comfortable but still the send the patient in the ER where patient was put on the BiPAP and here physicians call because they want to admit because a [facility]dc probably not comfortable to take as a comfort care When I saw the patient's patient was in respiratory distress and pretty much patients more worsening the conditions and discussed with the and the bedside and 's most of continues to be a comfort care rather than going for any aggressive medical management At this point decided to put the patient on the comfort care discussed myself and the nurses with the Past Medical History Cardiac Medical History: Reports: Atrial Fibrillation, Congestive Heart Failure , Coronary Artery Disease, Myocardial Infarction, Hyperlipidema, Hypertension Pulmonary Medical History: Reports: Asthma, Bronchitis, Chronic Obstructive Pulmonary Disease (COPD), Pneumonia - X6 Denies: Tuberculosis Neurological Medical History: Reports: Seizures Endocrine Medical History: Reports: Diabetes Mellitus Type 2, Hypothyroidism GI Medical History: Reports: Gastroesophageal Reflux Disease Musculoskeltal Medical History: Reports: Arthritis Psychiatric Medical History: Reports: Dementia, Depression Hematology: Reports: Anemia Past Surgical History Past Surgical History: Reports: Appendectomy, Cardiac Catheterization Denies: Hysterectomy Social History Smoking Status: Former Smoker Frequency of Alcohol Use: None Hx Recreational Drug Use: No Drugs: None Hx Prescription Drug Abuse: No - Advance Directive Resuscitation Status: Do Not Resuscitate Family History Family History: None, Reviewed & Not Pertinent, Hypertension Parental Family History Reviewed: Yes Children Family History Reviewed: Yes Sibling(s) Family History Reviewed.: Yes Medication/Allergy Home Medications: Acetaminophen [Tylenol 325 mg Tablet] 650 mg PEG Q6HP PRN 12/29/17 Aspirin [Aspirin 81 mg Chewable Tablet] 81 mg PEG DAILY 12/29/17 Citalopram Hydrobromide [Celexa 20 mg Tablet] 20 mg PEG DAILY 12/29/17 Clonidine HCl [Catapres 0.2 mg Tablet] 0.2 mg PEG Q12 12/29/17 Diltiazem HCl [Cardizem 60 mg Tablet] 60 mg PEG Q6 12/29/17 Ferrous Sulfate [Ferrous Sulfate Liquid 300 mg/5 ml Udcup] 300 mg PEG BID Folic Acid [Folvite 1 mg Tablet] 1 mg PEG QPM 12/29/17 Hydralazine HCl [Apresoline 25 mg Tablet] 75 mg PEG Q12 12/29/17 Lansoprazole [Prevacid] 30 mg PEG Q6AM 12/29/17 Levetiracetam [Keppra 500 mg Tablet] 500 mg PEG Q12 12/29/17 Valproic Acid (As Sodium Salt) [Valproic Acid] 20 ml PEG Q8 12/29/17 Doxycycline Monohydrate 100 mg PO BID #14 tablet 01/06/18 Metronidazole [Flagyl 500 mg Tablet] 500 mg PO TID #21 tablet 01/06/18 Oxycodone HCl/Acetaminophen [Percocet 5-325 mg Tablet] 1 tab PO Q6HP PRN #30 tablet 01/06/18 Scopolamine Hydrobromide [Transderm-Scop 1.5 mg Patch] 1 each TD Q3DAYS #10 patch.td72 01/06/18 Allergies/Adverse Reactions: Penicillins Allergy (Verified 12/29/17 15:22) Sulfa (Sulfonamide Antibiotics) Allergy (Verified 12/29/17 15:22) Review of Systems ROS unobtainable: Due to mental status All systems: reviewed and no additional remarkable complaints except as stated Physical Exam Vital Signs: Temp Pulse Resp BP Pulse Ox 100.7 F H 118 H 32 H 177/81 H 100 01/10/18 03:38 01/10/18 11:43 01/10/18 11:45 01/10/18 06:01 01/10/18 11:43 Pulse Oximeter Continuous Start: 01/10/18 07: 04 Freq: RTQ4 Status: Active Document 01/10/18 11:43 (Rec: 01/10/18 11:44 [email or web address]) Pulse Oximetry Assessment Oxygen Saturation (92-100) 100 Oxygen Delivery Method Bi-pap Fraction of Inspired Oxygen (FIO2) 40 Equipment Usage Equipment in Use Continuous SpO2 Machine # 3 Intake & Output 01/09/18 01/10/18 01/11/18 06:59 06:59 06:59 Weight 67.3 kg General appearance: PRESENT: mild distress Eye exam: PRESENT: PERRLA Respiratory exam: PRESENT: decreased breath sounds Cardiovascular exam: PRESENT: +S2 GI/Abdominal exam: PRESENT: normal bowel sounds, soft Extremities exam: ABSENT: pedal edema Neurological exam: PRESENT: altered Skin exam: PRESENT: dry Results Impressions: Chest X-Ray 01/10/18 02:19 IMPRESSION: 1. Interval increase in right perihilar airspace opacity which may represent developing pneumonia. Assessment & Plan - Diagnosis (1) Recurrent pneumonia Is this a current diagnosis for this admission?: Yes (2) Cerebrovascular disease Is this a current diagnosis for this admission?: Yes (3) Coronary artery disease Qualifiers: Is this a current diagnosis for this admission?: Yes (4) Dementia Qualifiers: Qualified Code(s): F01.51 - Vascular dementia with behavioral disturbance Is this a current diagnosis for this admission?: Yes (5) Encephalopathy Is this a current diagnosis for this admission?: Yes (6) Hypotension Is this a current diagnosis for this admission?: No (7) Seizure Is this a current diagnosis for this admission?: Yes (8) Type 2 diabetes mellitus Qualifiers: Diabetes mellitus complication status: with unspecified complications Is this a current diagnosis for this admission?: Yes (9) Uncontrolled hypertension Is this a current diagnosis for this admission?: Yes - Time Time Spent: 30 to 50 Minutes Medications reviewed and adjusted accordingly: Yes Anticipated discharge: Hospice, Other Within: Other - Inpatient Certification Medical Necessity: Need Close Monitoring Due to Risk of Patient Decompensation 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
[2018-01-10] MEDS ORDERED: VALPROIC ACID PEG SCH (14:00)
[2018-01-10] MEDS ORDERED: VALPROATE SODIUM SYRUP 250 MG/5 ML UDCUP PEG SCH (14:00)
[2018-01-10] MEDS: LORAZEPAM INJ 2 MG/1 ML VIAL IV PRN (15:00)
[2018-01-10] MEDS ORDERED: FOLIC ACID 1 MG TABLET PEG SCH (18:00)
[2018-01-11] MEDS: LORAZEPAM INJ 2 MG/1 ML VIAL IV PRN (02:05)
[2018-01-11] MEDS ORDERED: LEVOFLOXACIN 500 MG/D5W RTU 500 MG/100 ML RTUPB IV SCH (06:00)
[2018-01-11] MEDS ORDERED: LANSOPRAZOLE 30 MG TAB.RAP.DR PEG SCH (06:00)
[2018-01-11] MEDS ORDERED: (PENDING PHARMACY ID) (Lansoprazole [Prevacid] 30 MG) PEG SCH (06:00)
[2018-01-11] MEDS: IPRATROPIUM/ALBUTEROL 0.5-2.5 MG/3 ML AMPUL NEB SCH ×2 (08:16→12:40)
--- NOTE | 2018-01-11 12:50 | PDOC TRANSFER SUMMARY ---
General - Admit/Disc Date/PCP Admission Date/Primary Care Provider: 01/10/18 04:23 RAJEEV BAILEY MD Discharge Date: 01/11/18 - Discharge Diagnosis (1) Recurrent pneumonia Is this a current diagnosis for this admission?: Yes Summary: stable (2) Cerebrovascular disease Is this a current diagnosis for this admission?: Yes Summary: Patient of a multiple stroke and recently admitting the [facility] and then patients worsening and currently pretty much hospice situations (3) Coronary artery disease Is this a current diagnosis for this admission?: Yes Summary: Stable (4) Dementia Is this a current diagnosis for this admission?: Yes Summary: Status post multiple stroke worsening the dementia (5) Encephalopathy Is this a current diagnosis for this admission?: Yes Summary: Due to the vascular dementia and uncontrolled hypertension (6) Hypotension Is this a current diagnosis for this admission?: No (7) Seizure Is this a current diagnosis for this admission?: Yes Summary: Currently on Keppra (8) Type 2 diabetes mellitus Is this a current diagnosis for this admission?: Yes Summary: Currently continues current medication (9) Uncontrolled hypertension Is this a current diagnosis for this admission?: Yes Summary: Continues to current med (10) Adult failure to thrive Is this a current diagnosis for this admission?: Yes Summary: Due to the recent stroke even patients with the peg tube aspirate In patients developed a multiple aspirations pneumonia and also patient have a lot of secretions which also contributed the patient's more aspirations with the worsening the conditions with overall multiple comorbidity - Additional Information Resuscitation Status: Do Not Resuscitate Discharge Activity: Activity As Tolerated Prescriptions: Ipratropium/Albuterol Sulfate [Duoneb 3 ml Ampul] 3 ml NEB [id number] #120 vial.neb Lorazepam [Ativan Inj 2 mg/1 ml Vial] 1 mg IV Q2HP PRN #1 vial PRN Reason: Morphine Sulfate [Morphine 10 mg/ml Inj] 1 mg IV Q2HP PRN #1 vial PRN Reason: Home Medications: Acetaminophen [Tylenol 325 mg Tablet] 650 mg PEG Q6HP PRN 12/29/17 Aspirin [Aspirin 81 mg Chewable Tablet] 81 mg PEG DAILY 12/29/17 Citalopram Hydrobromide [Celexa 20 mg Tablet] 20 mg PEG DAILY 12/29/17 Clonidine HCl [Catapres 0.2 mg Tablet] 0.2 mg PEG Q12 12/29/17 Diltiazem HCl [Cardizem 60 mg Tablet] 60 mg PEG Q6 12/29/17 Ferrous Sulfate [Ferrous Sulfate Liquid 300 mg/5 ml Udcup] 300 mg PEG BID Folic Acid [Folvite 1 mg Tablet] 1 mg PEG QPM 12/29/17 Hydralazine HCl [Apresoline 25 mg Tablet] 75 mg PEG Q12 12/29/17 Lansoprazole [Prevacid] 30 mg PEG Q6AM 12/29/17 Levetiracetam [Keppra 500 mg Tablet] 500 mg PEG Q12 12/29/17 Valproic Acid (As Sodium Salt) [Valproic Acid] 20 ml PEG Q8 12/29/17 Metronidazole [Flagyl 500 mg Tablet] 500 mg PO TID #21 tablet 01/06/18 Oxycodone HCl/Acetaminophen [Percocet 5-325 mg Tablet] 1 tab PO Q6HP PRN #30 tablet 01/06/18 Scopolamine Hydrobromide [Transderm-Scop 1.5 mg Patch] 1 each TD Q3DAYS #10 patch.td72 01/06/18 Ipratropium/Albuterol Sulfate [Duoneb 3 ml Ampul] [address] [facility] [id number] #120 vial.neb 01/11/18 Lorazepam [Ativan Inj 2 mg/1 ml Vial] 1 mg IV Q2HP PRN #1 vial 01/11/18 Morphine Sulfate [Morphine 10 mg/ml Inj] 1 mg IV Q2HP PRN #1 vial 01/11/18 History of Present Illness Admission Date/PCP: 01/10/18 04:23 RAJEEV BAILEY MD History of Present Illness: ANG CHRISTY is a 82 year old female This is a 82-year-old female with the multiple medical problem including the worsening the dementia with the extensive stroke and multiple comorbidity basically patient was discharged comfort care to the senior care and then the symptoms started because of the patient's oxygen was low when senior care staff was told to make the patient's comfortable by the family also According to the hospital and he told the senior care staff make her more comfortable but still the send the patient in the ER where patient was put on the BiPAP and here physicians call because they want to admit because a senior care probably not comfortable to take as a comfort care When I saw the patient's patient was in respiratory distress and pretty much patients more worsening the conditions and discussed with the and the bedside and 's most of continues to be a comfort care rather than going for any aggressive medical management At this point decided to put the patient on the comfort care discussed myself and the nurses with the Hospital Course Hospital Course: This is a 82-year-old female with the multiple medical comorbidity as above including the multiple stroke with the recent week stroke at the [facility] was discharge in the senior care with the PEG tube and patient still aspirated on and off and patients worsening the dementia and worsening the multiple other comorbidityAnd a several hospital admissions and patient is not getting better and patient's failure to thrive with the patient's with the multiple comorbidity life expectancy is less than 6 month and a discussed with the were extensively and the patient's expressed to the before with the DNR and DNI and wants to make her more comfortable rather than going for any aggressive medical management Patient's currently readmitting in the hospital from the senior care because of senior care unable to take care in the hospital itself is not going to take care as a hospice at home and at this point patient was discharged to inpatient hospice due to the worsening the dementia and encephalopathy and vascular stroke and failure to thrive with recurrent aspirations and patient's life expectancy is less than 6 month Again discussed with the patient and the family very extensively several times and the family understand very well about the inpatient hospice and patient's discharge today when the bed available Physical Exam Vital Signs: Temp Pulse Resp BP Pulse Ox 98.9 F 99 20 161/63 H 97 01/11/18 07:38 01/11/18 08:16 01/11/18 08:16 01/11/18 07:38 01/11/18 12:00 Pulse Oximeter Continuous Start: 01/10/18 07: 04 Freq: RTQ4 Status: Active Document 01/11/18 12:00 [facility] (Rec: 01/11/18 12:39 [facility] [email or web address]) Pulse Oximetry Assessment Oxygen Saturation (92-100) 97 Oxygen Delivery Method Nasal Cannula Equipment Usage Equipment in Use Continuous SpO2 Machine # N-[id number] Intake & Output 01/10/18 01/11/18 01/12/18 06:59 06:59 06:59 Intake Total 840 420 Output Total 575 Balance 265 420 Weight 67.3 kg 65.7 kg General appearance: PRESENT: mild distress Eye exam: PRESENT: PERRLA Mouth exam: PRESENT: neck supple Respiratory exam: PRESENT: decreased breath sounds Cardiovascular exam: PRESENT: +S1, +S2 GI/Abdominal exam: PRESENT: normal bowel sounds, soft Neurological exam: PRESENT: altered Results Impressions: Chest X-Ray 01/10/18 02:19 IMPRESSION: 1. Interval increase in right perihilar airspace opacity which may represent developing pneumonia. Transfer Plan - Time Spent with Patient Time spent with patient: Greater than 30 Minutes Qualifiers - * PATEINT BEING DISCHARGED WITH ANY OF THE FOLLOWING DIAGNOSIS?: No VTE patient discharged on overlapping Therapy?: Yes Plan Time Spent: Greater than 30 Minutes - Patient's discharge to inpatient hospiceWith just the comfort care
[2018-01-11 12:54] VITALS: BP 153/58
== END 2018-01-11 14:43 | disposition hospice, inpatient (51) | DRG 177 ==
LOC: ER 02:09 → EH 04:23 → 5 06:42
PROVIDERS: ADMIT Family Medicine; ATTEND Family Medicine
DX: J69.0 Pneumonitis due to inhalation of food and vomit (principal); G93.40 Encephalopathy, unspecified; Z66 Do not resuscitate; I48.91 Unspecified atrial fibrillation; I50.9 Heart failure, unspecified; I11.0 Hypertensive heart disease with heart failure; I25.10 Atherosclerotic heart disease of native coronary artery without angina pectoris; E78.00 Pure hypercholesterolemia, unspecified; E11.9 Type 2 diabetes mellitus without complications; E03.9 Hypothyroidism, unspecified; J44.9 Chronic obstructive pulmonary disease, unspecified; D64.9 Anemia, unspecified; I95.9 Hypotension, unspecified; R62.7 Adult failure to thrive; F03.90 Unspecified dementia, unspecified severity, without behavioral disturbance, psychotic disturbance, mood disturbance, and anxiety; G40.909 Epilepsy, unspecified, not intractable, without status epilepticus; I69.328 Other speech and language deficits following cerebral infarction; Z93.1 Gastrostomy status; I25.2 Old myocardial infarction; Z79.82 Long term (current) use of aspirin; Z79.899 Other long term (current) drug therapy
CPT/HCPCS: 36415; 71045; 80053; 82803; 83735; 85025; 87040; 87077; 87086; 87186; 93005; 93010; 94640; 94660; 94762; 99285; J0360; J1956; J2060; J2270; J3370; J3480; J3490; J7030; J7620